=== PATIENT | female | born 1955 | race Caucasian/White ===

== ENCOUNTER → 2016-09-21 | Outpatient (CLI) | payer OTHER ==
[~2016-09-21] MED LIST: *MAMMOGRAM; /ESOM40CA PO; ADVI200C5 PO; ADVI200T PO; ALPRPOW4; AMBI10TA PO; ASPI1TAB PO; ASPI81TA45 PO; ASPI81TA85 PO; ATIV1TAB7 PO; ATOM40CA PO; BACTRIMDS PO; BENTYL10 PO; CAHNTIXC PO; CIPR500T89 PO; COLA100C PO; COLA100C2; COLACE PO; CONCERTA PO; CYMB60CA3 PO; D200CAP3 PO; DILA2TAB2 PO; DIPH2.5L PO; DOCU10CA PO; DOXE10CA2; DOXE50CA2; DOXE75CA; DURAGE TOPICAL; ESTR5TDPCH; ESTR62CR; FENT100D25; FENTANYL; FLAG500T PO; HYDR25T PO; IMMODIUM; LISI25TA PO; LYRI100C10 PO; LYRI150C PO; MACROBID PO; MAMMOGRAM; METH18TA2 PO; MILK THISTLE; MINI1CAP PO; MIRA3350 PO; MORP10SU; NEXIUM40 PO; NICO21DI4; NICO4LOZ8 MT; NICOTROLIN INHAL; OXYBUTIN PO; OXYC60TA8 PO; OXYCON20 PO; PAMELOR10 PO; PHENERG RECTALLY; PHENERGA25 PO; POTASSIUM PO; PREG100CA; PREG25CA; PRILOSEC20 PO; PROM12SU; PROTONIX40 PO; PROVERA PO; RANITIDINE PO; RITA10TA PO; RITALIN10 PO; SAVELLA; SIMV20TA2 PO; SIMV40TA2 PO; THERGRAN; TRIA1CR80 TOP; TRIAMCINOLONE; VALI2TAB PO; VITAMIN D PO; VIVELLE PO; VOLTAREN GEL; XANA1TAB2; XANA2TAB; XANA3TAB PO; XANAX PO; ZANA4CAP PO; ZOFR20TA PO; ZOLO100T PO; [UNRECOGNIZED DRUG - CODE] PO; [UNRECOGNIZED DRUG - CODE] PO; [UNRECOGNIZED DRUG - CODE] PO; [UNRECOGNIZED DRUG - CODE] RECTAL; [UNRECOGNIZED DRUG - CODE] TOPICAL; [UNRECOGNIZED DRUG - CODE] TOPICAL; [UNRECOGNIZED DRUG - CODE] TOPICAL; [UNRECOGNIZED DRUG - CODE] TOPICALLY; [UNRECOGNIZED DRUG - OTHER]; [UNRECOGNIZED DRUG - OTHER]; [UNRECOGNIZED DRUG - OTHER] -; [UNRECOGNIZED DRUG - OTHER] TOPICALLY; ditropan PO
--- NOTE | 2016-09-21 16:28 | REP ---
Low-dose lung cancer screening noncontrast chest CT study: History: At risk for lung malignancy. Comparison chest CT study is reviewed from 04/28/2007. Findings: There are old granulomatous calcific hilar lymph node residuals on the right and there is a peripheral somewhat irregularly shaped benign stable granulomatous calcification in the superior segment right lower lobe 1.5 cm in diameter unchanged from the 2007 prior study. There are granulomatous calcifications in the spleen as well also unchanged. There is linear fibrosis in both lower lobes unchanged. No other pulmonary nodule or mass lesion is seen. Impression: No active disease. Negative screening low-dose chest CT without contrast. Signed by Davis Sheth MD 09/21/2016 05:04 P
== END ==
LOC: M RAD 13:12
PROVIDERS: ATTEND Physician Assistant
DX: J84.10 Pulmonary fibrosis, unspecified (principal)

== ENCOUNTER → 2017-01-21 | Outpatient (REF) | payer OTHER ==
[~2017-01-21] MED LIST changes: -COLA100C PO; +COLA100C3 PO
[2017-01-21 17:08] LABS: BASO % 0.1 % (0.0-1.0); EOS # 0.2 K/mm3 (0.0-0.50); EOS % 2.1 % (0.0-3.0); LARGE UNSTAINED CELL # 0.1 K/mm3 (0.0-0.4); LARGE UNSTAINED CELL % 1.1 % (0.0-4.0); LYMPH # 2.3 K/mm3 (1.5-4.5); LYMPH % 23.6 % (24.0-44.0); MEAN CORPUSCULAR HEMOGLOBIN 30.7 pg (27.0-33.0); MEAN CORPUSCULAR HGB CONC 33.2 g/dl (32.0-36.5); MEAN CORPUSCULAR VOLUME 92.5 fl (80.0-96.0); MONO # 0.5 K/mm3 (0.0-0.8); MONO % 5.2 % (0.0-5.0); NEUTROPHILS # 6.6 K/mm3 (1.8-7.7); NEUTROPHILS % 67.9 % (36.0-66.0); PLATELET COUNT, AUTOMATED 251 k/mm3 (150-450); RED CELL DISTRIBUTION WIDTH 12.5 % (11.5-14.5); WHITE BLOOD COUNT 9.7 K/mm3 (4.0-10.0)
[2017-01-21 17:44] LABS: VITAMIN B12 LEVEL 235 PG/ML (247-911)
[2017-01-21 17:52] LABS: ALBUMIN 3.1 GM/DL (3.2-5.2); ALBUMIN/GLOBULIN RATIO 0.91 (1.00-1.93); ALKALINE PHOSPHATASE 100 U/L (45-117); ALT/SGPT 26 U/L (12-78); ANION GAP 8 MEQ/L (8-16); AST/SGOT 16 U/L (15-37); BILIRUBIN,TOTAL 0.2 MG/DL (0.2-1.0); BLOOD UREA NITROGEN 18 MG/DL (7-18); CALCIUM LEVEL 8.5 MG/DL (8.8-10.2); CARBON DIOXIDE LEVEL 28 MEQ/L (21-32); CHLORIDE LEVEL 106 MEQ/L (98-107); CHOLESTEROL LEVEL 174 MG/DL (<200); CREATININE FOR GFR 0.61 MG/DL (0.55-1.02); FERRITIN 101 NG/ML (8-252); FREE T4 1.06 NG/DL (0.76-1.46); GLOMERULAR FILTRATION RATE > 60.0 (>45); GLUCOSE, FASTING 93 MG/DL (80-110); MAGNESIUM LEVEL 1.6 MG/DL (1.8-2.4); POTASSIUM SERUM 3.7 MEQ/L (3.5-5.1); SODIUM LEVEL 142 MEQ/L (136-145); TOTAL PROTEIN 6.5 GM/DL (6.4-8.2); TRIGLYCERIDES LEVEL 142 MG/DL (<150)
[2017-01-22 11:57] LABS: PRETREATED FOLATE FOR RBCFOL 9.3 NG/ML
== END ==
LOC: M SFHCCAPE 07:08
PROVIDERS: ATTEND Physician Assistant
DX: R10.11 Right upper quadrant pain (principal); G25.81 Restless legs syndrome; I10 Essential (primary) hypertension; E53.8 Deficiency of other specified B group vitamins

== ENCOUNTER → 2017-01-22 | Outpatient (CLI) | payer OTHER ==
--- NOTE | 2017-01-22 09:52 | REP ---
RIGHT UPPER QUADRANT SONOGRAPHY: HISTORY: Right upper quadrant pain. Comparison CT study is from February 24, 2014. FINDINGS: Scanning through the right upper quadrant of the abdomen demonstrates a normal sized thin-walled gallbladder without evidence of stone or polyp. Common bile duct is mildly dilated and 0.9 cm. This is similar to prior sonography from January of 2008 when the common bile duct was reported as ranging from 6-10 mm in diameter at that time. The distal common bile duct cannot be seen as it is obscured by abdominal gas. The previous CT study shows a descending duodenal diverticulum directly anterior to the distal common bile duct. No focal liver lesion is seen. The liver is not felt to be enlarged. Normal caliber aorta is seen. The head of the pancreas is obscured by abdominal gas. No pancreatic abnormality is observed. No right renal abnormality is seen. The right kidney measures 10.7 x 5.3 x 5.0 cm IMPRESSION: Mildly dilated common bile duct probably unchanged from prior sonography in 2007. Distal common bile duct obscured by gas. Pancreatic head obscured by gas. Otherwise negative right upper quadrant sonography. Signed by Davis Sheth MD 01/22/2017 05:07 P
== END ==
LOC: M RAD 08:53
PROVIDERS: ATTEND Physician Assistant
DX: R10.9 Unspecified abdominal pain (principal)

== ENCOUNTER → 2017-03-04 | Outpatient (REF) | payer OTHER ==
[~2017-03-04] MED LIST changes: +ACET1TAB17 PO; +ALPR1TAB3 PO; +AMOX875T2 PO; +ASPI81TAEC PO; +ATEN25TA PO; +CIPR-249 PO; -CIPR500T89 PO; -COLA100C3 PO; +COLA100C5 PO; +CONC27TA4 PO; -DILA2TAB2 PO; +DILA2TAB6 PO; +DITR5TAB PO; +DURA100D2 TD; +DURA75DI2 TD; +EPIN0.3I6 IM; +EPIP0.3I2 INJ; +FISH1000 PO; +FISH100049 PO; +HYDR-3363 PO; +HYDR-3713 PO; +HYDR-3719 PO; -HYDR25T PO; +LISI2.5T3 PO; -LYRI100C10 PO; +METH1TAB13 PO; +MILK175C2 PO; +MIRA33504 PO; +MULT1TAB10 PO; +OMEP40CA2 PO; +ONETAB35 PO; +OXYB5TAB10 PO; +PERCOCET PO; +PRAZ1CAP PO; +PREG100CA PO; +SLOWTAB2 PO; +TRIA1CR TOP; +VITA100072 PO; +VITA20002 PO; +XANA1TAB2 PO; +ZANA4TAB PO
== END ==
LOC: M SFHCCAPE 10:42
PROVIDERS: ATTEND Physician Assistant
DX: Z01.818 Encounter for other preprocedural examination (principal); M21.611 Bunion of right foot

== ENCOUNTER → 2017-03-07 | Outpatient (REF) | payer OTHER ==
[2017-03-07 18:16] LABS: ALBUMIN 3.6 GM/DL (3.2-5.2); ALBUMIN/GLOBULIN RATIO 0.97 (1.00-1.93); ALKALINE PHOSPHATASE 55 U/L (45-117); ALT/SGPT 44 U/L (12-78); ANION GAP 7 MEQ/L (8-16); AST/SGOT 44 U/L (15-37); BILIRUBIN,TOTAL 0.7 MG/DL (0.2-1.0); BLOOD UREA NITROGEN 12 MG/DL (7-18); CALCIUM LEVEL 9.1 MG/DL (8.8-10.2); CARBON DIOXIDE LEVEL 31 MEQ/L (21-32); CHLORIDE LEVEL 103 MEQ/L (98-107); CREATININE FOR GFR 0.68 MG/DL (0.55-1.02); GLOMERULAR FILTRATION RATE > 60.0 (>45); GLUCOSE, FASTING 82 MG/DL (80-110); POTASSIUM SERUM 4.5 MEQ/L (3.5-5.1); SODIUM LEVEL 141 MEQ/L (136-145); TOTAL PROTEIN 7.3 GM/DL (6.4-8.2)
[2017-03-07 19:37] LABS: BASO % 0.6 % (0.0-1.0); EOS # 0.1 K/mm3 (0.0-0.50); EOS % 1.6 % (0.0-3.0); LARGE UNSTAINED CELL # 0.2 K/mm3 (0.0-0.4); LARGE UNSTAINED CELL % 2.4 % (0.0-4.0); LYMPH # 2.8 K/mm3 (1.5-4.5); MEAN CORPUSCULAR HEMOGLOBIN 31.3 pg (27.0-33.0); MEAN CORPUSCULAR HGB CONC 32.9 g/dl (32.0-36.5); MEAN CORPUSCULAR VOLUME 94.9 fl (80.0-96.0); MONO # 0.5 K/mm3 (0.0-0.8); NEUTROPHILS # 3.9 K/mm3 (1.8-7.7); NEUTROPHILS % 52.4 % (36.0-66.0); PLATELET COUNT, AUTOMATED 283 k/mm3 (150-450); RED CELL DISTRIBUTION WIDTH 13.1 % (11.5-14.5); WHITE BLOOD COUNT 7.5 K/mm3 (4.0-10.0)
== END ==
LOC: M SFHCCAPE 12:59 → M LABDRAWC 13:14
PROVIDERS: ATTEND Physician Assistant
DX: Z01.818 Encounter for other preprocedural examination (principal); M21.611 Bunion of right foot

== ENCOUNTER → 2017-03-07 | Outpatient (CLI) | payer OTHER ==
--- NOTE | 2017-03-07 13:27 | REP ---
Clinical: Preoperative assessment . Comparison: 11/15/2015 . Technique: PA and lateral. Findings: The mediastinum and cardiac silhouette are normal. Airway is patent and midline. The lung salas demonstrate chronic stable changes without acute consolidation, effusion, or pneumothorax. The skeletal structures are intact and normal. Impression: No acute cardiopulmonary process.
== END ==
LOC: M CLY 12:52
PROVIDERS: ATTEND Physician Assistant
DX: Z01.818 Encounter for other preprocedural examination (principal)

== ENCOUNTER → 2017-03-11 | Day surgery (SDC) | payer OTHER ==
[~2017-03-11] VITALS: Ht 170.2 cm; Wt 61.2 kg
[~2017-03-11] MED LIST changes: +BACITRACIN PWD 50,000 UNITS VIAL As Ordered ONE; +BUPIVACAINE HCL 0.5% 30 ML VIAL As Ordered ONE; +GLYCOPYRROLATE INJ 0.2 MG/ML 2 ML VIAL As Ordered ONE; +LIDOCAINE 1% MDV 20ML VIAL As Ordered ONE; +LIDOCAINE 2% INJ 100 MG/5 ML SDV (FOR ANES.) As Ordered ONE; +LR 1,000 ML IV ONE; +LR 1,000 ML IV SCH; +MIDAZOLAM INJ 2 MG/2 ML VIAL (J2250) As Ordered ONE; +NEOSPORIN GU IRRIG 20 ML VIAL As Ordered ONE; +ONDANSETRON 4MG/2ML VIAL (J2405) As Ordered ONE; +PERCOCET 5MG/325MG TAB PO PRN; +PROPOFOL 200 MG/20 ML VIAL As Ordered ONE; +dexameTHASONE 4 MG/ML 1ML VIAL (J1100) As Ordered ONE; +fentaNYL 100 MCG/2 ML INJECTION (J3010) As Ordered ONE
--- NOTE | 2017-03-11 11:39 | RO ---
DATE OF PROCEDURE: 03/11/2017 PREPROCEDURE DIAGNOSES: Bilateral plantar fasciitis and right foot bunion. POSTPROCEDURE DIAGNOSES: Bilateral plantar fasciitis and right foot bunion. PROCEDURE: Bilateral endoscopic plantar fascia release and right bunionectomy with first metatarsal osteotomy. SURGEON: Davis Weinberg DPM CURTAIN STRETCHER: None. ANESTHESIA: Monitored anesthesia care with preoperative injection of 30 mL of 1:1 mixture of 1% lidocaine plain and 1/2% Marcaine plain. ESTIMATED BLOOD LOSS: Minimal. MATERIALS: Arthrex 3.5 headless screw, a 3.5 K wire, #3-0 and #4-0 Vicryl, #4-0 Nylon. INJECTABLE: None. COMPLICATIONS: None. CONDITION: Stable. Roxanne Banda is a 62-year-old female who presented to [facility] with complaints of painful bunion and painful plantar fascitis to both heels. She has underwent numerous conservative therapies without relief. She is then sedated for surgical correction. The patient side and site were identified and marked in the preoperative holding area. Consent was reviewed and obtained. All risks, complications and alternatives to the procedure were explained to the patient in detail and all questions were answered. DESCRIPTION OF PROCEDURE: The patient was brought to the operating room and placed on the operating room table in supine position. Monitored anesthesia care was delivered by the anesthesia team. The patient received Ancef preoperatively. Preoperative injection of 30 mL of 1:1 mixture of 1% lidocaine plain and 1/2% Marcaine plain were injected to the both feet. Both feet were prepped and draped in a normal sterile fashion. Tourniquet was applied to both ankles. Tourniquet was inflated to 250 mmHg. A medial incision was made at the medial heel. Hemostat was used to create plane inferior to the plantar fascia followed by the trocar with the cannula of the trocar inserted in the medial portal and a small incision was made on the lateral heel following exit point for the cannula and trocar. The trocar was removed leaving the cannula in place. The camera was inserted and the plantar fascia was visualized. This was released with the Endotrac blade approximately two-thirds of the way across from medial to lateral leaving the one-third lateral side intact. Release was noted under direct visualization. The site was irrigated with normal saline. Cannula was removed and the incisions were repeated with #4-0 Nylon. Tourniquet was deflated on the left side. The tourniquet was inflated on the right side. Similar incision was made on the medial side of the heel. Hemostat created a plane for the trocar. The trocar was inserted and stab incision was made allowing the cannula to exit the lateral heel. The trocar was removed. The camera was inserted. Again the plantar fascia was visualized and this was released two-thirds of the way across with the Endotrac blade. Site was irrigated with saline. Cannula was removed and the incisions were repeated with #4-0 Nylon. Next a dorsal medial incision was drawn for the first metatarsal head carried through with a #15 blade. Dissection was carried until the metatarsal phalangeal joint capsule was identified. T capsulotomy was performed exposing the metatarsal head. Next, a lateral release was performed releasing the adductor tendon, lateral capsule and sesamoidal ligaments and the Glamour elevator was used to release the plantar structures. The medial eminence was resected with the sagittal saw and an osteotomy was performed in the metatarsal head transposing it laterally. This was fixated with an Arthrex 3.5 headless screw. A bone cyst was noted in the metatarsal head and neck. Additional fixation of 3.5 K wire was inserted. This was cut and bent. Improvement in the rigidity of the fixation was noted following this. The cyst was packed with cancellous and cortical bone from the eminence resection. Small wedge of capsule was removed from medial capsule. Capsular repair was performed with #3-0 Vicryl, subcutaneous closed with #4-0 Vicryl and skin closed with #4-0 Nylon. 1 mL of Decadron was injected to each site. Sterile dressings were applied. Tourniquet was deflated. The patient was brought to post anesthesia care unit (PACU) with vital signs stable and neurovascular status intact. She will be partial weightbearing to her right foot. She will followup in the office in two days.
[2017-03-11 11:40] VITALS: BP 168/74
== END | disposition home or self-care (01) ==
LOC: M SDC 08:21 → EEVIPCON 09:00
PROVIDERS: ATTEND Podiatrist Foot & Ankle Surgery
DX: M72.2 Plantar fascial fibromatosis (principal); M21.611 Bunion of right foot; K21.9 Gastro-esophageal reflux disease without esophagitis; F43.10 Post-traumatic stress disorder, unspecified; F41.9 Anxiety disorder, unspecified; M79.7 Fibromyalgia; Z87.891 Personal history of nicotine dependence; Z79.82 Long term (current) use of aspirin; Z79.899 Other long term (current) drug therapy; Z88.0 Allergy status to penicillin; Z88.2 Allergy status to sulfonamides; Z88.5 Allergy status to narcotic agent; Z88.8 Allergy status to other drugs, medicaments and biological substances
CPT/HCPCS: 28296; 29893; 88300; 97116; C1776

== ENCOUNTER 2017-07-01 16:22 | Inpatient (IN) | payer OTHER ==
[~2017-07-01] VITALS: Ht 172.7 cm; Wt 57.4 kg
[~2017-07-01 16:22] MED LIST changes: -ACET1TAB17 PO; -AMOX875T2 PO; -ASPI81TAEC PO; -ATEN25TA PO; -BACITRACIN PWD 50,000 UNITS VIAL As Ordered ONE; -BUPIVACAINE HCL 0.5% 30 ML VIAL As Ordered ONE; -CONC27TA4 PO; -DURA75DI2 TD; -EPIN0.3I6 IM; -EPIP0.3I2 INJ; -FISH1000 PO; -FISH100049 PO; -GLYCOPYRROLATE INJ 0.2 MG/ML 2 ML VIAL As Ordered ONE; -LIDOCAINE 1% MDV 20ML VIAL As Ordered ONE; -LIDOCAINE 2% INJ 100 MG/5 ML SDV (FOR ANES.) As Ordered ONE; -LR 1,000 ML IV ONE; -LR 1,000 ML IV SCH; -METH1TAB13 PO; -MIDAZOLAM INJ 2 MG/2 ML VIAL (J2250) As Ordered ONE; -MILK175C2 PO; -MIRA33504 PO; -NEOSPORIN GU IRRIG 20 ML VIAL As Ordered ONE; -ONDANSETRON 4MG/2ML VIAL (J2405) As Ordered ONE; -ONETAB35 PO; -OXYB5TAB10 PO; -PERCOCET 5MG/325MG TAB PO PRN; -PERCOCET PO; -PROPOFOL 200 MG/20 ML VIAL As Ordered ONE; -SLOWTAB2 PO; -TRIA1CR TOP; -VITA100072 PO; -VITA20002 PO; -ZANA4TAB PO; -dexameTHASONE 4 MG/ML 1ML VIAL (J1100) As Ordered ONE; -fentaNYL 100 MCG/2 ML INJECTION (J3010) As Ordered ONE
[2017-07-01] MEDS ORDERED: NS 1,000 ML IV ONE (17:45)
[2017-07-01] MEDS ORDERED: PERCOCET 5MG/325MG TAB PO ONE (17:45)
[2017-07-01] MEDS ORDERED: ONDANSETRON 4MG/2ML VIAL (J2405) IV ONE (18:15)
--- NOTE | 2017-07-01 18:20 | REPUSA ---
Clinical history: Right upper quadrant pain. Findings: The pancreas is limited in visualization secondary to overlying bowel gas, but appears janell sly unremarkable. The liver demonstrates uniform echotexture and echogenicity, with no mass lesions. The gallbladder does not demonstrate any gallstones. There is a small amount of gallbladder sludge. H owever, there is a positive Aguilera's sign. The common bile duct measures 11 mm. There is no ascites. The right kidney measures 11.5 cm in length and is unremarkable. Impression: 1. Gallbladder sludge, without any gallstones. Aguilera's sign was elicited. 2. Dilated common bile duct. If there is further clinical concern, MRCP could be performed.
[2017-07-01] MEDS ORDERED: VITA20002 PO (18:39)
[2017-07-01] MEDS ORDERED: FISH1000 PO (18:39)
[2017-07-01] MEDS ORDERED: ONETAB35 PO (18:39)
[2017-07-01] MEDS ORDERED: ATEN25TA PO (18:39)
[2017-07-01] MEDS ORDERED: SLOWTAB2 PO ×2 (18:39→20:42)
[2017-07-01] MEDS ORDERED: MILK175C2 PO ×2 (18:39→20:42)
[2017-07-01] MEDS ORDERED: EPIN0.3I6 IM (18:39)
[2017-07-01] MEDS ORDERED: COLA100C5 PO ×2 (18:39→20:42)
[2017-07-01] MEDS ORDERED: METH1TAB13 PO (18:39)
[2017-07-01 19:02] LABS: MEAN CORPUSCULAR HEMOGLOBIN 29.9 pg (27.0-33.0); MEAN CORPUSCULAR HGB CONC 33.1 g/dl (32.0-36.5); MEAN CORPUSCULAR VOLUME 90.3 fl (80.0-96.0); PLATELET COUNT, AUTOMATED 207 10^3/uL (150-450); RED CELL DISTRIBUTION WIDTH 12.7 % (11.5-14.5); WHITE BLOOD COUNT 15.6 10^3/uL (4.0-10.0)
[2017-07-01 19:14] LABS: ADD MANUAL DIFFER YES; DIFF SLIDE NUMBER 272; LEFT SHIFT POS FLAG; POSITIVE MORPH POS FLAG
[2017-07-01 19:27] LABS: INR 1.06
[2017-07-01 19:33] LABS: ALBUMIN 2.9 GM/DL (3.2-5.2); ALBUMIN/GLOBULIN RATIO 0.78 (1.00-1.93); ALKALINE PHOSPHATASE 57 U/L (45-117); ALT/SGPT 27 U/L (12-78); AMYLASE 40 U/L (25-115); ANION GAP 7 MEQ/L (8-16); AST/SGOT 29 U/L (7-37); BILIRUBIN,DIRECT 0.5 MG/DL (0.0-0.2); BLOOD UREA NITROGEN 25 MG/DL (7-18); CALCIUM LEVEL 9.2 MG/DL (8.8-10.2); CARBON DIOXIDE LEVEL 31 MEQ/L (21-32); CHLORIDE LEVEL 103 MEQ/L (98-107); CREATININE FOR GFR 0.55 MG/DL (0.55-1.02); GLOMERULAR FILTRATION RATE > 60.0 (>45); GLUCOSE, FASTING 133 MG/DL (80-110); POTASSIUM SERUM 3.8 MEQ/L (3.5-5.1); SODIUM LEVEL 141 MEQ/L (136-145); TOTAL PROTEIN 6.6 GM/DL (6.4-8.2)
[2017-07-01 19:41] LABS: BANDS 1 % (< 11)
[2017-07-01] MEDS ORDERED: HYDROmorphone HCL 1 MG/ML SYRINGE (J1170) IV PRN (20:00)
[2017-07-01] MEDS ORDERED: METOCLOPRAMIDE INJ 10MG/2ML VIAL (J2765) IV ONE (20:00)
[2017-07-01] MEDS ORDERED: PIPERACILLIN/TAZOBACTAM SOD 3.375 GM in D5W 50 ML IV ONE (20:15)
[2017-07-01] MEDS ORDERED: ISOVUE-370 76% 100ML VIAL (Q9967) As Ordered ONE (20:26)
[2017-07-01] MEDS ORDERED: DURA75DI2 TD (20:42)
[2017-07-01] MEDS ORDERED: TRIA1CR TOP (20:42)
[2017-07-01] MEDS ORDERED: OXYB5TAB10 PO (20:42)
[2017-07-01] MEDS ORDERED: CONC27TA4 PO (20:42)
[2017-07-01] MEDS ORDERED: ZANA4TAB PO (20:42)
[2017-07-01] MEDS ORDERED: EPIP0.3I2 INJ (20:42)
[2017-07-01] MEDS ORDERED: ACET1TAB17 PO (20:42)
[2017-07-01] MEDS ORDERED: LISI2.5T3 PO (20:42)
[2017-07-01] MEDS ORDERED: MIRA33504 PO (20:42)
[2017-07-01] MEDS ORDERED: ALPR1TAB3 PO (20:42)
[2017-07-01] MEDS ORDERED: OMEP40CA2 PO (20:42)
[2017-07-01] MEDS ORDERED: SIMV20TA2 PO (20:42)
[2017-07-01] MEDS ORDERED: FISH100049 PO (20:42)
[2017-07-01] MEDS ORDERED: VITA100072 PO (20:42)
[2017-07-01] MEDS: NS 1,000 ML IV SCH (20:52)
[2017-07-01] MEDS ORDERED: ONDANSETRON 4MG/2ML VIAL (J2405) IV PRN (21:00)
[2017-07-01] MEDS ORDERED: TRIAMCINOLONE ACET 0.1% CREAM 15 GM TOP PRN (21:00)
[2017-07-01] MEDS ORDERED: fentaNYL 75 MCG/HR PATCH TD PRN (21:00)
[2017-07-01] MEDS ORDERED: DOCUSATE SODIUM 100 MG CAP PO PRN (21:00)
[2017-07-01] MEDS ORDERED: PROMETHAZINE INJ 25 MG/ML VIAL (J2550) IV PRN (21:00)
[2017-07-01] MEDS ORDERED: METOCLOPRAMIDE INJ 10MG/2ML VIAL (J2765) IV PRN (21:00)
[2017-07-01] MEDS ORDERED: PIPERACILLIN/TAZOBACTAM SOD 3.375 GM in D5W 50 ML IV SCH (21:00)
[2017-07-01] MEDS ORDERED: FENTANYL REMOVAL DOCUMENTATION MISC XX SCH (21:00)
--- NOTE | 2017-07-01 21:27 | HPE ---
DATE OF ADMISSION: 07/01/2017 PRINCIPAL DIAGNOSIS: Abdominal pain with nausea and vomiting times 5 days and elevated white count. HISTORY OF PRESENT ILLNESS: The patient came to the emergency room with a 5-day history of abdominal pain, nausea, vomiting, mostly in the epigastric area and was evaluated in the emergency room, had an abdominal ultrasound which showed some gallbladder sludge, no evidence of pericholecystic fluid, however she did have a slightly dilated common bile duct and did have some mild tenderness in the right upper quadrant with palpation. She has a history of hepatitis however, her liver function tests are not significantly elevated. Her past medical history, she has not had any acholic stools. No bilirubinuria. No GI distress except nausea, vomiting. No diarrhea or constipation issues more than typical. Past medical history is significant for history of cardiac catheterization, history of tonsillectomy, history of section, history of headaches, history of congestive heart failure, history of hypertension, history of hysterectomy, history of hepatitis C, history of fibromyalgia, history of anxiety, depression, history of posttraumatic stress disorder. Medications include: - EpiPen - triamcinolone acetonide - simvastatin - milk thistle - fish oil - MiraLax - Tylenol - Prilosec - Colace - oxybutynin chloride - lisinopril - magnesium chloride - vitamin B12 - Concerta - fentanyl - alprazolam - tizanidine hydrochloride Physical examination reveals a thin 62-year-old female who looks much older than stated age. HEENT is unremarkable. Neck supple without adenopathy. Lungs are clear to auscultation without crackles, wheezes or rhonchi. Heart is regular without murmur. Abdomen is soft, mildly tender in the epigastric area with some guarding without rebound. No peritoneal signs are appreciated. She has some mild tenderness in the left subcostal as well as the right subcostal area. IMPRESSION AND PLAN: Patient has some abdominal pain of undetermined etiology with an elevated white count. Her ultrasound was positive for a Aguilera sign but there is no pericholecystic fluid and no inflammatory changes within the gallbladder itself which is suspicious for ongoing pain going on for at least 5 days, suggesting that typically with abdominal pain of this severity that she should have some inflammatory changes but none was appreciated on the gallbladder ultrasound, suggesting that there may be some other etiology for this, i.e., probably gastritis or duodenitis as an etiology. In any case, we will empirically treat her for cholecystitis at this time and treat her aggressively for some possible gastritis as another etiology. Given her complicated medical history in the past and my concern of significant pain medication use, the pain may be out of proportion to physical findings or she may have some underlying issue associated with her chronic hepatitis C that would be better evaluated by a CT scan. Will obtain a CT scan tonight, place her on IV fluids, IV antibiotics, and will reevaluate her on an ongoing basis.
[2017-07-01] MEDS: PERCOCET 5MG/325MG TAB PO PRN (21:52)
[2017-07-01 22:30] VITALS: BP 126/58
--- NOTE | 2017-07-01 22:30 | REPUSA ---
CT of the abdomen and pelvis with contrast Clinical statement: Pain. Technique: Multiple axial CT images were obtained from the base of the lungs through the floor of the pelvis utilizing 5 mm axial slices after administration of nonionic intravenous contrast. Coronal an d sagittal reconstructions were also obtained. No comparison is available. Findings: Chest: The visualized lung bases demonstrate bilateral lower lobe infiltrates. The esophagus is dilat ed with fluid. Abdomen: The liver, spleen, pancreas, kidneys, and adrenal glands are unremarkable. The gallbladder i s distended, but no gallstones are identified. The common bile duct is dilated measuring up to 13 mm. The aorta is within normal limits. There is no evidence of abdominal lymphadenopathy or ascites. Pelvis: The bowel is unremarkable, with no obstructive or inflammatory changes. The appendix is kip l. The urinary bladder is within normal limits. The other pelvic structures appear grossly intact. Th ere is no evidence of pelvic lymphadenopathy or ascites. Bones: There are no suspicious osseous abnormalities seen. There is mild degenerative disc disease at L5/S1. Impression: 1. Bilateral lower lobe infiltrates consistent with pneumonia. 2. Fluid within a dilated distal esophagus, suspicious for achalasia. 3. Distended gallbladder. Extrahepatic biliary ductal dilatation. No gallstones identified. If there is further clinical concern, ultrasound could be performed. 4. No obstructive or inflammatory bowel changes. 5. Mild degenerative disc disease at L5/S1.
[2017-07-02] VITALS (7 sets, daily range): BP systolic 94–147; BP diastolic 51–76
[2017-07-02] MEDS: ALPRAZolam 0.25 MG TAB PO SCH ×3 (00:38→20:23)
[2017-07-02] MEDS: SIMVASTATIN 20 MG TAB PO SCH ×2 (00:38→20:24)
[2017-07-02] MEDS: PANTOPRAZOLE 40MG INJ (PROTONIX) (C9113) IV SCH ×3 (00:39→20:23)
[2017-07-02] MEDS: PIPERACILLIN/TAZOBACTAM SOD 3.375 GM in D5W 50 ML IV SCH ×4 (02:59→20:23)
[2017-07-02] MEDS: NS 1,000 ML IV SCH ×3 (05:18→20:52)
[2017-07-02] MEDS ORDERED: SUCRALFATE 1 GM TAB PO SCH (06:00)
[2017-07-02 06:34] LABS: MEAN CORPUSCULAR HEMOGLOBIN 29.7 pg (27.0-33.0); MEAN CORPUSCULAR HGB CONC 32.3 g/dl (32.0-36.5); MEAN CORPUSCULAR VOLUME 91.9 fl (80.0-96.0); PLATELET COUNT, AUTOMATED 178 10^3/uL (150-450); RED CELL DISTRIBUTION WIDTH 12.7 % (11.5-14.5); WHITE BLOOD COUNT 11.2 10^3/uL (4.0-10.0)
[2017-07-02 06:52] LABS: ALBUMIN 2.4 GM/DL (3.2-5.2); ALBUMIN/GLOBULIN RATIO 0.57 (1.00-1.93); ALKALINE PHOSPHATASE 50 U/L (45-117); ALT/SGPT 22 U/L (12-78); ANION GAP 3 MEQ/L (8-16); AST/SGOT 23 U/L (7-37); BILIRUBIN,TOTAL 0.9 MG/DL (0.2-1.0); BLOOD UREA NITROGEN 22 MG/DL (7-18); CARBON DIOXIDE LEVEL 34 MEQ/L (21-32); CHLORIDE LEVEL 104 MEQ/L (98-107); CREATININE FOR GFR 0.59 MG/DL (0.55-1.02); GLOMERULAR FILTRATION RATE > 60.0 (>45); GLUCOSE, FASTING 90 MG/DL (80-110); POTASSIUM SERUM 3.4 MEQ/L (3.5-5.1); SODIUM LEVEL 141 MEQ/L (136-145); TOTAL PROTEIN 6.6 GM/DL (6.4-8.2)
[2017-07-02] MEDS: oxyBUTYnin 5 MG TAB PO SCH (08:34)
[2017-07-02] MEDS: LISINOPRIL *2.5 MG* TAB PO SCH (08:34)
[2017-07-02] MEDS: SUCRALFATE 1 GM TAB PO SCH ×4 (08:34→20:23)
[2017-07-02] MEDS: PERCOCET 5MG/325MG TAB PO PRN ×3 (08:35→22:03)
--- NOTE | 2017-07-02 18:02 | REP ---
MRCP: MRCP exam is accomplished utilizing multiple heavily T2-weighted sequences in the axial and coronal planes. The gallbladder is moderated dilated with no definite gallbladder wall edema and no definite filling defect. There is mild intrahepatic biliary dilatation. There is dilatation of the common hepatic and common bile duct. Maximum diameter of the common bile duct is 11 mm. There is relatively sharper zone of transition at the distal end of the common bile duct with no visible intraluminal filling defect. However, I cannot exclude an underlying abnormality at the ampulla of Vater. I cannot exclude a stone or stricture at that location. Correlating with the CT scan, there is a fairly large duodenal diverticulum just anterior to the distal end of the common bile duct and I wonder if there may be some degree of compression of the common bile duct by this duodenal diverticulum. The pancreatic duct is not dilated. The liver, spleen, adrenals, pancreas, and kidney otherwise appear essentially unremarkable. I see no adenopathy. There is a small hiatal hernia. I do not see significant ascites although there does appear to be trace free fluid around the liver. IMPRESSION: Mild central intrahepatic biliary dilatation. Dilation of the common bile duct up to 11 mm. There is relatively abrupt transition of caliber at the distal end of the common bile duct and an underlying stone or stricture at the ampulla of Vater cannot totally be excluded. Correlating with CT scan of 07/01/2017, I wonder if there could be some compression of the distal end of the common bile duct by a large duodenal diverticulum just anterior to it. There is a definite increase in the degree of dilatation compared to the prior CT of 02/24/2014. Signed by Jorge Ovalle MD 07/04/2017 02:33 P
[2017-07-03] VITALS (7 sets, daily range): BP systolic 96–130; BP diastolic 50–70
[2017-07-03] MEDS: PIPERACILLIN/TAZOBACTAM SOD 3.375 GM in D5W 50 ML IV SCH ×4 (02:05→21:06)
[2017-07-03] MEDS: PERCOCET 5MG/325MG TAB PO PRN ×4 (03:04→21:40)
[2017-07-03 05:54] LABS: MEAN CORPUSCULAR HEMOGLOBIN 29.9 pg (27.0-33.0); MEAN CORPUSCULAR HGB CONC 31.9 g/dl (32.0-36.5); MEAN CORPUSCULAR VOLUME 93.4 fl (80.0-96.0); PLATELET COUNT, AUTOMATED 173 10^3/uL (150-450); RED CELL DISTRIBUTION WIDTH 12.6 % (11.5-14.5); WHITE BLOOD COUNT 7.2 10^3/uL (4.0-10.0)
[2017-07-03 06:20] LABS: ALBUMIN 1.9 GM/DL (3.2-5.2); ALBUMIN/GLOBULIN RATIO 0.53 (1.00-1.93); ALKALINE PHOSPHATASE 41 U/L (45-117); ALT/SGPT 18 U/L (12-78); ANION GAP 3 MEQ/L (8-16); AST/SGOT 19 U/L (7-37); BILIRUBIN,TOTAL 0.6 MG/DL (0.2-1.0); BLOOD UREA NITROGEN 13 MG/DL (7-18); CALCIUM LEVEL 8.2 MG/DL (8.8-10.2); CARBON DIOXIDE LEVEL 32 MEQ/L (21-32); CHLORIDE LEVEL 106 MEQ/L (98-107); CREATININE FOR GFR 0.49 MG/DL (0.55-1.02); GLOMERULAR FILTRATION RATE > 60.0 (>45); GLUCOSE, FASTING 76 MG/DL (80-110); POTASSIUM SERUM 3.3 MEQ/L (3.5-5.1); SODIUM LEVEL 141 MEQ/L (136-145); TOTAL PROTEIN 5.5 GM/DL (6.4-8.2)
[2017-07-03] MEDS: ALPRAZolam 0.25 MG TAB PO SCH ×2 (08:37→21:05)
[2017-07-03] MEDS: SUCRALFATE 1 GM TAB PO SCH ×4 (08:37→21:05)
[2017-07-03] MEDS: oxyBUTYnin 5 MG TAB PO SCH (08:37)
[2017-07-03] MEDS: PANTOPRAZOLE 40MG INJ (PROTONIX) (C9113) IV SCH ×2 (08:37→21:05)
[2017-07-03] MEDS: LISINOPRIL *2.5 MG* TAB PO SCH (08:41)
[2017-07-03] MEDS ORDERED: INFLUENZA QUADRIVALENT PF VACCINE 0.5ML SYRINGE (90686) IM ONE (09:00)
[2017-07-03] MEDS: POTASSIUM CHLORIDE 10 MEQ SR TABLET PO SCH (09:38)
[2017-07-03] MEDS: NS 1,000 ML IV SCH ×3 (10:00→21:06)
--- NOTE | 2017-07-03 11:06 | IPNPDOC ---
Subjective General Date/Time Seen The patient was seen on 07/03/17 at 10:59. Subject Chief Complaint/History The patient is a 62-year-old female admitted with a reason for visit of Abdominal Pain. Current Medications Current Medications Current Medications Alprazolam (Xanax) 1 mg BID PO Last administered on 07/03/17 08:37; Start at 21:00; Stop 07/08/17 at 20:59 Docusate Sodium (Colace) 100 mg DAILY PRN PO CONSTIPATION; Start 07/01/17 at 21:00; Stop 07/31/17 at 20:59 Fentanyl (Duragesic) 75 mcg Q3DP PRN TD PAIN OR FEVER; Start 07/01/17 at 21:00 ; Stop 07/02/17 at 10:22; Status DC Home Med (Med Rec Complete!) ASDIRECTED XX ; Start 07/01/17 at 20:45; Stop at 20:47; Status DC Hydromorphone HCl (Dilaudid) 0.5 mg Q30M PRN IV MODERATE PAIN (PS 5-7) Last administered on 07/01/17 22:11; Start 07/01/17 at 20:00; Stop 07/01/17 at 22 :42; Status DC Lisinopril (Prinivil) 2.5 mg DAILY PO Last administered on 07/03/17 08:41; Start 07/02/17 at 09:00; Stop 08/01/17 at 08:59 Metoclopramide HCl (REGLAN INJection) 10 mg Q6HP PRN IV NAUSEA OR VOMITING Last administered on 07/02/17 01:09; Start 07/01/17 at 21:00; Stop 07/31/17 at 20:59 Non-Formulary Medication ( See Comment Field Below ) SEE COMMENTS SECTION ASDIRECTED XX ; Start 07/01/17 at 21:00; Stop 07/02/17 at 10:22; Status DC Ondansetron HCl (ZOFRAN INJection) 4 mg Q6HP PRN IV NAUSEA OR VOMITING Last administered on 07/02/17 06:21; Start 07/01/17 at 21:00; Stop 07/31/17 at 20 :59 Oxybutynin Chloride (Ditropan) 5 mg DAILY PO Last administered on 07/03/17 08: 37; Start 07/02/17 at 09:00; Stop 08/01/17 at 08:59 Oxycodone/ Acetaminophen (Percocet 5mg/ 325mg Tablet) 1 tab Q4HP PRN PO MODERATE PAIN (PS 5-7) Last administered on 07/02/17 22:03; Start 07/01/17 at 21:00; Stop 07/08/17 at 20:59 Oxycodone/ Acetaminophen (Percocet 5mg/ 325mg Tablet) 2 tab Q6HP PRN PO SEVERE PAIN (PS 8-10) Last administered on 07/03/17 08:39; Start 07/01/17 at 21:00; Stop 07/08/17 at 20:59 Pantoprazole Sodium (Protonix) 40 mg BID IV Last administered on 07/03/17 08: 37; Start 07/01/17 at 21:00; Stop 07/31/17 at 20:59 Piperacillin Sod/ Tazobactam Sod 3.375 gm/Dextrose 50 ml @ 50 mls/hr Q6H IV ; Start 07/01/17 at 21:00; Stop 07/01/17 at 21:03; Status DC Piperacillin Sod/ Tazobactam Sod 3.375 gm/Dextrose 50 ml @ 50 mls/hr Q6H IV Last administered on 07/03/17 08:37; Start 07/02/17 at 03:00; Stop 07/09/17 at 02:59 Potassium Chloride (Micro-K Extencaps) 10 meq DAILY PO Last administered on 09:38; Start 07/03/17 at 09:00; Stop 08/02/17 at 08:59 Promethazine HCl (PHENERGAN INJection) 12.5 mg Q6HP PRN IV NAUSEA Last administered on 07/01/17 22:11; Start 07/01/17 at 21:00; Stop 07/31/17 at 20 :59 Simvastatin (Zocor) 20 mg QHS PO Last administered on 07/02/17 20:24; Start 07/01/17 at 21:00; Stop 07/31/17 at 20:59 Sodium Chloride 1,000 ml @ 125 mls/hr Q8H IV Last administered on 11/1/17at 10 :00; Start 07/01/17 at 20:52; Stop 07/31/17 at 20:51 Sucralfate (Carafate) 1 gm ACHS PO ; Start 07/02/17 at 06:00; Stop 07/02/17 at 06:00; Status DC Sucralfate (Carafate) 1 gm ACHS PO Last administered on 07/03/17t 08:37; Start 07/02/17 at 07:30; Stop 08/01/17 at 07:29 Triamcinolone Acetonide (Kenalog 0.1% Cream) APPLY TO AREAS OF ECZEMA BIDP PRN TOP ECZEMA; Start 07/01/17 at 21:00; Stop 07/31/17 at 20:59 Zolpidem Tartrate (Ambien) 10 mg QHSP PRN PO INSOMNIA; Start 07/01/17 at 21:00 ; Stop 07/08/17 at 20:59 Allergies Coded Allergies: Prazosin (Verified Allergy, Intermediate, rash, 03/11/17) Morphine (Verified Allergy, Mild, skin rash, 12/16/14) Unclassified Drugs (Verified Adverse Reaction, Severe, ANTIDEPRESSANTS - SUICIDAL, 07/03/14) Naproxen (Verified Adverse Reaction, Intermediate, ABDOMINAL PAIN,BLEEDING , 12/07/12) Azithromycin (Verified Adverse Reaction, Mild, vertigo, 03/11/17) Doxycycline (Verified Adverse Reaction, Mild, diarrhea, 03/11/17) Sulfa Drugs (Verified Adverse Reaction, Mild, N/V, STOMACH PAIN, 12/07/12) Sulfacetamide (Verified Adverse Reaction, Mild, DIARRHEA, 12/16/14) Sulfur (Verified Adverse Reaction, Mild, DIARRHEA, 12/16/14) Objective Physical Examination Examination GENERAL APPEARANCE:[Patient seen, laying in bed, awake, alert, and oriented. Comfortable, in no acute distress]. SKIN: [Warm and moist]. HEENT: [Normocephalic, atraumatic. [place] palpebral conjunctiva, anicteric sclerae. Lips and mucosa appear moist]. NECK: [Supple, no thyromegaly. No obvious jugular venous distention]. LUNGS: [Clear to auscultation bilaterally. No wheezing appreciated]. HEART: [No chest wall abnormalities. Regular rate and rhythm with no murmurs appreciated]. ABDOMEN: Abdomen is , soft, . [No hepatosplenomegaly. No umbilical or groin herniations, nondistended. No noticeable rebound or guarding. No grimacing with palpation. No rebound tenderness. No masses appreciated]. EXTREMITIES: [Extremities have no deformities. No edema identified]. Vital Signs Vital Signs Date Time Temp Pulse Resp B/P (MAP) Pulse Ox O2 Delivery O2 Flow Rate FiO2 07/03/17 10:00 98.4 60 18 112/62 (79) 96 Room Air 07/02/17 10:11 2.0 I&Os I&O- Last 24 Hours up to 6 AM 07/04/17 06:00 Intake Total 0 ml Output Total 0 ml Balance 0 ml Laboratory Data Labs 24H Laboratory Tests 2 07/03/17 05:32: Nucleated Red Blood Cells % (auto) 0.0, Anion Gap 3L, Glomerular Filtration Rate > 60.0, Blood Urea Nitrogen 13, Creatinine 0.49L, Sodium Level 141, Potassium Level 3.3L, Chloride Level 106, Carbon Dioxide Level 32, Calcium Level 8.2L, Aspartate Amino Transf (AST/SGOT) 19, Alanine Aminotransferase (ALT/ SGPT) 18, Alkaline Phosphatase 41L, Total Bilirubin 0.6, Total Protein 5.5L, Albumin 1.9#L, Albumin/Globulin Ratio 0.53L CBC/BMP Laboratory Tests 07/03/17 05:32 Red Blood Count 3.35 L, Mean Corpuscular Volume 93.4, Mean Corpuscular Hemoglobin 29.9, Mean Corpuscular Hemoglobin Concent 31.9 L, Red Cell Distribution Width 12.6, Calcium Level 8.2 L, Aspartate Amino Transf (AST/SGOT) 19, Alanine Aminotransferase (ALT/SGPT) 18, Alkaline Phosphatase 41 L, Total Bilirubin 0.6, Total Protein 5.5 L, Albumin 1.9 #L Microbiology Microbiology 07/01/17 Blood Culture - Preliminary, Resulted No growth after 24 hours . All specim... 07/01/17 Blood Culture - Preliminary, Resulted No growth after 24 hours . All specim... Impression abdominal pain/right upper quadrant pain maybe biliary colic, (no signs of inflammation on MRI) secondary to sludge She also has some mild biliary dilation on MRCP with no obviious stones. Would speak to GI for possible ERCP She can go back to her diet today JESS CARLIN MD Jul 03, 2017 11:05
[2017-07-03] MEDS ORDERED: ALPRAZolam 0.5 MG TAB PO ONE (15:45)
--- NOTE | 2017-07-03 17:30 | ECGEPIP ---
Stationary ECG Study [facility] Test Date: 2017-07-03 Pat Name: CHINO NGUYEN Department: Room: [place] [address] Gender: F Dam Tender: HALIE : 1955 Requested By: JESS Long Order Number: [id number] Reading MD: Nik Garcia Measurements Intervals [place] Rate: 68 P: 51 TX: 148 QRS: 24 QRSD: 100 T: -16 QT: 476 QTc: 510 Interpretive Statements SINUS RHYTHM Prolonged QTc MARKED T-WAVE ABNORMALITY, CONSIDER ANTERIOR ISCHEMIA MODERATE T-WAVE ABNORMALITY, CONSIDER INFERIOR ISCHEMIA QTc/T Wave changes are new since tracing done 11-15-2015 Electronically Signed On 07-03-2017 17:30:34 EDT by Nik Garcia
[2017-07-03] MEDS: SIMVASTATIN 20 MG TAB PO SCH (21:05)
[2017-07-03] MEDS: zolPIDEM TARTRATE 5 MG TAB PO PRN (22:10)
[2017-07-04] VITALS (8 sets, daily range): BP systolic 108–134; BP diastolic 58–84
[2017-07-04] MEDS: PIPERACILLIN/TAZOBACTAM SOD 3.375 GM in D5W 50 ML IV SCH ×3 (02:54→14:29)
[2017-07-04] MEDS: PERCOCET 5MG/325MG TAB PO PRN ×4 (03:40→23:53)
[2017-07-04] MEDS: NS 1,000 ML IV SCH ×3 (05:12→20:22)
[2017-07-04 05:58] LABS: MEAN CORPUSCULAR HEMOGLOBIN 29.3 pg (27.0-33.0); MEAN CORPUSCULAR HGB CONC 32.5 g/dl (32.0-36.5); MEAN CORPUSCULAR VOLUME 90.2 fl (80.0-96.0); PLATELET COUNT, AUTOMATED 181 10^3/uL (150-450); RED CELL DISTRIBUTION WIDTH 12.6 % (11.5-14.5); WHITE BLOOD COUNT 6.6 10^3/uL (4.0-10.0)
[2017-07-04 06:23] LABS: ALBUMIN 1.7 GM/DL (3.2-5.2); ALBUMIN/GLOBULIN RATIO 0.52 (1.00-1.93); ALKALINE PHOSPHATASE 44 U/L (45-117); ALT/SGPT 17 U/L (12-78); ANION GAP 6 MEQ/L (8-16); AST/SGOT 15 U/L (7-37); BILIRUBIN,TOTAL 0.3 MG/DL (0.2-1.0); BLOOD UREA NITROGEN 7 MG/DL (7-18); CALCIUM LEVEL 7.4 MG/DL (8.8-10.2); CARBON DIOXIDE LEVEL 27 MEQ/L (21-32); CHLORIDE LEVEL 109 MEQ/L (98-107); CREATININE FOR GFR 0.45 MG/DL (0.55-1.02); GLOMERULAR FILTRATION RATE > 60.0 (>45); GLUCOSE, FASTING 104 MG/DL (80-110); POTASSIUM SERUM 3.1 MEQ/L (3.5-5.1); SODIUM LEVEL 142 MEQ/L (136-145)
[2017-07-04] MEDS: PANTOPRAZOLE 40MG INJ (PROTONIX) (C9113) IV SCH ×2 (08:28→20:21)
[2017-07-04] MEDS: ALPRAZolam 0.25 MG TAB PO SCH ×2 (08:28→20:21)
[2017-07-04] MEDS: LISINOPRIL *2.5 MG* TAB PO SCH (08:29)
[2017-07-04] MEDS: SUCRALFATE 1 GM TAB PO SCH ×4 (08:32→20:21)
[2017-07-04] MEDS: ASPIRIN 81 MG ENTERIC TAB PO SCH (08:32)
[2017-07-04] MEDS: POTASSIUM CHLORIDE 10 MEQ SR TABLET PO SCH (08:32)
[2017-07-04] MEDS: oxyBUTYnin 5 MG TAB PO SCH (08:32)
[2017-07-04] MEDS ORDERED: POTASSIUM CHLORIDE 10 MEQ SR TABLET PO ONE (11:00)
[2017-07-04] MEDS ORDERED: ALPRAZolam 0.5 MG TAB PO PRN (14:00)
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
--- NOTE | 2017-07-04 15:12 | IPN ---
DATE: 07/02/2017 CHIEF COMPLAINT: Nausea and vomiting. Overall, the patient's nausea and vomiting improved substantially overnight. She states that things have been much better. Her white count dropped from 15.6 down to 11.2 and my concern on admission was that it was less likely that she had true cholecystitis, given that her abdominal pain was in the epigastric area and all across her upper abdomen and more likely to be some gastritis given her severe nausea and vomiting that she was having. Unfortunately with the given ductal dilatation, another possibility of possible ductal obstruction distally was entertained. However, with abnormal liver function tests, I am not convinced that it is high on our differential but in the very important possibility and thus, I discussed with the patient proceeding with an magnetic resonance cholangiopancreatography (MRCP). She understands the next evaluation with the MRCP and our plan for that. On her physical examination, abdomen is less tender in the epigastric area but still mildly tender to palpation. No significant guarding or rebound is appreciated. On her lung examination, she definitely is decreased at the bases and there is a question of a pneumonia on the CT scan that eventually came back last night and there is a question of some esophageal dilatation as well. IMPRESSION AND PLAN: 1. The patient has an infectious process given her elevated white count. I am not convinced it is cholecystitis but it is reasonable to treat her with antibiotics. We will continue with antibiotics now. It could be that she has an ongoing pneumonia as the other possibility and I am unsure at this time what the etiology of her infectious process it, but without a significant elevated temperature, I do feel we are making progress on this avenue. 2. Gastrointestinal (GI). She is not tolerating GI adequately at this point but I do feel that she probably has some element of gastritis. I am unsure if this inflammatory process that she has is distal esophagitis that is causing some partial obstructive symptoms instead of true achalasia. Other options of course include malignancy, etcetera, but with the acute onset of this, it seems as though it would be less likely to be an acute achalasia and more likely to be an inflammatory process. Thus, we will keep her on her Carafate as well as proton pump inhibitors and we will see what the magnetic resonance cholangiopancreatography (MRCP) shows us before proceeding with an additional evaluation/GI evaluation should that be necessary. 3. Abnormal dilated common bile duct. We are getting a MRCP today. Depending on the results of this, if there is significant dilatation as appreciated on the CT scan and the ultrasound, she may warrant an endoscopic retrograde cholangiopancreatography (ERCP) and a GI evaluation may be reasonable from this standpoint as well as an upper endoscopy unless she continues to have ongoing improvement, as she has over the last 12 hours since admission. We will see how she is doing during the day today and overnight, and depending on the MRCP, our next step will be defined.
[2017-07-04] MEDS: AUGMENTIN 875 MG TAB PO SCH (20:21)
[2017-07-04] MEDS: SIMVASTATIN 20 MG TAB PO SCH (20:21)
--- NOTE | 2017-07-04 21:06 | ECGEPIP ---
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
--- NOTE | 2017-07-04 22:39 | IPNPDOC ---
Subjective General Date/Time Seen The patient was seen on 07/04/17 at 12:27. Subject Chief Complaint/History The patient is a 62-year-old female admitted with a reason for visit of Abdominal Pain. Patient reports she is hungry. Abdominal pain is better. She is complaining of some right-sided chest pain radiating to her right shoulder. Reports this is similar chest pain she had before which is being treated with seen next with improvement. She complained of chest pain yesterday and an EKG done at that time shows some T-wave inversion which was new. She is being evaluated by the medical service regarding this. Current Medications Current Medications Current Medications Alprazolam (Xanax) 1 mg BID PO Last administered on 07/04/17 20:21; Start at 21:00; Stop 07/08/17 at 20:59 Alprazolam (Xanax) 1 mg Q6HP PRN PO anxiety Last administered on 07/04/17 14: 30; Start 07/04/17 at 14:00; Stop 07/11/17 at 13:59 Amoxicillin/ Clavulanate Potassium (Augmentin) 875 mg BID PO Last administered on 07/04/17 20:21; Start 07/04/17 at 21:00; Stop 07/11/17 at 20:59 Aspirin (Ecotrin) 81 mg DAILY PO Last administered on 07/04/17 08:32; Start 07/04/17 at 09:00; Stop 08/03/17 at 08:59 Docusate Sodium (Colace) 100 mg DAILY PRN PO CONSTIPATION; Start 07/01/17 at 21:00; Stop 07/31/17 at 20:59 Fentanyl (Duragesic) 75 mcg Q3DP PRN TD PAIN OR FEVER; Start 07/01/17 at 21:00 ; Stop 07/02/17 at 10:22; Status DC Home Med (Med Rec Complete!) ASDIRECTED XX ; Start 07/01/17 at 20:45; Stop at 20:47; Status DC Hydromorphone HCl (Dilaudid) 0.5 mg Q30M PRN IV MODERATE PAIN (PS 5-7) Last administered on 07/01/17 22:11; Start 07/01/17 at 20:00; Stop 07/01/17 at 22 :42; Status DC Lisinopril (Prinivil) 2.5 mg DAILY PO Last administered on 07/04/17 08:29; Start 07/02/17 at 09:00; Stop 08/01/17 at 08:59 Metoclopramide HCl (REGLAN INJection) 10 mg Q6HP PRN IV NAUSEA OR VOMITING Last administered on 07/02/17 01:09; Start 07/01/17 at 21:00; Stop 07/31/17 at 20:59 Non-Formulary Medication ( See Comment Field Below ) SEE COMMENTS SECTION ASDIRECTED XX ; Start 07/01/17 at 21:00; Stop 07/02/17 at 10:22; Status DC Ondansetron HCl (ZOFRAN INJection) 4 mg Q6HP PRN IV NAUSEA OR VOMITING Last administered on 07/02/17 06:21; Start 07/01/17 at 21:00; Stop 07/31/17 at 20 :59 Oxybutynin Chloride (Ditropan) 5 mg DAILY PO Last administered on 07/04/17 08: 32; Start 07/02/17 at 09:00; Stop 08/01/17 at 08:59 Oxycodone/ Acetaminophen (Percocet 5mg/ 325mg Tablet) 1 tab Q4HP PRN PO MODERATE PAIN (PS 5-7) Last administered on 07/04/17 17:12; Start 07/01/17 at 21:00; Stop 07/08/17 at 20:59 Oxycodone/ Acetaminophen (Percocet 5mg/ 325mg Tablet) 2 tab Q6HP PRN PO SEVERE PAIN (PS 8-10) Last administered on 07/04/17 11:04; Start 07/01/17 at 21:00; Stop 07/08/17 at 20:59 Pantoprazole Sodium (Protonix) 40 mg BID IV Last administered on 07/04/17 20: 21; Start 07/01/17 at 21:00; Stop 07/31/17 at 20:59 Piperacillin Sod/ Tazobactam Sod 3.375 gm/Dextrose 50 ml @ 50 mls/hr Q6H IV ; Start 07/01/17 at 21:00; Stop 07/01/17 at 21:03; Status DC Piperacillin Sod/ Tazobactam Sod 3.375 gm/Dextrose 50 ml @ 50 mls/hr Q6H IV Last administered on 07/04/17 14:29; Start 07/02/17 at 03:00; Stop 07/04/17 at 14:57; Status DC Potassium Chloride (Micro-K Extencaps) 10 meq DAILY PO Last administered on 08:32; Start 07/03/17 at 09:00; Stop 08/02/17 at 08:59 Promethazine HCl (PHENERGAN INJection) 12.5 mg Q6HP PRN IV NAUSEA Last administered on 07/01/17 22:11; Start 07/01/17 at 21:00; Stop 07/31/17 at 20 :59 Simvastatin (Zocor) 20 mg QHS PO Last administered on 07/04/17 20:21; Start 07/01/17 at 21:00; Stop 07/31/17 at 20:59 Sodium Chloride 1,000 ml @ 125 mls/hr Q8H IV Last administered on 07/04/17 20 :22; Start 07/01/17 at 20:52; Stop 07/31/17 at 20:51 Sucralfate (Carafate) 1 gm ACHS PO ; Start 07/02/17 at 06:00; Stop 07/02/17 at 06:00; Status DC Sucralfate (Carafate) 1 gm ACHS PO Last administered on 07/04/17 20:21; Start 07/02/17 at 07:30; Stop 08/01/17 at 07:29 Triamcinolone Acetonide (Kenalog 0.1% Cream) APPLY TO AREAS OF ECZEMA BIDP PRN TOP ECZEMA; Start 07/01/17 at 21:00; Stop 07/31/17 at 20:59 Zolpidem Tartrate (Ambien) 10 mg QHSP PRN PO INSOMNIA Last administered on 07/03 22:10; Start 07/01/17 at 21:00; Stop 07/08/17 at 20:59 Allergies Coded Allergies: Prazosin (Verified Allergy, Intermediate, rash, 03/11/17) Morphine (Verified Allergy, Mild, skin rash, 12/16/14) Unclassified Drugs (Verified Adverse Reaction, Severe, ANTIDEPRESSANTS - SUICIDAL, 07/03/14) Naproxen (Verified Adverse Reaction, Intermediate, ABDOMINAL PAIN,BLEEDING , 12/07/12) Azithromycin (Verified Adverse Reaction, Mild, vertigo, 03/11/17) Doxycycline (Verified Adverse Reaction, Mild, diarrhea, 03/11/17) Sulfa Drugs (Verified Adverse Reaction, Mild, N/V, STOMACH PAIN, 12/07/12) Sulfacetamide (Verified Adverse Reaction, Mild, DIARRHEA, 12/16/14) Sulfur (Verified Adverse Reaction, Mild, DIARRHEA, 12/16/14) Objective Physical Examination Examination GENERAL APPEARANCE: Appears comfortable. SKIN: [Warm and moist]. HEENT: [Normocephalic, atraumatic. [place] palpebral conjunctiva, anicteric sclerae. Lips and mucosa appear moist]. NECK: [Supple, no thyromegaly. No obvious jugular venous distention]. LUNGS: [Clear to auscultation bilaterally. No wheezing appreciated]. HEART: [No chest wall abnormalities. Regular rate and rhythm with no murmurs appreciated]. ABDOMEN: Abdomen is flat, soft, and nondistended. Minimal tenderness over the epigastric area. EXTREMITIES: [Extremities have no deformities. No edema identified]. Vital Signs Vital Signs Date Time Temp Pulse Resp B/P (MAP) Pulse Ox O2 Delivery O2 Flow Rate FiO2 07/04/17 22:00 97.3 72 19 132/67 (88) 97 Room Air 07/02/17 10:11 2.0 I&Os I&O- Last 24 Hours up to 6 AM 07/05/17 06:00 Intake Total 2250 ml Output Total 1650 ml Balance 600 ml Laboratory Data Labs 24H Laboratory Tests 2 07/04/17 01:00: Total Creatine Kinase 22L, Creatine Kinase MB 1.0, Creatine Kinase MB Relative Index 4.54H, Troponin I 0.19H 07/04/17 05:41: Troponin I 0.15#H, Nucleated Red Blood Cells % (auto) 0.0, Anion Gap 6L, Glomerular Filtration Rate > 60.0, Blood Urea Nitrogen 7, Creatinine 0.45L, Sodium Level 142, Potassium Level 3.1L, Chloride Level 109H, Carbon Dioxide Level 27, Calcium Level 7.4L, Aspartate Amino Transf (AST/SGOT) 15, Alanine Aminotransferase (ALT/SGPT) 17, Alkaline Phosphatase 44L, Total Bilirubin 0.3, Total Protein 5.0L, Albumin 1.7L, Albumin/Globulin Ratio 0.52L CBC/BMP Laboratory Tests 07/04/17 05:41 Red Blood Count 3.38 L, Mean Corpuscular Volume 90.2, Mean Corpuscular Hemoglobin 29.3, Mean Corpuscular Hemoglobin Concent 32.5, Red Cell Distribution Width 12.6, Calcium Level 7.4 L, Aspartate Amino Transf (AST/SGOT) 15, Alanine Aminotransferase (ALT/SGPT) 17, Alkaline Phosphatase 44 L, Total Bilirubin 0.3, Total Protein 5.0 L, Albumin 1.7 L Microbiology Microbiology 07/01/17 Blood Culture - Preliminary, Resulted No Growth after 72 hours. All specime... 07/01/17 Blood Culture - Preliminary, Resulted No Growth after 72 hours. All specime... Impression Abdominal pain may be related to biliary colic type pain versus biliary ductal ectasia though her LFTs are normal. I initially considered bring her to the operating room to do a laparoscopic cholecystectomy and cholangiogram. Given this episodes of chest pain with new EKG findings being worked up a think we could wait to decide on this especially since her abdominal pain is improving. So we will await workup by the medical service regarding her chest pain. Since her pain has improved I will restart her on her diet. Plan / VTE VTE Prophylaxis Ordered?: Yes JESS CARLIN MD Jul 04, 2017 22:39
[2017-07-04] MEDS: zolPIDEM TARTRATE 5 MG TAB PO PRN (23:53)
[2017-07-05 02:00] VITALS: BP 127/59
[2017-07-05 06:00] VITALS: BP 145/77
[2017-07-05 06:17] LABS: MEAN CORPUSCULAR HEMOGLOBIN 29.1 pg (27.0-33.0); MEAN CORPUSCULAR HGB CONC 32.6 g/dl (32.0-36.5); MEAN CORPUSCULAR VOLUME 89.4 fl (80.0-96.0); PLATELET COUNT, AUTOMATED 215 10^3/uL (150-450); RED CELL DISTRIBUTION WIDTH 12.7 % (11.5-14.5); WHITE BLOOD COUNT 6.7 10^3/uL (4.0-10.0)
[2017-07-05 06:35] LABS: ALBUMIN 1.7 GM/DL (3.2-5.2); ALBUMIN/GLOBULIN RATIO 0.53 (1.00-1.93); ALKALINE PHOSPHATASE 61 U/L (45-117); ALT/SGPT 15 U/L (12-78); ANION GAP 6 MEQ/L (8-16); AST/SGOT 14 U/L (7-37); BILIRUBIN,TOTAL 0.2 MG/DL (0.2-1.0); BLOOD UREA NITROGEN 5 MG/DL (7-18); CALCIUM LEVEL 7.4 MG/DL (8.8-10.2); CARBON DIOXIDE LEVEL 27 MEQ/L (21-32); CHLORIDE LEVEL 112 MEQ/L (98-107); CREATININE FOR GFR 0.39 MG/DL (0.55-1.02); GLOMERULAR FILTRATION RATE > 60.0 (>45); GLUCOSE, FASTING 101 MG/DL (80-110); POTASSIUM SERUM 3.3 MEQ/L (3.5-5.1); SODIUM LEVEL 145 MEQ/L (136-145); TOTAL PROTEIN 4.9 GM/DL (6.4-8.2)
[2017-07-05] MEDS ORDERED: POTASSIUM CHLORIDE 10 MEQ SR TABLET PO ONE (07:00)
[2017-07-05 07:47] LABS: MAGNESIUM LEVEL 1.3 MG/DL (1.8-2.4)
[2017-07-05] MEDS: ALPRAZolam 0.25 MG TAB PO SCH (08:26)
[2017-07-05] MEDS: ASPIRIN 81 MG ENTERIC TAB PO SCH (08:27)
[2017-07-05] MEDS: PERCOCET 5MG/325MG TAB PO PRN ×2 (08:27→14:59)
[2017-07-05] MEDS: SUCRALFATE 1 GM TAB PO SCH ×3 (08:27→17:29)
[2017-07-05] MEDS: PANTOPRAZOLE 40MG INJ (PROTONIX) (C9113) IV SCH (08:28)
[2017-07-05] MEDS: oxyBUTYnin 5 MG TAB PO SCH (08:28)
[2017-07-05] MEDS: AUGMENTIN 875 MG TAB PO SCH (08:28)
[2017-07-05 08:29] VITALS: BP 145/77
[2017-07-05] MEDS: POTASSIUM CHLORIDE 10 MEQ SR TABLET PO SCH (08:29)
[2017-07-05] MEDS: LISINOPRIL *2.5 MG* TAB PO SCH (08:29)
[2017-07-05 10:00] VITALS: BP 179/83
[2017-07-05 14:00] VITALS: BP_SYST 136; BP_SYST 168; BP_DIAS 62; BP_DIAS 94
[2017-07-05] MEDS: MAG SULF 1GM/100ML (MAG RUN) 1 GM in APPROPRIATE DILUENT 1 EA IV SCH ×3 (14:56→17:29)
[2017-07-05] MEDS ORDERED: ASPI81TAEC PO (15:48)
[2017-07-05] MEDS ORDERED: PERCOCET PO (15:48)
[2017-07-05] MEDS ORDERED: AMOX875T2 PO (15:48)
--- NOTE | 2017-07-13 14:45 | DSES ---
DATE OF ADMISSION: 07/01/2017 DATE OF DISCHARGE: 07/05/2017 PRINCIPAL DIAGNOSES: Abdominal pain, nausea, vomiting. ASSOCIATED DIAGNOSES: History of hepatitis C, history of cardiac catheterization, history of congestive heart failure, hypertension, hysterectomy, fibromyalgia, anxiety, depression, posttraumatic stress disorder. BRIEF HISTORY OF PRESENT ILLNESS: The patient is a 62-year-old female who presented to the emergency room after a 5-day history of abdominal pain, nausea, vomiting. Most her abdominal pain was in the epigastric area. She did have a workup in the emergency room. It revealed some gallbladder sludge but no evidence of acute cholecystitis. She did have a dilated common bile duct and had some mild tenderness in the right upper quadrant, as well as the epigastric area, on admission. HOSPITAL COURSE SUMMARY: The patient was admitted with abdominal pain of undetermined etiology, was treated with antibiotics, intravenous (IV) fluids, and she did have an elevated white count of 15,000 on admission, but this returned to normal over the next couple days. The white count of 15,000 was significantly elevated without evidence of acute inflammatory changes around the gallbladder itself. I felt that it was less likely cholecystitis. She did have normal liver function tests, and the patient was started on some clear liquids and eventually advanced to regular diet and was discharged home on a regular diet with the diagnosis of abdominal pain of undetermined etiology, possible gastritis. She had some biliary colic-type pain over the last few days on admission but was not consistent with the elevated white count; and at this point, the question is whether she has a symptomatic gallbladder disease, as well as abnormal liver function tests. Thus, she was discharged home eventually on a regular diet with plans on further outpatient evaluation/workup. MEDICATIONS AT THE TIME OF DISCHARGE: Include her usual medications, which include Tylenol, alprazolam, vitamin D, Colace, EpiPen, Duragesic patch, fish oil, lisinopril, magnesium chloride, Concerta omeprazole, oxybutynin, MiraLAX, milk thistle, simvastatin, Zanaflex, triamcinolone acetonide for eczema, as well as Augmentin, aspirin, and Percocet. She was to followup in my office in 2 weeks and followup with her primary care over the next week.
== END 2017-07-05 19:30 | disposition home or self-care (01) | DRG 241 ==
LOC: M ED 16:22 → M ED INP 20:52 → M PED 22:25 → M MSPAV 07-02 00:21
PROVIDERS: ADMIT Surgery; ATTEND Surgery
DX: K29.70 Gastritis, unspecified, without bleeding (principal); I50.9 Heart failure, unspecified; I11.9 Hypertensive heart disease without heart failure; R10.11 Right upper quadrant pain; B18.2 Chronic viral hepatitis C; M79.7 Fibromyalgia; F41.9 Anxiety disorder, unspecified; F32.9 Major depressive disorder, single episode, unspecified; F43.10 Post-traumatic stress disorder, unspecified; Z79.899 Other long term (current) drug therapy; Z95.2 Presence of prosthetic heart valve; Z88.8 Allergy status to other drugs, medicaments and biological substances; Z88.5 Allergy status to narcotic agent; Z88.2 Allergy status to sulfonamides; I51.81 Takotsubo syndrome; F17.200 Nicotine dependence, unspecified, uncomplicated; E78.5 Hyperlipidemia, unspecified

== ENCOUNTER → 2017-07-17 | Outpatient (REF) | payer OTHER ==
[~2017-07-17] MED LIST changes: +ACET1TAB17 PO; +AMOX875T2 PO; +ASPI81TAEC PO; +ATEN25TA PO; +CONC27TA4 PO; +DURA75DI2 TD; +EPIN0.3I6 IM; +EPIP0.3I2 INJ; +FISH1000 PO; +FISH100049 PO; +METH1TAB13 PO; +MILK175C2 PO; +MIRA33504 PO; +ONETAB35 PO; +OXYB5TAB10 PO; +PERCOCET PO; +SLOWTAB2 PO; +TRIA1CR TOP; +VITA100072 PO; +VITA20002 PO; +ZANA4TAB PO
[2017-07-17 17:45] LABS: ALBUMIN 3.1 GM/DL (3.2-5.2); ALBUMIN/GLOBULIN RATIO 0.74 (1.00-1.93); ALKALINE PHOSPHATASE 67 U/L (45-117); ALT/SGPT 23 U/L (12-78); ANION GAP 10 MEQ/L (8-16); AST/SGOT 30 U/L (7-37); BILIRUBIN,TOTAL 0.2 MG/DL (0.2-1.0); BLOOD UREA NITROGEN 13 MG/DL (7-18); CALCIUM LEVEL 9.2 MG/DL (8.8-10.2); CARBON DIOXIDE LEVEL 27 MEQ/L (21-32); CHLORIDE LEVEL 104 MEQ/L (98-107); CREATININE FOR GFR 0.65 MG/DL (0.55-1.02); GLOMERULAR FILTRATION RATE > 60.0 (>45); GLUCOSE, FASTING 102 MG/DL (80-110); MAGNESIUM LEVEL 1.7 MG/DL (1.8-2.4); POTASSIUM SERUM 4.2 MEQ/L (3.5-5.1); SODIUM LEVEL 141 MEQ/L (136-145); TOTAL PROTEIN 7.3 GM/DL (6.4-8.2)
[2017-07-17 18:22] LABS: BASO % 0.5 % (0.0-1.0); EOS # 0.2 10^3/uL (0.0-0.50); EOS % 2.6 % (0.0-3.0); IMMATURE GRANULOCYTE % 0.3 % (0-0); LYMPH # 2.6 10^3/uL (1.5-4.5); LYMPH % 35.8 % (24.0-44.0); MEAN CORPUSCULAR HEMOGLOBIN 28.7 pg (27.0-33.0); MEAN CORPUSCULAR HGB CONC 32.1 g/dl (32.0-36.5); MEAN CORPUSCULAR VOLUME 89.3 fl (80.0-96.0); MONO # 0.7 10^3/uL (0.0-0.8); MONO % 9.5 % (0.0-5.0); NEUTROPHILS # 3.7 10^3/uL (1.8-7.7); NEUTROPHILS % 51.3 % (36.0-66.0); PLATELET COUNT, AUTOMATED 460 10^3/uL (150-450); RED CELL DISTRIBUTION WIDTH 13.2 % (11.5-14.5); WHITE BLOOD COUNT 7.3 10^3/uL (4.0-10.0)
== END ==
LOC: M SFHCCAPE 10:57
PROVIDERS: ATTEND Physician Assistant
DX: E83.42 Hypomagnesemia (principal)

== ENCOUNTER → 2017-09-03 | Outpatient (REF) | payer OTHER ==
[2017-09-04 20:20] LABS: ALBUMIN 4.1 GM/DL (3.2-5.2); ALBUMIN/GLOBULIN RATIO 1.03 (1.00-1.93); ALKALINE PHOSPHATASE 94 U/L (45-117); ALT/SGPT 52 U/L (12-78); ANION GAP 10 MEQ/L (8-16); AST/SGOT 44 U/L (7-37); BILIRUBIN,TOTAL 0.3 MG/DL (0.2-1.0); BLOOD UREA NITROGEN 21 MG/DL (7-18); CALCIUM LEVEL 9.2 MG/DL (8.8-10.2); CARBON DIOXIDE LEVEL 28 MEQ/L (21-32); CHLORIDE LEVEL 102 MEQ/L (98-107); CREATININE FOR GFR 0.65 MG/DL (0.55-1.02); FREE T4 0.97 NG/DL (0.76-1.46); GLOMERULAR FILTRATION RATE > 60.0 (>45); GLUCOSE, FASTING 83 MG/DL (80-110); MAGNESIUM LEVEL 1.8 MG/DL (1.8-2.4); POTASSIUM SERUM 3.7 MEQ/L (3.5-5.1); SODIUM LEVEL 140 MEQ/L (136-145); TOTAL PROTEIN 8.1 GM/DL (6.4-8.2)
[2017-09-06 12:08] LABS: HIV 1&2 SCREEN CENTAUR NEGATIVE (NEGATIVE)
== END ==
LOC: M SFHCCAPE 15:38
DX: R19.5 Other fecal abnormalities (principal); R35.0 Frequency of micturition; Z11.4 Encounter for screening for human immunodeficiency virus [HIV]

== ENCOUNTER → 2017-09-09 | Outpatient (REF) | payer OTHER | LOC: M SFHCCAPE 16:04 | DX: S41.102D Unspecified open wound of left upper arm, subsequent encounter (principal); W18.30XA Fall on same level, unspecified, initial encounter; Y92.009 Unspecified place in unspecified non-institutional (private) residence as the place of occurrence of the external cause ==

== ENCOUNTER → 2017-09-10 | Outpatient (REF) | payer OTHER ==
[2017-09-10 19:59] LABS: BASO % 0.6 % (0.0-1.0); EOS # 0.1 10^3/uL (0.0-0.50); EOS % 2.1 % (0.0-3.0); HEMATOCRIT 35.2 % (36.0-47.0); HEMOGLOBIN 11.4 g/dl (12.0-16.0); IMMATURE GRANULOCYTE % 0.5 % (0-0); LYMPH # 1.3 10^3/uL (1.5-4.5); LYMPH % 21.1 % (24.0-44.0); MEAN CORPUSCULAR HEMOGLOBIN 28.6 pg (27.0-33.0); MEAN CORPUSCULAR HGB CONC 32.4 g/dl (32.0-36.5); MEAN CORPUSCULAR VOLUME 88.4 fl (80.0-96.0); MONO # 0.6 10^3/uL (0.0-0.8); MONO % 9.5 % (0.0-5.0); NEUTROPHILS # 4.2 10^3/uL (1.8-7.7); NEUTROPHILS % 66.2 % (36.0-66.0); PLATELET COUNT, AUTOMATED 261 10^3/uL (150-450); RED BLOOD COUNT 3.98 10^6/uL (4.00-5.40); RED CELL DISTRIBUTION WIDTH 13.2 % (11.5-14.5); WHITE BLOOD COUNT 6.3 10^3/uL (4.0-10.0)
== END ==
LOC: M SFHCCAPE 09:03
DX: S41.102D Unspecified open wound of left upper arm, subsequent encounter (principal); X58.XXXD Exposure to other specified factors, subsequent encounter; Y92.9 Unspecified place or not applicable; R19.5 Other fecal abnormalities
CPT/HCPCS: 87070

== ENCOUNTER → 2017-09-19 | Outpatient (REF) | payer OTHER | LOC: M SFHCCAPE 16:12 | DX: R35.0 Frequency of micturition (principal) ==

== ENCOUNTER → 2017-10-24 | Outpatient (REF) | payer OTHER | LOC: M SFHCCAPE 15:23 | DX: N39.0 Urinary tract infection, site not specified (principal); R10.10 Upper abdominal pain, unspecified; R53.81 Other malaise ==

== ENCOUNTER → 2017-10-25 | Outpatient (REF) | payer OTHER ==
[2017-10-25 12:49] LABS: APPEARANCE, URINE CLOUDY (CLEAR); BACTERIA, URINE AUTO 1+ (NEGATIVE); BILIRUBIN, URINE AUTO NEGATIVE (NEGATIVE); BLOOD, URINE BLOOD 1+ (NEGATIVE); CALCIUM OXALATE CRYSTALS LARGE; COLOR, URINE YELLOW (YELLOW); GLUCOSE, URINE (UA) AUTO NEGATIVE (NEGATIVE); KETONE, URINE AUTO NEGATIVE (NEGATIVE); LEUKOCYTE ESTERASE, URINE AUTO 2+ (NEGATIVE); MUCUS, URINE SMALL (NEGATIVE); NITRITE, URINE AUTO POSITIVE (NEGATIVE); PROTEIN, URINE AUTO 2+ mg/dL (NEGATIVE); RBC, URINE AUTO 7 /HPF (0-3); SPECIFIC GRAVITY URINE AUTO 1.013 (1.002-1.035); SQUAMOUS EPITHELIAL CELL UR AU 11 /HPF (0-6); UROBILINOGEN, URINE AUTO 0.2 mg/dL (0.0-2.0); WBC, URINE AUTO 59 /HPF (0-3)
== END ==
LOC: M SFHCCAPE 11:52
DX: N39.0 Urinary tract infection, site not specified (principal)

== ENCOUNTER → 2017-11-04 | Outpatient (REF) | payer OTHER ==
[2017-11-05 17:26] LABS: APPEARANCE, URINE HAZY (CLEAR); BACTERIA, URINE AUTO NEGATIVE (NEGATIVE); BILIRUBIN, URINE AUTO NEGATIVE (NEGATIVE); BLOOD, URINE BLOOD NEGATIVE (NEGATIVE); CALCIUM OXALATE CRYSTALS LARGE; COLOR, URINE YELLOW (YELLOW); GLUCOSE, URINE (UA) AUTO NEGATIVE (NEGATIVE); KETONE, URINE AUTO NEGATIVE (NEGATIVE); LEUKOCYTE ESTERASE, URINE AUTO NEGATIVE (NEGATIVE); NITRITE, URINE AUTO NEGATIVE (NEGATIVE); PROTEIN, URINE AUTO NEGATIVE (NEGATIVE); RBC, URINE AUTO 1 /HPF (0-3); SPECIFIC GRAVITY URINE AUTO 1.013 (1.002-1.035); SQUAMOUS EPITHELIAL CELL UR AU 4 /HPF (0-6); UROBILINOGEN, URINE AUTO 0.2 mg/dL (0.0-2.0); WBC, URINE AUTO 3 /HPF (0-3)
== END ==
LOC: M SFHCCAPE 15:19
DX: N39.0 Urinary tract infection, site not specified (principal)
CPT/HCPCS: 81001

== ENCOUNTER → 2017-11-22 | Outpatient (CLI) | payer OTHER | LOC: M CLY 11:17 | DX: M17.11 Unilateral primary osteoarthritis, right knee (principal) | CPT/HCPCS: 73502 ==

== ENCOUNTER → 2017-11-22 | Outpatient (REF) | payer OTHER | LOC: M SFHCCLAY 10:52 | DX: N39.0 Urinary tract infection, site not specified (principal) ==

== ENCOUNTER → 2017-12-19 | Outpatient (REF) | payer OTHER ==
[2017-12-19 16:26] LABS: BASO % 0.5 % (0.0-1.0); EOS # 0.3 10^3/uL (0.0-0.50); EOS % 4.5 % (0.0-3.0); HEMATOCRIT 34.2 % (36.0-47.0); HEMOGLOBIN 11.2 g/dl (12.0-15.5); IMMATURE GRANULOCYTE % 0.2 % (0-3.0); LYMPH # 2.4 10^3/uL (1.5-4.5); LYMPH % 42.1 % (24.0-44.0); MEAN CORPUSCULAR HEMOGLOBIN 28.9 pg (27.0-33.0); MEAN CORPUSCULAR HGB CONC 32.7 g/dl (32.0-36.5); MEAN CORPUSCULAR VOLUME 88.1 fl (80.0-96.0); MONO # 0.6 10^3/uL (0.0-0.8); MONO % 9.9 % (0.0-5.0); NEUTROPHILS # 2.5 10^3/uL (1.8-7.7); NEUTROPHILS % 42.8 % (36.0-66.0); PLATELET COUNT, AUTOMATED 195 10^3/uL (150-450); RED BLOOD COUNT 3.88 10^6/uL (4.00-5.40); RED CELL DISTRIBUTION WIDTH 13.4 % (11.5-14.5); WHITE BLOOD COUNT 5.8 10^3/uL (4.0-10.0)
[2017-12-19 16:41] LABS: APPEARANCE, URINE CLOUDY (CLEAR); BACTERIA, URINE AUTO 1+ (NEGATIVE); BILIRUBIN, URINE AUTO NEGATIVE (NEGATIVE); BLOOD, URINE BLOOD NEGATIVE (NEGATIVE); CALCIUM OXALATE CRYSTALS LARGE; COLOR, URINE AMBER (YELLOW); GLUCOSE, URINE (UA) AUTO NEGATIVE (NEGATIVE); KETONE, URINE AUTO NEGATIVE (NEGATIVE); LEUKOCYTE ESTERASE, URINE AUTO 2+ (NEGATIVE); MUCUS, URINE SMALL (NEGATIVE); NITRITE, URINE AUTO POSITIVE (NEGATIVE); PROTEIN, URINE AUTO NEGATIVE (NEGATIVE); RBC, URINE AUTO 1 /HPF (0-3); SPECIFIC GRAVITY URINE AUTO 1.026 (1.002-1.035); SQUAMOUS EPITHELIAL CELL UR AU 6 /HPF (0-6); UROBILINOGEN, URINE AUTO 0.2 mg/dL (0.0-2.0); WBC, URINE AUTO 11 /HPF (0-3)
[2017-12-19 17:35] LABS: ALBUMIN 3.7 GM/DL (3.2-5.2); ALBUMIN/GLOBULIN RATIO 1.09 (1.00-1.93); ALKALINE PHOSPHATASE 106 U/L (45-117); ALT/SGPT 41 U/L (12-78); ANION GAP 4 MEQ/L (8-16); AST/SGOT 37 U/L (7-37); BILIRUBIN,DIRECT 0.1 MG/DL (0.0-0.2); BILIRUBIN,TOTAL 0.3 MG/DL (0.2-1.0); BLOOD UREA NITROGEN 19 MG/DL (7-18); CALCIUM LEVEL 8.7 MG/DL (8.8-10.2); CARBON DIOXIDE LEVEL 30 MEQ/L (21-32); CHLORIDE LEVEL 107 MEQ/L (98-107); CREATININE FOR GFR 0.78 MG/DL (0.55-1.30); GLOMERULAR FILTRATION RATE > 60.0 (>45); GLUCOSE, FASTING 88 MG/DL (70-100); LIPASE 120 U/L (73-393); POTASSIUM SERUM 4.5 MEQ/L (3.5-5.1); SODIUM LEVEL 141 MEQ/L (136-145); TOTAL PROTEIN 7.1 GM/DL (6.4-8.2)
== END ==
LOC: M SFHCCAPE 07:48
DX: R19.7 Diarrhea, unspecified (principal); R53.81 Other malaise; T14.8XXA Other injury of unspecified body region, initial encounter; W18.30XA Fall on same level, unspecified, initial encounter; Y92.009 Unspecified place in unspecified non-institutional (private) residence as the place of occurrence of the external cause

== ENCOUNTER → 2018-01-23 | Outpatient (REF) | payer OTHER ==
[2018-01-23 14:09] LABS: BASO % 0.5 % (0.0-1.0); EOS # 0.1 10^3/uL (0.0-0.50); EOS % 2.1 % (0.0-3.0); HEMATOCRIT 37.7 % (36.0-47.0); HEMOGLOBIN 12.4 g/dl (12.0-15.5); IMMATURE GRANULOCYTE % 0.2 % (0-3.0); LYMPH # 2.5 10^3/uL (1.5-4.5); LYMPH % 43.4 % (24.0-44.0); MEAN CORPUSCULAR HEMOGLOBIN 28.9 pg (27.0-33.0); MEAN CORPUSCULAR HGB CONC 32.9 g/dl (32.0-36.5); MEAN CORPUSCULAR VOLUME 87.9 fl (80.0-96.0); MONO # 0.5 10^3/uL (0.0-0.8); MONO % 7.7 % (0.0-5.0); NEUTROPHILS # 2.7 10^3/uL (1.8-7.7); NEUTROPHILS % 46.1 % (36.0-66.0); PLATELET COUNT, AUTOMATED 196 10^3/uL (150-450); RED BLOOD COUNT 4.29 10^6/uL (4.00-5.40); WHITE BLOOD COUNT 5.9 10^3/uL (4.0-10.0)
[2018-01-23 14:59] LABS: ALBUMIN 4.4 GM/DL (3.2-5.2); ALBUMIN/GLOBULIN RATIO 1.33 (1.00-1.93); ALKALINE PHOSPHATASE 58 U/L (45-117); ALT/SGPT 37 U/L (12-78); ANION GAP 4 MEQ/L (8-16); AST/SGOT 28 U/L (7-37); BILIRUBIN,TOTAL 0.6 MG/DL (0.2-1.0); BLOOD UREA NITROGEN 11 MG/DL (7-18); CALCIUM LEVEL 9.2 MG/DL (8.8-10.2); CARBON DIOXIDE LEVEL 33 MEQ/L (21-32); CHLORIDE LEVEL 104 MEQ/L (98-107); CREATININE FOR GFR 0.88 MG/DL (0.55-1.30); GLOMERULAR FILTRATION RATE > 60.0 (>45); GLUCOSE, FASTING 93 MG/DL (70-100); POTASSIUM SERUM 4.2 MEQ/L (3.5-5.1); SODIUM LEVEL 141 MEQ/L (136-145); TOTAL PROTEIN 7.7 GM/DL (6.4-8.2)
[2018-01-24 10:12] LABS: ALPHA FETOPROTEIN TUMOR QUANT 3.1 NG/ML (<8.1)
[2018-01-29 00:07] LABS: ALPHA 2-MACROGLOBULIN 415 mg/dL (110-276); ALT 32 IU/L (0-40); APOLIPOPROTEIN A-1 147 mg/dL (116-209); FIBROSIS SCORE 0.67 (0.00-0.21); GGT 31 IU/L (0-60); HAPTOGLOBIN 93 mg/dL (34-200); HEPATITIS C QUANTITATION 263590 IU/mL (.); HEPATITIS C VIRUS GENOTYPE 1a (.); NECROINFLAM SCORE 0.25 (0.00-0.17); NECROINFLAMM GRADE A0-A1 (.); TOTAL BILIRUBIN 0.7 mg/dL (0.0-1.2)
== END ==
LOC: M SFHCPLAZ 11:00
DX: B18.2 Chronic viral hepatitis C (principal); N39.0 Urinary tract infection, site not specified

== ENCOUNTER → 2018-01-29 | Outpatient (REF) | payer OTHER ==
[2018-01-30 11:10] LABS: AMORPHOUS SEDIMENT MODERATE (NEGATIVE); APPEARANCE, URINE CLOUDY (CLEAR); BACTERIA, URINE AUTO 1+ (NEGATIVE); BILIRUBIN, URINE AUTO NEGATIVE (NEGATIVE); BLOOD, URINE BLOOD 2+ (NEGATIVE); COLOR, URINE YELLOW (YELLOW); GLUCOSE, URINE (UA) AUTO NEGATIVE (NEGATIVE); KETONE, URINE AUTO NEGATIVE (NEGATIVE); LEUKOCYTE ESTERASE, URINE AUTO 2+ (NEGATIVE); MUCUS, URINE SMALL (NEGATIVE); NITRITE, URINE AUTO NEGATIVE (NEGATIVE); PROTEIN, URINE AUTO NEGATIVE (NEGATIVE); RBC, URINE AUTO 11 /HPF (0-3); SPECIFIC GRAVITY URINE AUTO 1.012 (1.002-1.035); SQUAMOUS EPITHELIAL CELL UR AU 2 /HPF (0-6); UROBILINOGEN, URINE AUTO 0.2 mg/dL (0.0-2.0); WBC, URINE AUTO 38 /HPF (0-3)
== END ==
LOC: M SMT 10:16
DX: N39.0 Urinary tract infection, site not specified (principal)
CPT/HCPCS: 81001

== ENCOUNTER → 2018-02-20 | Outpatient (REF) | payer OTHER ==
[2018-02-20 14:42] LABS: ALBUMIN 4.2 GM/DL (3.2-5.2); ALBUMIN/GLOBULIN RATIO 1.14 (1.00-1.93); ALKALINE PHOSPHATASE 78 U/L (45-117); ALT/SGPT 15 U/L (12-78); AST/SGOT 18 U/L (7-37); BILIRUBIN,DIRECT 0.2 MG/DL (0.0-0.2); BILIRUBIN,TOTAL 0.7 MG/DL (0.2-1.0); TOTAL PROTEIN 7.9 GM/DL (6.4-8.2)
[2018-02-22 15:28] LABS: HEPATITIS C QUANTITATION 50 IU/mL (.)
== END ==
LOC: M SFHCPLAZ 11:34
DX: N39.0 Urinary tract infection, site not specified (principal); B18.2 Chronic viral hepatitis C

== ENCOUNTER → 2018-02-27 | Outpatient (REF) | payer OTHER ==
[2018-02-28 11:49] LABS: APPEARANCE, URINE CLOUDY (CLEAR); BACTERIA, URINE AUTO 1+ (NEGATIVE); BILIRUBIN, URINE AUTO NEGATIVE (NEGATIVE); BLOOD, URINE BLOOD NEGATIVE (NEGATIVE); COLOR, URINE YELLOW (YELLOW); GLUCOSE, URINE (UA) AUTO NEGATIVE (NEGATIVE); KETONE, URINE AUTO NEGATIVE (NEGATIVE); LEUKOCYTE ESTERASE, URINE AUTO 3+ (NEGATIVE); MUCUS, URINE SMALL (NEGATIVE); NITRITE, URINE AUTO NEGATIVE (NEGATIVE); PROTEIN, URINE AUTO NEGATIVE (NEGATIVE); RBC, URINE AUTO 5 /HPF (0-3); SPECIFIC GRAVITY URINE AUTO 1.016 (1.002-1.035); SQUAMOUS EPITHELIAL CELL UR AU 3 /HPF (0-6); UROBILINOGEN, URINE AUTO 0.2 mg/dL (0.0-2.0); WBC, URINE AUTO 19 /HPF (0-3)
== END ==
LOC: M SFHCCAPE 15:49
DX: R35.0 Frequency of micturition (principal)

== ENCOUNTER → 2018-03-25 | Outpatient (REF) | payer OTHER ==
[2018-03-25 17:21] LABS: APPEARANCE, URINE CLOUDY (CLEAR); BACTERIA, URINE AUTO 1+ (NEGATIVE); BILIRUBIN, URINE AUTO NEGATIVE (NEGATIVE); BLOOD, URINE BLOOD 1+ (NEGATIVE); COLOR, URINE YELLOW (YELLOW); GLUCOSE, URINE (UA) AUTO NEGATIVE (NEGATIVE); KETONE, URINE AUTO NEGATIVE (NEGATIVE); LEUKOCYTE ESTERASE, URINE AUTO 3+ (NEGATIVE); MUCUS, URINE SMALL (NEGATIVE); NITRITE, URINE AUTO NEGATIVE (NEGATIVE); PROTEIN, URINE AUTO NEGATIVE (NEGATIVE); RBC, URINE AUTO 5 /HPF (0-3); SPECIFIC GRAVITY URINE AUTO 1.013 (1.002-1.035); SQUAMOUS EPITHELIAL CELL UR AU 8 /HPF (0-6); UROBILINOGEN, URINE AUTO 0.2 mg/dL (0.0-2.0); WBC, URINE AUTO 49 /HPF (0-3)
== END ==
LOC: M SFHCCAPE 11:45
DX: R35.0 Frequency of micturition (principal)
CPT/HCPCS: 81001

== ENCOUNTER → 2018-04-17 | Outpatient (REF) | payer OTHER ==
[2018-04-17 18:55] LABS: APPEARANCE, URINE CLOUDY (CLEAR); BACTERIA, URINE AUTO 1+ (NEGATIVE); BILIRUBIN, URINE AUTO NEGATIVE (NEGATIVE); BLOOD, URINE BLOOD 3+ (NEGATIVE); COLOR, URINE RED (YELLOW); GLUCOSE, URINE (UA) AUTO NEGATIVE (NEGATIVE); KETONE, URINE AUTO NEGATIVE (NEGATIVE); LEUKOCYTE ESTERASE, URINE AUTO 3+ (NEGATIVE); MUCUS, URINE SMALL (NEGATIVE); NITRITE, URINE AUTO NEGATIVE (NEGATIVE); PROTEIN, URINE AUTO NEGATIVE (NEGATIVE); RBC, URINE AUTO 44 /HPF (0-3); SPECIFIC GRAVITY URINE AUTO 1.013 (1.002-1.035); SQUAMOUS EPITHELIAL CELL UR AU 11 /HPF (0-6); UROBILINOGEN, URINE AUTO 0.2 mg/dL (0.0-2.0); WBC, URINE AUTO 86 /HPF (0-3)
== END ==
LOC: M SMT 17:05
DX: R39.89 Other symptoms and signs involving the genitourinary system (principal)
CPT/HCPCS: 81001

== ENCOUNTER 2018-04-24 13:31 | Emergency (ER) | payer OTHER ==
[2018-04-24 14:13] LABS: KETONE, URINE AUTO RFX NEGATIVE (NEGATIVE); MUCUS, URINE RFX SMALL (NEGATIVE); NITRITE, URINE AUTO RFX NEGATIVE (NEGATIVE); RBC, URINE AUTO RFX TNTC /HPF (0-3); SPECIFIC GRAVITY UR AUTO RFX 1.014 (1.002-1.035); SQUAM EPITHELIAL CELL UR AURFX 7 /HPF (0-6); WBC, URINE AUTO RFX 5 /HPF (0-3)
[2018-04-24 14:15] LABS: LEUKOCYTE ESTERASE UR AUTO RFX TRACE (NEGATIVE)
[2018-04-24] MEDS: NS 1,000 ML IV ×3 (15:13)
[2018-04-24] MEDS: PERCOCET 5MG/325MG TAB PO ×6 (15:13→18:12)
[2018-04-24] MEDS: ONDANSETRON 4MG/2ML VIAL (J2405) IV ×3 (15:14)
[2018-04-24 17:11] LABS: BASO % 0.3 % (0.0-1.0); EOS # 0.2 10^3/uL (0.0-0.50); EOS % 3.4 % (0.0-3.0); HEMATOCRIT 36.3 % (36.0-47.0); IMMATURE GRANULOCYTE % 0.2 % (0-3.0); LYMPH # 2.4 10^3/uL (1.5-4.5); LYMPH % 37.3 % (24.0-44.0); MEAN CORPUSCULAR HEMOGLOBIN 29.1 pg (27.0-33.0); MEAN CORPUSCULAR HGB CONC 33.1 g/dl (32.0-36.5); MEAN CORPUSCULAR VOLUME 88.1 fl (80.0-96.0); MONO # 0.5 10^3/uL (0.0-0.8); MONO % 7.9 % (0.0-5.0); NEUTROPHILS # 3.3 10^3/uL (1.8-7.7); NEUTROPHILS % 50.9 % (36.0-66.0); RED BLOOD COUNT 4.12 10^6/uL (4.00-5.40); WHITE BLOOD COUNT 6.6 10^3/uL (4.0-10.0)
[2018-04-24 17:29] LABS: ALBUMIN 3.9 GM/DL (3.2-5.2); ALBUMIN/GLOBULIN RATIO 1.18 (1.00-1.93); ALKALINE PHOSPHATASE 60 U/L (45-117); ALT/SGPT 13 U/L (12-78); ANION GAP 8 MEQ/L (8-16); AST/SGOT 16 U/L (7-37); BILIRUBIN,DIRECT 0.2 MG/DL (0.0-0.2); BILIRUBIN,TOTAL 0.7 MG/DL (0.2-1.0); BLOOD UREA NITROGEN 17 MG/DL (7-18); CALCIUM LEVEL 8.7 MG/DL (8.8-10.2); CARBON DIOXIDE LEVEL 27 MEQ/L (21-32); CHLORIDE LEVEL 108 MEQ/L (98-107); CREATININE FOR GFR 0.77 MG/DL (0.55-1.30); GLOMERULAR FILTRATION RATE > 60.0 (>45); GLUCOSE, FASTING 79 MG/DL (70-100); POTASSIUM SERUM 4.1 MEQ/L (3.5-5.1); SODIUM LEVEL 143 MEQ/L (136-145); TOTAL PROTEIN 7.2 GM/DL (6.4-8.2)
[2018-04-24 17:52] LABS: POS COUNT POS FLAG
[2018-04-24] MEDS: GENTAMICIN 120 MG in D5W 50 ML IV ×3 (18:12)
[2018-04-29 14:22] LABS: HEPATITIS C QUANTITATION HCV Not Detected IU/mL (.)
== END 2018-04-24 19:35 | disposition home or self-care (01) ==
LOC: M ED 13:31
DX: N32.3 Diverticulum of bladder (principal); N10 Acute pyelonephritis; N26.1 Atrophy of kidney (terminal); I50.9 Heart failure, unspecified; I10 Essential (primary) hypertension; M79.7 Fibromyalgia; R51 Headache; K52.9 Noninfective gastroenteritis and colitis, unspecified; Z87.440 Personal history of urinary (tract) infections; Z86.19 Personal history of other infectious and parasitic diseases; Z87.891 Personal history of nicotine dependence; Z79.899 Other long term (current) drug therapy; Z88.1 Allergy status to other antibiotic agents; Z88.5 Allergy status to narcotic agent; Z88.2 Allergy status to sulfonamides; Z88.6 Allergy status to analgesic agent; Z88.8 Allergy status to other drugs, medicaments and biological substances
CPT/HCPCS: J2405

== ENCOUNTER → 2018-04-24 | Outpatient (REF) | payer OTHER | LOC: M SFHCPLAZ 12:32 | DX: B18.2 Chronic viral hepatitis C (principal) ==

== ENCOUNTER → 2018-05-29 | Outpatient (REF) | payer OTHER ==
[2018-05-30 12:31] LABS: AMORPHOUS SEDIMENT MODERATE (NEGATIVE); APPEARANCE, URINE TURBID (CLEAR); BACTERIA, URINE AUTO 2+ (NEGATIVE); BILIRUBIN, URINE AUTO NEGATIVE (NEGATIVE); BLOOD, URINE BLOOD NEGATIVE (NEGATIVE); COLOR, URINE AMBER (YELLOW); GLUCOSE, URINE (UA) AUTO NEGATIVE (NEGATIVE); KETONE, URINE AUTO NEGATIVE (NEGATIVE); LEUKOCYTE ESTERASE, URINE AUTO 3+ (NEGATIVE); NITRITE, URINE AUTO POSITIVE (NEGATIVE); PROTEIN, URINE AUTO 1+ mg/dL (NEGATIVE); RBC, URINE AUTO 7 /HPF (0-3); RENAL EPITHELIAL CELLS 1 /HPF; SPECIFIC GRAVITY URINE AUTO 1.019 (1.002-1.035); SQUAMOUS EPITHELIAL CELL UR AU 19 /HPF (0-6); TRANSITIONAL EPITHELIAL AUTO <1 /HPF; TRIPLE PHOSPHATE CRYSTALS SMALL; UROBILINOGEN, URINE AUTO 0.2 mg/dL (0.0-2.0); WBC, URINE AUTO TNTC /HPF (0-3)
== END ==
LOC: M SFHCCAPE 14:38
DX: R30.0 Dysuria (principal)

== ENCOUNTER → 2018-06-04 | Outpatient (REF) | payer OTHER ==
[2018-06-04 18:01] LABS: BASO # 0.1 10^3/uL (0.0-0.2); BASO % 0.6 % (0.0-1.0); EOS # 0.3 10^3/uL (0.0-0.50); EOS % 3.5 % (0.0-3.0); HEMATOCRIT 39.2 % (36.0-47.0); HEMOGLOBIN 12.8 g/dl (12.0-15.5); IMMATURE GRANULOCYTE % 0.4 % (0-3.0); LYMPH # 2.6 10^3/uL (1.5-4.5); LYMPH % 33.4 % (24.0-44.0); MEAN CORPUSCULAR HGB CONC 32.7 g/dl (32.0-36.5); MEAN CORPUSCULAR VOLUME 88.7 fl (80.0-96.0); MONO # 0.5 10^3/uL (0.0-0.8); MONO % 6.8 % (0.0-5.0); NEUTROPHILS # 4.3 10^3/uL (1.8-7.7); NEUTROPHILS % 55.3 % (36.0-66.0); PLATELET COUNT, AUTOMATED 219 10^3/uL (150-450); RED BLOOD COUNT 4.42 10^6/uL (4.00-5.40); RED CELL DISTRIBUTION WIDTH 12.6 % (11.5-14.5); WHITE BLOOD COUNT 7.8 10^3/uL (4.0-10.0)
[2018-06-04 18:15] LABS: APPEARANCE, URINE HAZY (CLEAR); BACTERIA, URINE AUTO 1+ (NEGATIVE); BILIRUBIN, URINE AUTO NEGATIVE (NEGATIVE); BLOOD, URINE BLOOD NEGATIVE (NEGATIVE); COLOR, URINE YELLOW (YELLOW); GLUCOSE, URINE (UA) AUTO NEGATIVE (NEGATIVE); KETONE, URINE AUTO NEGATIVE (NEGATIVE); LEUKOCYTE ESTERASE, URINE AUTO 3+ (NEGATIVE); NITRITE, URINE AUTO NEGATIVE (NEGATIVE); PROTEIN, URINE AUTO NEGATIVE (NEGATIVE); RBC, URINE AUTO 2 /HPF (0-3); SPECIFIC GRAVITY URINE AUTO 1.008 (1.002-1.035); SQUAMOUS EPITHELIAL CELL UR AU 5 /HPF (0-6); UROBILINOGEN, URINE AUTO 0.2 mg/dL (0.0-2.0); WBC, URINE AUTO 36 /HPF (0-3)
[2018-06-04 18:46] LABS: ALBUMIN 4.2 GM/DL (3.2-5.2); ALKALINE PHOSPHATASE 68 U/L (45-117); ALT/SGPT 16 U/L (12-78); ANION GAP 8 MEQ/L (8-16); AST/SGOT 22 U/L (7-37); BILIRUBIN,TOTAL 0.5 MG/DL (0.2-1.0); BLOOD UREA NITROGEN 12 MG/DL (7-18); CALCIUM LEVEL 8.7 MG/DL (8.8-10.2); CARBON DIOXIDE LEVEL 28 MEQ/L (21-32); CHLORIDE LEVEL 104 MEQ/L (98-107); CREATININE FOR GFR 0.88 MG/DL (0.55-1.30); GLOMERULAR FILTRATION RATE > 60.0 (>45); GLUCOSE, FASTING 99 MG/DL (70-100); MAGNESIUM LEVEL 1.8 MG/DL (1.8-2.4); POTASSIUM SERUM 3.7 MEQ/L (3.5-5.1); SODIUM LEVEL 140 MEQ/L (136-145); TOTAL PROTEIN 7.7 GM/DL (6.4-8.2)
== END ==
LOC: M SFHCCAPE 11:21
DX: B18.2 Chronic viral hepatitis C (principal); R00.2 Palpitations; R53.83 Other fatigue; E53.8 Deficiency of other specified B group vitamins

== ENCOUNTER → 2018-07-10 | Outpatient (REF) | payer OTHER ==
[2018-07-10 15:57] LABS: BASO % 0.5 % (0.0-1.0); EOS # 0.2 10^3/uL (0.0-0.50); EOS % 3.4 % (0.0-3.0); HEMATOCRIT 39.3 % (36.0-47.0); HEMOGLOBIN 12.7 g/dl (12.0-15.5); IMMATURE GRANULOCYTE % 0.2 % (0-3.0); LYMPH # 2.6 10^3/uL (1.5-4.5); LYMPH % 40.7 % (24.0-44.0); MEAN CORPUSCULAR HEMOGLOBIN 29.1 pg (27.0-33.0); MEAN CORPUSCULAR HGB CONC 32.3 g/dl (32.0-36.5); MEAN CORPUSCULAR VOLUME 90.1 fl (80.0-96.0); MONO # 0.5 10^3/uL (0.0-0.8); MONO % 8.1 % (0.0-5.0); NEUTROPHILS % 47.1 % (36.0-66.0); PLATELET COUNT, AUTOMATED 230 10^3/uL (150-450); RED BLOOD COUNT 4.36 10^6/uL (4.00-5.40); RED CELL DISTRIBUTION WIDTH 12.5 % (11.5-14.5); WHITE BLOOD COUNT 6.4 10^3/uL (4.0-10.0)
[2018-07-10 16:14] LABS: ALBUMIN 4.4 GM/DL (3.2-5.2); ALBUMIN/GLOBULIN RATIO 1.29 (1.00-1.93); ALKALINE PHOSPHATASE 96 U/L (45-117); ALT/SGPT 14 U/L (12-78); AST/SGOT 19 U/L (7-37); BILIRUBIN,DIRECT < 0.1 MG/DL (0.0-0.2); BILIRUBIN,TOTAL 0.3 MG/DL (0.2-1.0); TOTAL PROTEIN 7.8 GM/DL (6.4-8.2)
[2018-07-15 11:04] LABS: ALPHA 2-MACROGLOBULIN 484 mg/dL (110-276); ALT 12 IU/L (0-40); APOLIPOPROTEIN A-1 162 mg/dL (116-209); FIBROSIS SCORE 0.43 (0.00-0.21); FIBROSIS STAGE F1-F2 (.); GGT 12 IU/L (0-60); HAPTOGLOBIN 102 mg/dL (34-200); NECROINFLAM SCORE 0.04 (0.00-0.17); NECROINFLAMM GRADE A0-No activity (.); TOTAL BILIRUBIN 0.3 mg/dL (0.0-1.2)
[2018-07-16 00:07] LABS: HEPATITIS C QUANTITATION HCV Not Detected IU/mL (.)
== END ==
LOC: M SFHCPLAZ 12:35
DX: B18.2 Chronic viral hepatitis C (principal)
CPT/HCPCS: 84460

== ENCOUNTER → 2018-07-29 | Outpatient (CLI) | payer OTHER | LOC: M RAD 07:13 | DX: K83.8 Other specified diseases of biliary tract (principal) | CPT/HCPCS: 76705 ==

== ENCOUNTER → 2018-09-15 | Outpatient (REF) | payer OTHER ==
[~2018-09-15] MED LIST changes: -ACET1TAB17 PO; +ACET1TAB55 PO; +EPIN0.3I11 IM; -EPIN0.3I6 IM; -LISI2.5T3 PO; +LISI2.5T5 PO; +MACR100C43 PO; +PERC5TAB12 PO; +RITA20TA PO; -ZOFR20TA PO; +ZOFR4TAB14 PO; +ZOFR4TAB16 PO
[2018-09-15 17:26] LABS: ALBUMIN 4.1 GM/DL (3.2-5.2); ALT/SGPT 14 U/L (12-78); BILIRUBIN,TOTAL 0.7 MG/DL (0.2-1.0); BLOOD UREA NITROGEN 24 MG/DL (7-18); CALCIUM LEVEL 10.1 MG/DL (8.8-10.2); CARBON DIOXIDE LEVEL 25 MEQ/L (21-32); CHLORIDE LEVEL 101 MEQ/L (98-107); CHOLESTEROL LEVEL 211 MG/DL (<200); CHOLESTEROL RISK RATIO 3.459 (<5); CREATININE FOR GFR 0.89 MG/DL (0.55-1.30); GLOMERULAR FILTRATION RATE > 60.0 (>45); GLUCOSE, FASTING 126 MG/DL (70-100); HDL CHOLESTEROL 61 MG/DL (>40); LDL CHOLESTEROL 123 MG/DL (<100); NON-HDL-C 150 MG/DL; POTASSIUM SERUM 3.6 MEQ/L (3.5-5.1); SODIUM LEVEL 138 MEQ/L (136-145); TOTAL PROTEIN 7.2 GM/DL (6.4-8.2); TRIGLYCERIDES LEVEL 135 MG/DL (<150); VITAMIN B12 LEVEL 537 PG/ML (247-911)
== END ==
LOC: M SFHCCAPE 10:47
PROVIDERS: ATTEND Physician Assistant
DX: E53.8 Deficiency of other specified B group vitamins (principal); I10 Essential (primary) hypertension

== ENCOUNTER → 2018-09-17 | Outpatient (REF) | payer OTHER ==
[2018-09-18 17:11] LABS: APPEARANCE, URINE CLOUDY (CLEAR); BACTERIA, URINE AUTO 2+ (NEGATIVE); BILIRUBIN, URINE AUTO NEGATIVE (NEGATIVE); BLOOD, URINE BLOOD NEGATIVE (NEGATIVE); CALCIUM OXALATE CRYSTALS SMALL; COLOR, URINE YELLOW (YELLOW); GLUCOSE, URINE (UA) AUTO NEGATIVE (NEGATIVE); KETONE, URINE AUTO NEGATIVE (NEGATIVE); LEUKOCYTE ESTERASE, URINE AUTO TRACE (NEGATIVE); MUCUS, URINE SMALL (NEGATIVE); NITRITE, URINE AUTO NEGATIVE (NEGATIVE); PROTEIN, URINE AUTO NEGATIVE (NEGATIVE); RBC, URINE AUTO 4 /HPF (0-3); SPECIFIC GRAVITY URINE AUTO 1.023 (1.002-1.035); SQUAMOUS EPITHELIAL CELL UR AU 12 /HPF (0-6); UROBILINOGEN, URINE AUTO 0.2 mg/dL (0.0-2.0); WBC, URINE AUTO 14 /HPF (0-3)
== END ==
LOC: M SFHCCAPE 16:01
PROVIDERS: ATTEND Physician Assistant
DX: R10.2 Pelvic and perineal pain (principal)

== ENCOUNTER → 2018-10-07 | Outpatient (REF) | payer OTHER ==
[2018-10-07 18:24] LABS: APPEARANCE, URINE HAZY (CLEAR); BACTERIA, URINE AUTO NEGATIVE (NEGATIVE); BILIRUBIN, URINE AUTO NEGATIVE (NEGATIVE); BLOOD, URINE BLOOD NEGATIVE (NEGATIVE); COLOR, URINE YELLOW (YELLOW); GLUCOSE, URINE (UA) AUTO NEGATIVE (NEGATIVE); KETONE, URINE AUTO NEGATIVE (NEGATIVE); LEUKOCYTE ESTERASE, URINE AUTO NEGATIVE (NEGATIVE); MUCUS, URINE SMALL (NEGATIVE); NITRITE, URINE AUTO NEGATIVE (NEGATIVE); PROTEIN, URINE AUTO NEGATIVE (NEGATIVE); RBC, URINE AUTO 0 /HPF (0-3); SPECIFIC GRAVITY URINE AUTO 1.015 (1.002-1.035); SQUAMOUS EPITHELIAL CELL UR AU 12 /HPF (0-6); UROBILINOGEN, URINE AUTO 0.2 mg/dL (0.0-2.0); WBC, URINE AUTO 0 /HPF (0-3)
== END ==
LOC: M SMT 17:08
PROVIDERS: ATTEND Nurse Practitioner Family
DX: N39.0 Urinary tract infection, site not specified (principal)

== ENCOUNTER → 2018-11-03 | Outpatient (REF) | payer OTHER ==
[2018-11-03 17:05] LABS: APPEARANCE, URINE CLOUDY (CLEAR); BACTERIA, URINE AUTO NEGATIVE (NEGATIVE); BILIRUBIN, URINE AUTO NEGATIVE (NEGATIVE); BLOOD, URINE BLOOD NEGATIVE (NEGATIVE); COLOR, URINE YELLOW (YELLOW); GLUCOSE, URINE (UA) AUTO NEGATIVE (NEGATIVE); KETONE, URINE AUTO NEGATIVE (NEGATIVE); LEUKOCYTE ESTERASE, URINE AUTO NEGATIVE (NEGATIVE); MUCUS, URINE SMALL (NEGATIVE); NITRITE, URINE AUTO NEGATIVE (NEGATIVE); PROTEIN, URINE AUTO NEGATIVE (NEGATIVE); RBC, URINE AUTO 1 /HPF (0-3); SPECIFIC GRAVITY URINE AUTO 1.023 (1.002-1.035); SQUAMOUS EPITHELIAL CELL UR AU 17 /HPF (0-6); UROBILINOGEN, URINE AUTO 0.2 mg/dL (0.0-2.0); WBC, URINE AUTO 2 /HPF (0-3)
== END ==
LOC: M SFHCCAPE 11:24
PROVIDERS: ATTEND Physician Assistant
DX: R35.0 Frequency of micturition (principal)

== ENCOUNTER → 2018-11-11 | Outpatient (CLI) | payer OTHER ==
[2018-11-11 18:39] LABS: BLOOD UREA NITROGEN 22 MG/DL (7-18); CALCIUM LEVEL 9.5 MG/DL (8.8-10.2); CARBON DIOXIDE LEVEL 31 MEQ/L (21-32); CHLORIDE LEVEL 105 MEQ/L (98-107); CREATININE FOR GFR 0.88 MG/DL (0.55-1.30); GLOMERULAR FILTRATION RATE > 60.0 (>45); GLUCOSE, FASTING 86 MG/DL (70-100); POTASSIUM SERUM 4.6 MEQ/L (3.5-5.1); SODIUM LEVEL 141 MEQ/L (136-145)
== END ==
LOC: M SMT 13:58
PROVIDERS: ATTEND Nurse Practitioner Family
DX: R31.0 Gross hematuria (principal)

== ENCOUNTER → 2018-11-11 | Outpatient (REF) | payer OTHER ==
[2018-11-11 19:15] LABS: APPEARANCE, URINE MANUAL HAZY (CLEAR); COLOR, URINE MANUAL YELLOW (YELLOW)
[2018-11-11 19:16] LABS: BILIRUBIN, URINE MANUAL NEGATIVE (NEGATIVE); BLOOD URINE MANUAL NEGATIVE (NEGATIVE); GLUCOSE, URINE (UA) MANUAL NEGATIVE (NEGATIVE); KETONE, URINE MANUAL NEGATIVE (NEGATIVE); LEUKOCYTE ESTERASE, URINE MAN NEGATIVE (NEGATIVE); NITRITE, URINE MANUAL POSITIVE (NEGATIVE); PH,URINE MAN 6.5 UNITS (5.0 - 7.0); PROTEIN, URINE MANUAL NEGATIVE (NEGATIVE); SPECIFIC GRAVITY,URINE MANUAL 1.008 (1.002-1.035); UROBILINOGEN, URINE MANUAL NORMAL (NORMAL)
[2018-11-11 19:53] LABS: BACTERIA, URINE SMALL AMOUNT; HYALINE CAST, URINE NONE SEEN /lpf (0-1); RBC, URINE NONE SEEN /hpf (0-3); SQUAMOUS EPITHELIAL CELL URINE LARGE AMOUNT /hpf (SMALL AMT)
== END ==
LOC: M SMT 17:17
PROVIDERS: ATTEND Nurse Practitioner Family
DX: R31.0 Gross hematuria (principal)

== ENCOUNTER → 2018-12-02 | Outpatient (REF) | payer OTHER ==
[~2018-12-02] MED LIST changes: -/ESOM40CA PO; +ESTR0.059; -ESTR5TDPCH; +LISI-1046 PO; -LISI2.5T5 PO; +LISI2.5T7 PO; -LISI25TA PO; +NEXI1CAP3 PO; +TRIA0.1C60 TOP; -TRIA1CR TOP
[2018-12-03 18:27] LABS: APPEARANCE, URINE TURBID (CLEAR); BACTERIA, URINE AUTO 2+ (NEGATIVE); BILIRUBIN, URINE AUTO NEGATIVE (NEGATIVE); BLOOD, URINE BLOOD 1+ (NEGATIVE); COLOR, URINE AMBER (YELLOW); GLUCOSE, URINE (UA) AUTO NEGATIVE (NEGATIVE); KETONE, URINE AUTO TRACE mg/dL (NEGATIVE); LEUKOCYTE ESTERASE, URINE AUTO 2+ (NEGATIVE); MUCUS, URINE SMALL (NEGATIVE); NITRITE, URINE AUTO POSITIVE (NEGATIVE); PROTEIN, URINE AUTO 1+ mg/dL (NEGATIVE); RBC, URINE AUTO 7 /HPF (0-3); SPECIFIC GRAVITY URINE AUTO 1.023 (1.002-1.035); SQUAMOUS EPITHELIAL CELL UR AU 8 /HPF (0-6); TRANSITIONAL EPITHELIAL AUTO 3 /HPF; WBC, URINE AUTO TNTC /HPF (0-3)
== END ==
LOC: M SFHCCAPE 14:21
PROVIDERS: ATTEND Physician Assistant
DX: R30.0 Dysuria (principal)

== ENCOUNTER → 2018-12-15 | Outpatient (REF) | payer OTHER ==
[~2018-12-15] MED LIST changes: -ASPI1TAB PO; +ASPI81TA26 PO; +VITA100018 PO; -VITA100072 PO
[2018-12-15 17:22] LABS: ALBUMIN 4.6 GM/DL (3.2-5.2); BILIRUBIN,TOTAL 1.1 MG/DL (0.2-1.0); CALCIUM LEVEL 9.4 MG/DL (8.8-10.2); CHOLESTEROL RISK RATIO 4.111 (<5); CREATININE FOR GFR 1.01 MG/DL (0.55-1.30); GLOMERULAR FILTRATION RATE 58.7 (>45); POTASSIUM SERUM 3.6 MEQ/L (3.5-5.1); TOTAL PROTEIN 8.1 GM/DL (6.4-8.2)
[2018-12-15 17:36] LABS: HEMOGLOBIN A1c 5.1 %
== END ==
LOC: M SFHCCAPE 10:27
PROVIDERS: ATTEND Physician Assistant
DX: I10 Essential (primary) hypertension (principal); R73.01 Impaired fasting glucose; E78.5 Hyperlipidemia, unspecified; R19.7 Diarrhea, unspecified

== ENCOUNTER 2019-01-06 12:42 | Inpatient (IN) | payer OTHER ==
[~2019-01-06] VITALS: Ht 167.6 cm; Wt 66.5 kg
[2019-01-06 14:39] VITALS: BP 118/78
[2019-01-06 15:11] LABS: HEMATOCRIT 42.3 % (36.0-47.0); HEMOGLOBIN 13.6 g/dl (12.0-15.5); MEAN CORPUSCULAR HEMOGLOBIN 29.2 pg (27.0-33.0); MEAN CORPUSCULAR HGB CONC 32.2 g/dl (32.0-36.5); PLATELET COUNT, AUTOMATED 251 10^3/uL (150-450); RED BLOOD COUNT 4.65 10^6/uL (4.00-5.40); WHITE BLOOD COUNT 7.3 10^3/uL (4.0-10.0)
[2019-01-06 15:14] LABS: ALBUMIN 4.5 GM/DL (3.2-5.2); ALT/SGPT 19 U/L (12-78); BILIRUBIN,TOTAL 0.6 MG/DL (0.2-1.0); BLOOD UREA NITROGEN 17 MG/DL (7-18); CALCIUM LEVEL 10.1 MG/DL (8.8-10.2); CARBON DIOXIDE LEVEL 31 MEQ/L (21-32); CHLORIDE LEVEL 104 MEQ/L (98-107); CREATININE FOR GFR 0.88 MG/DL (0.55-1.30); GLOMERULAR FILTRATION RATE > 60.0 (>45); GLUCOSE, FASTING 96 MG/DL (70-100); POTASSIUM SERUM 3.8 MEQ/L (3.5-5.1); SODIUM LEVEL 137 MEQ/L (136-145); TOTAL PROTEIN 8.6 GM/DL (6.4-8.2)
[2019-01-06] MEDS ORDERED: METH36TA PO (15:19)
[2019-01-06] MEDS ORDERED: [UNRECOGNIZED DRUG - CODE] MT (15:19)
[2019-01-06] MEDS ORDERED: METH-855 PO (15:19)
[2019-01-06] MEDS ORDERED: FISH1000 PO (15:19)
[2019-01-06] MEDS ORDERED: ATEN25TA PO (15:19)
[2019-01-06] MEDS ORDERED: MAGN500T12 PO (15:19)
[2019-01-06] MEDS ORDERED: ZOLP10TA2 PO (15:19)
[2019-01-06] MEDS ORDERED: WELLTAB38 PO (15:22)
[2019-01-06] MEDS ORDERED: SERT-141 PO (15:23)
[2019-01-06] MEDS ORDERED: MULTCAP PO (15:24)
[2019-01-06] MEDS: NS 1,000 ML IV SCH (16:15)
[2019-01-06] MEDS ORDERED: NICOTINE POLACRILEX 2 MG GUM PO PRN (16:30)
[2019-01-06] MEDS ORDERED: ACETAMINOPHEN 325 MG TAB PO PRN (16:30)
--- NOTE | 2019-01-06 16:33 | HPEPDOC ---
[facility] Medical History & Physical Date of Admission January 06, 2019 Primary Care Physician: EYAL BRUMFIELD PA-C Attending Physician: CHU HUBBARD MD History and Physical CHIEF COMPLAINT: Recurrent C. difficile HISTORY OF PRESENT ILLNESS: Patient is a 63 year old female presenting to [facility] as a direct admission from Dr. Wyman of Infectious Disease for complaint of recurrent C. difficile infection. Patient states that over the past two years she has had diarrhea caused by C. difficile. She states that she has received multiple treatments including vancomycin, fidaxomicin, and bezlotuxumab however, she has failed all three therapies. She currently states that she is having approximately 8 bouts of diarrhea a day. Approximately 10 days ago the patient presented to the [facility] ER and was found to be hypotensive secondary to volume loss from her diarrhea. She was given IV hydration and instructed to follow-up with her infectious disease doctor. Patient states that she was told that she may need a fecal transplant. Additionally she states that she believes she may have had some blood in her stool. She mentions a history of UTIs which have been chronic. She had stated that she was told she had blood in her urine. She was suppose to have a cystoscopy completed however never had this completed. PAST MEDICAL HISTORY: 1. Recurrent C. difficile infections 2. History of Hepatitis C s/p treatment 3. Hypertension 4. Recurrent UTIs PAST SURGICAL HISTORY: 1. Hysterectomy SOCIAL HISTORY: Patient lives alone. She denies current tobacco use. She denies alcohol use. She denies current IV drug use. FAMILY HISTORY: Noncontributory ALLERGIES: Please see below. REVIEW OF SYSTEMS: CONSTITUTIONAL: Admits to chills. Denies fever. Denies nightsweats. Denies unintentional weightloss or weightgain HEENT: Denies dysphagia. Denies cough CARDIOVASCULAR: Denies chest pain, palpitations, or feelings of the heart racing RESPIRATORY: Denies shortness of breath, wheezing, or cough GASTROINTESTINAL: Admits to crampy abdominal pain, diarrhea. Admits to occasional bloody stool. Denies nausea or vomiting GENITOURINARY: Admits to pain on urination. Admits to hematuria SKIN: Denies rashes or lesions MUSCULOSKELETAL: Denies muscle pain or weakness NEUROLOGICAL: Denies changes in gait, speech, or vision PSYCHIATRIC: Admits to history of anxiety/depression ENDOCRINE: Denies heat intolerance or cold intolerance HEMATOLOGIC/LYMPHATIC: Denies easy bruising or bleeding HOME MEDICATIONS: Please see below. PHYSICAL EXAMINATION: VITAL SIGNS: Temperature 98.3, pulse 58, respiratory rate 18, blood pressure 118/78, pulse oximetry 98% on room air. GENERAL APPEARANCE: Awake, alert, and oriented. She appears in no acute distress. Sitting comfortably at end of bed HEENT: Atrumatic normocephalic. Eyes are nonicteric. Trachea is midline. Dentition is fair. CARDIOVASCULAR: Normal S1,S2. Regular rate and rhythm. No clicks rubs or murmurs LUNGS: Clear vesicular breath sounds bilaterally with good respiratory effort. No wheezes, rhonci, or rales ABDOMEN: Soft, nondistended. Slight diffuse tenderness throughout on palpation. No rebound tenderness or guarding. Positive bowel sounds EXTREMITIES: No edema. Full and equal pulses in bilateral upper and lower extremities NEUROLOGICAL: No focal neurological deficits noted PSYCHIATRIC: Mood and affect appear appropriate LABORATORY DATA: See below. IMAGING: Chest X-ray pending MICROBIOLOGY: Please see below. ASSESSMENT: Patient is a 63 year old female with a history of recurrent C. difficile infections who presented as a direct admission from infectious disease office after failing treatment for c. difficile . PLAN: 1. Recurrent C. difficile colitis -Patient admits to diarrhea 8 times a day. She has been on oral vancomycin, fidaxomicin, and bezlotoxumab. The patient has failed all therapies -GI consultation has been placed. Case has been discussed with the GI physician on-call. Patient will be continued on 2 g sodium diet today. She will start bowel prep tomorrow and clear liquids diet. She will complete bowel prep by January 08. At that point patient will likely receive fecal transplant 2. Rectal Bleeding -Patient had stated that she had some rectal bleeding. Her hgb is currently stable. She is to be evaluated by GI 3. History of recurrent UTI and hematuria -Patient states that she is told that she has hematuria or microscopic hematuria. She states that in addition she gets pain on urination and is frequently placed on antibiotics. The patient has a long history of recurrent a ntibiotic use secondary to her recurrentt UTIs -U/A with reflex. -Patient would likely benefit from a urology follow-up outpatient f she continues to have hematuria 4. Depression/ Anxiety -Continue home medications 5. Recurrent UTIs -Currently holding methenamine hippurate -U/A pending 6. Tobacco Dependence -Nicotine gum 4mg q2h prn 7. DVT prophylaxis -TEDs/sequentials Vital Signs Vital Signs Date Time Temp Pulse Resp B/P (MAP) Pulse Ox O2 Delivery O2 Flow Rate FiO2 01/06/19 14:50 8 01/06/19 14:39 98.3 58 118/78 (91) 98 Laboratory Data Labs 24H Laboratory Tests 2 01/06/19 14:29: Nucleated Red Blood Cells % (auto) 0.0, Anion Gap 2L, Glomerular Filtration Rate > 60.0, Lactic Acid Level 0.9, Blood Urea Nitrogen 17, Creatinine 0.88, Sodium Level 137, Potassium Level 3.8, Chloride Level 104, Carbon Dioxide Level 31, Calcium Level 10.1, Aspartate Amino Transf (AST/SGOT) 21, Alanine Aminotransferase (ALT/SGPT) 19, Alkaline Phosphatase 64, Total Bilirubin 0.6, Total Protein 8.6H, Albumin 4.5, Albumin/Globulin Ratio 1.10 CBC/BMP Laboratory Tests 01/06/19 14:29 Red Blood Count 4.65, Mean Corpuscular Volume 91.0, Mean Corpuscular Hemoglobin 29.2, Mean Corpuscular Hemoglobin Concent 32.2, Red Cell Distribution Width 12.6, Calcium Level 10.1, Aspartate Amino Transf (AST/SGOT) 21, Alanine Aminotransferase (ALT/SGPT) 19, Alkaline Phosphatase 64, Total Bilirubin 0.6, Total Protein 8.6 H, Albumin 4.5 Microbiology Microbiology 01/06/19 Blood Culture, Received Pending 01/06/19 Blood Culture, Received Pending Home Medications Scheduled Alprazolam (Alprazolam) 1 Mg Tab, 1 MG PO TID Atenolol (Atenolol) 25 Mg Tablet, 25 MG PO DAILY Bupropion HCl (Wellbutrin Xl) 150 Mg Tab.er.24h, 150 MG PO DAILY Magnesium Oxide (Magnesium Oxide) 500 Mg Tablet, 500 MG PO DAILY Methenamine Hippurate (Methenamine Hippurate) 1 Gm Tablet, 1 GM PO BID Methylphenidate HCl (Methylphenidate ER) 36 Mg Tab.er.24, 36 MG PO DAILY Multivitamin (Multivitamins) 1 Each Capsule, 1 CAP PO DAILY [place]-3 Fatty Acids/Fish Oil (Fish Oil 1,000 mg Capsule) 1 Each Capsule, 1,000 MG PO DAILY Sertraline Hcl (Sertraline HCl) 50 Mg Tablet, 50 MG PO QPM Simvastatin (Simvastatin) 20 Mg Tab, 20 MG PO QHS Zolpidem Tartrate (Zolpidem Tartrate) 10 Mg Tablet, 10 MG PO QHS Scheduled PRN Acetaminophen (Acetaminophen) 325 Mg Tab, 650 MG PO Q4H PRN for PAIN Epinephrine (Epipen 2-Aleksandar) 0.3 Mg/0.3 Ml Inj, 0.3 MG INJ for ANAPHYLAXIS Nicotine Polacrilex (Nicorette) 4 Mg Lozng.mini, 4 MG MT PRN PRN for NICOTINE WITHDRAWAL Allergies Coded Allergies: azithromycin (Unverified Allergy, Intermediate, LIPS SWELL/RASH, 01/06/19) prazosin (Unverified Allergy, Intermediate, RASH, 01/06/19) Sulfa (Sulfonamide Antibiotics) (Unverified Adverse Reaction, Mild, DIARRHEA, 01/06/19) doxycycline (Unverified Adverse Reaction, Mild, DIARRHEA, 01/06/19) morphine (Unverified Adverse Reaction, Mild, ITCHY, 01/06/19) sulfacetamide (Verified Adverse Reaction, Mild, DIARRHEA, 01/06/19) sulfur (Verified Adverse Reaction, Mild, DIARRHEA, 01/06/19) A-FIB/CHADSVASC A-FIB History Current/History of A-Fib/PAF?: No GME ATTESTATION GME ATTESTATION My faculty preceptor for this patient encounter was physically present during the encounter and was fully available. All aspects of the patient interview, examination, medical decision making process, and medical care plan development were reviewed and approved by the faculty preceptor. The faculty preceptor is aware and concurs with the plan as stated in the body of this note and will attest to such by his/her cosignature. ATTENDING NOTE I, Chu Hubbard, have both independently examined this patient as well as reviewed the documentation. I have discussed in detail with the resident the findings and plan of treatment as documented by the resident. I agree with their findings and treatment plan. I will continue to follow the patient and offer further guidance to the patients care as necessary during this hospital stay. SANDRA ALLEN DO January 06, 2019 16:33 CHU HUBBARD MD January 06, 2019 18:45
[2019-01-06] MEDS: ALPRAZolam 0.5 MG TAB PO SCH ×2 (16:50→20:57)
[2019-01-06] MEDS: ONDANSETRON 4MG/2ML VIAL (J2405) IV PRN ×2 (16:50→21:21)
[2019-01-06] MEDS: ACETAMINOPHEN 325 MG/10.15 ML UDC PO PRN ×2 (16:50→23:34)
--- NOTE | 2019-01-06 17:04 | REP ---
Portable chest x-ray: Single view. History: Evaluate for infiltrate. Comparison chest x-ray: March 07, 2017. Findings: There are granulomatous lymph node and parenchymal calcifications on the right, unchanged. There is a new zone of linear plate-like atelectasis in the left base versus linear fibrosis. Pleural angles are sharp. No infiltrate is seen. Heart is not enlarged. No acute bony abnormality. Impression: Linear fibrosis versus plate-like atelectasis left base. Old granulomatous calcifications on the right. No acute disease. Electronically Signed by Davis Sheth MD 01/06/2019 10:33 P
[2019-01-06 20:00] VITALS: BP 104/58
[2019-01-06] MEDS: zolPIDEM TARTRATE 10MG TAB PO SCH (20:57)
[2019-01-06] MEDS: SIMVASTATIN 20 MG TAB PO SCH (20:57)
[2019-01-06] MEDS: SERTRALINE HCL 50 MG TAB PO SCH (20:57)
--- NOTE | 2019-01-07 00:35 | ECGEPIP ---
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
[2019-01-07 04:00] VITALS: BP 114/50
[2019-01-07] MEDS: NS 1,000 ML IV SCH ×2 (04:21→16:46)
[2019-01-07 07:09] LABS: BASO % 0.6 % (0.0-1.0); EOS # 0.3 10^3/uL (0.0-0.50); EOS % 5.2 % (0.0-3.0); HEMATOCRIT 36.8 % (36.0-47.0); HEMOGLOBIN 11.8 g/dl (12.0-15.5); LYMPH # 2.5 10^3/uL (1.5-4.5); LYMPH % 50.4 % (24.0-44.0); MEAN CORPUSCULAR HEMOGLOBIN 29.4 pg (27.0-33.0); MEAN CORPUSCULAR HGB CONC 32.1 g/dl (32.0-36.5); MEAN CORPUSCULAR VOLUME 91.8 fl (80.0-96.0); MONO # 0.4 10^3/uL (0.0-0.8); MONO % 8.2 % (0.0-5.0); NEUTROPHILS # 1.8 10^3/uL (1.8-7.7); NEUTROPHILS % 35.4 % (36.0-66.0); PLATELET COUNT, AUTOMATED 192 10^3/uL (150-450); RED BLOOD COUNT 4.01 10^6/uL (4.00-5.40)
[2019-01-07 07:27] LABS: BLOOD UREA NITROGEN 18 MG/DL (7-18); CALCIUM LEVEL 8.6 MG/DL (8.8-10.2); CARBON DIOXIDE LEVEL 29 MEQ/L (21-32); CHLORIDE LEVEL 108 MEQ/L (98-107); CREATININE FOR GFR 0.81 MG/DL (0.55-1.30); GLOMERULAR FILTRATION RATE > 60.0 (>45); GLUCOSE, FASTING 89 MG/DL (70-100); MAGNESIUM LEVEL 1.8 MG/DL (1.8-2.4); SODIUM LEVEL 141 MEQ/L (136-145)
[2019-01-07] MEDS ORDERED: GOLYTELY SOLN 4000 ML BTL PO ONE ×3 (08:00→14:30)
[2019-01-07] MEDS: ONDANSETRON 4MG/2ML VIAL (J2405) IV PRN ×2 (08:21→20:51)
[2019-01-07] MEDS: ACETAMINOPHEN 325 MG/10.15 ML UDC PO PRN (08:21)
[2019-01-07] MEDS: ALPRAZolam 0.5 MG TAB PO SCH ×3 (08:22→20:30)
[2019-01-07] MEDS: buPROPion **XL** TABLET 150MG (WELLBUTRIN XL) PO SCH (08:23)
[2019-01-07] MEDS: ATENOLOL 25 MG TAB PO SCH (08:23)
[2019-01-07] MEDS: PERCOCET 5MG/325MG TAB PO PRN ×2 (11:04→17:13)
--- NOTE | 2019-01-07 12:43 | IPNPDOC ---
Date Seen The patient was seen on 01/07/19. Progress Note SUBJECTIVE: Patient was seen and examined this morning. She currently complains of mild diffuse abdominal pain. She is still having multiple episodes of diarrhea. She denies any nausea or vomiting. OBJECTIVE PHYSICAL EXAMINATION: VITAL SIGNS: Please see below. GENERAL: Awake, alert, and oriented. Lying in bed in no acute distress HEENT: Atrumatic, normocephalic. Eyes are nonicteric. Trachea is midline. Mucous membranes are pink and moist CARDIOVASCULAR: Normal S1, S@. Regular rate and rhythm. No clicks, rubs, or murmurs RESPIRATORY: Clear vesicular breath sounds throughout. No wheezes, rhonci, or rales. ABDOMINAL: Soft, nondistended. Mild tenderness to palpation throughout. No rebou nd tenderness or guarding. Positive bowel sounds EXTREMITIES: No edema. Full and equal pulses in bilateral upper and lower extremities NEUROLOGICAL: No focal neurological deficits PSYCHOLOGICAL: Mood and affect appear appropriate LABORATORY DATA, IMAGING STUDIES, MICROBIOLOGY: Please see below. DVT prophylaxis ordered?: YES ASSESSMENT AND PLAN: Patient is a 63 year old female with a history of recurrent C. difficile infections who presented as a direct admission from infectious disease office after failing treatment for c. difficile PROBLEMS: 1. Recurrent C. difficile colitis -Patient has failed oral vancomycin, fidaxomicin, and bezlotoxumab. -GI consultation has been placed. Case has been discussed with the GI physician on-call. -Continue bowel prep today to be finished by tomorrow. -Clear liquids diet 2. Rectal Bleeding -Patient had stated that she had some rectal bleeding. -Hgb 11.8 from 13.6. Currently asymptomatic. Continue to trend 3. History of recurrent UTI and hematuria -Patient states that she is told that she has hematuria or microscopic hematuria. She states that in addition she gets pain on urination and is frequently placed on antibiotics. The patient has a long history of recurrent antibiotic use secondary to her recurrentt UTIs -U/A with positive nitite, blood, leukocyte esterase, and 3+ bacteria. Pending culture -Patient would likely benefit from a urology follow-up outpatient f she continues to have hematuria 4. Depression/ Anxiety -Continue home medications 5. Recurrent UTIs -Currently holding methenamine hippurate -U/A pending 6. Tobacco Dependence -Nicotine gum 4mg q2h prn 7. DVT prophylaxis -TEDs/sequentials A-FIB/CHADSVASC A-FIB History Current/History of A-Fib/PAF?: No VS, I&O, 24H, Fishbone Vital Signs/I&O Vital Signs Date Time Temp Pulse Resp B/P (MAP) Pulse Ox O2 Delivery O2 Flow Rate FiO2 01/07/19 11:47 18 01/07/19 08:23 49 114/50 01/07/19 04:00 97.0 96 I&O- Last 24 Hours up to 6 AM 01/07/19 06:00 Intake Total 1657 ml Output Total 500 ml Balance 1157 ml Laboratory Data 24H LABS Laboratory Tests 2 01/06/19 14:29: Nucleated Red Blood Cells % (auto) 0.0, Anion Gap 2L, Glomerular Filtration Rate > 60.0, Lactic Acid Level 0.9, Blood Urea Nitrogen 17, Creatinine 0.88, Sodium Level 137, Potassium Level 3.8, Chloride Level 104, Carbon Dioxide Level 31, Calcium Level 10.1, Aspartate Amino Transf (AST/SGOT) 21, Alanine Aminotransferase (ALT/SGPT) 19, Alkaline Phosphatase 64, Total Bilirubin 0.6, Total Protein 8.6H, Albumin 4.5, Albumin/Globulin Ratio 1.10 01/06/19 16:00: Urine Color YELLOW, Urine Appearance CLOUDYH, Urine pH 5.0, Urine Specific [place] 1.019, Urine Protein NEGATIVE, Urine Glucose (UA) NEGATIVE, Urine Ketones NEGATIVE, Urine Blood 1+H, Urine Nitrite POSITIVEH, Urine Bilirubin NEGATIVE, Urine Urobilinogen 0.2, Urine Leukocyte Esterase 1+H, Urine WBC (Auto) 24H, Urine RBC (Auto) 1, Urine Hyaline Casts (Auto) 1, Urine Bacteria (Auto) 3+H, Urine Squamous Epithelial Cells 15, Urine Mucus (Auto) SMALL, Urine Sperm (Auto) 01/07/19 06:27: Nucleated Red Blood Cells % (auto) 0.0, Anion Gap 4L, Glomerular Filtration Rate > 60.0, Blood Urea Nitrogen 18, Creatinine 0.81, Sodium Level 141, Potassium Level 4.0, Chloride Level 108H, Carbon Dioxide Level 29, Calcium Level 8.6L, Immature Granulocyte % (Auto) 0.2, White Blood Count 5.0, Red Blood Count 4.01, Hemoglobin 11.8L, Hematocrit 36.8, Mean Corpuscular Volume 91.8, Mean Corpuscular Hemoglobin 29.4, Mean Corpuscular Hemoglobin Concent 32.1, Red Cell Distribution Width 12.5, Platelet Count 192, Neutrophils (%) (Auto) 35.4L, Lymphocytes (%) (Auto) 50.4H, Monocytes (%) (Auto) 8.2H, Eosinophils (%) (Auto) 5.2H, Basophils (%) (Auto) 0.6, Neutrophils # (Auto) 1.8, Lymphocytes # (Auto) 2.5, Monocytes # (Auto) 0.4, Eosinophils # (Auto) 0.3, Basophils # (Auto) 0.0, Magnesium Level 1.8 CBC/BMP Laboratory Tests 01/06/19 14:29 Red Blood Count 4.65, Mean Corpuscular Volume 91.0, Mean Corpuscular Hemoglobin 29.2, Mean Corpuscular Hemoglobin Concent 32.2, Red Cell Distribution Width 12.6, Calcium Level 10.1, Aspartate Amino Transf (AST/SGOT) 21, Alanine Aminotransferase (ALT/SGPT) 19, Alkaline Phosphatase 64, Total Bilirubin 0.6, Total Protein 8.6 H, Albumin 4.5 01/07/19 06:27 Red Blood Count 4.01, Mean Corpuscular Volume 91.8, Mean Corpuscular Hemoglobin 29.4, Mean Corpuscular Hemoglobin Concent 32.1, Red Cell Distribution Width 12.5, Calcium Level 8.6 L, Neutrophils (%) (Auto) 35.4 L, Lymphocytes (%) (Auto) 50.4 H, Monocytes (%) (Auto) 8.2 H, Eosinophils (%) (Auto) 5.2 H, Basophils (%) (Auto) 0.6, Neutrophils # (Auto) 1.8, Lymphocytes # (Auto) 2.5, Monocytes # (Auto) 0.4, Eosinophils # (Auto) 0.3, Basophils # (Auto) 0.0 Microbiology Microbiology 01/06/19 Blood Culture, Received Pending 01/06/19 Blood Culture, Received Pending 01/06/19 Urine Culture, Received Pending GME ATTESTATION GME ATTESTATION My faculty preceptor for this patient encounter was physically present during the encounter and was fully available. All aspects of the patient interview, examination, medical decision making process, and medical care plan development were reviewed and approved by the faculty preceptor. The faculty preceptor is aware and concurs with the plan as stated in the body of this note and will attest to such by his/her cosignature. ATTENDING NOTE I, Chu Molina, have both independently examined this patient as well as reviewed the documentation. I have discussed in detail with the resident the findings and plan of treatment as documented by the resident. I agree with their findings and treatment plan. I will continue to follow the patient and offer further guidance to the patients care as necessary during this hospital stay. SANDRA ALLEN DO January 07, 2019 12:43 CHU MOLINA MD January 07, 2019 14:36
[2019-01-07] MEDS: DICYCLOMINE 10 MG CAP PO PRN (12:59)
[2019-01-07 14:00] VITALS: BP 124/60
--- NOTE | 2019-01-07 15:19 | CR.PDOC ---
General Date of Consultation: January 07, 2019 Referring Provider: SANDRA ALLEN DO Attending Physician: KENDALL QUEVEDO MD Consultation Primary physician/ hospitalist: Dr. Sandra Allen Reason for consult: Recurrent C. difficile for evaluation for fecal transplant. HPI: 63 year old female patient with HTN, h/o HCV s/p therapy ( following ID clinic for the same), h/o recurrent C. difficile for the past few months, (had multiple treatment - vancomycin, fidaxomicin, and bezlotuxumab) but recurrent diarrhea was admitted though ID clinic for evaluation for Fecal transplant. Patient repo rts having recurrent UTIs in past and after using antibiotics for UTI she had C. difficile which was recrrent despite multiple treatments. Patient had repeat stool test on December 25, which was positive for C.difficile and she received Dificid for 10 days with last dose 3 days ago but with persistent diarrhea. Patient also reports moderate lower and right lower abdominal pain along with upto 6 loose stools over last 24 hours. Patient also reprots having some blood with stools around 4 days ago but no resolved and thinks it might be from her hemorrhoids. Patient denies any other Gi symptoms. Pertinent negative GI symptoms: Patient denies nausea, vomiting, loss of appetite, early satiety or unintentional weight loss. No history of hematemesis, melena. Review of Systems: GI: as stated above CVS: No chest pain, No palpitations, No leg swelling. 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 Skin: No rash : No hematuria, No burning sensation of the urine ENT: No ear discharge/ pain, No dysphagia. Eyes: No photophobia. Home medications: reviewed. Antithrombotic agents - None Medical h/o: As above. Surgical h/o: Hysterectomy. Social h/o: Alcohol-Social , tobacco- current use. IVDA/ drugs- denies current use. Family h/o of GI cancers - Non-contributory. Prior Endoscopies: --- EGD - Previously had EGD by Dr. Rodriguez. --- Colonoscopy - in 2013 -- good prep, completed till cecum. Noted one polyp - completely removed. Recommended repeat in 5 years. Prior GI evaluation: Previously seen Dr. Rodriguez in GI clinic. Exam: Vitals: reviewed General: Alert and oriented x 3, not in distress HEENT: NO pallor, no icterus. Normal oropharynx, NO cervical lymph nodes. Chest: symmetric with bilateral clear air entry, CVS: S1, S2 heard, normal, no murmurs . Abdomen: non-distended, no surgical scars, soft, minimal tenderness in lower abdomen, no rigidity, no guarding, no palpable masses, normal bowel sounds heard. Rectal exam: Patient refused / Deferred at this time in view of scheduled colonoscopy. Extremities: no pedal edema, pulses palpable. CARRIER DRIVER: no focal motor or sensory deficits. Moves all extremities Skin: no rash. Labs: reviewed. Imaging tests: reviewed Impression: - Recurrent C. difficile with multiple prior unsuccessful therapies -- Needs fecal transplant. - h/o HCV s/p therapy at ID clinic with ETR. ( not clear if patient had interval VL to confirm SVR). Following with ID. Recommendations: - Patient educated about the prior test results, possible differential diagnoses and All questions answered. - Clear liquid diet until 4 hours prior to Colonoscopy. - Avoid Any antibiotic therapy at this time. - Monitor clinical status, electrolytes and correct electrolytes as needed if abnormal. - Patient will be scheduled for Colonoscopy with Fecal transplant on 01/08/2019. - The procedure, indications, risks (bleeding, perforation, infection, hypotension, respiratory depression, allergy, need for endotracheal intubation, surgery, colostomy, cardiac arrest, even ), benefits, limitations (e.g., missing a lesion), and all other alternatives (including no intervention) were explained to the patient who understood and agreed for the procedure. - Bowel prep with golytely 4 liters to be completed by 12 midnight today and addition two packets of miralax tomorrow morning. Dulcolax total dose 20mg at 6 PM today. - Follow up with ID electively for HCV SVR ( patient previously completed therapy for HCV). - Follow up Procedure note for post procedure recommendations. Plan of care discussed with patient and primary team. Patient verbalized understanding and agreed with the plan. Laboratory Data CBC/BMP Laboratory Tests 01/06/19 14:29 01/07/19 06:27 Allergies Coded Allergies: azithromycin (Unverified Allergy, Intermediate, LIPS SWELL/RASH, 01/06/19) prazosin (Unverified Allergy, Intermediate, RASH, 01/06/19) Sulfa (Sulfonamide Antibiotics) (Unverified Adverse Reaction, Mild, DIARRHEA, 01/06/19) doxycycline (Unverified Adverse Reaction, Mild, DIARRHEA, 01/06/19) morphine (Unverified Adverse Reaction, Mild, ITCHY, 01/06/19) sulfacetamide (Verified Adverse Reaction, Mild, DIARRHEA, 01/06/19) sulfur (Verified Adverse Reaction, Mild, DIARRHEA, 01/06/19) Home Medications Scheduled Alprazolam (Alprazolam) 1 Mg Tab, 1 MG PO TID, (Reported) Atenolol (Atenolol) 25 Mg Tablet, 25 MG PO DAILY, (Reported) Bupropion HCl (Wellbutrin Xl) 150 Mg Tab.er.24h, 150 MG PO DAILY, (Reported) Magnesium Oxide (Magnesium Oxide) 500 Mg Tablet, 500 MG PO DAILY, (Reported) Methenamine Hippurate (Methenamine Hippurate) 1 Gm Tablet, 1 GM PO BID, (Reported) Methylphenidate HCl (Methylphenidate ER) 36 Mg Tab.er.24, 36 MG PO DAILY, (Reported) Multivitamin (Multivitamins) 1 Each Capsule, 1 CAP PO DAILY, (Reported) [place]-3 Fatty Acids/Fish Oil (Fish Oil 1,000 mg Capsule) 1 Each Capsule, 1,000 MG PO DAILY, (Reported) Sertraline Hcl (Sertraline HCl) 50 Mg Tablet, 50 MG PO QPM, (Reported) Simvastatin (Simvastatin) 20 Mg Tab, 20 MG PO QHS, (Reported) Zolpidem Tartrate (Zolpidem Tartrate) 10 Mg Tablet, 10 MG PO QHS, (Reported) Scheduled PRN Acetaminophen (Acetaminophen) 325 Mg Tab, 650 MG PO Q4H PRN for PAIN, (Reported) Epinephrine (Epipen 2-Aleksandar) 0.3 Mg/0.3 Ml Inj, 0.3 MG INJ for ANAPHYLAXIS, (Reported) Nicotine Polacrilex (Nicorette) 4 Mg Lozng.mini, 4 MG MT PRN PRN for NICOTINE WITHDRAWAL, (Reported) KENDALL QUEVEDO MD January 07, 2019 08:13
[2019-01-07] MEDS ORDERED: BISACODYL 5 MG TAB PO ONE (18:00)
[2019-01-07 20:00] VITALS: BP 126/66
[2019-01-07] MEDS: zolPIDEM TARTRATE 10MG TAB PO SCH (20:30)
[2019-01-07] MEDS: SERTRALINE HCL 50 MG TAB PO SCH (20:31)
[2019-01-07] MEDS: SIMVASTATIN 20 MG TAB PO SCH (20:31)
[2019-01-08] MEDS: PERCOCET 5MG/325MG TAB PO PRN ×4 (00:08→18:28)
[2019-01-08 04:00] VITALS: BP 118/62
[2019-01-08 06:48] LABS: BASO % 0.6 % (0.0-1.0); EOS # 0.2 10^3/uL (0.0-0.50); EOS % 4.7 % (0.0-3.0); HEMATOCRIT 33.8 % (36.0-47.0); HEMOGLOBIN 10.9 g/dl (12.0-15.5); LYMPH # 2.3 10^3/uL (1.5-4.5); LYMPH % 49.7 % (24.0-44.0); MEAN CORPUSCULAR HEMOGLOBIN 28.8 pg (27.0-33.0); MEAN CORPUSCULAR HGB CONC 32.2 g/dl (32.0-36.5); MEAN CORPUSCULAR VOLUME 89.4 fl (80.0-96.0); MONO # 0.4 10^3/uL (0.0-0.8); MONO % 8.3 % (0.0-5.0); NEUTROPHILS # 1.7 10^3/uL (1.8-7.7); NEUTROPHILS % 36.5 % (36.0-66.0); PLATELET COUNT, AUTOMATED 178 10^3/uL (150-450); RED BLOOD COUNT 3.78 10^6/uL (4.00-5.40); WHITE BLOOD COUNT 4.7 10^3/uL (4.0-10.0)
[2019-01-08 07:13] LABS: BLOOD UREA NITROGEN 6 MG/DL (7-18); CALCIUM LEVEL 8.2 MG/DL (8.8-10.2); CARBON DIOXIDE LEVEL 28 MEQ/L (21-32); CHLORIDE LEVEL 109 MEQ/L (98-107); CREATININE FOR GFR 0.71 MG/DL (0.55-1.30); GLOMERULAR FILTRATION RATE > 60.0 (>45); GLUCOSE, FASTING 87 MG/DL (70-100); POTASSIUM SERUM 3.6 MEQ/L (3.5-5.1); SODIUM LEVEL 143 MEQ/L (136-145)
[2019-01-08] MEDS ORDERED: MIRALAX *UNIT DOSE* 17GM PACKET PO ONE (08:00)
[2019-01-08] MEDS: ALPRAZolam 0.5 MG TAB PO SCH ×3 (08:38→20:15)
[2019-01-08] MEDS: buPROPion **XL** TABLET 150MG (WELLBUTRIN XL) PO SCH (08:38)
[2019-01-08] MEDS: ATENOLOL 25 MG TAB PO SCH (08:39)
[2019-01-08] MEDS: NS 1,000 ML IV SCH (08:40)
[2019-01-08] MEDS: ACETAMINOPHEN 325 MG/10.15 ML UDC PO PRN (10:07)
[2019-01-08] MEDS: ONDANSETRON 4MG/2ML VIAL (J2405) IV PRN (10:13)
[2019-01-08] MEDS ORDERED: METHYLPHENIDATE ER 18 MG TABLET (CONCERTA) PO ONE (11:00)
[2019-01-08] MEDS: METHYLPHENIDATE ER 18 MG TABLET (CONCERTA) PO SCH (12:23)
[2019-01-08] MEDS ORDERED: FECAL MICROBIOTA PREPARATION 250 ML BTL (J3590) XX ONE (13:15)
[2019-01-08] MEDS ORDERED: LIDOCAINE 2% INJ 100 MG/5 ML SDV (FOR ANES.) As Ordered ONE (15:27)
[2019-01-08] MEDS ORDERED: PROPOFOL 200 MG/20 ML VIAL As Ordered ONE (15:27)
--- NOTE | 2019-01-08 16:03 | IPNPDOC ---
Date Seen The patient was seen on 01/08/19. Progress Note SUBJECTIVE: Patient was seen and examined this morning. She currently continues to have diarrhea. She also continues to complain of diffuse abdominal cramping with her diarrhea. She denies fevers or chills. Currently she denies urinary frequency or discomfort. She has had chronic urinary tract infections with chronic antibiotic use. OBJECTIVE PHYSICAL EXAMINATION: VITAL SIGNS: Please see below. GENERAL: Awake, alert, and oriented. She does not appear to be in acute distress. Lying comfortably in bed HEENT: Atruamatic normocephalic. Eyes are nonicteric. left eye ptosis. Trachea is midline. Mucous membranes are pink and moist CARDIOVASCULAR: Normal S1, S2. Regular rate and rhythm. No clicks, rubs, or murmurs noted. RESPIRATORY: Clear vesicular lung sounds bilaterally. Good respiratory effort. No wheezes, rhonci, or rales ABDOMINAL: Soft, nondistended. Slight diffuse tenderness to palpation. No rebound tenderness or guarding. Positive bowel sounds EXTREMITIES: No edema. Full and equal pulses in bilateral upper and lower extremities NEUROLOGICAL: No focal neurological deficits PSYCHOLOGICAL: Mood and affect appear appropriate LABORATORY DATA, IMAGING STUDIES, MICROBIOLOGY: Please see below. DVT prophylaxis ordered?: YES ASSESSMENT AND PLAN: Patient is a 63 year old female with a history of recurrent C. difficile infections who presented as a direct admission from infectious disease office after failing treatment for c. difficile PROBLEMS: 1. Recurrent C. difficile colitis -Patient has failed oral vancomycin, fidaxomicin, and bezlotoxumab. -GI consultation has been placed. Case has been discussed with the GI physician on-call. -Patient is planned to receive fecal transplant today 2. Rectal Bleeding -Patient had stated that she had some rectal bleeding. -Hgb 11.8 from 13.6. Currently asymptomatic. Continue to trend 3. History of recurrent UTI and hematuria -Patient states that she is told that she has hematuria or microscopic hematuria. She states that in addition she gets pain on urination and is frequently placed on antibiotics. The patient has a long history of recurrent antibiotic use secondary to her recurrentt UTIs -U/A with positive nitrite, blood, leukocyte esterase, and 3+ bacteria. Culture positive for K. pneumonia. Looking at her past documented urine cultures this has been recurrent. Given her recurrent C. difficile it may not be beneficial to treat with antibiotics as she isnt necessarily having urinary symptoms right now. Patient had a cystoscopy planned with urology however, has missed that due to her C. difficile. She would likely benefit from follow-up with urology 4. Depression/ Anxiety -Continue home medications 5. Tobacco Dependence -Nicotine gum 4mg q2h prn 6. DVT prophylaxis -TEDs/sequentials A-FIB/CHADSVASC A-FIB History Current/History of A-Fib/PAF?: No VS, I&O, 24H, Fishbone Vital Signs/I&O Vital Signs Date Time Temp Pulse Resp B/P (MAP) Pulse Ox O2 Delivery O2 Flow Rate FiO2 01/08/19 13:14 17 01/08/19 08:39 58 122/82 01/08/19 04:00 97.1 94 I&O- Last 24 Hours up to 6 AM 01/08/19 06:00 Intake Total 6040 ml Output Total 1400 ml Balance 4640 ml Laboratory Data 24H LABS Laboratory Tests 2 01/08/19 06:18: Immature Granulocyte % (Auto) 0.2, White Blood Count 4.7, Red Blood Count 3.78L, Hemoglobin 10.9L, Hematocrit 33.8L, Mean Corpuscular Volume 89.4, Mean Corpuscul ar Hemoglobin 28.8, Mean Corpuscular Hemoglobin Concent 32.2, Red Cell Distribution Width 12.5, Platelet Count 178, Neutrophils (%) (Auto) 36.5, Lymphocytes (%) (Auto) 49.7H, Monocytes (%) (Auto) 8.3H, Eosinophils (%) (Auto) 4.7H, Basophils (%) (Auto) 0.6, Neutrophils # (Auto) 1.7L, Lymphocytes # (Auto) 2.3, Monocytes # (Auto) 0.4, Eosinophils # (Auto) 0.2, Basophils # (Auto) 0.0, Nucleated Red Blood Cells % (auto) 0.0, Anion Gap 6L, Glomerular Filtration Rate > 60.0, Blood Urea Nitrogen 6#L, Creatinine 0.71, Sodium Level 143, Potassium Level 3.6, Chloride Level 109H, Carbon Dioxide Level 28, Calcium Level 8.2L, Magnesium Level 2.0 CBC/BMP Laboratory Tests 01/08/19 06:18 Red Blood Count 3.78 L, Mean Corpuscular Volume 89.4, Mean Corpuscular Hemoglobin 28.8, Mean Corpuscular Hemoglobin Concent 32.2, Red Cell Distribution Width 12.5, Neutrophils (%) (Auto) 36.5, Lymphocytes (%) (Auto) 49.7 H, Monocytes (%) (Auto) 8.3 H, Eosinophils (%) (Auto) 4.7 H, Basophils (%) (Auto) 0.6, Neutrophils # (Auto) 1.7 L, Lymphocytes # (Auto) 2.3, Monocytes # (Auto) 0.4, Eosinophils # (Auto) 0.2, Basophils # (Auto) 0.0, Calcium Level 8.2 L Microbiology Microbiology 01/06/19 Blood Culture - Preliminary, Resulted No growth after 24 hours . All specim... 01/06/19 Blood Culture - Preliminary, Resulted No growth after 24 hours . All specim... 01/06/19 Urine Culture - Final, Complete Klebsiella Pneumoniae GME ATTESTATION GME ATTESTATION My faculty preceptor for this patient encounter was physically present during the encounter and was fully available. All aspects of the patient interview, examination, medical decision making process, and medical care plan development were reviewed and approved by the faculty preceptor. The faculty preceptor is aware and concurs with the plan as stated in the body of this note and will attest to such by his/her cosignature. ATTENDING NOTE I, Chu Molina, have both independently examined this patient as well as reviewed the documentation. I have discussed in detail with the resident the findings and plan of treatment as documented by the resident. I agree with their findings and treatment plan. I will continue to follow the patient and offer further guidance to the patients care as necessary during this hospital stay. SANDRA ALLEN DO January 08, 2019 14:32 CHU MOLINA MD January 08, 2019 16:33
--- NOTE | 2019-01-08 16:37 | ROOR ---
Patient Name: Roxanne Banda Procedure Date: 01/08/2019 4:00 PM Date of : 1955 Age: 63 Room: [facility] Gender: Female Note Status: Finalized Procedure: Colonoscopy Indications: Fecal transplant for treatment of recurrent Clostridium difficile diarrhea Providers: Massimo Perkins MD Referring MD: 2. Inpatient 2. Inpatient Requesting Provider: Medicines: Monitored Anesthesia Care Complications: No immediate complications. Procedure: Pre-Anesthesia Assessment: - Prior to the procedure, a History and Physical was performed, and patient medications and allergies were reviewed. The patient is competent. The risks and benefits of the procedure and the sedation options and risks were discussed with the patient. All questions were answered and informed consent was obtained. Patient identification and proposed procedure were verified by the physician, the nurse and the anesthesiologist in the procedure room. Mental Status Examination: alert and oriented. Airway Examination: normal oropharyngeal airway and neck mobility. Respiratory Examination: clear to auscultation. CV Examination: normal. Prophylactic Antibiotics: The patient does not require prophylactic antibiotics. Prior Anticoagulants: The patient has taken no previous anticoagulant or antiplatelet agents. ASA Grade Assessment: II - A patient with mild systemic disease. After reviewing the risks and benefits, the patient was deemed in satisfactory condition to undergo the procedure. The anesthesia plan was to use monitored anesthesia care (MAC). Immediately prior to administration of medications, the patient was re-assessed for adequacy to receive sedatives. The heart rate, respiratory rate, oxygen saturations, blood pressure, adequacy of pulmonary ventilation, and response to care were monitored throughout the procedure. The physical status of the patient was re-assessed after the procedure. The Colonoscope was introduced through the anus and advanced to the terminal ileum, with identification of the appendiceal orifice and IC valve. The colonoscopy was performed without difficulty. The patient tolerated the procedure well. The quality of the bowel preparation was fair. The terminal ileum, ileocecal valve, appendiceal orifice, and rectum were photographed. Scope insertion time was 3 minutes. Scope withdrawal time was 6 minutes. The total duration of the procedure was 10 minutes. Findings: The perianal and digital rectal examinations were normal. The terminal ileum appeared normal. Normal mucosa was found from rectum to ascending colon. A moderate amount of semi-solid stool was found from cecum to ascending colon, interfering with visualization. Fecal Microbiota Transplant (Bacteriotherapy): Donor stool was prepared by a third republican (purchased) using water as per protocol. Approximately 250 mL of the emulsified donor stool was instilled in the cecum. A detailed colonoscopic exam could not be performed upon scope withdrawal secondary to limited visibility from the instilled stool. Impression: - Preparation of the colon was fair. - The examined portion of the ileum was normal. - Normal mucosa from rectum to ascending colon. - Stool from cecum to ascending colon. - Fecal Microbiota Transplant (Bacteriotherapy) performed in the cecum. - No specimens collected. Recommendation: - Patient has a contact number available for emergencies. The signs and symptoms of potential delayed complications were discussed with the patient. Return to normal activities tomorrow. Written discharge instructions were provided to the patient. - Resume previous diet. - Continue present medications. - Repeat colonoscopy in 1 year because the bowel preparation was poor and for surveillance. - Return to GI clinic in 1 year. - Return to primary care physician. Massimo Perkins MD Massimo Perkins MD 01/08/2019 4:37:33 PM Electronically signed by Massimo Perkins MD Number of Addenda: 0 Note Initiated On: 01/08/2019 4:00 PM Estimated Blood Loss: Estimated blood loss was minimal.
[2019-01-08 16:50] VITALS: BP 142/65
[2019-01-08] MEDS: DICYCLOMINE 10 MG CAP PO PRN (16:57)
[2019-01-08] MEDS: zolPIDEM TARTRATE 10MG TAB PO SCH (20:15)
[2019-01-08] MEDS: SIMVASTATIN 20 MG TAB PO SCH (20:16)
[2019-01-08] MEDS: SERTRALINE HCL 50 MG TAB PO SCH (20:16)
[2019-01-08 21:40] VITALS: BP 118/62
[2019-01-09] MEDS: PERCOCET 5MG/325MG TAB PO PRN ×2 (01:43→08:31)
[2019-01-09 05:50] LABS: BASO % 0.4 % (0.0-1.0); EOS # 0.2 10^3/uL (0.0-0.50); EOS % 4.3 % (0.0-3.0); HEMATOCRIT 33.3 % (36.0-47.0); HEMOGLOBIN 10.9 g/dl (12.0-15.5); LYMPH # 2.1 10^3/uL (1.5-4.5); LYMPH % 42.7 % (24.0-44.0); MEAN CORPUSCULAR HEMOGLOBIN 29.5 pg (27.0-33.0); MEAN CORPUSCULAR HGB CONC 32.7 g/dl (32.0-36.5); MEAN CORPUSCULAR VOLUME 90.2 fl (80.0-96.0); MONO # 0.4 10^3/uL (0.0-0.8); MONO % 8.9 % (0.0-5.0); NEUTROPHILS # 2.2 10^3/uL (1.8-7.7); NEUTROPHILS % 43.5 % (36.0-66.0); PLATELET COUNT, AUTOMATED 177 10^3/uL (150-450); RED BLOOD COUNT 3.69 10^6/uL (4.00-5.40); WHITE BLOOD COUNT 4.9 10^3/uL (4.0-10.0)
[2019-01-09 06:00] VITALS: BP 119/58
[2019-01-09 06:08] LABS: BLOOD UREA NITROGEN 6 MG/DL (7-18); CALCIUM LEVEL 8.5 MG/DL (8.8-10.2); CARBON DIOXIDE LEVEL 29 MEQ/L (21-32); CHLORIDE LEVEL 111 MEQ/L (98-107); CREATININE FOR GFR 0.69 MG/DL (0.55-1.30); GLOMERULAR FILTRATION RATE > 60.0 (>45); GLUCOSE, FASTING 93 MG/DL (70-100); MAGNESIUM LEVEL 1.7 MG/DL (1.8-2.4); POTASSIUM SERUM 3.7 MEQ/L (3.5-5.1); SODIUM LEVEL 144 MEQ/L (136-145)
[2019-01-09] MEDS: MAG SULF 1GM/100ML (MAG RUN) 1 GM in APPROPRIATE DILUENT 1 EA IV ONE ×2 (08:00→08:30)
[2019-01-09] MEDS: METHYLPHENIDATE ER 18 MG TABLET (CONCERTA) PO SCH (08:30)
[2019-01-09] MEDS: buPROPion **XL** TABLET 150MG (WELLBUTRIN XL) PO SCH (08:30)
[2019-01-09] MEDS: ALPRAZolam 0.5 MG TAB PO SCH ×3 (08:30→20:32)
[2019-01-09] MEDS: ATENOLOL 25 MG TAB PO SCH (08:32)
[2019-01-09] MEDS ORDERED: FOSFOMYCIN TROMETHAMINE 3 GM POWDER PACKET (MONUROL) PO ONE (11:00)
--- NOTE | 2019-01-09 13:42 | IPNPDOC ---
Date Seen The patient was seen on 01/09/19. Progress Note SUBJECTIVE: Patient was seen and examined this morning. She currently states that she has not had diarrhea today. She continues to have mild abdominal pain although improved. She is complaining of some urinary symptoms today including burning with urination and frequency. She otherwise states that she feels ok OBJECTIVE PHYSICAL EXAMINATION: VITAL SIGNS: Please see below. GENERAL: Awake, alert, and oriented. Appear in no acute distress. Lying in bed comfortably HEENT: Atrumatic normocephalic. Eyes are nonicteric. Trachea is midline. Mucous membranes are pink and moist CARDIOVASCULAR: Normal S1, S2. Regular rate and rhythm. No clicks rubs or murmurs. RESPIRATORY: Clear vesicular breath sounds bilaterally. No wheezes, rhonci, or rales ABDOMINAL: Soft, nondistended. Diffuse tenderness throughout abdomen. No rebound tenderness or guarding. Positive bowel sounds EXTREMITIES: No edema. Pulses full and equal in bilateral upper and lower extremities NEUROLOGICAL: No focal neurological deficits PSYCHOLOGICAL: Mood and affect appropriate LABORATORY DATA, IMAGING STUDIES, MICROBIOLOGY: Please see below. DVT prophylaxis ordered?: YES mechanical ASSESSMENT AND PLAN: Patient is a 63 year old female with a history of recurrent C. difficile infections who presented as a direct admission from infectious disease office after failing treatment for c. difficile PROBLEMS: 1. Recurrent C. difficile colitis -Patient has received fecal transplant. Will discharge tomorrow 2. Rectal Bleeding -Patient had stated that she had some rectal bleeding. -Resolved 3. History of recurrent UTI and hematuria -Patient states that she is told that she has hematuria or microscopic hematuria. She states that in addition she gets pain on urination and is frequently placed on antibiotics. The patient has a long history of recurrent antibiotic use secondary to her recurrent UTIs -U/A with positive nitrite, blood, leukocyte esterase, and 3+ bacteria. Culture positive for K. pneumonia. Looking at her past documented urine cultures this has been recurrent. Patient had a cystoscopy planned with urology however, has missed that due to her C. difficile. She would likely benefit from follow-up with urology -Patient will be treated with Fosfomycin as she does have symptoms. 4. Depression/ Anxiety -Continue home medications 5. Tobacco Dependence -Nicotine gum 4mg q2h prn 6. DVT prophylaxis -TEDs/sequentials DISPOSITION: Discharge tomorrow A-FIB/CHADSVASC A-FIB History Current/History of A-Fib/PAF?: No VS, I&O, 24H, Fishbone Vital Signs/I&O Vital Signs Date Time Temp Pulse Resp B/P (MAP) Pulse Ox O2 Delivery O2 Flow Rate FiO2 01/09/19 08:32 81 121/58 01/09/19 08:31 18 01/09/19 06:00 97.4 98 I&O- Last 24 Hours up to 6 AM 01/09/19 06:00 Intake Total 1620 ml Balance 1620 ml Laboratory Data 24H LABS Laboratory Tests 2 01/09/19 05:31: Immature Granulocyte % (Auto) 0.2, White Blood Count 4.9, Red Blood Count 3.69L, Hemoglobin 10.9L, Hematocrit 33.3L, Mean Corpuscular Volume 90.2, Mean Corpuscular Hemoglobin 29.5, Mean Corpuscular Hemoglobin Concent 32.7, Red Cell Distribution Width 12.4, Platelet Count 177, Neutrophils (%) (Auto) 43.5, Lymphocytes (%) (Auto) 42.7, Monocytes (%) (Auto) 8.9H, Eosinophils (%) (Auto) 4.3H, Basophils (%) (Auto) 0.4, Neutrophils # (Auto) 2.2, Lymphocytes # (Auto) 2.1, Monocytes # (Auto) 0.4, Eosinophils # (Auto) 0.2, Basophils # (Auto) 0.0, Nucleated Red Blood Cells % (auto) 0.0, Anion Gap 4L, Glomerular Filtration Rate > 60.0, Blood Urea Nitrogen 6L, Creatinine 0.69, Sodium Level 144, Potassium Lev el 3.7, Chloride Level 111H, Carbon Dioxide Level 29, Calcium Level 8.5L, Magnesium Level 1.7L CBC/BMP Laboratory Tests 01/09/19 05:31 Red Blood Count 3.69 L, Mean Corpuscular Volume 90.2, Mean Corpuscular Hemoglobin 29.5, Mean Corpuscular Hemoglobin Concent 32.7, Red Cell Distribution Width 12.4, Neutrophils (%) (Auto) 43.5, Lymphocytes (%) (Auto) 42.7, Monocytes (%) (Auto) 8.9 H, Eosinophils (%) (Auto) 4.3 H, Basophils (%) (Auto) 0.4, Neutrophils # (Auto) 2.2, Lymphocytes # (Auto) 2.1, Monocytes # (Auto) 0.4, Eosinophils # (Auto) 0.2, Basophils # (Auto) 0.0, Calcium Level 8.5 L Microbiology Microbiology 01/06/19 Blood Culture - Preliminary, Resulted No Growth after 48 hours. All Specime... 01/06/19 Blood Culture - Preliminary, Resulted No Growth after 48 hours. All Specime... 01/06/19 Urine Culture - Final, Complete Klebsiella Pneumoniae GME ATTESTATION GME ATTESTATION My faculty preceptor for this patient encounter was physically present during the encounter and was fully available. All aspects of the patient interview, examination, medical decision making process, and medical care plan development were reviewed and approved by the faculty preceptor. The faculty preceptor is aware and concurs with the plan as stated in the body of this note and will attest to such by his/her cosignature. ATTENDING NOTE I, Chu Molina, have both independently examined this patient as well as reviewed the documentation. I have discussed in detail with the resident the findings and plan of treatment as documented by the resident. I agree with their findings and treatment plan. I will continue to follow the patient and offer further guidance to the patients care as necessary during this hospital stay. SANDRA ALLEN DO January 09, 2019 11:55 CHU MOLINA MD January 09, 2019 16:41
[2019-01-09 14:00] VITALS: BP 142/86
[2019-01-09] MEDS ORDERED: ONDANSETRON 4 MG TAB (S0181) PO SCH (15:15)
[2019-01-09] MEDS: ACETAMINOPHEN 325 MG/10.15 ML UDC PO PRN (15:24)
[2019-01-09] MEDS ORDERED: ONDANSETRON 4 MG TAB (S0181) PO PRN (15:45)
[2019-01-09 16:00] VITALS: BP 142/90
[2019-01-09 17:29] VITALS: BP 146/80
[2019-01-09] MEDS: SERTRALINE HCL 50 MG TAB PO SCH (20:27)
[2019-01-09] MEDS: SIMVASTATIN 20 MG TAB PO SCH (20:32)
[2019-01-09] MEDS: zolPIDEM TARTRATE 10MG TAB PO SCH (20:32)
[2019-01-09] MEDS ORDERED: zolPIDEM TARTRATE 5 MG TAB PO SCH (21:00)
[2019-01-09 21:15] VITALS: BP 151/71
[2019-01-10 04:00] VITALS: BP 122/59
[2019-01-10 06:46] LABS: BASO % 0.6 % (0.0-1.0); EOS # 0.2 10^3/uL (0.0-0.50); EOS % 4.5 % (0.0-3.0); HEMATOCRIT 35.1 % (36.0-47.0); HEMOGLOBIN 11.6 g/dl (12.0-15.5); LYMPH # 1.9 10^3/uL (1.5-4.5); LYMPH % 39.6 % (24.0-44.0); MEAN CORPUSCULAR HEMOGLOBIN 29.2 pg (27.0-33.0); MEAN CORPUSCULAR VOLUME 88.4 fl (80.0-96.0); MONO # 0.4 10^3/uL (0.0-0.8); MONO % 9.2 % (0.0-5.0); NEUTROPHILS # 2.1 10^3/uL (1.8-7.7); NEUTROPHILS % 45.9 % (36.0-66.0); PLATELET COUNT, AUTOMATED 180 10^3/uL (150-450); RED BLOOD COUNT 3.97 10^6/uL (4.00-5.40); WHITE BLOOD COUNT 4.7 10^3/uL (4.0-10.0)
[2019-01-10 07:08] LABS: BLOOD UREA NITROGEN 10 MG/DL (7-18); CALCIUM LEVEL 8.9 MG/DL (8.8-10.2); CARBON DIOXIDE LEVEL 30 MEQ/L (21-32); CHLORIDE LEVEL 108 MEQ/L (98-107); CREATININE FOR GFR 0.81 MG/DL (0.55-1.30); GLOMERULAR FILTRATION RATE > 60.0 (>45); GLUCOSE, FASTING 139 MG/DL (70-100); MAGNESIUM LEVEL 1.7 MG/DL (1.8-2.4); POTASSIUM SERUM 3.6 MEQ/L (3.5-5.1); SODIUM LEVEL 142 MEQ/L (136-145)
[2019-01-10 08:00] VITALS: BP 165/82
[2019-01-10] MEDS ORDERED: ACETAMINOPHEN 325 MG TAB As Ordered ONE (08:24)
[2019-01-10 08:38] VITALS: BP 165/82
[2019-01-10] MEDS: buPROPion **XL** TABLET 150MG (WELLBUTRIN XL) PO SCH (08:38)
[2019-01-10] MEDS: ATENOLOL 25 MG TAB PO SCH (08:38)
[2019-01-10] MEDS: ALPRAZolam 0.5 MG TAB PO SCH (08:39)
[2019-01-10] MEDS: ACETAMINOPHEN 325 MG/10.15 ML UDC PO PRN (09:57)
[2019-01-10] MEDS: METHYLPHENIDATE ER 18 MG TABLET (CONCERTA) PO SCH (09:57)
--- NOTE | 2019-01-10 13:15 | DS.PDOC ---
Discharge Summary General Date of Admission January 06, 2019 at 13:57 Date of Discharge 01/10/19 Primary Care Physician: EYAL BRUMFIELD PA-C Attending Physician: CHU HUBBARD MD Specialist/Consultants Involve: KENDALL QUEVEDO MD Specialist/Consultants Involve Dr. Wyman Infectious Disease Discharge Summary PROCEDURES PERFORMED DURING STAY: Colonoscopy with fecal transplant for treatment of recurrent C. difficile ADMITTING DIAGNOSES: 1. Recurrent C. difficile 2. Urinary Tract Infection recurrent DISCHARGE DIAGNOSES: 1. Recurrent C. difficle 2. Urinary Tract infection recurrent COMPLICATIONS/CHIEF COMPLAINT: Recurrent C Diff. HISTORY OF PRESENT ILLNESS: Patient is a 63 year old female with a past medical history significant for hepatitis C s/p Mavyret treatment, hypertension, recurrent UTIs, and recurrent C. difficile who was sent to [facility] as a direct admission by Dr. Wyman of Infectious disease due to recurrent C. difficile. The patient had failed multiple treatments including vancomycin, fidoxamicin, and bezlotuxumab. She continued to have diarrhea upon admission. Patient had been in the ER in [facility] as she became hypotensive due to volume loss from her diarrhea. In addition, at the time of admission, the patient stated that she feels like she has a UTI. She complained of frequency and dysuria, Patient stated that she has chronic UTI's. She stated that she did have microscopic hematuria and was being evaluated by urology. She had a cystoscopy planned as an outpatient procedure however, missed this as she was hospitalized. HOSPITAL COURSE: At presentation to [facility], GI consultation was placed for tentative fecal transplant. The patient was placed on a bowel prep. The patient continued to have diarrhea and some crampy abdominal pain. She received the fecal transplant and noticed improvement in her diarrhea. Her colonoscopy revealed a normal ileum and normal mucosa from rectum to ascending colon. Her bowel prep was not adequate for surveillance and it was recommended that she have repeat colonoscopy in 1 year. The patient did complain of urinary symptoms while she was hospitalized. Her urine culture revealed Klebsiella pneumonia. Sensitivities were similar to past culture data form her medical record. Her UTIs are chronic. She has been treated multiple times in the past for her chronic UTIs and it was felt that her C. difficle is likely secondary to her chronic antibiotic use. Given that she was having urinary discomfort, the patient was given a dose of Fosfomycin. Additionally, the patient was found to have hypomagnesemia. Review of her medical record shows that his is chronic and she can follow-up outpatient with oral supplementation and monitoring DISCHARGE MEDICATIONS: Please see below. ALLERGIES: Please see below. PHYSICAL EXAMINATION ON DISCHARGE: VITAL SIGNS: Please see below. GENERAL APPEARANCE: Awake, alert, and oriented. She appears in no acute distress. Sitting comfortably at end of bed HEENT: Atrumatic normocephalic. Eyes are nonicteric. Trachea is midline. Dentition is fair. CARDIOVASCULAR: Normal S1,S2. Regular rate and rhythm. No clicks rubs or murmurs LUNGS: Clear vesicular breath sounds bilaterally with good respiratory effort. No wheezes, rhonci, or rales ABDOMEN: Soft, nondistended. No tenderness to palpation. No rebound tenderness or guarding. Positive bowel sounds EXTREMITIES: No edema. Full and equal pulses in bilateral upper and lower extremities NEUROLOGICAL: No focal neurological deficits noted PSYCHIATRIC: Mood and affect appear appropriate LABORATORY DATA: Please see below. IMAGING: Portable chest x-ray: Single view. History: Evaluate for infiltrate. Comparison chest x-ray: March 07, 2017. Findings: There are granulomatous lymph node and parenchymal calcifications on the right, unchanged. There is a new zone of linear plate-like atelectasis in the left base versus linear fibrosis. Pleural angles are sharp. No infiltrate is seen. Heart is not enlarged. No acute bony abnormality. Impression: Linear fibrosis versus plate-like atelectasis left base. Old granulomatous calcifications on the right. No acute disease. Electronically Signed by Davis Sheth MD 01/06/2019 10:33 P PROGNOSIS: GOOD ACTIVITY: [As tolerated]. DIET: As tolerated DISCHARGE PLAN: Patient is to be discharged home. Per GI, the patient is to continue her regular diet and medications. She is to have a repeat colonoscopy in 1 year and return to the GI clinic in 1 year. Regarding her chronic UTIs, she is being evaluated by Urology and she is to follow-up for her repeat cystoscopy. She is also to follow-up with infectious disease. She is to follow-up with her PCP as needed. DISPOSITION: 01 Home, Self-Care. DISCHARGE INSTRUCTIONS: 1. Follow-up Urology for Cystoscopy 2. Follow-up GI clinic and colonoscopy in 1 year 3. Follow-up Infectious Disease 4. Follow-up PCP as needed 5. Remain compliant with treatment plan and medications 6. Return to the ER if you experience any problems DISCHARGE CONDITION: [Stable]. TIME SPENT ON DISCHARGE: Greater than 40 minutes. Vital Signs/I&Os Vital Signs Date Time Temp Pulse Resp B/P (MAP) Pulse Ox O2 Delivery O2 Flow Rate FiO2 01/10/19 08:38 66 165/82 01/10/19 08:00 98.3 19 95 I&O- Last 24 Hours up to 6 AM 01/10/19 06:00 Intake Total 1180 ml Output Total 400 ml Balance 780 ml Laboratory Data Labs 24H Laboratory Tests 2 01/10/19 06:23: Immature Granulocyte % (Auto) 0.2, White Blood Count 4.7, Red Blood Count 3.97L, Hemoglobin 11.6L, Hematocrit 35.1L, Mean Corpuscular Volume 88.4, Mean Corpuscular Hemoglobin 29.2, Mean Corpuscular Hemoglobin Concent 33.0, Red Cell Distribution Width 12.4, Platelet Count 180, Neutrophils (%) (Auto) 45.9, Lymphocytes (%) (Auto) 39.6, Monocytes (%) (Auto) 9.2H, Eosinophils (%) (Auto) 4.5H, Basophils (%) (Auto) 0.6, Neutrophils # (Auto) 2.1, Lymphocytes # (Auto) 1.9, Monocytes # (Auto) 0.4, Eosinophils # (Auto) 0.2, Basophils # (Auto) 0.0, Nucleated Red Blood Cells % (auto) 0.0, Anion Gap 4L, Glomerular Filtration Rate > 60.0, Blood Urea Nitrogen 10#, Creatinine 0.81, Sodium Level 142, Potassium Level 3.6, Chloride Level 108H, Carbon Dioxide Level 30, Calcium Level 8.9, Magnesium Level 1.7L CBC/BMP Laboratory Tests 01/10/19 06:23 Red Blood Count 3.97 L, Mean Corpuscular Volume 88.4, Mean Corpuscular Hemoglobin 29.2, Mean Corpuscular Hemoglobin Concent 33.0, Red Cell Distribution Width 12.4, Neutrophils (%) (Auto) 45.9, Lymphocytes (%) (Auto) 39.6, Monocytes (%) (Auto) 9.2 H, Eosinophils (%) (Auto) 4.5 H, Basophils (%) (Auto) 0.6, Neutrophils # (Auto) 2.1, Lymphocytes # (Auto) 1.9, Monocytes # (Auto) 0.4, Eosinophils # (Auto) 0.2, Basophils # (Auto) 0.0, Calcium Level 8.9 Microbiology Microbiology 01/06/19 Blood Culture - Preliminary, Resulted No Growth after 72 hours. All specime... 01/06/19 Blood Culture - Preliminary, Resulted No Growth after 72 hours. All specime... 01/06/19 Urine Culture - Final, Complete Klebsiella Pneumoniae Discharge Medications Scheduled Alprazolam (Alprazolam) 1 Mg Tab, 1 MG PO TID, (Reported) Atenolol (Atenolol) 25 Mg Tablet, 25 MG PO DAILY, (Reported) Bupropion HCl (Wellbutrin Xl) 150 Mg Tab.er.24h, 150 MG PO DAILY, (Reported) Magnesium Oxide (Magnesium Oxide) 500 Mg Tablet, 500 MG PO DAILY, (Reported) Methenamine Hippurate (Methenamine Hippurate) 1 Gm Tablet, 1 GM PO BID, (Reported) Methylphenidate HCl (Methylphenidate ER) 36 Mg Tab.er.24, 36 MG PO DAILY, (Reported) Multivitamin (Multivitamins) 1 Each Capsule, 1 CAP PO DAILY, (Reported) [place]-3 Fatty Acids/Fish Oil (Fish Oil 1,000 mg Capsule) 1 Each Capsule, 1,000 MG PO DAILY, (Reported) Sertraline Hcl (Sertraline HCl) 50 Mg Tablet, 50 MG PO QPM, (Reported) Simvastatin (Simvastatin) 20 Mg Tab, 20 MG PO QHS, (Reported) Zolpidem Tartrate (Zolpidem Tartrate) 10 Mg Tablet, 10 MG PO QHS, (Reported) Scheduled PRN Acetaminophen (Acetaminophen) 325 Mg Tab, 650 MG PO Q4H PRN for PAIN, (Reported) Epinephrine (Epipen 2-Aleksandar) 0.3 Mg/0.3 Ml Inj, 0.3 MG INJ for ANAPHYLAXIS, (Reported) Nicotine Polacrilex (Nicorette) 4 Mg Lozng.mini, 4 MG MT PRN PRN for NICOTINE WITHDRAWAL, (Reported) Allergies Coded Allergies: azithromycin (Unverified Allergy, Intermediate, LIPS SWELL/RASH, 01/06/19) prazosin (Unverified Allergy, Intermediate, RASH, 01/06/19) Sulfa (Sulfonamide Antibiotics) (Unverified Adverse Reaction, Mild, DIARRHEA, 01/06/19) doxycycline (Unverified Adverse Reaction, Mild, DIARRHEA, 01/06/19) morphine (Unverified Adverse Reaction, Mild, ITCHY, 01/06/19) sulfacetamide (Verified Adverse Reaction, Mild, DIARRHEA, 01/06/19) sulfur (Verified Adverse Reaction, Mild, DIARRHEA, 01/06/19) GME ATTESTATION GME ATTESTATION My faculty preceptor for this patient encounter was physically present during the encounter and was fully available. All aspects of the patient interview, examination, medical decision making process, and medical care plan development were reviewed and approved by the faculty preceptor. The faculty preceptor is aware and concurs with the plan as stated in the body of this note and will attest to such by his/her cosignature. ATTENDING NOTE I, Chu Hubbard, have both independently examined this patient as well as reviewed the documentation. I have discussed in detail with the resident the findings and plan of treatment as documented by the resident. I agree with their findings and treatment plan. I will continue to follow the patient and offer further guidance to the patients care as necessary during this hospital stay. Time spent on discharge 35 minutes SANDRA ALLEN DO January 10, 2019 13:15 CHU HUBBARD MD January 10, 2019 14:45
[2019-01-10] MEDS ORDERED: zolPIDEM TARTRATE 5 MG TAB PO SCH (21:00)
== END 2019-01-10 11:13 | disposition home or self-care (01) | DRG 248 ==
LOC: M MS4PR 13:57 → M PED 01-09 21:14 → UNDODISIN 01-10 11:13
PROVIDERS: ADMIT Internal Medicine; ATTEND Internal Medicine
PROC: 3E0H3GC Introduction of Other Therapeutic Substance into Lower GI, Percutaneous Approach (ICD-10-PCS; 2019-01-08)
PROC: 0DJD8ZZ Inspection of Lower Intestinal Tract, Via Natural or Artificial Opening Endoscopic (ICD-10-PCS; principal; 2019-01-08 14:30)
DX: A04.71 Enterocolitis due to Clostridium difficile, recurrent (principal); I10 Essential (primary) hypertension; K62.5 Hemorrhage of anus and rectum; N39.0 Urinary tract infection, site not specified; B18.2 Chronic viral hepatitis C; Z79.899 Other long term (current) drug therapy; Z88.2 Allergy status to sulfonamides; Z88.5 Allergy status to narcotic agent; Z88.8 Allergy status to other drugs, medicaments and biological substances; F41.9 Anxiety disorder, unspecified; F32.9 Major depressive disorder, single episode, unspecified; F17.200 Nicotine dependence, unspecified, uncomplicated

== ENCOUNTER → 2019-01-15 | Outpatient (REF) | payer OTHER ==
[~2019-01-15] MED LIST changes: +MAGN500T12 PO; +METH-855 PO; +METH36TA PO; +MULTCAP PO; +SERT-141 PO; +WELLTAB38 PO; +ZOLP10TA2 PO; +[UNRECOGNIZED DRUG - CODE] MT
[2019-01-15 16:56] LABS: BASO # 0.1 10^3/uL (0.0-0.2); BASO % 0.7 % (0.0-1.0); EOS # 0.2 10^3/uL (0.0-0.50); EOS % 3.4 % (0.0-3.0); HEMATOCRIT 36.7 % (36.0-47.0); HEMOGLOBIN 11.8 g/dl (12.0-15.5); LYMPH # 2.7 10^3/uL (1.5-4.5); LYMPH % 38.7 % (24.0-44.0); MEAN CORPUSCULAR HEMOGLOBIN 28.9 pg (27.0-33.0); MEAN CORPUSCULAR HGB CONC 32.2 g/dl (32.0-36.5); MONO # 0.6 10^3/uL (0.0-0.8); MONO % 8.4 % (0.0-5.0); NEUTROPHILS # 3.4 10^3/uL (1.8-7.7); NEUTROPHILS % 48.4 % (36.0-66.0); PLATELET COUNT, AUTOMATED 235 10^3/uL (150-450); RED BLOOD COUNT 4.08 10^6/uL (4.00-5.40); WHITE BLOOD COUNT 7.1 10^3/uL (4.0-10.0)
[2019-01-15 17:10] LABS: ALBUMIN 3.8 GM/DL (3.2-5.2); ALT/SGPT 19 U/L (12-78); BILIRUBIN,TOTAL 0.6 MG/DL (0.2-1.0); BLOOD UREA NITROGEN 13 MG/DL (7-18); CALCIUM LEVEL 8.8 MG/DL (8.8-10.2); CARBON DIOXIDE LEVEL 27 MEQ/L (21-32); CHLORIDE LEVEL 106 MEQ/L (98-107); GLOMERULAR FILTRATION RATE > 60.0 (>45); GLUCOSE, FASTING 108 MG/DL (70-100); MAGNESIUM LEVEL 1.9 MG/DL (1.8-2.4); SODIUM LEVEL 140 MEQ/L (136-145); TOTAL PROTEIN 7.2 GM/DL (6.4-8.2)
[2019-01-15 17:57] LABS: TOTAL 25(OH) VITAMIN D 28.4 NG/ML (30.0-100.0); VITAMIN B12 LEVEL 294 PG/ML (247-911)
== END ==
LOC: M SFHCCAPE 10:55
PROVIDERS: ATTEND Physician Assistant
DX: E83.42 Hypomagnesemia (principal); E53.8 Deficiency of other specified B group vitamins

== ENCOUNTER 2019-05-13 16:54 | Emergency (ER) | payer MEDICARE, MEDICAID ==
[~2019-05-13] VITALS: Ht 170.2 cm; Wt 67.3 kg
[~2019-05-13 16:54] MED LIST changes: -METH18TA2 PO; +METH18TA6 PO; -METH36TA PO; +METH36TA5 PO
[2019-05-13 17:28] LABS: BASO % 0.4 % (0.0-1.0); EOS # 0.1 10^3/uL (0.0-0.5); EOS % 1.6 % (0.0-3.0); HEMATOCRIT 37.9 % (36.0-47.0); HEMOGLOBIN 12.4 g/dl (12.0-15.5); LYMPH # 2.4 10^3/uL (1.5-5.0); LYMPH % 34.1 % (24.0-44.0); MEAN CORPUSCULAR HGB CONC 32.7 g/dl (32.0-36.5); MEAN CORPUSCULAR VOLUME 88.6 fl (80.0-96.0); MONO # 0.7 10^3/uL (0.0-0.8); MONO % 9.2 % (0.0-5.0); NEUTROPHILS # 3.8 10^3/uL (1.5-8.5); NEUTROPHILS % 54.3 % (36.0-66.0); PLATELET COUNT, AUTOMATED 209 10^3/uL (150-450); RED BLOOD COUNT 4.28 10^6/uL (4.00-5.40); WHITE BLOOD COUNT 7.1 10^3/uL (4.0-10.0)
[2019-05-13] MEDS ORDERED: VALS1TAB49 PO (17:31)
[2019-05-13] MEDS ORDERED: HYDR-643 PO (17:32)
[2019-05-13 17:57] LABS: BLOOD UREA NITROGEN 17 MG/DL (7-18); CALCIUM LEVEL 9.2 MG/DL (8.8-10.2); CARBON DIOXIDE LEVEL 30 MEQ/L (21-32); CHLORIDE LEVEL 105 MEQ/L (98-107); CK-MB VALUE MASS < 1.0 NG/ML (<3.6); CPK CREATINE PHOSPHOKINASE 46 U/L (26-192); CREATININE FOR GFR 0.81 MG/DL (0.55-1.30); GLOMERULAR FILTRATION RATE > 60.0 (>45); GLUCOSE, FASTING 77 MG/DL (70-100); MB/CK RELATIVE INDEX 2.17 (< OR =4); POTASSIUM SERUM 3.9 MEQ/L (3.5-5.1); SODIUM LEVEL 141 MEQ/L (136-145); TROPONIN I < 0.02 NG/ML (< 0.10)
--- NOTE | 2019-05-13 18:35 | REP ---
REASON: Chest pain. COMPARISON: Multiple, the latest 01/06/2019. The technique utilized in obtaining the radiograph has magnified the cardiac silhouette and accentuated the interstitial markings. The superior mediastinal structures are midline. The cardiac silhouette is unremarkable in size, shape, and position. The diaphragmatic surfaces of the lungs are regular, and the costophrenic angles are clear. The pulmonary salas are clear. The imaged osseous structures are intact. IMPRESSION: There is no acute cardiopulmonary disease. Electronically Signed by Darius Correia DO 05/13/2019 07:13 P
[2019-05-13] MEDS ORDERED: ACETAMINOPHEN 325 MG TAB PO ONE (20:45)
[2019-05-13 22:11] LABS: CK-MB VALUE MASS < 1.0 NG/ML (<3.6); CPK CREATINE PHOSPHOKINASE 56 U/L (26-192); MB/CK RELATIVE INDEX 1.79 (< OR =4); TROPONIN I < 0.02 NG/ML (< 0.10)
[2019-05-13 22:43] VITALS: BP 148/63
--- NOTE | 2019-05-14 07:28 | ECGEPIP ---
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
--- NOTE | 2019-05-14 07:29 | ECGEPIP ---
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
== END 2019-05-13 22:47 | disposition home or self-care (01) ==
LOC: EDBD 16:54 → M ED 16:54
DX: S29.011A Strain of muscle and tendon of front wall of thorax, initial encounter (principal); I11.9 Hypertensive heart disease without heart failure; I50.9 Heart failure, unspecified; I25.2 Old myocardial infarction; I42.9 Cardiomyopathy, unspecified; Z87.891 Personal history of nicotine dependence; Y92.89 Other specified places as the place of occurrence of the external cause; Y93.89 Activity, other specified

== ENCOUNTER → 2019-05-19 | Outpatient (REF) | payer MEDICARE, MEDICAID ==
[~2019-05-19] MED LIST changes: +HYDR-643 PO; -OMEP40CA2 PO; +OMEP40CA97 PO; +VALS1TAB49 PO
[2019-05-19 19:12] LABS: APPEARANCE, URINE MANUAL HAZY (CLEAR); COLOR, URINE MANUAL RED (YELLOW); GLUCOSE, URINE (UA) MANUAL OBSCURED mg/dL (NEGATIVE); KETONE, URINE MANUAL OBSCURED mg/dL (NEGATIVE); PROTEIN, URINE MANUAL OBSCURED mg/dL (NEGATIVE); UROBILINOGEN, URINE MANUAL OBSCURED mg/dl (NORMAL)
[2019-05-19 19:13] LABS: BILIRUBIN, URINE MANUAL OBSCURED (NEGATIVE); BLOOD URINE MANUAL OBSCURED (NEGATIVE); LEUKOCYTE ESTERASE, URINE MAN OBSCURED (NEGATIVE); NITRITE, URINE MANUAL OBSCURED (NEGATIVE)
[2019-05-19 19:30] LABS: BACTERIA, URINE MOD AMOUNT; HYALINE CAST, URINE NONE SEEN /lpf (0-1); SQUAMOUS EPITHELIAL CELL URINE SMALL AMOUNT /hpf (SMALL AMT); WBC, URINE 20-30 /hpf (0-3)
== END ==
LOC: M SFHCCAPE 13:27
PROVIDERS: ATTEND Physician Assistant
DX: R35.0 Frequency of micturition (principal)
CPT/HCPCS: 81000; 81002; 82270; 87086; G0463

== ENCOUNTER → 2019-05-27 | Outpatient (REF) | payer MEDICARE, MEDICAID ==
[~2019-05-27] MED LIST changes: +OMEP40CA2 PO; -OMEP40CA97 PO
[2019-05-27 17:15] LABS: ALBUMIN 3.5 GM/DL (3.2-5.2); ALT/SGPT 32 U/L (12-78); BILIRUBIN,TOTAL 0.4 MG/DL (0.2-1.0); BLOOD UREA NITROGEN 14 MG/DL (7-18); CALCIUM LEVEL 8.8 MG/DL (8.8-10.2); CARBON DIOXIDE LEVEL 28 MEQ/L (21-32); CHLORIDE LEVEL 107 MEQ/L (98-107); CHOLESTEROL LEVEL 178 MG/DL (<200); CHOLESTEROL RISK RATIO 2.617 (<5); GLOMERULAR FILTRATION RATE > 60.0 (>45); GLUCOSE, FASTING 97 MG/DL (70-100); HDL CHOLESTEROL 68 MG/DL (>40); LDL CHOLESTEROL 88 MG/DL (<100); MAGNESIUM LEVEL 1.8 MG/DL (1.8-2.4); NON-HDL-C 110 MG/DL; POTASSIUM SERUM 4.2 MEQ/L (3.5-5.1); SODIUM LEVEL 142 MEQ/L (136-145); TOTAL PROTEIN 6.8 GM/DL (6.4-8.2); TRIGLYCERIDES LEVEL 111 MG/DL (<150)
[2019-05-27 17:20] LABS: VITAMIN B12 LEVEL 399 PG/ML (247-911)
[2019-05-27 17:37] LABS: APPEARANCE, URINE CLOUDY (CLEAR); BACTERIA, URINE AUTO NEGATIVE (NEGATIVE); BILIRUBIN, URINE AUTO NEGATIVE (NEGATIVE); BLOOD, URINE BLOOD 1+ (NEGATIVE); COLOR, URINE YELLOW (YELLOW); GLUCOSE, URINE (UA) AUTO NEGATIVE (NEGATIVE); KETONE, URINE AUTO NEGATIVE (NEGATIVE); LEUKOCYTE ESTERASE, URINE AUTO NEGATIVE (NEGATIVE); NITRITE, URINE AUTO NEGATIVE (NEGATIVE); PROTEIN, URINE AUTO NEGATIVE (NEGATIVE); RBC, URINE AUTO 2 /HPF (0-3); SPECIFIC GRAVITY URINE AUTO 1.013 (1.002-1.035); SQUAMOUS EPITHELIAL CELL UR AU 9 /HPF (0-6); UROBILINOGEN, URINE AUTO 0.2 mg/dL (0.0-2.0); WBC, URINE AUTO 4 /HPF (0-3)
[2019-05-27 17:48] LABS: BASO % 0.6 % (0.0-1.0); EOS # 0.2 10^3/uL (0.0-0.5); EOS % 3.4 % (0.0-3.0); HEMATOCRIT 34.7 % (36.0-47.0); HEMOGLOBIN 10.8 g/dl (12.0-15.5); LYMPH # 1.9 10^3/uL (1.5-5.0); LYMPH % 29.2 % (24.0-44.0); MEAN CORPUSCULAR HEMOGLOBIN 29.3 pg (27.0-33.0); MEAN CORPUSCULAR HGB CONC 31.1 g/dl (32.0-36.5); MEAN CORPUSCULAR VOLUME 94.3 fl (80.0-96.0); MONO # 0.6 10^3/uL (0.0-0.8); MONO % 8.8 % (0.0-5.0); NEUTROPHILS # 3.7 10^3/uL (1.5-8.5); NEUTROPHILS % 57.5 % (36.0-66.0); PLATELET COUNT, AUTOMATED 270 10^3/uL (150-450); RED BLOOD COUNT 3.68 10^6/uL (4.00-5.40); WHITE BLOOD COUNT 6.4 10^3/uL (4.0-10.0)
== END ==
LOC: M SFHCCAPE 11:34
PROVIDERS: ATTEND Physician Assistant
DX: I10 Essential (primary) hypertension (principal); E78.5 Hyperlipidemia, unspecified; E83.42 Hypomagnesemia; R31.0 Gross hematuria; E53.8 Deficiency of other specified B group vitamins; M79.7 Fibromyalgia

== ENCOUNTER → 2019-05-27 | Outpatient (CLI) | payer MEDICARE, MEDICAID ==
--- NOTE | 2019-05-27 13:54 | REP ---
PA and lateral chest: Comparisons are portable chest of .19, PA and lateral chest of 11/15/[address] of 05/01/2006. There is a stable calcified granuloma in the right mid lung, unchanged . There are calcified granulomas in the right hilus, unchanged. There is discoid atelectasis in the left costophrenic angle as a new finding. Lung salas otherwise clear. Cardiac size is normal. The rk, mediastinum, skeletal structures are otherwise unremarkable. Impression: New discoid atelectasis in the left costophrenic angle. Chronic stable findings as described. Otherwise, negative PA and lateral chest. Electronically Signed by Jorge Virk MD 05/27/2019 01:45 P
== END ==
LOC: M CLY 13:09
PROVIDERS: ATTEND Physician Assistant
DX: J98.11 Atelectasis (principal); R07.89 Other chest pain; R10.11 Right upper quadrant pain; R19.7 Diarrhea, unspecified

== ENCOUNTER → 2019-06-17 | Outpatient (REF) | payer MEDICARE, MEDICAID ==
[2019-06-17 16:59] LABS: APPEARANCE, URINE HAZY (CLEAR); BACTERIA, URINE AUTO 1+ (NEGATIVE); BILIRUBIN, URINE AUTO NEGATIVE (NEGATIVE); BLOOD, URINE BLOOD 1+ (NEGATIVE); COLOR, URINE YELLOW (YELLOW); GLUCOSE, URINE (UA) AUTO NEGATIVE (NEGATIVE); KETONE, URINE AUTO NEGATIVE (NEGATIVE); LEUKOCYTE ESTERASE, URINE AUTO NEGATIVE (NEGATIVE); NITRITE, URINE AUTO NEGATIVE (NEGATIVE); PROTEIN, URINE AUTO NEGATIVE (NEGATIVE); RBC, URINE AUTO 1 /HPF (0-3); SPECIFIC GRAVITY URINE AUTO 1.006 (1.002-1.035); SQUAMOUS EPITHELIAL CELL UR AU 15 /HPF (0-6); UROBILINOGEN, URINE AUTO 0.2 mg/dL (0.0-2.0); WBC, URINE AUTO 0 /HPF (0-3)
== END ==
LOC: M LABSMT 09:47
PROVIDERS: ATTEND Specialist
DX: N39.0 Urinary tract infection, site not specified (principal)

== ENCOUNTER → 2019-06-26 | Outpatient (REF) | payer MEDICARE, MEDICAID ==
[~2019-06-26] MED LIST changes: +ACET-897 PO; +ADDE20CA3 PO; +BELL16.218 PR; +DOCU100C16 PO; -OMEP40CA2 PO; +OMEP40CA97 PO; +ONDA4TAB6 PO; +VAGI10TA PV; +VALS1TAB67 PO; -[UNRECOGNIZED DRUG - CODE] MT; +[UNRECOGNIZED DRUG - CODE] OR
[2019-06-26 17:38] LABS: BACTERIA, URINE AUTO NEGATIVE (NEGATIVE); MUCUS, URINE SMALL (NEGATIVE); RBC, URINE AUTO 2 /HPF (0-3); SQUAMOUS EPITHELIAL CELL UR AU 12 /HPF (0-6); WBC, URINE AUTO 2 /HPF (0-3)
== END ==
LOC: M SMT 17:00
PROVIDERS: ATTEND Specialist
DX: M79.7 Fibromyalgia (principal); R30.0 Dysuria
CPT/HCPCS: 51701; 81015; 87088; G0463

== ENCOUNTER 2019-07-03 07:23 | Day surgery (SDC) | payer MEDICARE, MEDICAID ==
[2019-07-02] MEDS: oxyCODONE 5MG TAB PO PRN (10:20)
[~2019-07-03] VITALS: Ht 167.6 cm; Wt 67.1 kg
[~2019-07-03 07:23] MED LIST changes: -ACET-897 PO; -ADDE20CA3 PO; -BELL16.218 PR; -DOCU100C16 PO; +LR 1,000 ML IV ONE; -ONDA4TAB6 PO; -VAGI10TA PV; +ceFAZolin SOD 2 GM in IV 1 EA IV ONE
[2019-07-03] MEDS ORDERED: LIDOCAINE 2% 5ML JELLY UROJET As Ordered ONE (08:18)
[2019-07-03] MEDS ORDERED: CONRAY-60 60% 50ML VIAL (Q9961) As Ordered ONE (08:19)
[2019-07-03] MEDS ORDERED: ONDANSETRON 4MG/2ML VIAL (J2405) As Ordered ONE (08:49)
[2019-07-03] MEDS ORDERED: MIDAZOLAM INJ 2 MG/2 ML VIAL (J2250) As Ordered ONE (08:49)
[2019-07-03] MEDS ORDERED: fentaNYL 100 MCG/2 ML INJECTION (J3010) As Ordered ONE (08:49)
[2019-07-03] MEDS ORDERED: dexameTHASONE 4 MG/ML 1ML VIAL (J1100) As Ordered ONE (08:49)
[2019-07-03] MEDS ORDERED: LIDOCAINE 2% INJ 100 MG/5 ML SDV (FOR ANES.) As Ordered ONE (08:49)
[2019-07-03] MEDS ORDERED: PROPOFOL 200 MG/20 ML VIAL As Ordered ONE ×2 (08:49→09:14)
[2019-07-03] MEDS ORDERED: LIDOCAINE 1% MDV INJ 50 ML VIAL As Ordered ONE (09:00)
--- NOTE | 2019-07-03 09:21 | REP ---
Retrograde pyelogram: Four views. History: Cystoscopy, stent placement. 16 seconds of fluoroscopy time is reported. Findings: A sequence of four last image hold fluoroscopically obtained spot radiographs of the abdomen document bilateral ureteral contrast injection. Electronically Signed by Davis Sheth MD 07/03/2019 09:38 A
[2019-07-03] MEDS ORDERED: KETOROLAC 30 MG/ML VIAL (J1885) As Ordered ONE (09:32)
[2019-07-03] MEDS ORDERED: oxyCODONE 5MG TAB As Ordered ONE (09:43)
[2019-07-03] MEDS ORDERED: KETOROLAC 30 MG/ML VIAL (J1885) IV PRN (10:00)
[2019-07-03] MEDS ORDERED: ONDANSETRON 4MG/2ML VIAL (J2405) IV PRN (10:00)
[2019-07-03] MEDS ORDERED: fentaNYL 100 MCG/2 ML INJECTION (J3010) IV PRN (10:00)
[2019-07-03] MEDS ORDERED: LR 1,000 ML IV SCH (10:00)
[2019-07-03] MEDS: oxyCODONE 5MG TAB PO PRN ×2 (10:08→10:22)
[2019-07-03] MEDS ORDERED: BELLADONNA 16.2mg/OPIUM 30mg 1 EA SUPP As Ordered ONE (12:00)
[2019-07-03] MEDS ORDERED: BELL16.218 PR (12:00)
[2019-07-03] MEDS ORDERED: BELLADONNA 16.2mg/OPIUM 30mg 1 EA SUPP PR ONE (12:15)
[2019-07-03 12:45] VITALS: BP 148/82
--- NOTE | 2019-07-03 20:34 | RO ---
DATE OF PROCEDURE: 07/03/2019 PREOPERATIVE DIAGNOSIS: Hemorrhagic cystitis with irritative voiding symptoms. POSTOPERATIVE DIAGNOSIS: Hemorrhagic cystitis with irritative voiding symptom but most likely with interstitial cystitis with Hunner's ulcerations and significant glomerulations. PROCEDURE: Cystoscopy, hydrodistention, bladder biopsies, extensive fulguration, and bilateral retrograde pyelograms SURGEON: Dr. Rosanne Ruiz TELESALES REPRESENTATIVE: ANESTHESIA: General. MEDICATIONS: Ancef preoperatively. FINDINGS: Total bladder capacity was only about 400 mL but with significant detrusor instability and trabeculations. There was very significant glomerulations and areas of ulcerations throughout the bladder. The retrograde pyelogram showed no significant abnormalities. INDICATIONS FOR PROCEDURE: The patient is a 64-year-old female who has had irritative voiding symptoms for quite some time, believed to be recurrent urinary tract infections. She had been started on methenamine and this did help with the infections, but she continued to have cystitis symptoms, chronic anemia, and what she thought with occasional gross hematuria, although most urinalyses have been negative. She did have complaints of urinary urgency, frequency, dysuria, and lower abdominal pain and pressure. She also had had Clostridium difficile (C diff) but had had a fecal transplant, which helped significantly with this. Because of her continued complaints and cystoscopy and CT scan showing no significant abnormalities but her complaints have continued, blood in the urine, it was decided to bring her to the operating room for more definitive management. Informed consent was obtained in both verbal and written form, and it was decided to proceed with cystoscopy, hydrodistention, bladder biopsies, and retrograde pyelograms. DESCRIPTION OF PROCEDURE: The patient was brought into the operating room and first intravenous (IV) sedation was given, thromboembolism deterrent (HARPREET) stockings and sequential compression devices (SCDs) were in place. She was placed in the lithotomy position and careful attention was paid that her pressure points were well padded and protected. She was prepped and draped in the usual fashion. Next, a #21-Romanian cystoscope was inserted. The urethra was noted to be open without any evidence of lesions or strictures. Upon entering the bladder, both ureteral orifices were seen. There was significant trabeculation seen. The bladder was then distended using normal saline and left distended for a total of 10 minutes. The total bladder capacity was approximately 400 mL, but there was detrusor instability. At the end of hydrodistention, there were significant glomerulations and some areas of Hunner's ulcerations. The water source was changed to sterile water and random bladder biopsies were taken. Extensive fulguration was then done throughout the bladder. Retrograde pyelograms were done which showed no evidence of obstruction bilaterally or filling defects. A CT scan had been done 11/18/2018, which showed no evidence of stones or abnormalities, but because of the continued gross hematuria, we just wanted to be certain. At the end of the procedure, a red rubber catheter was placed and a slurry of lidocaine jelly and 5% lidocaine was placed in the bladder. The patient tolerated the procedure well. She will continue methenamine to help prevent recurrent urinary tract infections, continue Pyridium as needed, continue the use of the interstitial cystitis diet, and we will start Elmiron. SILVIA
[2019-07-04] MEDS ORDERED: ADDE20CA3 PO (20:02)
== END 2019-07-03 13:06 | disposition home or self-care (01) ==
LOC: M SDC 07:23
PROVIDERS: ATTEND Specialist
DX: N30.11 Interstitial cystitis (chronic) with hematuria (principal); R39.89 Other symptoms and signs involving the genitourinary system; R07.9 Chest pain, unspecified; I11.9 Hypertensive heart disease without heart failure; E78.00 Pure hypercholesterolemia, unspecified; I25.2 Old myocardial infarction; K52.9 Noninfective gastroenteritis and colitis, unspecified; D64.9 Anemia, unspecified; Z86.19 Personal history of other infectious and parasitic diseases; I51.81 Takotsubo syndrome; M79.7 Fibromyalgia; M19.90 Unspecified osteoarthritis, unspecified site; L30.9 Dermatitis, unspecified; F41.9 Anxiety disorder, unspecified; F32.9 Major depressive disorder, single episode, unspecified; F43.10 Post-traumatic stress disorder, unspecified; R51 Headache; Z87.891 Personal history of nicotine dependence; R94.31 Abnormal electrocardiogram [ECG] [EKG]; Z87.440 Personal history of urinary (tract) infections; Z79.899 Other long term (current) drug therapy; Z88.2 Allergy status to sulfonamides; Z88.1 Allergy status to other antibiotic agents; Z88.5 Allergy status to narcotic agent; Z88.8 Allergy status to other drugs, medicaments and biological substances

== ENCOUNTER 2019-07-04 19:35 | Inpatient (IN) | payer MEDICARE, MEDICAID ==
[~2019-07-04] VITALS: Ht 170.2 cm; Wt 68.0 kg
[~2019-07-04 19:35] MED LIST changes: +BELL16.218 PR; -LR 1,000 ML IV ONE; -ceFAZolin SOD 2 GM in IV 1 EA IV ONE
[2019-07-04] MEDS ORDERED: ADDE20CA3 PO (20:02)
[2019-07-04] MEDS ORDERED: HYDROMORPHONE HCL 0.5 MG/ 0.5 ML SYRINGE (J1170 PER 1) IV ONE (21:15)
[2019-07-04] MEDS ORDERED: NS 1,000 ML IV ONE (21:30)
[2019-07-04 21:39] LABS: BASO % 0.3 % (0.0-1.0); EOS # 0.2 10^3/uL (0.0-0.5); EOS % 1.9 % (0.0-3.0); HEMATOCRIT 42.1 % (36.0-47.0); HEMOGLOBIN 13.7 g/dl (12.0-15.5); LYMPH # 2.3 10^3/uL (1.5-5.0); LYMPH % 18.3 % (24.0-44.0); MEAN CORPUSCULAR HGB CONC 32.5 g/dl (32.0-36.5); MONO # 1.2 10^3/uL (0.0-0.8); MONO % 9.6 % (0.0-5.0); NEUTROPHILS # 8.6 10^3/uL (1.5-8.5); NEUTROPHILS % 69.5 % (36.0-66.0); PLATELET COUNT, AUTOMATED 213 10^3/uL (150-450); RED BLOOD COUNT 4.73 10^6/uL (4.00-5.40); WHITE BLOOD COUNT 12.3 10^3/uL (4.0-10.0)
[2019-07-04 22:06] LABS: CALCIUM LEVEL 9.2 MG/DL (8.8-10.2); CREATININE FOR GFR 3.69 MG/DL (0.55-1.30); GLOMERULAR FILTRATION RATE 13.1 (>45)
--- NOTE | 2019-07-04 23:36 | REPVR ---
PROCEDURE INFORMATION: Exam: CT Abdomen And Pelvis Without Contrast Exam date and time: 07/04/2019 10:48 PM Clinical history: 64 years old, female; Pain; Other: Pelvic; Additional info: Pelvic pain S/P bladder procedure; Cystoscopy; ? Biopsy TECHNIQUE: Imaging protocol: Computed tomography of the abdomen and pelvis without contrast. Radiation optimization: All CT scans at this facility use at least one of these dose optimization techniques: automated exposure control; mA and/or kV adjustment per patient size (includes targeted exams where dose is matched to clinical indication); or iterative reconstruction. COMPARISON: CT ABD PELVIS W/O FOL BY WIT 11/18/2018 3:52 PM FINDINGS: Lungs: This bibasilar atelectasis, right greater than left. Pleural space: Small right pleural effusion. Pleural thickening left lung base. Mediastinum: A small hiatal hernia is present. Liver: Normal. No mass. Gallbladder and bile ducts: Hydropic gallbladder. No calculi demonstrated. Pancreas: Normal. No ductal dilation. Spleen: The spleen demonstrates punctate calcifications, consistent with remote granulomatous organism exposure. Adrenals: Normal. No mass. Kidneys and ureters: Normal. No hydronephrosis. Stomach and bowel: Duodenal diverticulum. Appendix: No evidence of appendicitis. Intraperitoneal space: There is a small amount of free intraperitoneal fluid present. Retroperitoneal space: Moderate retroperitoneal fluid demonstrated as well, left greater than right. Vasculature: The aorta demonstrates mild atherosclerotic calcification. Lymph nodes: Unremarkable. No enlarged lymph nodes. Bladder: Air within the urinary bladder may be postprocedural. Clinical correlation to exclude infection suggested. Fluid demonstrated adjacent to the anterolateral aspect of the urinary bladder. Bladder perforation not excluded. Reproductive: There has been a hysterectomy. Bones/joints: Unremarkable. No acute fracture. Soft tissues: Unremarkable. Other findings: Osteoporosis. Symmetric presacral fluid density not seen on the earlier examination of 11/18/2018 may represent fluid tracking along the mesorectum posteriorly. IMPRESSION: 1. There is a small amount of free intraperitoneal fluid present. 2. Hydropic gallbladder. No calculi demonstrated. 3. Small hiatal hernia. 4. There has been a hysterectomy. 5. Fluid demonstrated adjacent to the anterolateral aspect of the urinary bladder. Bladder perforation not excluded. 6. Symmetric presacral fluid density not seen on the earlier examination of 11/18/2018 may represent fluid tracking along the mesorectum posteriorly. Electronically signed by: Riley Coyle On 07/04/2019 23:35:44 PM
[2019-07-05] MEDS ORDERED: ONDANSETRON 4MG/2ML VIAL (J2405) IV ONE
[2019-07-05] MEDS ORDERED: VAGI10TA PV (00:36)
[2019-07-05] MEDS ORDERED: HYDR-3363 PO (00:36)
[2019-07-05] MEDS ORDERED: ACET-897 PO (00:36)
[2019-07-05] MEDS ORDERED: GLUCAGON FOR INJ 1 MG VIAL (J1610) SC PRN (00:45)
[2019-07-05] MEDS ORDERED: GLUCOSE 4 GM CHEW TABLET PO PRN (00:45)
[2019-07-05] MEDS ORDERED: DEXTROSE 50% 50 ML SYRINGE IV PRN (00:45)
[2019-07-05] MEDS ORDERED: BELL16.218 PR (01:07)
[2019-07-05] MEDS ORDERED: hydrOXYzine 25 MG TAB PO PRN (01:15)
[2019-07-05] MEDS ORDERED: ACETAMINOPHEN 500 MG TAB PO PRN (01:15)
[2019-07-05] MEDS: SERTRALINE HCL 50 MG TAB PO SCH ×2 (01:35→21:45)
[2019-07-05] MEDS: SIMVASTATIN 20 MG TAB PO SCH ×2 (01:35→21:45)
[2019-07-05 01:38] VITALS: BP 142/69
[2019-07-05] MEDS: BELLADONNA 16.2mg/OPIUM 30mg 1 EA SUPP PR PRN ×3 (02:16→18:27)
[2019-07-05 02:23] LABS: C REACTIVE PROTEIN QUANTITATIV 7.52 MG/DL (0.00-0.30); CALCIUM LEVEL 8.5 MG/DL (8.8-10.2); CREATININE FOR GFR 3.42 MG/DL (0.55-1.30); GLOMERULAR FILTRATION RATE 14.3 (>45); POTASSIUM SERUM 3.9 MEQ/L (3.5-5.1)
[2019-07-05] MEDS: D5W/0.45% SODIUM CHLORIDE 1,000 ML IV SCH ×3 (02:53→21:45)
[2019-07-05] MEDS ORDERED: NS 1,000 ML IV ONE ×2 (03:00)
[2019-07-05 05:50] VITALS: BP 115/65
[2019-07-05 06:21] LABS: HEMATOCRIT 36.1 % (36.0-47.0); MEAN CORPUSCULAR HEMOGLOBIN 28.8 pg (27.0-33.0); MEAN CORPUSCULAR HGB CONC 31.6 g/dl (32.0-36.5); MEAN CORPUSCULAR VOLUME 91.2 fl (80.0-96.0); PLATELET COUNT, AUTOMATED 187 10^3/uL (150-450); RED BLOOD COUNT 3.96 10^6/uL (4.00-5.40); WHITE BLOOD COUNT 7.9 10^3/uL (4.0-10.0)
[2019-07-05 06:36] LABS: HEMOGLOBIN 11.4 g/dl (12.0-15.5)
[2019-07-05 06:49] LABS: CALCIUM LEVEL 8.6 MG/DL (8.8-10.2); CREATININE FOR GFR 2.09 MG/DL (0.55-1.30); GLOMERULAR FILTRATION RATE 25.3 (>45); POTASSIUM SERUM 3.6 MEQ/L (3.5-5.1)
--- NOTE | 2019-07-05 08:21 | REP ---
Clinical: Abdominal pain with recent cystoscopy. Technique: Two supine views of the abdomen and pelvis. Findings: Bowel gas pattern is nonspecific and without evidence for obstruction/ileus or obvious perforation. No organomegaly. No abnormal calcifications. No foreign body. Skeletal structures demonstrate age-related osteopenia and degenerative changes. Impression: Nonspecific bowel gas pattern. No obvious evidence for perforation. Electronically Signed by James Renee MD 07/05/2019 08:12 A
[2019-07-05] MEDS ORDERED: FLUBLOK(EGG FREE)(QUAD)INFLUENZA VACC 0.5ML SYRINGE (90682)18YRS&OLDER IM ONE (09:00)
[2019-07-05] MEDS ORDERED: POTASSIUM CHLORIDE 10 MEQ SR TABLET PO ONE (09:00)
[2019-07-05] MEDS ORDERED: PREVNAR 13 VACCINE SYRINGE (CPT CODE:90670) IM ONE (09:00)
[2019-07-05] MEDS ORDERED: VALSARTAN 80 MG TAB (DIOVAN) PO SCH (09:00)
[2019-07-05] MEDS: buPROPion **XL** TABLET 150MG (WELLBUTRIN XL) PO SCH (09:04)
[2019-07-05] MEDS: ALPRAZolam 0.5 MG TAB PO SCH ×3 (09:05→21:45)
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
--- NOTE | 2019-07-05 10:23 | CR.PDOC ---
General Date of Consultation: Jul 05, 2019 Referring Provider: MAGNUS ROWE MD Consultation REASON FOR CONSULTATION/CHIEF COMPLAINT: Severe pain and no urination for 36 hours after a cystoscopy, hydrodistention, bladder biopsies, and right retrograde pyelogram 07/03/19 for severe irritative voiding symptoms and gross hematuria. HISTORY OF PRESENT ILLNESS: The patient is a 64-year-old female with recurrent urinary tract infections versus irritative voiding symptoms, recurrent C. difficile treated with a fecal transplant, and gross hematuria for quite some time. She is postoperative day #3 cystoscopy, hydrodistention, bladder biopsies and bilateral retrograde pyelogram found to have severe Hunner's ulcerations consisten with interstitial cystitis. Her pain has been very severe post- procedurally and she was not drinking fluid. She came to the emergency room and was only found to have 200 mL in her bladder and a very elevated creatinine of 3.69 now down to 2.[address] scan of the abdomen and pelvis was done which showed a small amount of free intraperitoneal fluid and bladder perforation cannot be excluded so a Moon catheter was placed. Still awaiting a cystogram this morning but the treatment for a extraperitoneal rupture is Moon catheterization. She is having quite a bit of pain still but B+O suppositories help. She was unable to get outpatient medication because of the cost. She denied any fever, chills, did have some nausea from pain but no vomiting. She is passing gas but has not had a bowel movement yet. ALLERGIES: Please see below. HOME MEDICATIONS: Please see below. PAST MEDICAL HISTORY: -Narcotic addiction -C. difficile recurrence status post a transplantation doing better -ADHD -Chronic hepatitis C -Migraines -Fibromyalgia -Cardiomyopathy -Reflux disease -Osteoarthritis -New diagnosis of interstitial cystitis PAST SURGICAL HISTORY: -Colonoscopy and later on stool transplantation for recurrent C. difficile -C-sections -Tonsillectomy-bunionectomy -Hysterectomy-right thigh cyst removal -Cystoscopy, hydrodistention, bladder biopsies, and a lateral retrograde pyelograms 07/03/19 FAMILY HISTORY: Mother at the age of 39 from pancreatitis, son at 19 due motor vehicle accident, father age 70 from prostate cancer. SOCIAL HISTORY: Patient lives alone. She smoked 1 pack a day since the age of 24 and quit last year. She denies any current alcohol use but she has been an abuser in the past but has been clean for 20 years. She also had a narcotic addiction. REVIEW OF SYSTEMS: A 12 system review was negative except for what's in the HPI PHYSICAL EXAMINATION: So well-developed well-nourished female in no apparent respiratory distress. She is alert and oriented 3. Her head is normocephalic atraumatic. Her eyes are PERRLA. Her neck is supple. Her heart is regular with no rubs gallops or murmurs appreciated. Her lungs are clear to auscultation percussion. She has no CVA tenderness. Her abdomen is soft but with diffuse tenderness but no rebound or guarding. A Moon catheter is in draining clear yellow urine. Her extremities show no cyanosis clubbing or edema and there is no calf tenderness. LABORATORY DATA: Please see below. ASSESSMENT/PLAN: -Severe hemorrhagic cystitis most likely secondary to interstitial cystitis now postop day #3 cystoscopy, hydrodistention, bladder biopsies, and retrograde pyelogram showing Hunner's ulcerations her pain -Acute kidney injury most likely secondary to severe dehydration with a creatinine of 3.69 down to 2.09 now -Some free fluid in the abdomen on CT scan with a question of a bladder perforation now with a Moon catheter but awaiting a cystogram -Continue pain control for the bladder spasms with B+O suppositories -Further treatment as an outpatient for interstitial cystitis with dietary changes, Pyridium when necessary, and starting Elmiron -DVT prophylaxis with compression stockings -Awaiting urine cultures -Waiting bladder biopsy pathology which is still pending Vital Signs/I&O Vital Signs Date Time Temp Pulse Resp B/P (MAP) Pulse Ox O2 Delivery O2 Flow Rate FiO2 07/05/19 05:50 97.6 84 18 115/65 (82) 98 Room Air I&O- Last 24 Hours up to 6 AM 07/05/19 06:00 Intake Total 3000 ml Output Total 3832 ml Balance -832 ml Laboratory Data Labs 24H Laboratory Tests 2 07/04/19 21:32: Immature Granulocyte % (Auto) 0.4, Neutrophils (%) (Auto) 69.5H, Lymphocytes (%) (Auto) 18.3L, Monocytes (%) (Auto) 9.6H, Eosinophils (%) (Auto) 1.9, Basophils (%) (Auto) 0.3, Neutrophils # (Auto) 8.6H, Lymphocytes # (Auto) 2.3, Monocytes # (Auto) 1.2H, Eosinophils # (Auto) 0.2, Basophils # (Auto) 0.0, Nucleated Red Blood Cells % (auto) 0.0, Anion Gap 10, Glomerular Filtration Rate 13.1L, Calcium Level 9.2 07/05/19 00:04: Urine Color YELLOW, Urine Appearance CLOUDYH, Urine pH 5.0, Urine Specific Gr avity 1.004, Urine Protein NEGATIVE, Urine Glucose (UA) NEGATIVE, Urine Ketones NEGATIVE, Urine Blood 3+H, Urine Nitrite NEGATIVE, Urine Bilirubin NEGATIVE, Urine Urobilinogen 0.2, Urine Leukocyte Esterase 3+H, Urine WBC (Auto) 17H, Urine RBC (Auto) 32H, Urine Hyaline Casts (Auto) 0, Urine Bacteria (Auto) 1+H, Urine Squamous Epithelial Cells 1, Urine Transitional Epithelial Cells <1, Urine Amorphous Sediment SMALLH, Urine Sperm (Auto) 07/05/19 01:46: Anion Gap 11, Glomerular Filtration Rate 14.3L, Calcium Level 8.5L, Erythrocyte Sedimentation Rate 106H, Lactic Acid Level 1.7, C-Reactive Protein, Quantitative 7.52H 07/05/19 05:50: Nucleated Red Blood Cells % (auto) 0.0, Anion Gap 5L, Glomerular Filtration Rate 25.3L, Calcium Level 8.6L 07/05/19 05:55: Bedside Glucose (Misc Panel) 112 CBC/BMP Laboratory Tests 07/04/19 21:32 07/05/19 01:46 07/05/19 05:50 Microbiology Microbiology 07/05/19 Urine Culture, Received Pending Allergies Coded Allergies: azithromycin (Unverified Allergy, Intermediate, LIPS SWELL/RASH, 07/03/19) prazosin (Unverified Allergy, Intermediate, RASH, 07/03/19) Sulfa (Sulfonamide Antibiotics) (Unverified Adverse Reaction, Mild, DIARRHEA, 07/03/19) doxycycline (Unverified Adverse Reaction, Mild, DIARRHEA, 07/03/19) morphine (Unverified Adverse Reaction, Mild, ITCHY, 07/03/19) sulfacetamide (Verified Adverse Reaction, Mild, DIARRHEA, 07/03/19) sulfur (Verified Adverse Reaction, Mild, DIARRHEA, 07/03/19) Home Medications Scheduled Alprazolam (Alprazolam) 1 Mg Tab, 1 MG PO TID, (Reported) Bupropion HCl (Wellbutrin Xl) 150 Mg Tab.er.24h, 150 MG PO DAILY, (Reported) Dextroamphetamine/Amphetamine (Adderall Xr 20 mg Capsule) 20 Mg Cap.er.24h, 20 MG PO QAM, (Reported) Estradiol (Vagifem) 10 Mcg Tablet, 10 MCG PV Q3D, (Reported) Methenamine Hippurate (Methenamine Hippurate) 1 Gm Tablet, 1 GM PO BID, (Reported) Multivitamin (Multivitamins) 1 Each Capsule, 1 CAP PO DAILY, (Reported) Sertraline Hcl (Sertraline HCl) 50 Mg Tablet, 50 MG PO QHS, (Reported) Simvastatin (Simvastatin) 20 Mg Tab, 20 MG PO QHS, (Reported) Valsartan (Valsartan) 160 Mg Tablet, 160 MG PO DAILY, (Reported) Zolpidem Tartrate (Zolpidem Tartrate) 10 Mg Tablet, 10 MG PO QHS, (Reported) Scheduled PRN Acetaminophen (Tylenol Extra Strength) 500 Mg Tablet, 1,000 MG PO Q6H PRN for PAIN / FEVER, (Reported) Epinephrine (Epipen 2-Aleksandar) 0.3 Mg/0.3 Ml Inj, 0.3 MG INJ for ANAPHYLAXIS, (Repor becky) Hydroxyzine HCl (Hydroxyzine HCl) 25 Mg Tablet, 25 MG PO QPM PRN for ITCHING, (Reported) Nicotine Polacrilex (Nicorette) 4 Mg Lozng.mini, 4 MG OR PRN PRN for NICOTINE WITHDRAWAL, (Reported) Opium/Belladonna Alkaloids (Belladonna-Opium 16.2-30 Supp) 1 Each Supp.rect, 1 SUP NV Q8H PRN for PAIN LEVEL 6-10, (Reported) JUDY GRAY MD Jul 05, 2019 10:23
[2019-07-05 14:00] VITALS: BP 96/65
--- NOTE | 2019-07-05 18:55 | IPNPDOC ---
Text Note Date of Service The patient was seen on 07/05/19. NOTE Subjective: -reports much improved pain since starting belladona suppositories and placement of the spring Interim events: -seen by urology Objective: Vitals: see below, hemodynamically stable and afebrile General: NAD, well appearing, AOx3 Eyes: PERRLA, EOMI, anicteric ENT: MMM Pulm: CTAB Cardiac: RRR, s1s2, no mrg, no JVD Abd: Normoactive, soft, diffuse tenderness to palpation without guarding or rebound, no CVA tenderness. : Spring catheter draining clear yellow urine Ext: WWP, no edema LABORATORY DATA: Please see below. Reviewed. ASSESSMENT/PLAN: 1. Acute kidney injury. Baseline creatinine is 0.8 admitted at 3.69. Likely prerenal, now improving after hydration -Spring catheter -Strict I and Os, daily weights -Continue holding valsartan 2. Recurrent UTIs with hemorrhagic cystitis. -Pending UCx --> will consult Dr. Wyman as indicated and will otherwise continue to wait for urine culture results unless the patient becomes febrile or septic. 3. Hemorrhagic cystitis s/p cystoscopy and bladder biopsies -CT scan with a question of a bladder perforation now given free air -Urology consulted, pending cystogram -continue spring -Continue pain control for the bladder spasms with B+O suppositories -Per urology treatment as an outpatient for interstitial cystitis with dietary changes, pyridium PRN, and starting Elmiron -Monitor H/H, avoid blood thinners, use compression stockings for DVT ppx 4. Hypertension. Patient's valsartan will be held due to acute renal failure. Currently normotensive 5. Major depressive disorder and anxiety disorder. -On Xanax. Monitor for confusion due to severe renal failure. -continue Wellbutrin. 6. Dyslipidemia. -Continue on simvastatin. 7. History of alcohol abuse and narcotic addition, stable. A -Avoiding narcotics 8. DVT prophylaxis with compression stockings due to gross hematuria. 9. Diet: regular VS,Fishbone, I+O VS, Fishbone, I+O Laboratory Tests 07/04/19 21:32 07/05/19 01:46 07/05/19 05:50 Vital Signs Date Time Temp Pulse Resp B/P (MAP) Pulse Ox O2 Delivery O2 Flow Rate FiO2 07/05/19 14:00 98.8 75 16 96/65 (75) 96 Room Air I&O- Last 24 Hours up to 6 AM 07/05/19 06:00 Intake Total 3000 ml Output Total 3832 ml Balance -832 ml MARYLOU MARTE MD Jul 05, 2019 18:55
[2019-07-05 21:22] VITALS: BP 105/54
[2019-07-05] MEDS ORDERED: zolPIDEM TARTRATE 5 MG TAB PO ONE (21:35)
[2019-07-06] MEDS: D5W/0.45% SODIUM CHLORIDE 1,000 ML IV SCH ×2 (06:05→16:32)
[2019-07-06 06:06] VITALS: BP 127/68
[2019-07-06 06:42] LABS: HEMATOCRIT 30.6 % (36.0-47.0); HEMOGLOBIN 9.8 g/dl (12.0-15.5); MEAN CORPUSCULAR HEMOGLOBIN 29.3 pg (27.0-33.0); MEAN CORPUSCULAR VOLUME 91.6 fl (80.0-96.0); PLATELET COUNT, AUTOMATED 180 10^3/uL (150-450); RED BLOOD COUNT 3.34 10^6/uL (4.00-5.40); WHITE BLOOD COUNT 6.2 10^3/uL (4.0-10.0)
[2019-07-06] MEDS: BELLADONNA 16.2mg/OPIUM 30mg 1 EA SUPP PR PRN (06:46)
[2019-07-06 07:32] LABS: BLOOD UREA NITROGEN 5 MG/DL (7-18); CALCIUM LEVEL 8.4 MG/DL (8.8-10.2); CARBON DIOXIDE LEVEL 25 MEQ/L (21-32); CHLORIDE LEVEL 110 MEQ/L (98-107); CREATININE FOR GFR 0.52 MG/DL (0.55-1.30); GLOMERULAR FILTRATION RATE > 60.0 (>45); GLUCOSE, FASTING 101 MG/DL (70-100); POTASSIUM SERUM 3.6 MEQ/L (3.5-5.1); SODIUM LEVEL 141 MEQ/L (136-145)
[2019-07-06] MEDS: buPROPion **XL** TABLET 150MG (WELLBUTRIN XL) PO SCH (08:14)
[2019-07-06] MEDS: ALPRAZolam 0.5 MG TAB PO SCH ×3 (08:15→20:15)
[2019-07-06] MEDS ORDERED: CYSTO-CONRAY II 17.2% 250ML VIAL (Q9958) As Ordered ONE (09:27)
--- NOTE | 2019-07-06 12:06 | IPNPDOC ---
Text Note Date of Service The patient was seen on 07/06/19. NOTE Subjective: -No new complaints this morning -Pain well managed with the belladona suppositories and worried about the cost as an outpatient Interim events: -seen by urology, pending cystogram this AM -H/H drop to 9s now, with clear urine in spring, s/p fluids Objective: Vitals: see below, hemodynamically stable and afebrile General: NAD, well appearing, AOx3 Eyes: PERRLA, EOMI, anicteric ENT: MMM Pulm: CTAB Cardiac: RRR, s1s2, no mrg, no JVD Abd: Normoactive, soft, diffuse tenderness to palpation without guarding or rebound, no CVA tenderness. : Spring catheter draining clear yellow urine Ext: WWP, no edema LABORATORY DATA: Please see below. Reviewed, K 3.6, Cr normalized to 0.52, H/H downtrend 9.8/30.6 Imaging: cystogram pending ASSESSMENT/PLAN: 1. Acute kidney injury. Baseline creatinine is 0.8 admitted at 3.69. Likely prerenal, resolved after hydration. -Spring catheter -Strict I and Os, daily weights -Continue holding valsartan 2. History of recurrent UTIs with hemorrhagic cystitis. -UCx negative, with no growth 3. Hemorrhagic cystitis s/p cystoscopy and bladder biopsies -CT scan with a question of a bladder perforation now given free air -Urology consulted, pending cystogram -continue spring -Continue pain control for the bladder spasms with belladona suppositories -Per urology treatment as an outpatient for interstitial cystitis with dietary changes, pyridium PRN, and starting Elmiron -Monitor H/H, had a downtrend this morning however with no gross hematuria, avoid blood thinners, use compression stockings for DVT ppx 4. Hypertension. Patient's valsartan will be held due to acute renal failure. Currently normotensive. FRANK now resolved, will restart if warranted. -monitor for now. 5. Major depressive disorder and anxiety disorder. -On Xanax. Monitor for confusion due to severe renal failure. -continue Wellbutrin. 6. Dyslipidemia. -Continue on simvastatin. 7. History of alcohol abuse and narcotic addition, stable. -Avoiding narcotics 8. DVT prophylaxis with compression stockings due to gross hematuria and worsening anemia 9. Diet: regular VS,Fishbone, I+O VS, Fishbone, I+O Laboratory Tests 07/06/19 06:03 Vital Signs Date Time Temp Pulse Resp B/P (MAP) Pulse Ox O2 Delivery O2 Flow Rate FiO2 07/05/19 21:22 98.3 72 16 105/54 (71) 97 Room Air I&O- Last 24 Hours up to 6 AM 07/06/19 06:00 Intake Total 0 ml Output Total 2500 ml Balance -2500 ml MARYLOU MARTE MD Jul 06, 2019 07:09
[2019-07-06] MEDS ORDERED: POTASSIUM CHLORIDE 10 MEQ SR TABLET PO ONE (13:00)
--- NOTE | 2019-07-06 13:25 | REP ---
CYSTOGRAM The procedure was performed under the direct supervision of Dr. Sheth. The images were reviewed with Dr. Sheth. The patient arrived in the department with an existing indwelling Moon catheter. 250 ml of Cysto-Conray II was instilled into the bladder in a retrograde flow. There is extraperitoneal extravasation from the dome of the bladder. There is no intraperitoneal extravasation seen. There is no filling defect. Impression: There is extraperitoneal extravasation of contrast from the dome of the bladder. 0.2 minutes of fluoroscopy time was utilized for this procedure. Electronically Signed by BALDEMAR Huerta 07/06/2019 12:49 P Electronically Signed by Davis Sheth MD 07/06/2019 01:16 P
[2019-07-06 14:00] VITALS: BP 104/52
--- NOTE | 2019-07-06 14:48 | IPNPDOC ---
Text Note Date of Service The patient was seen on 07/06/19. NOTE Roxanne is definitely feeling better with the Moon catheter in but still having suprapubic pain. A cystogram does show a small extraperitoneal rupture which is most likely the reason for her severe discomfort. She was in acute renal failure from most likely dehydration and her creatinine today is 0.52. She did have a temperature overnight of 100.3 but her urine cultures so far are negative. Physical exam: This a well-developed well-nourished female in no apparent respiratory distress. She has no CVA tenderness. Her abdomen still has diffuse tenderness. Her extremities show no calf tenderness. Impression: -Postop day #2 cystoscopy and hydrodistention found to have severe interstitial cystitis with Hunner's ulcerations and a small capacity bladder now with a small extraperitoneal bladder perforation most likely the cause for her very severe pain -Acute renal insufficiency most likely secondary to dehydration now back to normal -Low-grade temperature but with a normal white blood count of 6.2 today and urine culture showing no growth so far Plan: -Continue Moon catheter for 7-10 days until the perforation has time to heal but no other management as necessary -Continue B&O suppositories and with good Rx she can get 6 suppositories for $68 which I don't think is going to be an option for her so she will just need pain medication to help manage this and oxybutynin ER which I will start today and she should be sent home on this and Pyridium/AZO/or Cystex (whichever is least expensive) -She can be discharged when she is able to tolerate oral pain medication which I will change her to now and try to stop the B&O suppositories since these are not an option as an outpatient -I will also change her Moon catheter to a 20 Tristanian and upon discharge my office will plan a repeat cystogram in 7-10 day Latasha ODONNELL I+Latasha SEAMAN I+O Laboratory Tests 07/06/19 06:03 Vital Signs Date Time Temp Pulse Resp B/P (MAP) Pulse Ox O2 Delivery O2 Flow Rate FiO2 07/06/19 14:00 98.1 78 18 104/52 (69) 96 Room Air I&O- Last 24 Hours up to 6 AM 07/06/19 05:59 Intake Total 0 ml Output Total 2500 ml Balance -2500 ml JUDY GRAY MD Jul 06, 2019 14:48
[2019-07-06] MEDS: oxyBUTYnin *DITROPAN XL* 5 MG TABCR PO SCH (15:46)
[2019-07-06] MEDS: PERCOCET 5MG/325MG TAB PO PRN ×2 (16:26→20:17)
[2019-07-06 19:45] VITALS: BP 106/51
[2019-07-06] MEDS: SIMVASTATIN 20 MG TAB PO SCH (20:16)
[2019-07-06] MEDS: DOCUSATE SODIUM 100 MG CAP PO SCH (20:16)
[2019-07-06] MEDS: SERTRALINE HCL 50 MG TAB PO SCH (20:16)
[2019-07-07 05:37] VITALS: BP 124/74
[2019-07-07] MEDS: PERCOCET 5MG/325MG TAB PO PRN ×3 (05:42→14:34)
[2019-07-07 07:03] LABS: HEMATOCRIT 31.3 % (36.0-47.0); HEMOGLOBIN 9.8 g/dl (12.0-15.5); MEAN CORPUSCULAR HGB CONC 31.3 g/dl (32.0-36.5); MEAN CORPUSCULAR VOLUME 92.6 fl (80.0-96.0); PLATELET COUNT, AUTOMATED 176 10^3/uL (150-450); RED BLOOD COUNT 3.38 10^6/uL (4.00-5.40); WHITE BLOOD COUNT 6.6 10^3/uL (4.0-10.0)
[2019-07-07 07:32] LABS: BLOOD UREA NITROGEN 14 MG/DL (7-18); CALCIUM LEVEL 8.2 MG/DL (8.8-10.2); CARBON DIOXIDE LEVEL 28 MEQ/L (21-32); CHLORIDE LEVEL 111 MEQ/L (98-107); GLOMERULAR FILTRATION RATE > 60.0 (>45); GLUCOSE, FASTING 87 MG/DL (70-100); POTASSIUM SERUM 4.2 MEQ/L (3.5-5.1); SODIUM LEVEL 143 MEQ/L (136-145)
[2019-07-07] MEDS ORDERED: DOCU100C16 PO (07:41)
[2019-07-07] MEDS ORDERED: PERCOCET PO (07:41)
[2019-07-07] MEDS ORDERED: DITR5TAB PO (07:41)
[2019-07-07] MEDS ORDERED: MOM 30ML SUSPENSION UDC PO ONE (07:45)
[2019-07-07] MEDS: ALPRAZolam 0.5 MG TAB PO SCH (08:58)
[2019-07-07] MEDS: DOCUSATE SODIUM 100 MG CAP PO SCH (08:58)
[2019-07-07] MEDS: oxyBUTYnin *DITROPAN XL* 5 MG TABCR PO SCH (08:58)
[2019-07-07] MEDS: buPROPion **XL** TABLET 150MG (WELLBUTRIN XL) PO SCH (08:58)
--- NOTE | 2019-07-07 10:33 | IPNPDOC ---
Text Note Date of Service The patient was seen on 07/07/19. NOTE Roxanne is definitely feeling better. We changed her from B&O suppositories to oral Percocet and oxybutynin ER 10 mg. Unfortunately she really hasn't been ambulating and has not moved her bowels shadow although she is passing gas. Physical exam: This a well-developed well-nourished female in no apparent respiratory distress. She has no CVA tenderness. Her abdomen still has diffuse tenderness. Her extremities show no calf tenderness. Impression: -Postop day #3 cystoscopy and hydrodistention found to have severe interstitial cystitis with Hunner's ulcerations and a small capacity bladder now with a small extraperitoneal bladder perforation most likely the cause for her very severe pain -Postoperative urinary retention and she didn't come in to the hospital for quite a long time which could be the reason for her bladder perforation -Acute renal insufficiency most likely secondary to dehydration now back to normal -Urine culture negative from 07/05/19 Plan: -Continue Moon catheter for 7-10 days until the perforation has time to heal but no other management is necessary -Continue Percocet for now and oxybutynin ER 10 mg daily -Discharge when she is able to ambulate and is moving her bowels and we will plan on a cystogram in a week and if there is no perforation we will remove the catheter at that time -Start the Elmiron, follow the interstitial cystitis diet, and continue methenamine for now VS,Fishbone, I+O VS, Fishbone, I+O Laboratory Tests 07/07/19 06:39 Vital Signs Date Time Temp Pulse Resp B/P (MAP) Pulse Ox O2 Delivery O2 Flow Rate FiO2 07/07/19 06:12 16 07/07/19 05:37 97.8 66 124/74 (91) 93 Room Air I&O- Last 24 Hours up to 6 AM 07/07/19 06:00 Intake Total 1660 ml Output Total 1750 ml Balance -90 ml JUDY GRAY MD Jul 07, 2019 10:33
[2019-07-07 14:00] VITALS: BP 125/63
[2019-07-07] MEDS ORDERED: ONDA4TAB6 PO (16:10)
--- NOTE | 2019-07-10 06:23 | DS.PDOC ---
Discharge Summary General Date of Admission Jul 04, 2019 at 23:54 Date of Discharge 07/07/19 Discharge Summary PROCEDURES PERFORMED DURING STAY: [None]. DISCHARGE DIAGNOSES: Extraperitoneal Bladder perforation s/p urological procedure FRANK due to dehydration Interstitial cystitis Small capacity bladder hypertension dyslipidemia depression anxiety COMPLICATIONS/CHIEF COMPLAINT: Bladder Pain. 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 ED with severe abdominal pain and bladder spasms. She was postoperative day #3 cystoscopy, hydrodistention, bladder biopsies and bilateral retrograde pyelogram found to have severe Hunner's ulcerations consistent with interstitial cystitis. Her pain has been very severe post-procedurally and she was not drinking fluid. She came to the emergency room and was only found to have 200 mL in her bladder and a very elevated creatinine of 3.69 now down to 2.[address] scan of the abdomen and pelvis was done which showed a small amount of free intraperitoneal fluid suggestive of bladder perforation. She subsequently underwent cystogram and found to have a small capacity bladder with a small extraperitoneal bladder perforation most likely the cause for her very severe pain so a Spring catheter was placed. She was admitted for FRAKN and bladder perforation. Extraperitoneal bladder perforation s/p urological procedure spring in place to remain 7 to 10 days for healing. oxybutinin for bladder spasms. oxycodone for pain control cannot afford belladonna sup. follow up urology Hemorrhagic cystitis s/p cystoscopy and bladder biopsies Showed interstitial cystitis. Per urology treatment as an outpatient for interstitial cystitis with dietary changes, pyridium Elmiron Acute kidney injury. due to prerenal poor intake and dehydration due to severe abdominal pain from bladder perforation on the back ground of ACEI. Baseline creatinine is 0.8 admitted at 3.69. resolved after hydration. now resolved valsartan stopped. can be resumed by pmd. Hypertension. Patient's valsartan will be held due to acute renal failure. Currently normotensive. BP normal in hospital Major depressive disorder and anxiety disorder. On Xanax. Wellbutrin. Dyslipidemia. Continue on simvastatin. History of alcohol abuse and narcotic addition, stable. DISCHARGE MEDICATIONS: Please see below. ALLERGIES: Please see below. PHYSICAL EXAMINATION ON DISCHARGE: VITAL SIGNS: Please see below. General: NAD, well appearing, AOx3 Eyes: PERRLA, EOMI, anicteric ENT: MMM Pulm: CTAB Cardiac: RRR, s1s2, no mrg, no JVD Abd: Normoactive, soft, diffuse tenderness to palpation in the hypogastrium : Spring catheter draining clear yellow urine Ext: WWP, no edema LABORATORY DATA: Please see below. ACTIVITY: [As tolerated]. DIET: as tolerated DISPOSITION: 01 Home, Self-Care. DISCHARGE INSTRUCTIONS: Follow up urology in 1 [place] follow up PMD in 2 weeks DISCHARGE CONDITION: [Stable]. TIME SPENT ON DISCHARGE: 35 minutes. Vital Signs/I&Os Vital Signs Date Time Temp Pulse Resp B/P (MAP) Pulse Ox O2 Delivery O2 Flow Rate FiO2 07/07/19 14:34 14 07/07/19 14:00 98.2 74 125/63 (83) 94 Room Air Laboratory Data CBC/BMP Item Value Date Time White Blood Count 6.6 10^3/uL 07/07/19 0639 Red Blood Count 3.38 10^6/uL L 07/07/19 0639 Hemoglobin 9.8 g/dl L 07/07/19 0639 Hematocrit 31.3 % L 07/07/19 0639 Mean Corpuscular Volume 92.6 fl 07/07/19 0639 Mean Corpuscular Hemoglobin 29.0 pg 07/07/19 0639 Mean Corpuscular Hemoglobin Concent 31.3 g/dl L 07/07/19 0639 Red Cell Distribution Width 13.1 % 07/07/19 0639 Platelet Count 176 10^3/uL 07/07/19 0639 Sodium Level 143 MEQ/L 07/07/19 0639 Potassium Level 4.2 MEQ/L 07/07/19 0639 Chloride Level 111 MEQ/L H 07/07/19 0639 Carbon Dioxide Level 28 MEQ/L 07/07/19 0639 Anion Gap 4 MEQ/L L 07/07/19 0639 Blood Urea Nitrogen 14 MG/DL # 07/07/19 0639 Creatinine 0.70 MG/DL 07/07/19 0639 Glomerular Filtration Rate > 60.0 07/07/19 0639 Fasting Glucose 87 MG/DL 07/07/19 0639 Calcium Level 8.2 MG/DL L 07/07/19638 Microbiology Microbiology 07/05/19 Urine Culture - Final, Complete Discharge Medications Scheduled Alprazolam (Alprazolam) 1 Mg Tab, 1 MG PO TID, (Reported) Bupropion HCl (Wellbutrin Xl) 150 Mg Tab.er.24h, 150 MG PO DAILY, (Reported) Dextroamphetamine/Amphetamine (Adderall Xr 20 mg Capsule) 20 Mg Cap.er.24h, 20 MG PO QAM, (Reported) Docusate Sodium (Docusate Sodium) 100 Mg Capsule, 100 MG PO BID Estradiol (Vagifem) 10 Mcg Tablet, 10 MCG PV Q3D, (Reported) Methenamine Hippurate (Methenamine Hippurate) 1 Gm Tablet, 1 GM PO BID, (Report ed) Multivitamin (Multivitamins) 1 Each Capsule, 1 CAP PO DAILY, (Reported) Oxybutynin Chloride (Ditropan Xl) 5 Mg Tab.er.24, 10 MG PO DAILY Sertraline Hcl (Sertraline HCl) 50 Mg Tablet, 50 MG PO QHS, (Reported) Simvastatin (Simvastatin) 20 Mg Tab, 20 MG PO QHS, (Reported) Zolpidem Tartrate (Zolpidem Tartrate) 10 Mg Tablet, 10 MG PO QHS, (Reported) Scheduled PRN Acetaminophen (Tylenol Extra Strength) 500 Mg Tablet, 1,000 MG PO Q6H PRN for PAIN / FEVER, (Reported) Epinephrine (Epipen 2-Aleksandar) 0.3 Mg/0.3 Ml Inj, 0.3 MG INJ for ANAPHYLAXIS, ( Reported) Hydroxyzine HCl (Hydroxyzine HCl) 25 Mg Tablet, 25 MG PO QPM PRN for ITCHING, (Reported) Nicotine Polacrilex (Nicorette) 4 Mg Lozng.mini, 4 MG OR PRN PRN for NICOTINE WITHDRAWAL, (Reported) Ondansetron (Ondansetron Odt) 4 Mg Tab.rapdis, 4 MG PO Q6-8HP PRN for nausea/vomiting Oxycodone/Acetaminophen (Oxycodone-Acetaminophen 5-325) 1 Each Tablet, 1-2 TAB PO Q8HP PRN for SEVERE PAIN (PS 8-10) Allergies Coded Allergies: azithromycin (Unverified Allergy, Intermediate, LIPS SWELL/RASH, 07/03/19) prazosin (Unverified Allergy, Intermediate, RASH, 07/03/19) Sulfa (Sulfonamide Antibiotics) (Unverified Adverse Reaction, Mild, DIARRHEA, 07/03/19) doxycycline (Unverified Adverse Reaction, Mild, DIARRHEA, 07/03/19) morphine (Unverified Adverse Reaction, Mild, ITCHY, 07/03/19) sulfacetamide (Verified Adverse Reaction, Mild, DIARRHEA, 07/03/19) sulfur (Verified Adverse Reaction, Mild, DIARRHEA, 07/03/19) JONATHAN MIX MD Jul 10, 2019 06:23
== END 2019-07-07 15:30 | disposition home or self-care (01) | DRG 699 ==
LOC: M ED 19:35 → M ED INP 23:54 → M MS5PR 07-05 01:53
PROVIDERS: ADMIT General Practice; ATTEND Internal Medicine Nephrology
DX: N32.89 Other specified disorders of bladder (principal); N17.9 Acute kidney failure, unspecified; I51.81 Takotsubo syndrome; F33.9 Major depressive disorder, recurrent, unspecified; N30.11 Interstitial cystitis (chronic) with hematuria; Z86.19 Personal history of other infectious and parasitic diseases; M79.7 Fibromyalgia; M19.90 Unspecified osteoarthritis, unspecified site; F41.9 Anxiety disorder, unspecified; F43.10 Post-traumatic stress disorder, unspecified; Z87.891 Personal history of nicotine dependence; Z87.440 Personal history of urinary (tract) infections; Z79.899 Other long term (current) drug therapy; Z88.2 Allergy status to sulfonamides; Z88.1 Allergy status to other antibiotic agents; Z88.5 Allergy status to narcotic agent; Z88.8 Allergy status to other drugs, medicaments and biological substances; E78.5 Hyperlipidemia, unspecified; E86.0 Dehydration; B18.2 Chronic viral hepatitis C; G43.909 Migraine, unspecified, not intractable, without status migrainosus

== ENCOUNTER → 2019-07-20 | Outpatient (CLI) | payer MEDICARE, MEDICAID ==
[~2019-07-20] MED LIST changes: +ACET-897 PO; +ADDE20CA3 PO; +CYSTO-CONRAY II 17.2% 250ML VIAL (Q9958) As Ordered ONE; +DOCU100C16 PO; +ONDA4TAB6 PO; +VAGI10TA PV
--- NOTE | 2019-07-20 16:26 | REP ---
Contrast cystogram: History: Extraperitoneal bladder perforation. Comparison cystography July 06, 2019. Comparison CT study July 04, 2019. They was infused by gravity through the patient's previously placed existing Moon catheter. Sequential films were obtained at 100 ml and 200 ml and bilateral oblique views and a post void view were obtained. There is some irregularity of the superior wall of the bladder but no extravasation is seen. The Moon catheter tip is seen projecting and indenting the superior margin of the urinary bladder. The previously noted contrast extravasation is no longer apparent. Fluoroscopy time is 0.2 minutes. Impression: Previously noted extraperitoneal contrast extravasation is no longer apparent. There is some irregularity of the superior wall of the bladder. No filling defect seen other than the Moon catheter. Electronically Signed by Davis Sheth MD 07/20/2019 05:04 P
== END ==
LOC: M RADPRO 13:47
PROVIDERS: ATTEND Specialist
DX: N32.89 Other specified disorders of bladder (principal)
CPT/HCPCS: 51600; 74430; Q9958

== ENCOUNTER → 2019-07-24 | Outpatient (CLI) | payer MEDICARE, MEDICAID ==
[~2019-07-24] MED LIST changes: -CYSTO-CONRAY II 17.2% 250ML VIAL (Q9958) As Ordered ONE
--- NOTE | 2019-07-24 09:33 | REP ---
CT chest without contrast: History: Shortness of breath. Comparison chest CT study September 21, 2016. Comparison chest x-ray May 27, 2019. CT findings: There are calcific granulomatous lymph node residuals in the right hilum. There is a densely calcified benign stable granuloma in the superior segment of the right lower lobe. These findings are unchanged from the September 21, [address] study. There are granulomatous calcifications scattered in the liver and spleen as well. There is linear fibrosis in the lower lobes bilaterally. The lungs are mildly hyperinflated overall. No significant emphysematous changes are seen radiographically. No endobronchial lesion is appreciated. Scattered normal-sized mediastinal lymph nodes are noted. No evidence of adenopathy on this noncontrast study. No adrenal lesion is seen. There is an accessory splenule in the left upper quadrant. Impression: Bilateral lower lobe linear fibrosis. Old granulomatous calcific changes right hilus and right lower lobe. Otherwise no acute disease. Electronically Signed by Davis Sheth MD 07/24/2019 02:08 P
== END ==
LOC: M RAD 07:21
PROVIDERS: ATTEND Internal Medicine Pulmonary Disease
DX: J84.10 Pulmonary fibrosis, unspecified (principal); R06.02 Shortness of breath; R32 Unspecified urinary incontinence

== ENCOUNTER → 2019-07-24 | Outpatient (REF) | payer MEDICARE, MEDICAID ==
[2019-07-24 13:21] LABS: AMORPHOUS SEDIMENT MODERATE (NEGATIVE); APPEARANCE, URINE CLOUDY (CLEAR); BACTERIA, URINE AUTO 1+ (NEGATIVE); BILIRUBIN, URINE AUTO NEGATIVE (NEGATIVE); BLOOD, URINE BLOOD 2+ (NEGATIVE); COLOR, URINE YELLOW (YELLOW); GLUCOSE, URINE (UA) AUTO NEGATIVE (NEGATIVE); KETONE, URINE AUTO NEGATIVE (NEGATIVE); LEUKOCYTE ESTERASE, URINE AUTO 3+ (NEGATIVE); MUCUS, URINE SMALL (NEGATIVE); NITRITE, URINE AUTO POSITIVE (NEGATIVE); PROTEIN, URINE AUTO NEGATIVE (NEGATIVE); RBC, URINE AUTO 17 /HPF (0-3); SPECIFIC GRAVITY URINE AUTO 1.013 (1.002-1.035); SQUAMOUS EPITHELIAL CELL UR AU 2 /HPF (0-6); UROBILINOGEN, URINE AUTO 0.2 mg/dL (0.0-2.0); WBC, URINE AUTO TNTC /HPF (0-3)
== END ==
LOC: M SMT 13:02
PROVIDERS: ATTEND Specialist
DX: R32 Unspecified urinary incontinence (principal)

== ENCOUNTER → 2019-08-27 | Outpatient (REF) | payer MEDICARE, MEDICAID ==
[~2019-08-27] MED LIST changes: -SIMV20TA2 PO; +SIMV20TA22 PO; -SIMV40TA2 PO; +SIMV40TA20 PO; -VALS1TAB49 PO; +VALS40TA9 PO
[2019-08-27 19:30] LABS: AMORPHOUS SEDIMENT SMALL (NEGATIVE); APPEARANCE, URINE CLOUDY (CLEAR); BACTERIA, URINE AUTO NEGATIVE (NEGATIVE); BILIRUBIN, URINE AUTO NEGATIVE (NEGATIVE); BLOOD, URINE BLOOD 1+ (NEGATIVE); COLOR, URINE YELLOW (YELLOW); GLUCOSE, URINE (UA) AUTO NEGATIVE (NEGATIVE); KETONE, URINE AUTO NEGATIVE (NEGATIVE); LEUKOCYTE ESTERASE, URINE AUTO 3+ (NEGATIVE); NITRITE, URINE AUTO NEGATIVE (NEGATIVE); PROTEIN, URINE AUTO NEGATIVE (NEGATIVE); RBC, URINE AUTO 7 /HPF (0-3); SPECIFIC GRAVITY URINE AUTO 1.023 (1.002-1.035); SQUAMOUS EPITHELIAL CELL UR AU 5 /HPF (0-6); UROBILINOGEN, URINE AUTO 0.2 mg/dL (0.0-2.0); WBC, URINE AUTO 79 /HPF (0-3)
== END ==
LOC: M SFHCCAPE 10:05
PROVIDERS: ATTEND Physician Assistant
DX: R35.0 Frequency of micturition (principal)
CPT/HCPCS: 81001; 81002; 87086; G0463

== ENCOUNTER → 2019-09-08 | Outpatient (REF) | payer MEDICARE, MEDICAID ==
[2019-09-09 16:49] LABS: APPEARANCE, URINE CLOUDY (CLEAR); BACTERIA, URINE AUTO 2+ (NEGATIVE); BILIRUBIN, URINE AUTO NEGATIVE (NEGATIVE); BLOOD, URINE BLOOD NEGATIVE (NEGATIVE); COLOR, URINE YELLOW (YELLOW); GLUCOSE, URINE (UA) AUTO NEGATIVE (NEGATIVE); KETONE, URINE AUTO NEGATIVE (NEGATIVE); LEUKOCYTE ESTERASE, URINE AUTO 1+ (NEGATIVE); NITRITE, URINE AUTO NEGATIVE (NEGATIVE); PROTEIN, URINE AUTO NEGATIVE (NEGATIVE); RBC, URINE AUTO 2 /HPF (0-3); SPECIFIC GRAVITY URINE AUTO 1.016 (1.002-1.035); SQUAMOUS EPITHELIAL CELL UR AU 22 /HPF (0-6); UROBILINOGEN, URINE AUTO 0.2 mg/dL (0.0-2.0); WBC, URINE AUTO 36 /HPF (0-3)
== END ==
LOC: M SFHCCAPE 16:08
PROVIDERS: ATTEND Physician Assistant
DX: R35.0 Frequency of micturition (principal)

== ENCOUNTER → 2019-10-07 | Outpatient (REF) | payer MEDICARE, MEDICAID ==
[2019-10-07 17:03] LABS: BACTERIA, URINE AUTO 2+ (NEGATIVE); MUCUS, URINE SMALL (NEGATIVE); RBC, URINE AUTO 3 /HPF (0-3); SQUAMOUS EPITHELIAL CELL UR AU 14 /HPF (0-6); TRANSITIONAL EPITHELIAL AUTO <1 /HPF; WBC, URINE AUTO 30 /HPF (0-3)
[2019-10-07 17:11] LABS: BASO % 0.8 % (0.0-1.0); EOS # 0.3 10^3/uL (0.0-0.5); EOS % 5.3 % (0.0-3.0); HEMATOCRIT 37.6 % (36.0-47.0); LYMPH % 56.4 % (24.0-44.0); MEAN CORPUSCULAR HEMOGLOBIN 28.8 pg (27.0-33.0); MEAN CORPUSCULAR HGB CONC 31.9 g/dl (32.0-36.5); MEAN CORPUSCULAR VOLUME 90.2 fl (80.0-96.0); MONO # 0.5 10^3/uL (0.0-0.8); MONO % 9.5 % (0.0-5.0); NEUTROPHILS # 1.5 10^3/uL (1.5-8.5); NEUTROPHILS % 27.8 % (36.0-66.0); PLATELET COUNT, AUTOMATED 263 10^3/uL (150-450); RED BLOOD COUNT 4.17 10^6/uL (4.00-5.40); WHITE BLOOD COUNT 5.3 10^3/uL (4.0-10.0)
[2019-10-07 17:36] LABS: ALBUMIN 3.9 GM/DL (3.2-5.2); ALT/SGPT 19 U/L (12-78); BILIRUBIN,TOTAL 0.2 MG/DL (0.2-1.0); BLOOD UREA NITROGEN 13 MG/DL (7-18); CALCIUM LEVEL 9.2 MG/DL (8.8-10.2); CARBON DIOXIDE LEVEL 30 MEQ/L (21-32); CHLORIDE LEVEL 106 MEQ/L (98-107); CHOLESTEROL LEVEL 169 MG/DL (<200); CHOLESTEROL RISK RATIO 3.673 (<5); CREATININE FOR GFR 0.83 MG/DL (0.55-1.30); FERRITIN 110 NG/ML (8-252); GLOMERULAR FILTRATION RATE > 60.0 (>45); GLUCOSE, FASTING 102 MG/DL (70-100); HDL CHOLESTEROL 46 MG/DL (>40); IRON (FE) 57 UG/DL (50-170); LDL CHOLESTEROL 69 MG/DL (<100); MAGNESIUM LEVEL 1.8 MG/DL (1.8-2.4); NON-HDL-C 123 MG/DL; POTASSIUM SERUM 3.8 MEQ/L (3.5-5.1); SODIUM LEVEL 140 MEQ/L (136-145); TOTAL PROTEIN 7.3 GM/DL (6.4-8.2); TRIGLYCERIDES LEVEL 271 MG/DL (<150)
[2019-10-07 17:38] LABS: TOTAL 25(OH) VITAMIN D 34.2 NG/ML (30.0-100.0); VITAMIN B12 LEVEL 320 PG/ML
[2019-10-07 17:50] LABS: FOLATE 11.4 NG/ML
== END ==
LOC: M SFHCCAPE 11:00
PROVIDERS: ATTEND Physician Assistant
DX: D50.9 Iron deficiency anemia, unspecified (principal); M79.7 Fibromyalgia; I10 Essential (primary) hypertension; E55.9 Vitamin D deficiency, unspecified; R31.0 Gross hematuria

== ENCOUNTER → 2019-10-19 | Outpatient (REF) | payer MEDICARE, MEDICAID | LOC: M SFHCCAPE 11:48 | PROVIDERS: ATTEND Physician Assistant | DX: R19.7 Diarrhea, unspecified (principal) ==

== ENCOUNTER → 2019-11-20 | Outpatient (CLI) | payer MEDICARE, MEDICAID ==
--- NOTE | 2019-11-20 09:51 | REP ---
RIGHT UPPER QUADRANT ULTRASOUND: Real-time sonographic evaluation of the right upper quadrant performed. Gallbladder demonstrates no evidence of intraluminal sludge or calculi, wall thickening or pericholecystic fluid. The common bile duct is mildly dilated up to 10 mm with no echogenic foci in the visualized portion. Liver and pancreas demonstrate homogeneous echotexture with no gross mass. Right kidney demonstrates no hydronephrosis with normal size 9.9 cm in length. There is no ascites. IMPRESSION: No gall stones and no evidence of stone in the visualized common bile duct, however, the common bile duct is mildly dilated at 10 mm. This is of uncertain significance. Further evaluation may be made with MRCP. Electronically Signed by Jorge Ovalle MD 11/20/2019 12:53 P
== END ==
LOC: M RAD 08:53
PROVIDERS: ATTEND Physician Assistant
DX: R10.11 Right upper quadrant pain (principal)

== ENCOUNTER → 2020-01-26 | Outpatient (REF) | payer MEDICARE, MEDICAID ==
[~2020-01-26] MED LIST changes: -ATOM40CA PO; +ATOM40CA16 PO; -LISI-1046 PO; +LISI2.5T2 PO
== END ==
LOC: M SFHCCLAY 14:38
PROVIDERS: ATTEND Family Medicine
DX: R30.0 Dysuria (principal)
CPT/HCPCS: 81002; 87086; G0463

== ENCOUNTER → 2020-02-15 | Outpatient (REF) | payer MEDICARE, MEDICAID ==
[2020-02-15 13:11] LABS: BASO % 0.6 % (0.0-1.0); EOS # 0.2 10^3/uL (0.0-0.5); EOS % 3.6 % (0.0-3.0); HEMATOCRIT 39.2 % (36.0-47.0); HEMOGLOBIN 12.5 g/dl (12.0-15.5); LYMPH # 2.2 10^3/uL (1.5-5.0); LYMPH % 35.1 % (24.0-44.0); MEAN CORPUSCULAR HEMOGLOBIN 29.1 pg (27.0-33.0); MEAN CORPUSCULAR HGB CONC 31.9 g/dl (32.0-36.5); MEAN CORPUSCULAR VOLUME 91.4 fl (80.0-96.0); MONO # 0.5 10^3/uL (0.0-0.8); MONO % 8.5 % (0.0-5.0); NEUTROPHILS # 3.3 10^3/uL (1.5-8.5); NEUTROPHILS % 51.7 % (36.0-66.0); PLATELET COUNT, AUTOMATED 276 10^3/uL (150-450); RED BLOOD COUNT 4.29 10^6/uL (4.00-5.40); WHITE BLOOD COUNT 6.4 10^3/uL (4.0-10.0)
[2020-02-15 14:27] LABS: ALBUMIN 3.9 GM/DL (3.2-5.2); ALT/SGPT 18 U/L (12-78); BILIRUBIN,TOTAL 0.5 MG/DL (0.2-1.0); BLOOD UREA NITROGEN 27 MG/DL (7-18); CALCIUM LEVEL 9.4 MG/DL (8.8-10.2); CARBON DIOXIDE LEVEL 30 MEQ/L (21-32); CHLORIDE LEVEL 104 MEQ/L (98-107); CHOLESTEROL LEVEL 229 MG/DL (<200); CHOLESTEROL RISK RATIO 3.417 (<5); CREATININE FOR GFR 0.84 MG/DL (0.55-1.30); GLOMERULAR FILTRATION RATE > 60.0 (>45); GLUCOSE, FASTING 91 MG/DL (70-100); HDL CHOLESTEROL 67 MG/DL (>40); LDL CHOLESTEROL 134 MG/DL (<100); NON-HDL-C 162 MG/DL; POTASSIUM SERUM 4.9 MEQ/L (3.5-5.1); SODIUM LEVEL 140 MEQ/L (136-145); TOTAL 25(OH) VITAMIN D 44.8 NG/ML (30.0-100.0); TOTAL PROTEIN 7.6 GM/DL (6.4-8.2); TRIGLYCERIDES LEVEL 142 MG/DL (<150)
[2020-02-15 14:47] LABS: HEMOGLOBIN A1c 5.3 %
== END ==
LOC: M SFHCCLAY 09:56
PROVIDERS: ATTEND Physician Assistant
DX: R73.01 Impaired fasting glucose (principal); E78.1 Pure hyperglyceridemia; E83.42 Hypomagnesemia; E55.9 Vitamin D deficiency, unspecified; M79.7 Fibromyalgia

== ENCOUNTER → 2020-03-29 | Outpatient (REF) | payer MEDICARE, MEDICAID ==
[~2020-03-29] MED LIST changes: -ASPI81TA85 PO; +ASPI81TA86 PO
[2020-05-03 14:27] LABS: CLOSTRIDIUM DIFFICILE PCR NEGATIVE (NEGATIVE)
== END ==
LOC: M LABDRAWC 13:50
PROVIDERS: ATTEND Internal Medicine Infectious Disease
DX: A04.71 Enterocolitis due to Clostridium difficile, recurrent (principal)

== ENCOUNTER → 2020-04-06 | Outpatient (REF) | payer MEDICARE, MEDICAID ==
[2020-05-05 23:22] LABS: APPEARANCE, URINE CLEAR (CLEAR); BACTERIA, URINE AUTO NEGATIVE (NEGATIVE); BILIRUBIN, URINE AUTO NEGATIVE (NEGATIVE); BLOOD, URINE BLOOD NEGATIVE (NEGATIVE); COLOR, URINE YELLOW (YELLOW); GLUCOSE, URINE (UA) AUTO NEGATIVE (NEGATIVE); KETONE, URINE AUTO NEGATIVE (NEGATIVE); LEUKOCYTE ESTERASE, URINE AUTO NEGATIVE (NEGATIVE); NITRITE, URINE AUTO NEGATIVE (NEGATIVE); PROTEIN, URINE AUTO NEGATIVE (NEGATIVE); RBC, URINE AUTO 1 /HPF (0-3); SPECIFIC GRAVITY URINE AUTO 1.021 (1.002-1.035); SQUAMOUS EPITHELIAL CELL UR AU 2 /HPF (0-6); UROBILINOGEN, URINE AUTO 0.2 mg/dL (0.0-2.0); WBC, URINE AUTO 3 /HPF (0-3)
== END ==
LOC: M SMT 13:35
PROVIDERS: ATTEND Urology
DX: R30.0 Dysuria (principal)
CPT/HCPCS: 81001; 81002; 87086; G0463

== ENCOUNTER 2020-04-08 07:22 | Day surgery (SDC) | payer MEDICARE, MEDICAID ==
[~2020-04-08 07:22] MED LIST changes: +LIDOCAINE 2% 100MG/5ML SDV (FOR ANES.) As Ordered ONE; +fentaNYL 100 MCG/2 ML INJECTION (J3010) As Ordered ONE; +propofoL 500 MG/50 ML VIAL As Ordered ONE
--- NOTE | 2020-05-11 11:33 | ROOR ---
Patient Name: Roxanne Banda Procedure Date: 04/08/2020 8:09 AM Date of : 1955 Age: 65 Room: [facility] Gender: Female Note Status: Finalized Procedure: Colonoscopy Indications: Acute post hemorrhagic anemia Providers: Massimo Perkins MD Referring MD: SHABBIR Calderon pa-[email or web address] Requesting Provider: Medicines: Monitored Anesthesia Care Complications: No immediate complications. Procedure: Pre-Anesthesia Assessment: - Prior to the procedure, a History and Physical was performed, and patient medications and allergies were reviewed. The patient is competent. The risks and benefits of the procedure and the sedation options and risks were discussed with the patient. All questions were answered and informed consent was obtained. Patient identification and proposed procedure were verified by the physician, the nurse and the anesthesiologist in the procedure room. Mental Status Examination: alert and oriented. Airway Examination: normal oropharyngeal airway and neck mobility. Respiratory Examination: clear to auscultation. CV Examination: normal. Prophylactic Antibiotics: The patient does not require prophylactic antibiotics. Prior Anticoagulants: The patient has taken no previous anticoagulant or antiplatelet agents. ASA Grade Assessment: II - A patient with mild systemic disease. After reviewing the risks and benefits, the patient was deemed in satisfactory condition to undergo the procedure. The anesthesia plan was to use monitored anesthesia care (MAC). Immediately prior to administration of medications, the patient was re-assessed for adequacy to receive sedatives. The heart rate, respiratory rate, oxygen saturations, blood pressure, adequacy of pulmonary ventilation, and response to care were monitored throughout the procedure. The physical status of the patient was re-assessed after the procedure. The Colonoscope was introduced through the anus and advanced to the cecum, identified by appendiceal orifice and ileocecal valve. The colonoscopy was performed without difficulty. The patient tolerated the procedure well. The quality of the bowel preparation was good. The ileocecal valve, appendiceal orifice, and rectum were photographed. Scope insertion time was 3 minutes. Scope withdrawal time was 9 minutes. The total duration of the procedure was 12 minutes. Findings: The perianal and digital rectal examinations were normal. Two sessile polyps were found in the recto-sigmoid colon. The polyps were 3 to 5 mm in size. These polyps were removed with a cold biopsy forceps. Resection and retrieval were complete. Verification of patient identification for the specimen was done by the physician and nurse using the patient's name, date and medical record number. Estimated blood loss was minimal. Normal mucosa was found in the entire colon. Biopsies for histology were taken with a cold forceps from the right colon, left colon and rectosigmoid colon for evaluation of microscopic colitis. Non-bleeding external and internal hemorrhoids were found during retroflexion. The hemorrhoids were medium-sized. Impression: - Two 3 to 5 mm polyps at the recto-sigmoid colon, removed with a cold biopsy forceps. Resected and retrieved. - Normal mucosa in the entire examined colon. Biopsied. - Non-bleeding external and internal hemorrhoids. Recommendation: - Patient has a contact number available for emergencies. The signs and symptoms of potential delayed complications were discussed with the patient. Return to normal activities tomorrow. Written discharge instructions were provided to the patient. - High fiber diet. - Continue present medications. - Await pathology results. - Repeat colonoscopy in 5-10 years for surveillance based on pathology results. - Telephone GI clinic for pathology results in 2 weeks. - Return to primary care physician. Massimo Perkins MD 04/08/2020 9:03:35 AM Number of Addenda: 0 Note Initiated On: 04/08/2020 8:09 AM Estimated Blood Loss: Estimated blood loss was minimal.
== END 2020-04-08 09:30 | disposition home or self-care (01) ==
LOC: M OPP 07:22
PROVIDERS: ATTEND Internal Medicine Gastroenterology
DX: K63.5 Polyp of colon (principal); K64.8 Other hemorrhoids; D62 Acute posthemorrhagic anemia; K21.0 Gastro-esophageal reflux disease with esophagitis; K29.70 Gastritis, unspecified, without bleeding; R10.13 Epigastric pain; D50.9 Iron deficiency anemia, unspecified; F17.210 Nicotine dependence, cigarettes, uncomplicated; Z79.899 Other long term (current) drug therapy; Z88.0 Allergy status to penicillin; Z88.1 Allergy status to other antibiotic agents; Z88.2 Allergy status to sulfonamides; Z88.5 Allergy status to narcotic agent; Z91.030 Bee allergy status
CPT/HCPCS: 43239; 45380; 88305; J3010

== ENCOUNTER → 2020-07-04 | Outpatient (REF) | payer MEDICARE, MEDICAID ==
[~2020-07-04] MED LIST changes: -LIDOCAINE 2% 100MG/5ML SDV (FOR ANES.) As Ordered ONE; -fentaNYL 100 MCG/2 ML INJECTION (J3010) As Ordered ONE; -propofoL 500 MG/50 ML VIAL As Ordered ONE
== END ==
LOC: M SFHCCLAY 14:05
PROVIDERS: ATTEND Physician Assistant
DX: R10.12 Left upper quadrant pain (principal); Z23 Encounter for immunization
CPT/HCPCS: 81002; 87088; 87186; 90682; G0008; G0463

== ENCOUNTER → 2020-07-22 | Outpatient (CLI) | payer MEDICARE, MEDICAID ==
--- NOTE | 2020-07-22 19:27 | REP ---
INDICATION: LUNG SCREENING COMPARISON: 09/21/2016 TECHNIQUE: Axial noncontrast images from the thoracic inlet to the upper abdomen using low-dose lung screening technique (LDCT). FINDINGS: Mild emphysematous changes, calcified right hilar lymph nodes and right lower lobe nodule consistent with prior granulomatous disease, and linear bibasilar scarring (right greater than left) remains stable. No acute consolidation, suspicious nodule or mass lesion appreciated. No pleural effusion. IMPRESSION: Lung-RADS category 1. Chronic stable changes. No suspicious nodule or mass lesion. Management recommendations include annual low-dose CT evaluation. <Electronically signed by James Renee > 07/22/20 [id number]
== END ==
LOC: M RAD 13:34
PROVIDERS: ATTEND Physician Assistant
DX: Z12.2 Encounter for screening for malignant neoplasm of respiratory organs (principal); R91.8 Other nonspecific abnormal finding of lung field; Z87.891 Personal history of nicotine dependence

== ENCOUNTER → 2020-08-03 | Outpatient (REF) | payer MEDICARE, MEDICAID ==
[~2020-08-03] MED LIST changes: +ASPE4PAD TOP; +CIPR500T3; +GABA-843; +ROBA750T4 PO
[2020-08-04 13:18] LABS: ALBUMIN 3.6 GM/DL (3.2-5.2); BILIRUBIN,TOTAL 0.4 MG/DL (0.2-1.0); CALCIUM LEVEL 9.7 MG/DL (8.8-10.2); CHOLESTEROL RISK RATIO 2.763 (<5); CREATININE FOR GFR 1.01 MG/DL (0.55-1.30); FREE T4 0.98 NG/DL (0.76-1.46); GLOMERULAR FILTRATION RATE 58.4 (>45); POTASSIUM SERUM 5.4 MEQ/L (3.5-5.1); THYROID STIMULATING HORMONE 1.04 uIU/ML (0.358-3.740); TOTAL PROTEIN 7.2 GM/DL (6.4-8.2)
== END ==
LOC: M SFHCCLAY 14:37
PROVIDERS: ATTEND Physician Assistant
DX: M79.7 Fibromyalgia (principal); E78.00 Pure hypercholesterolemia, unspecified

== ENCOUNTER 2020-08-04 17:58 | Emergency (ER) | payer MEDICARE, MEDICAID ==
[~2020-08-04] VITALS: Ht 170.2 cm; Wt 79.4 kg
[~2020-08-04 17:58] MED LIST changes: -ASPE4PAD TOP; -CIPR500T3; -GABA-843; -GASTROGRAFIN SOLUTION 30ML (Q9963) As Ordered ONE; -ISOVUE-370 76% 100ML VIAL As Ordered ONE; -ROBA750T4 PO
[2020-08-04] MEDS ORDERED: GABA-843 (18:12)
[2020-08-04] MEDS ORDERED: CIPR500T3 (18:12)
[2020-08-04] MEDS ORDERED: KETOROLAC 60MG 2ML VIAL IM ONE (19:15)
[2020-08-04] MEDS ORDERED: NS 1,000 ML IV ONE (19:15)
[2020-08-04] MEDS ORDERED: LIDOCAINE 5% (LIDODERM) PATCH TD ONE (19:15)
[2020-08-04] MEDS ORDERED: KETOROLAC 30 MG/ML 1ML VIAL IV ONE (19:15)
[2020-08-04] MEDS ORDERED: methocarbamoL 750 MG TAB PO ONE (19:15)
[2020-08-04] MEDS ORDERED: ROBA750T4 PO (19:50)
[2020-08-04] MEDS ORDERED: ASPE4PAD TOP (19:50)
[2020-08-04 19:58] VITALS: BP 134/63
[2020-08-04] MEDS ORDERED: **NOTE PATIENT COMMENT** MISC XX SCH (21:00)
== END 2020-08-04 20:10 | disposition home or self-care (01) ==
LOC: M ED 17:58
DX: S39.92XA Unspecified injury of lower back, initial encounter (principal); W01.190A Fall on same level from slipping, tripping and stumbling with subsequent striking against furniture, initial encounter; Y92.9 Unspecified place or not applicable; Y93.9 Activity, unspecified; Y99.9 Unspecified external cause status; R10.12 Left upper quadrant pain; D64.9 Anemia, unspecified; Z88.1 Allergy status to other antibiotic agents; Z88.2 Allergy status to sulfonamides; Z88.6 Allergy status to analgesic agent
CPT/HCPCS: 36415; 74178; 82565; 82607; 82728; 82746; 83550; 84520; 85025; 96372; 99283; J1885; Q9963; Q9967

== ENCOUNTER → 2020-08-04 | Outpatient (CLI) | payer MEDICARE, MEDICAID ==
[2020-08-04 17:10] LABS: BASO % 0.4 % (0.0-1.0); EOS # 0.2 10^3/uL (0.0-0.5); EOS % 2.9 % (0.0-3.0); HEMATOCRIT 40.1 % (36.0-47.0); HEMOGLOBIN 12.7 g/dl (12.0-15.5); LYMPH # 2.4 10^3/uL (1.5-5.0); MEAN CORPUSCULAR HEMOGLOBIN 27.8 pg (27.0-33.0); MEAN CORPUSCULAR HGB CONC 31.7 g/dl (32.0-36.5); MEAN CORPUSCULAR VOLUME 87.7 fl (80.0-96.0); MONO % 12.3 % (0.0-5.0); NEUTROPHILS # 4.5 10^3/uL (1.5-8.5); NEUTROPHILS % 53.8 % (36.0-66.0); PLATELET COUNT, AUTOMATED 258 10^3/uL (150-450); RED BLOOD COUNT 4.57 10^6/uL (4.00-5.40); WHITE BLOOD COUNT 8.3 10^3/uL (4.0-10.0)
[2020-08-04 17:24] LABS: CREATININE FOR GFR 1.05 MG/DL (0.55-1.30); FOLATE 7.5 NG/ML; GLOMERULAR FILTRATION RATE 55.8 (>45); PERCENT SATURATION 17.6 % (13.2-45.0)
--- NOTE | 2020-08-04 18:13 | REP ---
INDICATION: LEFT UPPER QUAD PAIN. COMPARISON: 02/22/2020, 07/04/2019 TECHNIQUE: 100 cc Isovue 370 and oral bowel preparatory contrast FINDINGS: The pre contrast enhanced portion examination again shows a patent splenic densities to be within normal limits with hepatic and splenic calcified granulomatous changes status quo. There is no nephroureterolithiasis, hydronephrosis, or proximal hydroureter. There are no cholelithiasis. The contrast-enhanced portion of the examination shows no evidence of an enhancing a panic lesion. The gallbladder, spleen, pancreas, adrenal glands, and kidneys are within normal limits. The abdominal aorta and para aortic regions are within normal limits. The bowel loops and the mesenteries are within normal limits. There is no evidence of a mass or adenopathy. There is no free fluid or free air. The osseous structures are within normal limits for the patient's age. Curvilinear opacities are seen in the lung bases increased slightly from the prior exam and likely representing subsegmental atelectatic changes. There are no pleural or pericardial effusions. IMPRESSION: There is no evidence of acute disease. Findings as described above. <Electronically signed by Darius Correia > 08/04/20 [id number]
== END ==
LOC: M LAB 15:24
PROVIDERS: ATTEND Internal Medicine Gastroenterology
DX: D64.9 Anemia, unspecified (principal)

== ENCOUNTER → 2020-08-04 | Outpatient (CLI) | payer MEDICARE, MEDICAID ==
[~2020-08-04] MED LIST changes: +GASTROGRAFIN SOLUTION 30ML (Q9963) As Ordered ONE; +ISOVUE-370 76% 100ML VIAL As Ordered ONE
== END ==
LOC: M RAD 15:13
PROVIDERS: ATTEND Physician Assistant
DX: R10.12 Left upper quadrant pain (principal)

== ENCOUNTER → 2020-08-15 | Outpatient (REF) | payer MEDICARE, MEDICAID ==
[~2020-08-15] MED LIST changes: +ASPE4PAD TOP; +CIPR500T3; +GABA-843; +ROBA750T4 PO
[2020-08-16 12:00] LABS: APPEARANCE, URINE HAZY (CLEAR); BACTERIA, URINE AUTO 1+ (NEGATIVE); BILIRUBIN, URINE AUTO NEGATIVE (NEGATIVE); BLOOD, URINE BLOOD 1+ (NEGATIVE); COLOR, URINE YELLOW (YELLOW); GLUCOSE, URINE (UA) AUTO NEGATIVE (NEGATIVE); KETONE, URINE AUTO NEGATIVE (NEGATIVE); LEUKOCYTE ESTERASE, URINE AUTO NEGATIVE (NEGATIVE); NITRITE, URINE AUTO NEGATIVE (NEGATIVE); PROTEIN, URINE AUTO NEGATIVE (NEGATIVE); RBC, URINE AUTO 0 /HPF (0-3); SPECIFIC GRAVITY URINE AUTO 1.015 (1.002-1.035); SQUAMOUS EPITHELIAL CELL UR AU 7 /HPF (0-6); UROBILINOGEN, URINE AUTO 0.2 mg/dL (0.0-2.0); WBC, URINE AUTO 3 /HPF (0-3)
[2020-08-16 12:07] LABS: BASO # 0.1 10^3/uL (0.0-0.2); BASO % 0.6 % (0.0-1.0); EOS # 0.2 10^3/uL (0.0-0.5); EOS % 2.5 % (0.0-3.0); HEMATOCRIT 40.9 % (36.0-47.0); HEMOGLOBIN 12.7 g/dl (12.0-15.5); LYMPH # 2.6 10^3/uL (1.5-5.0); LYMPH % 33.2 % (24.0-44.0); MEAN CORPUSCULAR HEMOGLOBIN 27.4 pg (27.0-33.0); MEAN CORPUSCULAR HGB CONC 31.1 g/dl (32.0-36.5); MEAN CORPUSCULAR VOLUME 88.3 fl (80.0-96.0); MONO # 0.8 10^3/uL (0.0-0.8); MONO % 9.5 % (0.0-5.0); NEUTROPHILS # 4.3 10^3/uL (1.5-8.5); NEUTROPHILS % 53.7 % (36.0-66.0); PLATELET COUNT, AUTOMATED 303 10^3/uL (150-450); RED BLOOD COUNT 4.63 10^6/uL (4.00-5.40); WHITE BLOOD COUNT 7.9 10^3/uL (4.0-10.0)
[2020-08-16 12:26] LABS: ALBUMIN 3.8 GM/DL (3.2-5.2); ALT/SGPT 20 U/L (12-78); BILIRUBIN,DIRECT 0.1 MG/DL (0.0-0.2); BILIRUBIN,TOTAL 0.7 MG/DL (0.2-1.0); BLOOD UREA NITROGEN 18 MG/DL (7-18); C REACTIVE PROTEIN QUANTITATIV 0.78 MG/DL (0.00-0.30); CALCIUM LEVEL 9.7 MG/DL (8.8-10.2); CARBON DIOXIDE LEVEL 31 MEQ/L (21-32); CHLORIDE LEVEL 108 MEQ/L (98-107); FERRITIN 132 NG/ML (8-252); GLOMERULAR FILTRATION RATE > 60.0 (>45); GLUCOSE, FASTING 98 MG/DL (70-100); IRON (FE) 91 UG/DL (50-170); LIPASE 73 U/L (73-393); MAGNESIUM LEVEL 1.9 MG/DL (1.8-2.4); POTASSIUM SERUM 4.5 MEQ/L (3.5-5.1); RHEUMATOID FACTOR QUANT < 10.0 IU/ML (<15.0); SODIUM LEVEL 141 MEQ/L (136-145); TOTAL PROTEIN 7.5 GM/DL (6.4-8.2)
[2020-08-16 12:43] LABS: ERYTHROCYTE SEDIMENTATION RATE 31 mm/hr (0-30)
[2020-08-17 17:16] LABS: ANA (HEP2) Negative (.); Lyme Disease IgG/IgM Antibodie <0.91 ISR (0.00-0.90); Lyme Disease IgM Ab Quantitati <0.80 index (0.00-0.79)
== END ==
LOC: M SFHCCLAY 14:34
PROVIDERS: ATTEND Physician Assistant
DX: R10.11 Right upper quadrant pain (principal); R19.7 Diarrhea, unspecified; R32 Unspecified urinary incontinence
CPT/HCPCS: 80048; 80076; 81001; 82728; 83540; 83690; 83735; 84443; 85025; 85652; 86038; 86140; 86431; 86617; 87086; G0463

== ENCOUNTER → 2020-08-19 | Outpatient (REF) | payer MEDICARE, MEDICAID | LOC: M SFHCCLAY 11:30 | PROVIDERS: ATTEND Physician Assistant | DX: R19.7 Diarrhea, unspecified (principal) ==

== ENCOUNTER → 2020-08-22 | Outpatient (REF) | payer MEDICARE, MEDICAID | LOC: M SFHCCLAY 15:26 | PROVIDERS: ATTEND Physician Assistant | DX: R05 Cough (principal); R53.83 Other fatigue; Z20.828 Contact with and (suspected) exposure to other viral communicable diseases ==

== ENCOUNTER → 2020-08-22 | Outpatient (CLI) | payer MEDICARE, MEDICAID ==
[~2020-08-22] MED LIST changes: +GABA-282; -GABA-843
--- NOTE | 2020-08-22 16:12 | REP ---
INDICATION: COUGH COMPARISON: 05/27/2019 TECHNIQUE: PA and lateral. FINDINGS: The mediastinum and cardiac silhouette are normal. The lung salas demonstrate chronic interstitial changes and stable chronic calcified granuloma. No acute consolidation, effusion, or pneumothorax. The skeletal structures demonstrate osteopenia and degenerative changes. IMPRESSION: Chronic stable changes. No acute cardiopulmonary process appreciated. <Electronically signed by James Renee > 08/22/20 [id number]
== END ==
LOC: M CLY 15:44
PROVIDERS: ATTEND Physician Assistant
DX: R05 Cough (principal)
CPT/HCPCS: 71046; 87804; G0463; U0003

== ENCOUNTER → 2020-11-07 | Outpatient (REF) | payer MEDICARE, MEDICAID ==
[~2020-11-07] MED LIST changes: +ASPI-569 PO; -ASPI81TAEC PO
== END ==
LOC: M SFHCCLAY 15:55
PROVIDERS: ATTEND Physician Assistant
DX: R30.0 Dysuria (principal)
CPT/HCPCS: 81002; 87088; 87186; G0463

== ENCOUNTER → 2020-12-19 | Outpatient (CLI) | payer MEDICARE, MEDICAID ==
[~2020-12-19] MED LIST changes: +E-Z-GAS II EFFERVESCENT PACKET (SODIUM BICARB./CITRIC ACID/SIMETHICONE) As Ordered ONE; +E-Z-HD 98% w/w 340GM SUSP BTL As Ordered ONE; +E-Z-PAQUE 96% w/w SUSP 176GM BTL As Ordered ONE
--- NOTE | 2020-12-20 06:53 | REP ---
INDICATION: EPIGASTRIC PAIN. COMPARISON: None TECHNIQUE: This procedure was performed by Lacy Morales [facility], under the direct supervision of Dr. Sheth. Images were reviewed with Dr. Sheth prior to dictation. Liquid barium and gas producing crystals were given in the erect position, as well as liquid barium in the prone oblique position in order to perform a double contrast upper GI examination. FINDINGS: The mill dresser film shows no organomegaly or pathological masses. The intestinal gas pattern is unremarkable. Again visualized are chronic calcified granulomas. The oral and pharyngeal stages of deglutition were unremarkable. Esophageal transport is prompt and efficient and there is no evidence of esophagitis, stricture, or mucosal ring. However tertiary contractions were visualized during the exam as well as some to and fro motility. There is no evidence of a hiatal hernia. Gastroesophageal reflux was visualized to the level of the thoracic.. The stomach patel are normally outlined. The rugal folds are smooth and regular. There is no gastritis, neoplasm, or ulcerative disease. The duodenal patel are normally outlined. The mucosal folds are smooth and regular. There is no duodenitis, peptic ulcer disease or neoplasm. The visualized portion of the proximal small bowel appears normal in course and caliber. IMPRESSION: 1. Presbyesophagus, with gastroesophageal reflux to the level of the thoracic inlet. 0.6 minutes of fluoroscopy time was utilized for this procedure. Some fluoroscopic images are performed with last image hold technology. These images require no additional radiation. <Electronically signed by Lacy Morales > 12/19/20 [id number] <Electronically signed by Izaiah Sheth > 12/20/20 [id number]
== END ==
LOC: M RAD 08:23
PROVIDERS: ATTEND Internal Medicine Gastroenterology
DX: R10.13 Epigastric pain (principal)

== ENCOUNTER 2021-02-19 22:43 | Inpatient (IN) | payer MEDICARE, MEDICAID ==
[~2021-02-19] VITALS: Ht 165.1 cm; Wt 78.7 kg
[~2021-02-19 22:43] MED LIST changes: -E-Z-GAS II EFFERVESCENT PACKET (SODIUM BICARB./CITRIC ACID/SIMETHICONE) As Ordered ONE; -E-Z-HD 98% w/w 340GM SUSP BTL As Ordered ONE; -E-Z-PAQUE 96% w/w SUSP 176GM BTL As Ordered ONE; +OMEP40CA4 PO; -OMEP40CA97 PO
[2021-02-20 00:17] LABS: BASO # 0.1 10^3/uL (0.0-0.2); BASO % 0.7 % (0.0-1.0); EOS # 0.3 10^3/uL (0.0-0.5); EOS % 3.3 % (0.0-3.0); HEMATOCRIT 40.7 % (36.0-47.0); HEMOGLOBIN 12.9 g/dl (12.0-15.5); LYMPH # 2.5 10^3/uL (1.5-5.0); LYMPH % 29.5 % (24.0-44.0); MEAN CORPUSCULAR HEMOGLOBIN 26.5 pg (27.0-33.0); MEAN CORPUSCULAR HGB CONC 31.7 g/dl (32.0-36.5); MEAN CORPUSCULAR VOLUME 83.6 fl (80.0-96.0); MONO # 0.9 10^3/uL (0.0-0.8); MONO % 10.2 % (2.0-8.0); NEUTROPHILS # 4.8 10^3/uL (1.5-8.5); NEUTROPHILS % 55.8 % (36.0-66.0); PLATELET COUNT, AUTOMATED 291 10^3/uL (150-450); RED BLOOD COUNT 4.87 10^6/uL (4.00-5.40); WHITE BLOOD COUNT 8.6 10^3/uL (4.0-10.0)
[2021-02-20] MEDS ORDERED: THIAMINE 200MG/2ML VIAL (J3411 PER 100MG) IV ONE (00:20)
[2021-02-20] MEDS ORDERED: FOLIC ACID 1 MG in NS 50 ML IV ONE (00:20)
[2021-02-20] MEDS ORDERED: FAMOTIDINE 20 MG TAB PO ONE (01:15)
[2021-02-20] MEDS ORDERED: IBUPROFEN 800 MG TAB PO ONE (01:15)
--- NOTE | 2021-02-20 01:45 | REPVR ---
PROCEDURE INFORMATION: Exam: CT Cervical Spine Without Contrast Exam date and time: 02/19/2021 12:19 AM Age: 66 years old Clinical indication: Injury or trauma; Fall; Blunt trauma TECHNIQUE: Imaging protocol: Computed tomography images of the cervical spine without contrast. Radiation optimization: All CT scans at this facility use at least one of these dose optimization techniques: automated exposure control; mA and/or kV adjustment per patient size (includes targeted exams where dose is matched to clinical indication); or iterative reconstruction. COMPARISON: CT Spine,cervical w/o contrast 02/24/2014 6:17 PM FINDINGS: Vertebrae: No acute fracture. Normal alignment. Diffuse facet arthropathy. C1-C2: Joint space narrowing and marginal osteophytes changes at the atlantoodontoid joint. C2-C3: No significant disc protrusion. No severe spinal canal stenosis. No significant neural foraminal narrowing. C3-C4: No significant disc protrusion. No severe spinal canal stenosis. No significant neural foraminal narrowing. C4-C5: No significant disc protrusion. No severe spinal canal stenosis. No significant neural foraminal narrowing. C5-C6: Biforaminal disc osteophyte complex measuring 5 mm. Mild spinal stenosis. Severe right neural foraminal narrowing. Severe left neural foraminal narrowing. Severe disc space narrowing at C5-C6. C6-C7: No significant disc protrusion. No severe spinal canal stenosis. No significant neural foraminal narrowing. C7-T1: No significant disc protrusion. No severe spinal canal stenosis. No significant neural foraminal narrowing. Soft tissues: Unremarkable. Sinuses: Moderate fluid in the left maxillary sinus. Vasculature: Calcification of the carotid bulbs bilaterally. Lungs: Lung apices are normal. IMPRESSION: 1. No acute fracture. 2. Degenerative changes as described. 3. Disc space narrowing at C5-C6 is increased from prior. However, neural foraminal narrowing and spinal stenosis is unchanged. 4. Moderate fluid in the left maxillary sinus. Electronically signed by: Carlotta Reyes On 02/20/2021 01:45:03 AM
--- NOTE | 2021-02-20 01:47 | REPVR ---
PROCEDURE INFORMATION: Exam: CT Head Without Contrast Exam date and time: 02/19/2021 12:19 AM Age: 66 years old Clinical indication: Injury or trauma; Fall; Blunt trauma (contusions or hematomas) TECHNIQUE: Imaging protocol: Computed tomography of the head without contrast. Radiation optimization: All CT scans at this facility use at least one of these dose optimization techniques: automated exposure control; mA and/or kV adjustment per patient size (includes targeted exams where dose is matched to clinical indication); or iterative reconstruction. COMPARISON: CT Head without contrast 09/15/2014 3:55 PM FINDINGS: Limitations: Examination is limited by motion artifact. Brain: Normal. No hemorrhage. Unremarkable white matter. No mass effect. Cortical garrett-white matter differentiation is preserved. Cerebral ventricles: No ventriculomegaly. Paranasal sinuses: Moderate fluid in the left maxillary sinus. Mastoid air cells: Visualized mastoid air cells are well aerated. Bones/joints: Unremarkable. No acute fracture. Soft tissues: Unremarkable. IMPRESSION: 1. No acute intracranial hemorrhage. 2. Moderate fluid in the left maxillary sinus. No definite facial fractures is seen however occult facial fracture cannot be excluded. Electronically signed by: Carlotta Reyes On 02/20/2021 01:46:41 AM
[2021-02-20 01:54] LABS: ALBUMIN 3.3 GM/DL (3.2-5.2); ALT/SGPT 77 U/L (12-78); BILIRUBIN,DIRECT 0.5 MG/DL (0.0-0.2); BILIRUBIN,TOTAL 1.1 MG/DL (0.2-1.0); BLOOD UREA NITROGEN 38 MG/DL (7-18); CALCIUM LEVEL 8.7 MG/DL (8.8-10.2); CARBON DIOXIDE LEVEL 28 MEQ/L (21-32); CHLORIDE LEVEL 104 MEQ/L (98-107); CK-MB VALUE MASS 1.8 NG/ML (<3.6); CPK CREATINE PHOSPHOKINASE 171 U/L (26-192); CREATININE FOR GFR 1.27 MG/DL (0.55-1.30); ETHYL ALCOHOL (ETHANOL) < 0.003 % (0.000-0.010); GLOMERULAR FILTRATION RATE 44.7 (>45); GLUCOSE, FASTING 85 MG/DL (70-100); MB/CK RELATIVE INDEX 1.05 (< OR =4); POTASSIUM SERUM 4.3 MEQ/L (3.5-5.1); SODIUM LEVEL 136 MEQ/L (136-145); THYROID STIMULATING HORMONE 0.871 uIU/ML (0.358-3.740); TROPONIN I < 0.02 NG/ML (< 0.10)
--- NOTE | 2021-02-20 01:54 | REPVR ---
PROCEDURE INFORMATION: Exam: CT Lumbar Spine Without Contrast Exam date and time: 02/19/2021 12:19 AM Age: 66 years old Clinical indication: Injury or trauma; Fall; Blunt trauma (contusions or hematomas) TECHNIQUE: Imaging protocol: Computed tomography images of the lumbar spine without contrast. Radiation optimization: All CT scans at this facility use at least one of these dose optimization techniques: automated exposure control; mA and/or kV adjustment per patient size (includes targeted exams where dose is matched to clinical indication); or iterative reconstruction. COMPARISON: CT ABD PELVIS W/O FOL BY WIT 08/04/2020 5:21 PM FINDINGS: Vertebrae: Grade 1 retrolisthesis at L3-L4 and grade 1 anterolisthesis at L4-L5. There is a nondisplaced fracture of the L4 inferior endplate extending into the right lateral vertebral body wall with minimal vertebral body height loss. No other acute fracture is seen. Discs/Spinal canal/Neural foramina: Severe degenerative disc space narrowing at L4-L5 and L5-S1 with worsening degenerative changes at L4-L5. Advanced facet degenerative changes with multilevel neural foraminal stenosis. Soft tissues: Unremarkable. IMPRESSION: 1. Fracture of the L4 inferior endplate extending into the right lateral vertebral body wall with minimal vertebral height loss. 2. Advanced degenerative spondylosis. Electronically signed by: Lincoln Munguia On 02/20/2021 01:54:13 AM
--- NOTE | 2021-02-20 01:57 | REPVR ---
PROCEDURE INFORMATION: Exam: XR Pelvis Exam date and time: 02/19/2021 12:38 AM Age: 66 years old Clinical indication: Pelvic pain; Additional info: Fall TECHNIQUE: Imaging protocol: XR pelvis. Views: 1 or 2 view. COMPARISON: CT ABD PELVIS W/O FOL BY WIT 08/04/2020 5:21 PM FINDINGS: Bones/joints: Nondisplaced fracture of the right inferior L4 lateral vertebral body wall and inferior endplate. No pelvic fractures are seen. Advanced osteoarthritis in the hips and pelvis. Normal alignment. Soft tissues: Unremarkable. IMPRESSION: 1. L4 inferior endplate fracture. 2. Advanced osteoarthritis. Electronically signed by: Lincoln Munguia On 02/20/2021 01:56:43 AM
--- NOTE | 2021-02-20 01:58 | REPVR ---
PROCEDURE INFORMATION: Exam: XR Chest Exam date and time: 02/19/2021 12:38 AM Age: 66 years old Clinical indication: Screening exam; Other screening; Additional info: Fall TECHNIQUE: Imaging protocol: XR of the chest. Views: 1 view. COMPARISON: CR CHEST 2 VIEW 08/22/2020 3:55 PM FINDINGS: Lungs: Calcified granuloma in the right upper lobe. Lungs are otherwise clear. No infiltrates or masses. Pleural spaces: No pleural effusion. No pneumothorax. Heart/Mediastinum: Calcified right hilar lymph nodes. Normal heart size. Bones/joints: Unremarkable. IMPRESSION: No acute findings. Electronically signed by: Lincoln Munguia On 02/20/2021 01:58:36 AM
[2021-02-20 02:08] LABS: AMPHETAMINES LEVEL URINE POSITIVE (NEGATIVE); BARBITURATES URINE NEGATIVE (NEGATIVE); BENZODIAZEPINES URINE POSITIVE (NEGATIVE); CANNABINOIDS URINE POSITIVE (NEGATIVE); COCAINE METABOLITE URINE NEGATIVE (NEGATIVE); METHADONE URINE NEGATIVE (NEGATIVE); OPIATES URINE NEGATIVE (NEGATIVE); PHENCYCLIDINE URINE NEGATIVE (NEGATIVE)
[2021-02-20] MEDS ORDERED: ALPR2TAB3 PO (05:52)
[2021-02-20] MEDS ORDERED: CLON-412 PO (05:52)
[2021-02-20] MEDS ORDERED: AMPH1CAP4 PO (05:52)
[2021-02-20] MEDS ORDERED: HYDR50TA70 PO (05:52)
[2021-02-20] MEDS ORDERED: PREG100C PO (05:52)
[2021-02-20] MEDS ORDERED: BUPR150T5 PO (05:52)
[2021-02-20] MEDS ORDERED: med rec comment (05:54)
[2021-02-20 07:29] LABS: RSV AMPLIFICATION NEGATIVE (NEGATIVE)
[2021-02-20] MEDS ORDERED: IBUPROFEN 600MG TAB PO ONE (09:20)
[2021-02-20] MEDS ORDERED: ACETAMINOPHEN TAB 650MG DOSE (2X325MG) PO ONE (09:20)
--- NOTE | 2021-02-20 10:08 | REP ---
INDICATION: Elevated bilirubin. COMPARISON: Comparison right upper quadrant sonography November 20, 2019. Comparison abdominal CT study August 04, 2020.. TECHNIQUE: Right upper quadrant sonography. FINDINGS: Exam quality was inhibited some degree by patient cooperation and positioning factors. Decubitus position scanning. Right upper quadrant scanning demonstrates mildly distended gallbladder without evidence of stone or polyp. Common bile duct is at the upper range of normal measuring 0.8 cm in greatest diameter, previously 10 mm. No intrahepatic biliary ductal dilation is observed. The pancreas is obscured by abdominal gas. There is no evidence of ascites or right renal abnormality. The right kidney measures 10.3 x 4.7 x 4.7 cm. IMPRESSION: Mildly distended gallbladder. Borderline CBD, 8 mm, previously 10 mm. Otherwise negative.. <Electronically signed by Izaiah Sheth > 02/20/21 [id number]
[2021-02-20 11:36] LABS: BASO # 0.1 10^3/uL (0.0-0.2); BASO % 0.8 % (0.0-1.0); EOS # 0.3 10^3/uL (0.0-0.5); EOS % 4.6 % (0.0-3.0); HEMATOCRIT 37.8 % (36.0-47.0); LYMPH # 1.7 10^3/uL (1.5-5.0); LYMPH % 23.3 % (24.0-44.0); MEAN CORPUSCULAR HEMOGLOBIN 26.5 pg (27.0-33.0); MEAN CORPUSCULAR HGB CONC 31.7 g/dl (32.0-36.5); MEAN CORPUSCULAR VOLUME 83.6 fl (80.0-96.0); MONO # 0.6 10^3/uL (0.0-0.8); MONO % 8.8 % (2.0-8.0); NEUTROPHILS # 4.4 10^3/uL (1.5-8.5); NEUTROPHILS % 62.1 % (36.0-66.0); PLATELET COUNT, AUTOMATED 253 10^3/uL (150-450); RED BLOOD COUNT 4.52 10^6/uL (4.00-5.40); WHITE BLOOD COUNT 7.1 10^3/uL (4.0-10.0)
[2021-02-20 12:10] VITALS: BP 104/62
[2021-02-20 12:12] LABS: ALBUMIN 3.3 GM/DL (3.2-5.2); ALT/SGPT 89 U/L (12-78); BILIRUBIN,TOTAL 0.9 MG/DL (0.2-1.0); BLOOD UREA NITROGEN 42 MG/DL (7-18); CALCIUM LEVEL 9.2 MG/DL (8.8-10.2); CARBON DIOXIDE LEVEL 25 MEQ/L (21-32); CHLORIDE LEVEL 106 MEQ/L (98-107); CK-MB VALUE MASS 1.6 NG/ML (<3.6); CPK CREATINE PHOSPHOKINASE 141 U/L (26-192); CREATININE FOR GFR 1.43 MG/DL (0.55-1.30); GLUCOSE, FASTING 66 MG/DL (70-100); MB/CK RELATIVE INDEX 1.13 (< OR =4); POTASSIUM SERUM 4.5 MEQ/L (3.5-5.1); SODIUM LEVEL 139 MEQ/L (136-145); TROPONIN I < 0.02 NG/ML (< 0.10)
[2021-02-20] MEDS: NS 1,000 ML IV SCH ×2 (13:24→23:35)
[2021-02-20 14:00] VITALS: BP 136/78
[2021-02-20] MEDS: buPROPion **SR TABLET** (ZYBAN) 150MG PO SCH (14:42)
[2021-02-20] MEDS: ACETAMINOPHEN 500 MG TAB PO PRN ×2 (14:42→22:16)
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
--- NOTE | 2021-02-20 15:20 | ECGEPIP ---
[facility] - ED Test Date: 2021-02-19 Pat Name: CHINO NGUYEN Department: Room: - Gender: Female Family Educator: CAN : 1955 Requested By: KAYLENE CASTRO Order Number: [id number] Reading MD: Nik Garcia Measurements Intervals [place] Rate: 65 P: 52 ID: [id number] QRS: 30 QRSD: 80 T: 43 QT: 448 QTc: 465 Interpretive Statements Normal sinus rhythm Similar to tracing done 05-13-19 Electronically Signed on 02-20-2021 15:20:39 EDT by Nik Garcia
[2021-02-20 15:52] LABS: BILIRUBIN,DIRECT 0.4 MG/DL (0.0-0.2)
[2021-02-20 16:00] VITALS: BP 106/74
[2021-02-20] MEDS: PREGABALIN 100 MG CAP (LYRICA) PO SCH ×2 (16:26→20:06)
[2021-02-20] MEDS: hydrOXYzine 50 MG TAB PO SCH ×2 (16:26→20:06)
[2021-02-20 16:33] LABS: CK-MB VALUE MASS 1.7 NG/ML (<3.6); CPK CREATINE PHOSPHOKINASE 139 U/L (26-192); MB/CK RELATIVE INDEX 1.22 (< OR =4); TROPONIN I < 0.02 NG/ML (< 0.10)
[2021-02-20 20:00] VITALS: BP 138/65
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
--- NOTE | 2021-02-20 22:35 | REPVR ---
PROCEDURE INFORMATION: Exam: US Retroperitoneal Limited, Kidneys Exam date and time: 02/20/2021 9:08 PM Age: 66 years old Clinical indication: Other: [place] TECHNIQUE: Imaging protocol: Real-time ultrasound of the retroperitoneum with image documentation. Examination was focused on the kidneys. COMPARISON: US ABDOMEN - OUTSIDE PRIOR 02/23/2020 3:21 PM FINDINGS: Right kidney: Right kidney measures 10.8 x 5.2 x 5.2 cm. Right kidney is without hydronephrosis. Corticomedullary differentiation is preserved. Left kidney: Left kidney measures 10.8 x 5.1 x 4.3 cm. Left kidney is without hydronephrosis. Corticomedullary differentiation is preserved. Bladder: No focal abnormality involving the urinary bladder. IMPRESSION: No acute abnormality involving the kidneys. Electronically signed by: Franklin Reyes On 02/20/2021 22:35:09 PM
[2021-02-21] VITALS (7 sets, daily range): BP systolic 96–140; BP diastolic 47–62
[2021-02-21 06:14] LABS: BASO % 0.5 % (0.0-1.0); EOS # 0.5 10^3/uL (0.0-0.5); EOS % 7.3 % (0.0-3.0); HEMATOCRIT 34.3 % (36.0-47.0); HEMOGLOBIN 10.9 g/dl (12.0-15.5); LYMPH # 2.2 10^3/uL (1.5-5.0); LYMPH % 34.8 % (24.0-44.0); MEAN CORPUSCULAR HEMOGLOBIN 26.4 pg (27.0-33.0); MEAN CORPUSCULAR HGB CONC 31.8 g/dl (32.0-36.5); MEAN CORPUSCULAR VOLUME 83.1 fl (80.0-96.0); MONO # 0.5 10^3/uL (0.0-0.8); MONO % 7.8 % (2.0-8.0); NEUTROPHILS # 3.1 10^3/uL (1.5-8.5); NEUTROPHILS % 49.1 % (36.0-66.0); PLATELET COUNT, AUTOMATED 240 10^3/uL (150-450); RED BLOOD COUNT 4.13 10^6/uL (4.00-5.40); WHITE BLOOD COUNT 6.4 10^3/uL (4.0-10.0)
[2021-02-21 06:42] LABS: BLOOD UREA NITROGEN 31 MG/DL (7-18); CALCIUM LEVEL 7.9 MG/DL (8.8-10.2); CARBON DIOXIDE LEVEL 23 MEQ/L (21-32); CHLORIDE LEVEL 113 MEQ/L (98-107); CREATININE FOR GFR 0.83 MG/DL (0.55-1.30); GLOMERULAR FILTRATION RATE > 60.0 (>45); GLUCOSE, FASTING 68 MG/DL (70-100); MAGNESIUM LEVEL 1.7 MG/DL (1.8-2.4); POTASSIUM SERUM 4.3 MEQ/L (3.5-5.1); SODIUM LEVEL 143 MEQ/L (136-145)
[2021-02-21] MEDS: buPROPion **SR TABLET** (ZYBAN) 150MG PO SCH (08:40)
[2021-02-21] MEDS: PREGABALIN 100 MG CAP (LYRICA) PO SCH ×3 (08:40→20:22)
[2021-02-21] MEDS: hydrOXYzine 50 MG TAB PO SCH ×3 (08:40→20:22)
[2021-02-21] MEDS: NS 1,000 ML IV SCH (08:40)
[2021-02-21] MEDS: ACETAMINOPHEN 500 MG TAB PO PRN ×2 (08:43→15:52)
--- NOTE | 2021-02-21 10:32 | IPN ---
PROGRESS NOTE DATE: 02/21/2021 SUBJECTIVE: Roxanne is seen in the PCU. She fell and has an L4 fracture, awaiting for a thoracolumbar brace to be delivered, seen by Orthopedics, conservative treatment advised. She had altered mental status on admission per nursing staff was quite agitated yesterday but back to a near baseline mental status today. This is felt to be attributable to a combination of medications and perhaps some marijuana intoxication as well. She had cannabinoids in her urine and she did accede to marijuana use "when I can afford it." OBJECTIVE: VITAL SIGNS: Afebrile. Vital signs are stable. blood pressure 110/54. GENERAL: Alert, conversant, in no distress. NECK: Supple. LUNGS: Clear. HEART: Regular rhythm. ABDOMEN: Soft, nontender. EXTREMITIES: No peripheral edema. Moves arms and legs with equal strength. LABORATORY DATA: BMP unremarkable. CBC is stable. IMPRESSION: 1. L4 compression fracture, awaiting for her brace. After she gets this, will get out of bed with Physical Therapy and discharged when she is able to get around at home. 2. Acute metabolic encephalopathy, probably secondary to medications as well as marijuana use. Her psychotropic medications are on hold and her mental status has cleared. She is on both Adderall and benzodiazepines, I would recommend not continuing that combination after discharge. 3. Recent fall with left radius and ulnar fracture, fell on 02/14. Orthopedics is involved. 4. L4 fracture, continue treatment per Orthopedics. 5. History of C. Diff colitis. She is currently asymptomatic. She had aggressive treatment in the past including fecal transplant.
--- NOTE | 2021-02-21 22:58 | ECHO ---
ECHOCARDIOGRAM DATE OF PROCEDURE: 02/21/2021 Age: 66 Gender: Female Height: 155 cm Weight: 60 kg REFERRING PHYSICIAN: Dr. Chu Hubbard INDICATION: Syncope MEASUREMENTS: 2D Measurements: Aortic root 2.0 cm Left atrium 3.5 cm Intraventricular septum 0.8 cm Posterior wall 1.01 cm Left atrial volume index 30 cm Inferior vena cava 2.4 cm with mildly reduced respiratory variation. Doppler Measurements: No aortic stenosis No aortic regurgitation Aortic valve velocity 126 cm/s Trace mitral regurgitation Mitral E velocity 61.7 cm/s Mitral A velocity 75.7 cm/s Mitral deceleration time 265 msec Very mild tricuspid regurgitation Estimated right ventricular systolic pressure 33-38 mmHg Estimated right atrial pressure 10-15 mmHg No pulmonic regurgitation MITRAL ANNULAR TISSUE DOPPLER E prime septal 5.7 cm/s, E prime lateral 6.6 cm/s DESCRIPTION: Rhythm was sinus. Image quality was fair. This study was performed with the patient supine. CONCLUSIONS: 1. Normal left ventricle internal dimensions and wall thickness. Normal regional LV wall motion and wall thickening. Normal LV systolic function. Grade 1 LV diastolic dysfunction (impaired relaxation filling pattern). 2. Mild left atrial dilatation by left atrial volume index. 3. Suggestive of mild elevation of pulmonary free systolic pressure and estimated right ventricle systolic pressure. Very mild tricuspid regurgitation. Normal right ventricle size and systolic function. Normal right atrial size. Borderline dilatation of inferior vena cava with mild reduction in Respiratory variation, suggestive of mildly elevated CVP in the range of 10-15 mmHg. 4. No pericardial effusion. 5. Otherwise normal appearing echocardiogram Doppler findings. MTDD
[2021-02-22 00:32] VITALS: BP 137/60
[2021-02-22 06:01] LABS: BASO # 0.1 10^3/uL (0.0-0.2); BASO % 0.6 % (0.0-1.0); EOS # 0.5 10^3/uL (0.0-0.5); EOS % 5.6 % (0.0-3.0); HEMATOCRIT 34.6 % (36.0-47.0); LYMPH # 2.6 10^3/uL (1.5-5.0); LYMPH % 29.1 % (24.0-44.0); MEAN CORPUSCULAR HEMOGLOBIN 26.4 pg (27.0-33.0); MEAN CORPUSCULAR HGB CONC 31.8 g/dl (32.0-36.5); MONO # 0.9 10^3/uL (0.0-0.8); MONO % 10.4 % (2.0-8.0); NEUTROPHILS # 4.8 10^3/uL (1.5-8.5); PLATELET COUNT, AUTOMATED 237 10^3/uL (150-450); RED BLOOD COUNT 4.17 10^6/uL (4.00-5.40); WHITE BLOOD COUNT 8.8 10^3/uL (4.0-10.0)
[2021-02-22 06:27] LABS: BLOOD UREA NITROGEN 16 MG/DL (7-18); CALCIUM LEVEL 8.8 MG/DL (8.8-10.2); CARBON DIOXIDE LEVEL 27 MEQ/L (21-32); CHLORIDE LEVEL 111 MEQ/L (98-107); CREATININE FOR GFR 0.61 MG/DL (0.55-1.30); GLOMERULAR FILTRATION RATE > 60.0 (>45); GLUCOSE, FASTING 89 MG/DL (70-100); MAGNESIUM LEVEL 1.5 MG/DL (1.8-2.4); POTASSIUM SERUM 4.1 MEQ/L (3.5-5.1); SODIUM LEVEL 142 MEQ/L (136-145)
[2021-02-22 07:34] VITALS: BP 115/56
[2021-02-22] MEDS: hydrOXYzine 50 MG TAB PO SCH ×3 (09:36→20:24)
[2021-02-22] MEDS: CEPHALEXIN 500 MG CAP PO SCH ×2 (09:36→20:24)
[2021-02-22] MEDS: ACETAMINOPHEN 500 MG TAB PO PRN ×2 (09:36→16:02)
[2021-02-22] MEDS: buPROPion **SR TABLET** (ZYBAN) 150MG PO SCH (09:37)
[2021-02-22] MEDS: PREGABALIN 100 MG CAP (LYRICA) PO SCH ×3 (09:38→20:24)
[2021-02-22] MEDS ORDERED: MAG SULF 1GM/100ML (MAG RUN) 1 GM in IV 1 EA IV ONE (10:00)
--- NOTE | 2021-02-22 10:30 | IPN ---
PROGRESS NOTE DATE: 02/22/2021 SUBJECTIVE: Roxanne is seen in the PCU. She was admitted with an L4 fracture, we are awaiting a thoracolumbar brace, apparently that had not been ordered yet, so we just got that order in yesterday. She has recurrent UTIs. She says she has them "monthly." She has a Klebsiella UTI currently. Her mental status is still at baseline, I think there was some intoxication, both secondary to prescribed medications and marijuana. She denies any diarrhea. She has a history of C. Difficile colitis in the past, currently asymptomatic. OBJECTIVE: VITAL SIGNS: Stable. GENERAL APPEARANCE: She is alert, conversant, in no distress. LUNGS: Clear. HEART: Regular rhythm. ABDOMEN: Soft, nontender. EXTREMITIES: No peripheral edema. BACK: Low back is tender to palpate. NEUROLOGIC: Normal strength in the arms and legs, normal sensation. Good distal pulses. Her left arm is in a cast. LABORATORY DATA: CBC is unchanged. Electrolytes are unremarkable. Magnesium is 1.5. IMPRESSION: 1. L4 compression fracture. We are awaiting her brace. Once she is braced, we can get Physical Therapy going and if she passes that she should be able to go home tomorrow. 2. Klebsiella UTI, Keflex ordered, probiotic ordered due to history of C. Diff colitis. 3. Metabolic encephalopathy, she is doing well off the opiates. 4. Mild hypomagnesemia. I believe magnesium has been ordered. Anticipate discharge tomorrow if passes Physical Therapy.
[2021-02-22 12:00] VITALS: BP 107/58
[2021-02-22] MEDS: LACTOBACILLUS ACIDOPHILUS CAP (BACID) PO SCH ×2 (14:47→18:38)
[2021-02-22 16:00] VITALS: BP 114/58
[2021-02-22 20:00] VITALS: BP 112/64
[2021-02-23] VITALS: BP 145/69
[2021-02-23] MEDS: ACETAMINOPHEN 500 MG TAB PO PRN ×2 (00:54→08:23)
[2021-02-23 04:00] VITALS: BP 129/63
[2021-02-23 05:45] LABS: BASO % 0.5 % (0.0-1.0); EOS # 0.5 10^3/uL (0.0-0.5); EOS % 5.7 % (0.0-3.0); HEMOGLOBIN 12.2 g/dl (12.0-15.5); LYMPH # 2.4 10^3/uL (1.5-5.0); LYMPH % 29.6 % (24.0-44.0); MEAN CORPUSCULAR HEMOGLOBIN 27.3 pg (27.0-33.0); MEAN CORPUSCULAR VOLUME 82.8 fl (80.0-96.0); MONO # 0.8 10^3/uL (0.0-0.8); MONO % 9.5 % (2.0-8.0); NEUTROPHILS # 4.5 10^3/uL (1.5-8.5); NEUTROPHILS % 54.3 % (36.0-66.0); PLATELET COUNT, AUTOMATED 289 10^3/uL (150-450); RED BLOOD COUNT 4.47 10^6/uL (4.00-5.40); WHITE BLOOD COUNT 8.2 10^3/uL (4.0-10.0)
[2021-02-23 06:04] LABS: BLOOD UREA NITROGEN 14 MG/DL (7-18); CALCIUM LEVEL 8.9 MG/DL (8.8-10.2); CARBON DIOXIDE LEVEL 28 MEQ/L (21-32); CHLORIDE LEVEL 107 MEQ/L (98-107); CREATININE FOR GFR 0.62 MG/DL (0.55-1.30); GLOMERULAR FILTRATION RATE > 60.0 (>45); GLUCOSE, FASTING 93 MG/DL (70-100); POTASSIUM SERUM 3.9 MEQ/L (3.5-5.1); SODIUM LEVEL 140 MEQ/L (136-145)
[2021-02-23 08:00] VITALS: BP 138/66
[2021-02-23] MEDS: PREGABALIN 100 MG CAP (LYRICA) PO SCH (08:23)
[2021-02-23] MEDS: buPROPion **SR TABLET** (ZYBAN) 150MG PO SCH (08:23)
[2021-02-23] MEDS: LACTOBACILLUS ACIDOPHILUS CAP (BACID) PO SCH ×2 (08:23→13:38)
[2021-02-23] MEDS: hydrOXYzine 50 MG TAB PO SCH (08:23)
[2021-02-23] MEDS: CEPHALEXIN 500 MG CAP PO SCH (08:24)
[2021-02-23] MEDS ORDERED: LIDOCAINE 5% (LIDODERM) PATCH TD SCH (09:00)
[2021-02-23] MEDS ORDERED: CEPH500C PO (10:41)
--- NOTE | 2021-02-23 11:52 | DSES ---
DISCHARGE SUMMARY DATE OF ADMISSION: 02/20/2021 DATE OF DISCHARGE: 02/23/2021 PRINCIPAL DIAGNOSIS: Fall with L4 nondisplaced fracture. SECONDARY DIAGNOSES: 1. Altered mental status secondary to opiate therapy and marijuana use. 2. Klebsiella urinary tract infection. 3. History of recurrent Clostridium difficile colitis. 4. Hypomagnesemia. HISTORY: Roxanne Banda had recently fallen and fractured her left distal radius and ulna. She says her arm hurt so badly, she did not notice her back hurt. She had the arm casted by orthopedics at [facility]. Back pain got worse. She came to our Emergency Room. She was found to have an L4 compression fracture without dislocation. She was admitted for further therapy. PAST MEDICAL HISTORY: In the history and physical from admission. HOSPITAL COURSE: 1. She is on telemetry. She had no arrhythmias. She had an echocardiogram done. It did not show any significant findings. Normal left ventricular ejection fraction, mild left atrial dilatation, increased right-sided pressures. We waited a few days for her to get her back brace and now she has her back brace, physical therapy can start and they are planning her to be transferred to rehab. 2. She had confusion and altered mental status on admission which was suspected related to opiate therapy at home as well as marijuana use. Once she detoxified from these medications, mental status returned to baseline and she had no problems with altered mental status the rest of her hospitalization. 3. She has a current urinary tract infection with klebsiella on admission. She was placed on Keflex with a probiotic. She has a history of severe C. difficile colitis in the past. I recommend limiting therapy to five-day duration. 4. She was transferred to ARU, activity as tolerated. Regular diet. DISCHARGE MEDICATIONS: 1. Bupropion SR 150 mg daily. 2. Klonopin 0.1 mg once daily at bedtime. 3. Hydroxyzine 50 mg three times a day p.r.n. 4. Lyrica 100 mg three times a day. 5. Keflex 500 mg twice a day for three more days. 6. Probiotic with her antibiotic therapy.
[2021-02-23 12:00] VITALS: BP 123/65
[2021-02-23] MEDS ORDERED: traMADol 50 MG TAB PO ONE (14:00)
[2021-02-23] MEDS ORDERED: **NOTE PATIENT COMMENT** MISC XX SCH (21:00)
== END 2021-02-23 14:08 | DRG 551 ==
LOC: M ED 22:43 → M ED INP 02-20 09:17 → ENRESERV 02-20 10:45 → M PCU 02-20 12:09
PROVIDERS: ADMIT Internal Medicine; ATTEND Family Medicine
DX: S32.040A Wedge compression fracture of fourth lumbar vertebra, initial encounter for closed fracture (principal); G92 Toxic encephalopathy; N39.0 Urinary tract infection, site not specified; E83.42 Hypomagnesemia; B96.1 Klebsiella pneumoniae [K. pneumoniae] as the cause of diseases classified elsewhere; F12.90 Cannabis use, unspecified, uncomplicated; F11.90 Opioid use, unspecified, uncomplicated; M79.7 Fibromyalgia; M19.90 Unspecified osteoarthritis, unspecified site; K21.9 Gastro-esophageal reflux disease without esophagitis; F41.9 Anxiety disorder, unspecified; F32.9 Major depressive disorder, single episode, unspecified; B18.2 Chronic viral hepatitis C; G43.909 Migraine, unspecified, not intractable, without status migrainosus; Z79.899 Other long term (current) drug therapy; Z88.2 Allergy status to sulfonamides; Z88.5 Allergy status to narcotic agent; Z88.8 Allergy status to other drugs, medicaments and biological substances; W07.XXXA Fall from chair, initial encounter; Y92.018 Other place in single-family (private) house as the place of occurrence of the external cause

== ENCOUNTER 2021-02-23 12:27 | Inpatient (IN) | payer MEDICARE, MEDICAID ==
[~2021-02-23] VITALS: Ht 165.1 cm; Wt 72.9 kg
[~2021-02-23 12:27] MED LIST changes: +ALPR2TAB3 PO; +AMPH1CAP4 PO; +BUPR150T5 PO; +CEPH500C PO; +CLON-412 PO; +HYDR50TA70 PO; +PREG100C PO; +med rec comment
[2021-02-23] MEDS ORDERED: BISACODYL 10 MG SUPP PR PRN (13:35)
[2021-02-23] MEDS ORDERED: MIRALAX *UNIT DOSE* 17GM PACKET PO PRN (13:35)
--- NOTE | 2021-02-23 13:54 | HPEPDOC ---
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 Of ntoe patient was encephalopathic on admission with UDS positive for amphetamines and benzodiazepines which were prescribed meds for patient and discontinued. She was found additionally to have UTI with Ucx positive for klebsiella pneumonia and was started on antibiotics. Lumbar CT showed, Fracture of the L4 inferior endplate extending into the right lateral vertebral body wall with minimal vertebral height loss and cervical CT showed spinal stenosis at C5-C6. She was evaluated by orthopedics who prescribed a brace, had mobility impairments due to pain, and was deemed medically appropriate for discharge to ARU on 02-23-21. REVIEW OF SYSTEMS: The following is a completed review of systems and has been reviewed. Review of systems otherwise unremarkable. PAIN: Patient self reports focal back pain EYES: No recent vision changes EARS, NOSE, & THROAT: No throat pain, or dysphagia, or rhinorrhea CARDIOVASCULAR: Denies chest pain or palpitations PULMONARY: Denies shortness of breath GASTROINTESTINAL: Denies constipation/diarrhea GENITOURINARY: dysuria MUSCULOSKELETAL: +generalized weakness NEUROLOGICAL:denies paresthesia or tremor HEMATOLOGICAL: denies easy bruising SKIN: denies rash PSYCHIATRIC: Unremarkable All other review of systems found to be negative. PAST MEDICAL HISTORY: as per HPI PAST SURGICAL HISTORY: Hysterectomy, cystoscopy, c section x 3, tonsillectomy, bunionectomy, right thigh cyst removal ALLERGIES: Please see below. MEDICATIONS: Please see below. FAMILY HISTORY: Father with prostate cancer, mother pancreatitis SOCIAL HISTORY: Denies current use of etoh/illicit drugs, no smoking DIET: low sodium PHYSICAL EXAMINATION: VITAL SIGNS: Please see below. GENERAL: Pleasant and cooperative. No acute distress. HEENT: PERRL. Extraocular movements intact. Clear conjunctiva CARDIOVASCULAR: Regular rate and rhythm. No murmurs, rubs, or gallops LUNGS: Clear to auscultation bilaterally. No wheezes. No rhonchi ABDOMEN: Soft, nontender, mildly distended, no guarding . Positive bowel sounds. NEUROLOGICAL: Alert and oriented times three. Cranial nerves II through XII grossly intact. Sensation grossly intact EXTREMITIES: 5\5 strength bilateral upper extremities. 5\5 strength right lower extremity. 5/5 strength in left lower extremity. LABORATORY DATA: Please see below. IMAGING:Imaging documentation personally reviewed by record FUNCTIONAL STATUS: Premorbid: Independent with all activities of daily life as well as mobility On Admission: requires assistance for bed mobility, functional transfers, ambulation, dressing, toileting GOALS: Mod- I bed mobility, functional transfers, ambulation, dressing, toileting, stairs ASSESSMENT:66-year-old F with past medical history of cervical stenosis, HTN who presents status post fall with left wrist fracture and lumbar compression fracture PLAN: 1. Rehab- PT/OT advance mobility and ADLs, strengthen, stretch, maintain ROM all 4 limbs, TLSO brace 2. Ortho- s/p fall with left distal ulnar/radial fracture with cast and L-4 vertebral compression fracture with TLSO brace- f/u ortho outpatient -chronic pain in setting of cervical stenosis 3. CArdiac- hx of HTn c/u BP meds 4. Resp- monitor for infection 5. - + klebsiella UTI c/u keflex and bacid- patient was on macrobid prophylactically at home, will consult Dr. Wyman to help with management 6. Pain- hx of narcotic use, avoid opioids if possible, c/u lyrica, will order tylenol 500mg TID ( hx of hepatitis), lidoderm patch, may benefit from intranasal calcitonin 7. Psych- hx of fibromyalgia, anxiety/depression c/u buproprion -atarax prn 8. GI ppx- given hx of c diff will avoid antacids 9. DVT ppx- heparin 10. Dispo tbd POST ADMISSION PHYSICIAN EVALUATION: Medical and functional status: Description of medical status, medical assessment: As above. Rehabilitation diagnosis and current and prior cold morbid medical conditions as above. Risk of complications and plans to mitigate them as above. Description of functional status current status is as above. Prior status as above. Status compared to preadmission: There are no clinically significant differences between the patient's current status and the information described on the preadmission screening document. Treatment plan anticipated: Treatment plan is as described above. Required disc iplines including physical therapy, occupational therapy, others as noted above. Intensity of services: 3 hours a day, 6 days a week. Special considerations: There are no specific special or safety considerations that would likely preclude immediate implementation of an intensive rehabilitation program or subsequently influence the plan of care ATTESTATION: Considering all the information above, it is my best judgment that this patient requires intensive rehabilitation therapy as described above and an inpatient hospital environment due to the complexity of nursing, medical, and re habilitation needs required by the patient. Furthermore, this patient can reasonably be expected to participate in an benefit from an inpatient rehabilitation stay with an interdisciplinary team approach to the delivery of rehabilitation care under the direction and supervision of rehabilitation physician PROGNOSIS: Excellent. ESTIMATED LENGTH OF STAY:10-12 days. PROJECTED DISCHARGE DESTINATION: Home with family support and any durable medical equipment required to increase functional safety and mobility TIME SPENT COUNSELING AND COORDINATING INITIAL CARE: Greater than 70 minutes. Vital Signs Vital Signs Date Time Temp Pulse Resp B/P (MAP) Pulse Ox O2 Delivery O2 Flow Rate FiO2 02/23/21 14:19 97.3 90 16 139/67 (91) 97 Room Air Home Medications Scheduled Bupropion Hcl (Bupropion HCl Sr) 150 Mg Tab.sr.12h, 150 MG PO DAILY, (Reported) Cephalexin (Cephalexin) 500 Mg Capsule, 500 MG PO BID Clonidine HCl (Clonidine HCl) 0.1 Mg Tablet, 0.1 MG PO QHS, (Reported) may take 2 tablets if needed Estradiol (Vagifem) 10 Mcg Tablet, 10 MCG PV Q3D, (Reported) Pregabalin (Pregabalin) 100 Mg Capsule, 100 MG PO TID, (Reported) Scheduled PRN Epinephrine (Epipen 2-Aleksandar) 0.3 Mg/0.3 Ml Inj, 0.3 MG INJ for ANAPHYLAXIS, (Reported) Allergies Coded Allergies: azithromycin (Unverified Allergy, Intermediate, LIPS SWELL/RASH, 08/04/20) prazosin (Unverified Allergy, Mild, RASH, 08/04/20) Sulfa (Sulfonamide Antibiotics) (Unverified Adverse Reaction, Mild, DIARRHEA, 08/04/20) doxycycline (Unverified Adverse Reaction, Mild, DIARRHEA, 08/04/20) morphine (Unverified Adverse Reaction, Mild, ITCHY, 08/04/20) sulfacetamide (Verified Adverse Reaction, Mild, DIARRHEA, 08/04/20) sulfur (Verified Adverse Reaction, Mild, DIARRHEA, 08/04/20) A-FIB/CHADSVASC A-FIB History Current/History of A-Fib/PAF?: No Current PO Anticoag Therapy: No MILADY ISBELL MD Feb 23, 2021 13:54
[2021-02-23 14:19] VITALS: BP 139/67
[2021-02-23] MEDS: LACTOBACILLUS ACIDOPHILUS CAP (BACID) PO SCH ×2 (17:09→20:51)
[2021-02-23] MEDS: PREGABALIN 100 MG CAP (LYRICA) PO SCH ×2 (17:09→20:51)
[2021-02-23] MEDS: CALCITONIN NASAL SPRAY 3.7 ML BTL SCH (17:09)
[2021-02-23] MEDS: ACETAMINOPHEN 500 MG TAB PO SCH ×2 (17:10→20:52)
[2021-02-23 20:00] VITALS: BP 132/80
[2021-02-23] MEDS: COMBIVENT RESPIMAT 100-20MCG INHALER 4GM INH SCH (20:07)
[2021-02-23] MEDS: CEPHALEXIN 500 MG CAP PO SCH (20:51)
[2021-02-23] MEDS: RAMELTEON 8 MG TAB (ROZEREM) PO PRN (20:52)
[2021-02-23] MEDS: HEPARIN SOD (PORCINE) 5000UNITS/ML 1ML VIAL/SYRINGE SC SCH (20:53)
[2021-02-23] MEDS: DOCUSATE SODIUM 100MG CAPSULE PO SCH (20:53)
[2021-02-23] MEDS: SENNA 8.6 MG TAB (SENOKOT) PO SCH (20:53)
[2021-02-23] MEDS: **NOTE PATIENT COMMENT** MISC XX SCH (20:54)
[2021-02-23] MEDS ORDERED: cloNIDine 0.1MG TABLET PO SCH (21:00)
[2021-02-24 06:30] VITALS: BP 175/77
[2021-02-24 07:00] VITALS: BP 184/98
[2021-02-24] MEDS: DOCUSATE SODIUM 100MG CAPSULE PO SCH ×2 (07:11→21:20)
[2021-02-24] MEDS: buPROPion **SR TABLET** (ZYBAN) 150MG PO SCH (07:17)
[2021-02-24] MEDS: hydrOXYzine 25 MG TAB PO PRN ×2 (07:17→13:39)
[2021-02-24] MEDS: HEPARIN SOD (PORCINE) 5000UNITS/ML 1ML VIAL/SYRINGE SC SCH ×2 (07:19→21:20)
[2021-02-24] MEDS: LACTOBACILLUS ACIDOPHILUS CAP (BACID) PO SCH ×3 (07:19→21:19)
[2021-02-24] MEDS: CEPHALEXIN 500 MG CAP PO SCH ×2 (07:19→21:19)
[2021-02-24] MEDS: PREGABALIN 100 MG CAP (LYRICA) PO SCH ×3 (07:19→21:19)
[2021-02-24] MEDS: ACETAMINOPHEN 500 MG TAB PO SCH ×3 (07:19→21:19)
[2021-02-24] MEDS: LIDOCAINE 5% (LIDODERM) PATCH TD SCH (07:20)
[2021-02-24] MEDS: CALCITONIN NASAL SPRAY 3.7 ML BTL SCH (07:20)
[2021-02-24] MEDS: COMBIVENT RESPIMAT 100-20MCG INHALER 4GM INH SCH ×3 (07:23→20:16)
[2021-02-24 07:51] LABS: BASO # 0.1 10^3/uL (0.0-0.2); EOS # 0.4 10^3/uL (0.0-0.5); EOS % 5.3 % (0.0-3.0); HEMATOCRIT 40.9 % (36.0-47.0); HEMOGLOBIN 12.9 g/dl (12.0-15.5); LYMPH # 2.7 10^3/uL (1.5-5.0); LYMPH % 38.4 % (24.0-44.0); MEAN CORPUSCULAR HEMOGLOBIN 26.4 pg (27.0-33.0); MEAN CORPUSCULAR HGB CONC 31.5 g/dl (32.0-36.5); MEAN CORPUSCULAR VOLUME 83.6 fl (80.0-96.0); MONO # 0.6 10^3/uL (0.0-0.8); MONO % 8.7 % (2.0-8.0); NEUTROPHILS # 3.2 10^3/uL (1.5-8.5); NEUTROPHILS % 46.3 % (36.0-66.0); PLATELET COUNT, AUTOMATED 334 10^3/uL (150-450); RED BLOOD COUNT 4.89 10^6/uL (4.00-5.40); WHITE BLOOD COUNT 6.9 10^3/uL (4.0-10.0)
[2021-02-24 08:06] LABS: ALBUMIN 3.4 GM/DL (3.2-5.2); ALT/SGPT 325 U/L (12-78); BILIRUBIN,TOTAL 0.6 MG/DL (0.2-1.0); BLOOD UREA NITROGEN 17 MG/DL (7-18); CALCIUM LEVEL 9.6 MG/DL (8.8-10.2); CARBON DIOXIDE LEVEL 26 MEQ/L (21-32); CHLORIDE LEVEL 107 MEQ/L (98-107); CREATININE FOR GFR 0.66 MG/DL (0.55-1.30); GLOMERULAR FILTRATION RATE > 60.0 (>45); GLUCOSE, FASTING 102 MG/DL (70-100); POTASSIUM SERUM 4.2 MEQ/L (3.5-5.1); SODIUM LEVEL 139 MEQ/L (136-145); TOTAL PROTEIN 7.5 GM/DL (6.4-8.2)
[2021-02-24] MEDS: cloNIDine 0.1MG TABLET PO SCH ×3 (08:29→21:17)
[2021-02-24] MEDS ORDERED: PANTOPRAZOLE 40MG TAB (PROTONIX) PO SCH (09:00)
--- NOTE | 2021-02-24 09:32 | IPNPDOC ---
PM&R Progress Note Mobile Game Engineer Progress Note DATE OF ADMISSION: Feb 23, 2021 at 14:15 INPATIENT REHABILITATION ADMISSION DAY: # SUBJECTIVE: Patient is a -year-old with . ALLERGIES: See Below MEDICATIONS: Reviewed, see below. OBJECTIVE: VITAL SIGNS: Please see below. PHYSICAL EXAMINATION: GENERAL: [Cachectic, well developed, sitting up in bed, no acute distress]. HEENT: [Normocephalic, atraumatic]. [No facial droop]. [Poor dentition, missing teeth. PERRL, EOMI]. CARDIOVASCULAR: [S1, S2, irregular rate]. [No lower limb edema or calf tenderness]. LUNGS: [Decreased breath sounds, coarse throughout]. ABDOMEN: [Soft, nontender, nondistended. Normoactive bowel sounds throughout]. MUSCULOSKELETAL: MMT: /5 strength proximally bilateral shoulder abduction, forward flexion and bilateral hip flexion. /5 strength bilateral elbow flexion, knee flexion, /5 bilateral elbow extension and knee extension. /5 dice table operator, dorsiflexion, plantar flexion. NEUROLOGICAL: [Alert and oriented times three]. [Answers all question appropriately]. SKIN: . LABORATORY DATA: Reviewed. Please see below. MICROBIOLOGY: Please see below. IMAGING: ASSESSMENT AND PLAN: 1. . 2. . 3. . TIME SPENT: Chart Review, examination and documentation minutes. Allergies Coded Allergies: azithromycin (Unverified Allergy, Intermediate, LIPS SWELL/RASH, 08/04/20) prazosin (Unverified Allergy, Mild, RASH, 08/04/20) Sulfa (Sulfonamide Antibiotics) (Unverified Adverse Reaction, Mild, DIARRHEA, 08/04/20) doxycycline (Unverified Adverse Reaction, Mild, DIARRHEA, 08/04/20) morphine (Unverified Adverse Reaction, Mild, ITCHY, 08/04/20) sulfacetamide (Verified Adverse Reaction, Mild, DIARRHEA, 08/04/20) sulfur (Verified Adverse Reaction, Mild, DIARRHEA, 08/04/20) Vital Signs Vital Signs Date Time Temp Pulse Resp B/P (MAP) Pulse Ox O2 Delivery O2 Flow Rate FiO2 02/24/21 08:29 184/98 02/24/21 06:30 98.0 71 18 95 Room Air Laboratory Data CBC/BMP Laboratory Tests 02/24/21 07:13 Labs 24H Laboratory Tests 2 02/24/21 07:13: Immature Granulocyte % (Auto) 0.3, Neutrophils (%) (Auto) 46.3, Lymphocytes (%) (Auto) 38.4, Monocytes (%) (Auto) 8.7H, Eosinophils (%) (Auto) 5.3H, Basophils (%) (Auto) 1.0, Neutrophils # (Auto) 3.2, Lymphocytes # (Auto) 2.7, Monocytes # (Auto) 0.6, Eosinophils # (Auto) 0.4, Basophils # (Auto) 0.1, Nucleated Red Blood Cells % (auto) 0.0, Anion Gap 6L, Glomerular Filtration Rate > 60.0, Calcium Level 9.6, Total Bilirubin 0.6, Aspartate Amino Transf (AST/SGOT) 114H, Alanine Aminotransferase (ALT/SGPT) 325H, Alkaline Phosphatase 93, Total Protein 7.5, Albumin 3.4, Albumin/Globulin Ratio 0.8L Current Medications Current Medications Current Medications Medications (Trade) Dose Ordered Sig/[place] Route PRN Reason Start Time Stop Time Status Last Admin Dose Admin Acetaminophen (Tylenol Tab) 500 mg TID PO 02/23/21 16:00 02/24/21 07:19 Albuterol/ Ipratropium (Combivent Respimat 100-20mcg) 1 puff RTID INH 02/23/21 20:00 02/24/21 07:23 Bisacodyl (Dulcolax Suppository) 10 mg DAILYPRN PRN MA CONSTIPATION 02/23/21 13:35 Bupropion HCl (Zyban, Wellbutrin Sr) 150 mg DAILY PO 02/24/21 09:00 02/24/21 07:17 Calcitonin Jackson (Miacalcin (Fortical)) 1 sprays DAILY NA 02/23/21 17:00 03/01/21 09:01 02/24/21 07:20 Cephalexin Monohydrate (Keflex) 500 mg BID PO 02/23/21 21:00 02/24/21 21:01 02/24/21 07:19 Clonidine HCl (Catapres) 0.1 mg QHS PO 02/23/21 21:00 02/24/21 08:20 DC 02/23/21 20:53 Clonidine HCl (Catapres) 0.1 mg TID PO 02/24/21 09:00 02/24/21 08:29 Docusate Sodium (Colace) 100 mg BID PO 02/23/21 21:00 Heparin Sodium (Porcine) (Heparin) 5,000 units Q12H SC 02/23/21 21:00 02/24/21 07:19 Home Med (Med Rec Complete!) ASDIRECTED XX 02/23/21 14:30 02/23/21 14:46 DC Hydroxyzine HCl (Atarax) 25 mg Q6HP PRN PO ANXIETY 02/23/21 13:55 02/24/21 07:17 Lactobacillus Acidophilus (Bacid) 1 ea TID PO 02/23/21 16:00 02/24/21 07:19 Lidocaine (Lidoderm Patch) 1 patch DAILY TD 02/24/21 09:00 02/24/21 07:20 Nicotine (Nicoderm Cq 14mg) 1 patch DAILY TD 02/24/21 09:30 UNV Nitrofurantoin Monoh/Nitrofur Macro (Macrobid) 100 mg DAILY PO 02/25/21 09:00 02/23/21 17:22 DC Non-Formulary Medication ( See Comment Field Below ) REMOVE LIDODERM PATCH DAILY@21 XX 02/23/21 21:00 02/23/21 20:54 Pantoprazole Sodium (Protonix) 40 mg DAILY PO 02/24/21 09:00 02/23/21 13:54 DC Polyethylene Glycol (Miralax) 1 pkt DAILY PRN PO CONSTIPATION 02/23/21 13:35 Pregabalin (Lyrica) 100 mg TID PO 02/23/21 16:00 02/24/21 07:19 Ramelteon (Rozerem) 8 mg QHS PRN PO INSOMNIA 02/23/21 19:50 02/23/21 20:52 Senna (Senokot) 1 tab QHS PO 02/23/21 21:00 MILADY ISBELL MD Feb 24, 2021 09:32
[2021-02-24] MEDS: NICOTINE 14 MG/24 HR TRANSDERMAL TD SCH (09:42)
--- NOTE | 2021-02-24 11:37 | CR ---
CONSULTATION DATE: 02/23/2021 REASON FOR CONSULTATION: I was asked to consult by Dr. Vizcarra for evaluation of recurrent urinary tract infection and Klebsiella pneumoniae colonization. HISTORY OF PRESENT ILLNESS: Roxanne is a 66-year-old female with a history of recurrent urinary tract infections and a previous history of C. Difficile colitis in 2019. The patient was admitted with compression fracture and left wrist fracture requiring a cast placement and is now in rehab for a fracture of L4. The patient complains of severe pain, the arm pain is controlled. She does have some pelvic pressure which is chronic. She has a history in July 2009 of a cystoscopy following which she had a bladder perforation after she had cystoscopy with hydrodistention and bladder biopsies. She was diagnosed with interstitial cystitis. She had been on chronic antibiotics for years, in October 2019 she had C. Difficile colitis, in 08/21 C. Diff was negative and she has not had any C. Diff symptoms for the past six months. She was seen in follow-up with Dr. Kc and she wanted to go back on Macrobid. Cultures from the urine in October 2020 Klebsiella was sensitive to Macrobid, in January 2021 the Klebsiella is now resistant. She has had previous Klebsiella pneumoniae which were resistant to Macrodantin in 10/22. I had suggested not to keep her chronic antibiotics because of severe C. Diff colitis but per report of Urology the patient wanted to try to see if it makes a difference. Obviously, the patient has persistent Klebsiella and it did not help. She has been on Keflex for the past three days. She has had no nausea, vomiting or diarrhea. No fevers or chills, just some pelvic pressure. No dysuria. PAST MEDICAL HISTORY: Significant for chronic hepatitis C, fibromyalgia, chronic neck pain, osteoarthritis, history of alcohol and narcotic abuse in the past, migraines, history of C. Difficile status post Dificid and fecal transplantation, history of Takotsubo cardiomyopathy. REVIEW OF SYSTEMS: Left arm pain, compression fracture, lumbar pain, chronic pelvic pressure. No dysuria or hematuria. PAST SURGICAL HISTORY: Hysteroscopy, hysterectomy, cystoscopy with bladder perforation, , tonsillectomy, bunionectomy, right thigh cyst removal. SOCIAL HISTORY: She is a . She denies any alcohol or drug use. No smoking. ALLERGIES: Sulfa, Zithromax, Doxycycline, Morphine, prazosin. MEDICATIONS: 1. Lidocaine patch. 2. Wellbutrin XL 150 mg p.o. daily. 3. Clonidine 0.1 mg p.o. q.h.s. 4. Cephalexin 500 mg p.o. b.i.d. 5. Senokot one tablet p.o. q.h.s. 6. Colace 100 mg p.o. b.i.d. 7. Calcitonin one spray daily. 8. Pregabalin 100 mg t.i.d. 9. Probiotics one tablet p.o. t.i.d. 10.Hydroxyzine 25 mg p.o. q.h.s. 11.Miralax one packet daily. INPUT AND OUTPUT: Patient had three bowel movements yesterday and one bowel movement today. PHYSICAL EXAMINATION: VITAL SIGNS: Temperature is 97.3, pulse is 90, respirations 16, blood pressure is 139/67, O2 sat 97% on room air. HEART: Normal S1 and S2. No murmurs, rubs or gallops. LUNGS: Clear. No wheezes, rales or rhonchi. ABDOMEN: Soft, nontender. No hepatosplenomegaly. BACK: No CVA. EXTREMITIES: No cyanosis, clubbing or edema. Left arm in a cast. GENERAL APPEARANCE: She is healthy looking, in no acute distress, smiling. She has a left facial droop. IMPRESSION: This is a 66-year-old female with a history of interstitial cystitis, chronic colonization with Klebsiella pneumoniae with positive culture on 07/04/2020, 11/07/2020, 02/19/2021 in spite of being treated with Macrobid. I suggests treating her with just five days, the same of what Dr. Vásquez stated of ana. I am not convinced that the Klebsiella is causing urinary symptoms and she has more probably pressure from back pain and possibly interstitial cystitis. PLAN I recommended to the patient frequent urination every 2 hours to prevent overgrowth of bacteria and symptoms that could get worse from interstitial cystitis from bladder distention. Encouraging water intake. Discontinue Macrobid. Patient has resistant Klebsiella at this time. Continue Cephalexin for a total of five days. Continue with probiotics. MTDD
[2021-02-24 14:00] VITALS: BP_SYST 176; BP_SYST 93; BP_DIAS 56; BP_DIAS 81
[2021-02-24 21:00] VITALS: BP 159/78
[2021-02-24] MEDS: SENNA 8.6 MG TAB (SENOKOT) PO SCH (21:20)
[2021-02-24] MEDS: **NOTE PATIENT COMMENT** MISC XX SCH (21:20)
[2021-02-24] MEDS: ALPRAZolam 0.5 MG TAB PO PRN (21:21)
[2021-02-24] MEDS: RAMELTEON 8 MG TAB (ROZEREM) PO PRN (21:21)
[2021-02-25 06:30] VITALS: BP 119/77
[2021-02-25] MEDS: COMBIVENT RESPIMAT 100-20MCG INHALER 4GM INH SCH ×3 (07:23→20:16)
[2021-02-25] MEDS: cloNIDine 0.1MG TABLET PO SCH ×3 (07:37→21:14)
[2021-02-25] MEDS: LACTOBACILLUS ACIDOPHILUS CAP (BACID) PO SCH ×3 (07:37→21:13)
[2021-02-25] MEDS: DOCUSATE SODIUM 100MG CAPSULE PO SCH ×2 (07:37→21:13)
[2021-02-25] MEDS: ACETAMINOPHEN 500 MG TAB PO SCH ×3 (07:38→21:13)
[2021-02-25] MEDS: buPROPion **SR TABLET** (ZYBAN) 150MG PO SCH (07:38)
[2021-02-25] MEDS: PREGABALIN 100 MG CAP (LYRICA) PO SCH ×3 (07:38→21:14)
[2021-02-25] MEDS: ALPRAZolam 0.5 MG TAB PO PRN ×2 (07:39→21:14)
[2021-02-25] MEDS: HEPARIN SOD (PORCINE) 5000UNITS/ML 1ML VIAL/SYRINGE SC SCH ×2 (07:39→21:13)
[2021-02-25] MEDS: NICOTINE 14 MG/24 HR TRANSDERMAL TD SCH (07:39)
[2021-02-25] MEDS: CALCITONIN NASAL SPRAY 3.7 ML BTL SCH (07:40)
[2021-02-25] MEDS: LIDOCAINE 5% (LIDODERM) PATCH TD SCH (07:40)
[2021-02-25] MEDS ORDERED: NITROFURANTOIN (MACROBID) 100 MG CAP PO SCH (09:00)
[2021-02-25 14:00] VITALS: BP 136/78
--- NOTE | 2021-02-25 18:36 | CR ---
NAME: CHINO NGUYEN [facility] WT ID#: [id number] JOB: [id number] ANASTASIIA: 02/25/2021 ACCT: [id number] DOCTOR: ANKUSH MONAE MD CONSULTATION DATE: 02/25/2021 HISTORY OF PRESENT ILLNESS: Evaluation of Chino Nguyen recently hospitalized 02/20-02/23 for a fall with L4 nondisplaced fracture. She had Klebsiella UTI with history of recurrent UTIs as well as recurrent C. diff colitis. She had altered mental status secondary to opiate therapy and recreational marijuana use and some electrode disturbances. Hospital course was uncomplicated. She is currently resting comfortably, no distress, quite pleased with the care she is receiving and progressing with her therapy issues. MEDICATIONS: List was reviewed. LABORATORY DATA: Reviewed. AST/ALT mildly elevated which was present during her acute admission (history of fatty liver). Infectious disease consultation was reviewed. IMPRESSION: Klebsiella UTI. I recommend 5 days of Keflex which infectious disease concurs with. She recommends stopping the Nitrofurantoin which is being used as prophylactic antibiotic, as the Klebsiella is resistant to it. Recommend continue probiotic therapy. PHYSICAL EXAM: VITAL SIGNS: Stable 122/77. GENERAL: She is alert, conversant, no distress. Looks quite cheerful. HEENT: Unremarkable. LUNGS: Clear. HEART: No murmur. ABDOMEN: Soft, nontender, no masses. EXTREMITIES: No peripheral edema. LOW BACK: matting press tender to palpate. IMPRESSION: 1. L4 nondisplaced fracture. She is progressing in therapy using her brace. 2. Recurrent urinary tract infections, per infectious disease. 3. Mildly elevated liver function tests, has history of fatty liver, outpatient workup to be considered. As any medical issues develop please feel free to contact. Edited: [place] 02/27/2021 0839 MTDD
[2021-02-25 21:00] VITALS: BP 132/69
[2021-02-25] MEDS: RAMELTEON 8 MG TAB (ROZEREM) PO PRN (21:13)
[2021-02-25] MEDS: **NOTE PATIENT COMMENT** MISC XX SCH (21:14)
[2021-02-25] MEDS: SENNA 8.6 MG TAB (SENOKOT) PO SCH (21:15)
--- NOTE | 2021-02-25 22:07 | IPNPDOC ---
PM&R Progress Note DATE OF SERVICE: Feb 24, 2021 [employer] Progress Note Subjective: Patient reporting she is feeling good today, still has some back pain, but able to tolerate therapy. She would like to try a nicoderm patch. REVIEW OF SYSTEMS: The following is a completed review of systems and has been reviewed. Review of systems otherwise unremarkable. PAIN: Patient self reports focal back pain EYES: No recent vision changes EARS, NOSE, & THROAT: No throat pain, or dysphagia, or rhinorrhea CARDIOVASCULAR: Denies chest pain or palpitations PULMONARY: Denies shortness of breath GASTROINTESTINAL: Denies constipation/diarrhea GENITOURINARY: dysuria MUSCULOSKELETAL: +generalized weakness NEUROLOGICAL:denies paresthesia or tremor HEMATOLOGICAL: denies easy bruising SKIN: denies rash PSYCHIATRIC: Unremarkable All other review of systems found to be negative. PHYSICAL EXAMINATION: VITAL SIGNS: Please see below. GENERAL: Pleasant and cooperative. No acute distress. HEENT: PERRL. Extraocular movements intact. Clear conjunctiva CARDIOVASCULAR: Regular rate and rhythm. No murmurs, rubs, or gallops LUNGS: Clear to auscultation bilaterally. No wheezes. No rhonchi ABDOMEN: Soft, nontender, mildly distended, no guarding . Positive bowel sounds. NEUROLOGICAL: Alert and oriented times three. Cranial nerves II through XII grossly intact. Sensation grossly intact EXTREMITIES: 5\5 strength RUE, LUE with cast so exam limited (able to wiggle fingers) extremities. 5\5 strength right lower extremity. 5/5 strength in left lower extremity. ASSESSMENT:66-year-old F with past medical history of cervical stenosis, HTN who presents status post fall with left wrist fracture and lumbar compression f racture PLAN: 1. Rehab- PT/OT advance mobility and ADLs, strengthen, stretch, maintain ROM all 4 limbs, TLSO brace 2. Ortho- s/p fall with left distal ulnar/radial fracture with cast and L-4 vertebral compression fracture with TLSO brace- f/u ortho outpatient -chronic pain in setting of cervical stenosis 3. CArdiac- hx of HTn c/u BP meds 4. Resp- monitor for infection -will add nicoderm patch for anxiety 5. - + klebsiella UTI c/u keflex and bacid- patient was on macrobid prophylactically at home, abx d/;c per Dr. Wyman, recs appreciated 6. Pain- hx of narcotic use, avoid opioids if possible, c/u lyrica and tylenol 500mg TID ( hx of hepatitis), lidoderm patch, c/u intranasal calcitonin 7. Psych- hx of fibromyalgia, anxiety/depression c/u buproprion -atarax prn 8. GI ppx- given hx of c diff will avoid antacids 9. DVT ppx- heparin 10. Dispo tbd Allergies Coded Allergies: azithromycin (Unverified Allergy, Intermediate, LIPS SWELL/RASH, 08/04/20) prazosin (Unverified Allergy, Mild, RASH, 08/04/20) Sulfa (Sulfonamide Antibiotics) (Unverified Adverse Reaction, Mild, DIARRHEA, 08/04/20) doxycycline (Unverified Adverse Reaction, Mild, DIARRHEA, 08/04/20) morphine (Unverified Adverse Reaction, Mild, ITCHY, 08/04/20) sulfacetamide (Verified Adverse Reaction, Mild, DIARRHEA, 08/04/20) sulfur (Verified Adverse Reaction, Mild, DIARRHEA, 08/04/20) Vital Signs Vital Signs Date Time Temp Pulse Resp B/P (MAP) Pulse Ox O2 Delivery O2 Flow Rate FiO2 02/25/21 21:14 132/69 02/25/21 14:00 98.5 83 18 95 Room Air Current Medications Current Medications Current Medications Medications (Trade) Dose Ordered Sig/[place] Route PRN Reason Start Time Stop Time Status Last Admin Dose Admin Acetaminophen (Tylenol Tab) 500 mg TID PO 02/23/21 16:00 02/25/21 21:13 Albuterol/ Ipratropium (Combivent Respimat 100-20mcg) 1 puff RTID INH 02/23/21 20:00 02/25/21 20:16 Alprazolam (Xanax) 0.5 mg TIDP PRN PO ANXIETY 02/24/21 17:35 02/25/21 21:14 Bisacodyl (Dulcolax Suppository) [address] CONSTIPATION 02/23/21 13:35 Bupropion HCl (Zyban, Wellbutrin Sr) 150 mg DAILY PO 02/24/21 09:00 02/25/21 07:38 Calcitonin [place] (Miacalcin (Fortical)) 1 sprays DAILY NA 02/23/21 17:00 03/01/21 09:01 02/25/21 07:40 Cephalexin Monohydrate (Keflex) 500 mg BID PO 02/23/21 21:00 02/24/21 21:01 DC 02/24/21 21:19 Clonidine HCl (Catapres) 0.1 mg QHS PO 02/23/21 21:00 02/24/21 08:20 DC 02/23/21 20:53 Clonidine HCl (Catapres) 0.1 mg TID PO 02/24/21 09:00 02/25/21 21:14 Docusate Sodium (Colace) 100 mg BID PO 02/23/21 21:00 02/25/21 21:13 Heparin Sodium (Porcine) (Heparin) 5,000 units Q12H SC 02/23/21 21:00 02/25/21 21:13 Home Med (Med Rec Complete!) ASDIRECTED XX 02/23/21 14:30 02/23/21 14:46 DC Hydroxyzine HCl (Atarax) 25 mg Q6HP PRN PO ANXIETY 02/23/21 13:55 02/24/21 13:39 Lactobacillus Acidophilus (Bacid) 1 ea TID PO 02/23/21 16:00 02/25/21 21:13 Lidocaine (Lidoderm Patch) 1 patch DAILY TD 02/24/21 09:00 02/25/21 07:40 Nicotine (Nicoderm Cq 14mg) 1 patch DAILY TD 02/24/21 09:30 02/25/21 07:39 Nitrofurantoin Monoh/Nitrofur Macro (Macrobid) 100 mg DAILY PO 02/25/21 09:00 02/23/21 17:22 DC Non-Formulary Medication ( See Comment Field Below ) REMOVE LIDODERM PATCH DAILY@21 XX 02/23/21 21:00 02/25/21 21:14 Pantoprazole Sodium (Protonix) 40 mg DAILY PO 02/24/21 09:00 02/23/21 13:54 DC Polyethylene Glycol (Miralax) 1 pkt DAILY PRN PO CONSTIPATION 02/23/21 13:35 Pregabalin (Lyrica) 100 mg TID PO 02/23/21 16:00 02/25/21 21:14 Ramelteon (Rozerem) 8 mg QHS PRN PO INSOMNIA 02/23/21 19:50 02/25/21 21:13 Senna (Senokot) 1 tab QHS PO 02/23/21 21:00 02/25/21 21:15 MILADY ISBELL MD Feb 25, 2021 22:07
[2021-02-26 06:25] VITALS: BP 117/53
[2021-02-26] MEDS: COMBIVENT RESPIMAT 100-20MCG INHALER 4GM INH SCH ×2 (07:22→19:13)
[2021-02-26] MEDS: buPROPion **SR TABLET** (ZYBAN) 150MG PO SCH (08:32)
[2021-02-26] MEDS: PREGABALIN 100 MG CAP (LYRICA) PO SCH ×3 (08:32→20:50)
[2021-02-26] MEDS: DOCUSATE SODIUM 100MG CAPSULE PO SCH ×2 (08:32→20:50)
[2021-02-26] MEDS: LACTOBACILLUS ACIDOPHILUS CAP (BACID) PO SCH ×3 (08:32→20:50)
[2021-02-26] MEDS: CALCITONIN NASAL SPRAY 3.7 ML BTL SCH (08:33)
[2021-02-26] MEDS: HEPARIN SOD (PORCINE) 5000UNITS/ML 1ML VIAL/SYRINGE SC SCH ×2 (08:33→20:50)
[2021-02-26] MEDS: ACETAMINOPHEN 500 MG TAB PO SCH ×3 (08:33→20:50)
[2021-02-26] MEDS: LIDOCAINE 5% (LIDODERM) PATCH TD SCH (08:34)
[2021-02-26] MEDS: cloNIDine 0.1MG TABLET PO SCH ×3 (08:35→20:50)
[2021-02-26] MEDS: NICOTINE 14 MG/24 HR TRANSDERMAL TD SCH (08:35)
[2021-02-26 14:00] VITALS: BP 118/58
[2021-02-26] MEDS: ALPRAZolam 0.5 MG TAB PO PRN (17:04)
[2021-02-26 19:54] VITALS: BP 121/58
[2021-02-26] MEDS: RAMELTEON 8 MG TAB (ROZEREM) PO PRN (20:50)
[2021-02-26] MEDS: SENNA 8.6 MG TAB (SENOKOT) PO SCH (20:51)
[2021-02-26] MEDS: **NOTE PATIENT COMMENT** MISC XX SCH (21:11)
[2021-02-27 04:30] VITALS: BP 134/61
[2021-02-27 06:54] LABS: HEMOGLOBIN 11.5 g/dl (12.0-15.5); MEAN CORPUSCULAR HEMOGLOBIN 26.7 pg (27.0-33.0); MEAN CORPUSCULAR HGB CONC 31.1 g/dl (32.0-36.5); MEAN CORPUSCULAR VOLUME 85.8 fl (80.0-96.0); PLATELET COUNT, AUTOMATED 359 10^3/uL (150-450); RED BLOOD COUNT 4.31 10^6/uL (4.00-5.40); WHITE BLOOD COUNT 7.1 10^3/uL (4.0-10.0)
[2021-02-27 07:24] LABS: BLOOD UREA NITROGEN 25 MG/DL (7-18); CALCIUM LEVEL 9.2 MG/DL (8.8-10.2); CARBON DIOXIDE LEVEL 30 MEQ/L (21-32); CHLORIDE LEVEL 105 MEQ/L (98-107); CREATININE FOR GFR 0.77 MG/DL (0.55-1.30); GLOMERULAR FILTRATION RATE > 60.0 (>45); GLUCOSE, FASTING 84 MG/DL (70-100); POTASSIUM SERUM 4.4 MEQ/L (3.5-5.1); SODIUM LEVEL 139 MEQ/L (136-145)
[2021-02-27 07:29] LABS: ATYPICAL LYMPH 1 % (0-5); EOSINOPHILS 5 % (0-3); LYMPHOCYTES 37 % (16-44); MONOCYTES 3 % (0-5); NEUTROPHILS 54 % (28-66)
[2021-02-27 07:30] LABS: PLATELET ESTIMATE NORMAL (NORMAL)
[2021-02-27] MEDS: COMBIVENT RESPIMAT 100-20MCG INHALER 4GM INH SCH ×3 (07:35→21:53)
[2021-02-27] MEDS: LIDOCAINE 5% (LIDODERM) PATCH TD SCH (08:16)
[2021-02-27] MEDS: DOCUSATE SODIUM 100MG CAPSULE PO SCH ×2 (08:16→20:38)
[2021-02-27] MEDS: cloNIDine 0.1MG TABLET PO SCH ×3 (08:16→20:37)
[2021-02-27] MEDS: ALPRAZolam 0.5 MG TAB PO PRN ×2 (08:16→20:37)
[2021-02-27] MEDS: buPROPion **SR TABLET** (ZYBAN) 150MG PO SCH (08:16)
[2021-02-27] MEDS: LACTOBACILLUS ACIDOPHILUS CAP (BACID) PO SCH ×3 (08:16→20:37)
[2021-02-27] MEDS: ACETAMINOPHEN 500 MG TAB PO SCH ×3 (08:16→20:38)
[2021-02-27] MEDS: NICOTINE 14 MG/24 HR TRANSDERMAL TD SCH (08:17)
[2021-02-27] MEDS: HEPARIN SOD (PORCINE) 5000UNITS/ML 1ML VIAL/SYRINGE SC SCH ×2 (08:17→20:37)
[2021-02-27] MEDS: CALCITONIN NASAL SPRAY 3.7 ML BTL SCH (08:17)
[2021-02-27] MEDS: PREGABALIN 100 MG CAP (LYRICA) PO SCH ×3 (08:18→20:37)
--- NOTE | 2021-02-27 10:18 | IPNPDOC ---
Text Note Date of Service The patient was seen on 02/27/21. NOTE She was seen and examined. Continues to be on TLSO brace. Participating in PHYSICAL EXAM: GENERAL: She is alert, conversant, no distress. Looks quite cheerful. HEENT: Trachea midline. No stridor, no icterus, no pallor, no neck masses appreciated LUNGS: No rhonchi, no wheezing, no rales. HEART: S1, S2 heard. No gallops, no murmurs appreciated ABDOMEN: Soft, nontender, no masses. EXTREMITIES: No peripheral edema. Warm extremities with good peripheral pulses. LOW BACK: rubber mill tender to palpate. Assessment and plan 66-year-old F with past medical history of cervical stenosis, HTN who presents status post fall with left wrist fracture and lumbar compression fracture 1. L4 nondisplaced fracture. She is progressing in therapy using her brace. f/u ortho outpatient, she also has chronic pain in setting of cervical stenosis, continue outpatient FOLLOW-up. 2. Recurrent urinary tract infections, per infectious disease. Currently on Keflex for a total of 5 days. 3. Mildly elevated liver function tests, has history of fatty liver, outpatient workup to be considered. 4. Hypertension. Continue clonidine 0.1. 3 times a day. Continue monitoring. DVT prophylaxis with heparin Disposition as per primary. VS,Fishbone, I+O VS, Fishbone, I+O Laboratory Tests 02/27/21 06:31 Vital Signs Date Time Temp Pulse Resp B/P (MAP) Pulse Ox O2 Delivery O2 Flow Rate FiO2 02/27/21 08:16 134/61 02/27/21 04:30 98.5 64 18 97 Room Air I&O- Last 24 Hours up to 6 AM 02/27/21 06:00 Intake Total 1180 ml Balance 1180 ml LEOPOLDO VELOZ MD Feb 27, 2021 10:15
[2021-02-27 14:00] VITALS: BP 138/68
[2021-02-27 20:00] VITALS: BP 119/61
--- NOTE | 2021-02-27 20:17 | IPNPDOC ---
PM&R Progress Note DATE OF SERVICE: Feb 27, 2021 [employer] Progress Note DATE OF ADMISSION: Feb 23, 2021 at 14:15 Date of Service 02/27/21. 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 She was worked up by orthopedics outpatient where she was casted for a left distal radial and ulnar fracture, presented to [facility] ED on 02-20-21 complaining of new back pain since her fall. The patient was encephalopathic on admission with UDS positive for amphetamines and benzodiazepines which were prescribed meds for patient and discontinued. She was found additionally to have UTI with U cx positive for klebsiella pneumonia and was started on antibiotics. Lumbar CT showed, Fracture of the L4 inferior endplate extending into the right lateral vertebral body wall with minimal vertebral height loss and cervical CT showed spinal stenosis at C5-C6. She was evaluated by orthopedics who prescribed a brace, had mobility impairments due to pain, and was deemed medically appropriate for discharge to ARU on 02-23-21. 02/27/2021 She notes pain generally well controlled with Tylenol, prefers not to take opiates and is having regular BM. The pain causes her anxiety to escalate. PHYSICAL EXAM: GENERAL: She is alert, conversant, no distress. CN II-XII intact, tremor noted left eyelid and right hand HEENT: Trachea midline. No stridor, no icterus, no pallor, no neck masses appreciated, oral mucosa moist. LUNGS: No rhonchi, no wheezing, no rales. HEART: S1, S2 heard. No gallops, no murmurs appreciated ABDOMEN: Soft, nontender, no masses. EXTREMITIES: No peripheral edema. Homans negative LOW BACK: tender to palpate. FUNCTIONAL STATUS: tolerates 15 min on nu step with no adverse effects noted. Noting improved carryover with safety cues this session for ambulatory activities; ambulates functional distances SBA and progressing to Darin over even surfaces with demonstration of improved safety awareness Labs See below left. Lytes within normal limits Assessment and plan 66-year-old F with past medical history of C5-6 cervical stenosis, HTN who presents status post fall with left wrist fracture and lumbar L4 compression fracture 1. L4 nondisplaced fracture. She is progressing in therapy using her brace. f/u ortho outpatient, she also has chronic pain in setting of cervical stenosis, continue outpatient FOLLOW-up. 2. Recurrent urinary tract infections, per infectious disease. Currently on Keflex for a total of 5 days. 3. Mildly elevated liver function tests, has history of fatty liver, outpatient workup to be considered. 4. Hypertension. Continue clonidine 0.1. 3 times a day. Continue monitoring. 5. Nicotine patch for Nicotine dependence Allergies Coded Allergies: azithromycin (Unverified Allergy, Intermediate, LIPS SWELL/RASH, 08/04/20) prazosin (Unverified Allergy, Mild, RASH, 08/04/20) Sulfa (Sulfonamide Antibiotics) (Unverified Adverse Reaction, Mild, DIARRHEA, 08/04/20) doxycycline (Unverified Adverse Reaction, Mild, DIARRHEA, 08/04/20) morphine (Unverified Adverse Reaction, Mild, ITCHY, 08/04/20) sulfacetamide (Verified Adverse Reaction, Mild, DIARRHEA, 08/04/20) sulfur (Verified Adverse Reaction, Mild, DIARRHEA, 08/04/20) Vital Signs Vital Signs Date Time Temp Pulse Resp B/P (MAP) Pulse Ox O2 Delivery O2 Flow Rate FiO2 02/27/21 15:01 138/68 02/27/21 14:00 98.5 71 20 96 Room Air Laboratory Data CBC/BMP Laboratory Tests 02/27/21 06:31 Labs 24H Laboratory Tests 2 02/27/21 06:31: Neutrophils (%) (Auto) , Nucleated Red Blood Cells % (auto) 0.0, Neutrophils 54, Lymphocytes (Manual) 37, Monocytes (Manual) 3, Eosinophils (Manual) 5H, Atypical Lymphocytes 1, Red Blood Cell Morphology NORMAL, Platelet Estimate NORMAL, Anion Gap 4L, Glomerular Filtration Rate > 60.0, Calcium Level 9.2 Current Medications Current Medications Current Medications Medications (Trade) Dose Ordered Sig/[place] Route PRN Reason Start Time Stop Time Status Last Admin Dose Admin Acetaminophen (Tylenol Tab) 500 mg TID PO 02/23/21 16:00 02/27/21 15:02 Albuterol/ Ipratropium (Combivent Respimat 100-20mcg) 1 puff RTID INH 02/23/21 20:00 02/27/21 13:03 Alprazolam (Xanax) 0.5 mg TIDP PRN PO ANXIETY 02/24/21 17:35 02/27/21 08:16 Bisacodyl (Dulcolax Suppository) 10 mg DAILYPRN PRN [place] CONSTIPATION 02/23/21 13:35 Bupropion HCl (Zyban, Wellbutrin Sr) 150 mg DAILY PO 02/24/21 09:00 02/27/21 08:16 Calcitonin [place] (Miacalcin (Fortical)) 1 sprays DAILY NA 02/23/21 17:00 03/01/21 09:01 02/27/21 08:17 Cephalexin Monohydrate (Keflex) 500 mg BID PO 02/23/21 21:00 02/24/21 21:01 DC 02/24/21 21:19 Clonidine HCl (Catapres) 0.1 mg QHS PO 02/23/21 21:00 02/24/21 08:20 DC 02/23/21 20:53 Clonidine HCl (Catapres) 0.1 mg TID PO 02/24/21 09:00 02/27/21 15:01 Docusate Sodium (Colace) 100 mg BID PO 02/23/21 21:00 02/27/21 08:16 Heparin Sodium (Porcine) (Heparin) 5,000 units Q12H SC 02/23/21 21:00 02/27/21 08:17 Home Med (Med Rec Complete!) ASDIRECTED XX 02/23/21 14:30 02/23/21 14:46 DC Hydroxyzine HCl (Atarax) 25 mg Q6HP PRN PO ANXIETY 02/23/21 13:55 02/24/21 13:39 Lactobacillus Acidophilus (Bacid) 1 ea TID PO 02/23/21 16:00 02/27/21 15:02 Lidocaine (Lidoderm Patch) 1 patch DAILY TD 02/24/21 09:00 02/27/21 08:16 Nicotine (Nicoderm Cq 14mg) 1 patch DAILY TD 02/24/21 09:30 02/27/21 08:17 Nitrofurantoin Monoh/Nitrofur Macro (Macrobid) 100 mg DAILY PO 02/25/21 09:00 02/23/21 17:22 DC Non-Formulary Medication ( See Comment Field Below ) REMOVE LIDODERM PATCH DAILY@21 XX 02/23/21 21:00 02/26/21 21:11 Pantoprazole Sodium (Protonix) 40 mg DAILY PO 02/24/21 09:00 02/23/21 13:54 DC Polyethylene Glycol (Miralax) 1 pkt DAILY PRN PO CONSTIPATION 02/23/21 13:35 Pregabalin (Lyrica) 100 mg TID PO 02/23/21 16:00 02/27/21 15:01 Ramelteon (Rozerem) 8 mg QHS PRN PO INSOMNIA 02/23/21 19:50 02/26/21 20:50 Senna (Senokot) 1 tab QHS PO 02/23/21 21:00 02/26/21 20:51 MARLI FLORES MD Feb 27, 2021 20:17
[2021-02-27] MEDS: RAMELTEON 8 MG TAB (ROZEREM) PO PRN (20:37)
[2021-02-27] MEDS: SENNA 8.6 MG TAB (SENOKOT) PO SCH (20:38)
[2021-02-27] MEDS: **NOTE PATIENT COMMENT** MISC XX SCH (20:39)
[2021-02-28 06:00] VITALS: BP 123/59
[2021-02-28] MEDS: PREGABALIN 100 MG CAP (LYRICA) PO SCH ×3 (07:39→20:45)
[2021-02-28] MEDS: LIDOCAINE 5% (LIDODERM) PATCH TD SCH (07:39)
[2021-02-28] MEDS: LACTOBACILLUS ACIDOPHILUS CAP (BACID) PO SCH ×3 (07:39→20:45)
[2021-02-28] MEDS: NICOTINE 14 MG/24 HR TRANSDERMAL TD SCH (07:39)
[2021-02-28] MEDS: DOCUSATE SODIUM 100MG CAPSULE PO SCH ×2 (07:40→20:47)
[2021-02-28] MEDS: cloNIDine 0.1MG TABLET PO SCH ×3 (07:40→20:46)
[2021-02-28] MEDS: buPROPion **SR TABLET** (ZYBAN) 150MG PO SCH (07:40)
[2021-02-28] MEDS: ACETAMINOPHEN 500 MG TAB PO SCH ×3 (07:40→20:45)
[2021-02-28] MEDS: ALPRAZolam 0.5 MG TAB PO PRN ×3 (07:40→20:45)
[2021-02-28] MEDS: HEPARIN SOD (PORCINE) 5000UNITS/ML 1ML VIAL/SYRINGE SC SCH ×2 (07:41→20:46)
[2021-02-28] MEDS: CALCITONIN NASAL SPRAY 3.7 ML BTL SCH (07:41)
[2021-02-28] MEDS: COMBIVENT RESPIMAT 100-20MCG INHALER 4GM INH SCH ×3 (07:43→20:38)
--- NOTE | 2021-02-28 11:10 | IPNPDOC ---
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 She was worked up by orthopedics outpatient where she was casted for a left distal radial and ulnar fracture, presented to [facility] ED on 02-20-21 complaining of new back pain since her fall. The patient was encephalopathic on admission with UDS positive for amphetamines and benzodiazepines which were prescribed meds for patient and discontinued. She was found additionally to have UTI with U cx positive for klebsiella pneumonia and was started on antibiotics. Lumbar CT showed, Fracture of the L4 inferior endplate extending into the right lateral vertebral body wall with minimal vertebral height loss and cervical CT showed spinal stenosis at C5-C6. She was evaluated by orthopedics who prescribed a TLSO brace, had mobility impairments due to pain, and was deemed medically appropriate for discharge to ARU on 02-23-21. 02/27/2021 She notes pain generally well controlled with Tylenol, prefers not to take opiates and is having regular BM. The pain causes her anxiety to escalate. 02/28/2021 . We discussed in greater depth protracted challenges with complicated grief, anxiety stemming from the loss of her youngest son in a motor vehicle accident years ago. She notes poor sleeping, pain management is adequate at about 5 out of 10 with Tylenol, preference not to use anything too strong. Back pain and lower extremity pain persists as well as aching soreness in the left upper extremity. She shares image from a year ago with a note of moments degroot ccess in which her pain was well controlled. She was enjoying the moment with her grandchildren .Tremor seems to be less severe today. She was open to the consideration of online meditation and relaxation, guided imagery techniques to try as part of her own wellness program. PHYSICAL EXAM: GENERAL: She is alert, conversant, no distress. CN II-XII intact, tremor, less than today in face and right hand. She is just getting started and not wearing the TLSO yet. HEENT: Trachea midline. No stridor, no icterus, no pallor, no neck masses appreciated, oral mucosa moist. LUNGS: No rhonchi, no wheezing, no rales. HEART: S1, S2 heard. No gallops, no murmurs appreciated ABDOMEN: Soft, nontender, no masses. EXTREMITIES: No peripheral edema. Homans negative. Left upper extremity soft splint/ wrapped, sensation intact, Distal digits. LOW BACK: Exquisitely tender to palpation . L4-5 region with paraspinal spasms. FUNCTIONAL STATUS: Functional progress discussed in team meeting , therapy notes that she tolerates 15 min on nu step with no adverse effects noted. Noting improved carryover with safety cues for ambulatory activities; ambulates functional distances SBA and progressing to mod I over even surfaces with demonstration of improved safety awareness. ST eval and RX cognitive processing issues. Labs See below left. Lytes within normal limits Assessment and plan 66-year-old F with past medical history of C5-6 cervical stenosis, HTN who presents status post fall with left wrist fracture and lumbar L4 compression f racture 1. L4 nondisplaced fracture. She is progressing in therapy using her brace. f/u ortho outpatient, she also has chronic pain in setting of cervical stenosis, continue outpatient FOLLOW-up. 2. Recurrent urinary tract infections, per infectious disease. Completed Keflex for a total of 5 days, will recheck urine considering persisting AMS, continued frequency, possible incomplete rx. 3. Mildly elevated liver function tests, has history of fatty liver, outpatient workup to be considered. 4. Hypertension. Continue clonidine 0.1. 3 times a day. Continue monitoring. 5. Nicotine patch for Nicotine dependence 6. complicated grief, depression, anxiety and pain contributing to insomnia. Schedule Vistaril. Explore further with patient regarding prior RX tolerated or helpful, not sure if part of tremor is WD phenomenon or baseline, anxiety, will initiate anti depressant, consider agent such as Pamelor for pain and some depression impacts vs Trazodone or SSRI. 7. Dietary supplementation to optimize bone healing, on [place] Calcitonin, add Vit D and Magnesium may also help allay some muscle pain and anxiety issues. TIME SPENT: Chart Review, examination and documentation [45] minutes. Allergies Coded Allergies: azithromycin (Unverified Allergy, Intermediate, LIPS SWELL/RASH, 08/04/20) prazosin (Unverified Allergy, Mild, RASH, 08/04/20) Sulfa (Sulfonamide Antibiotics) (Unverified Adverse Reaction, Mild, DIARRHEA, 08/04/20) doxycycline (Unverified Adverse Reaction, Mild, DIARRHEA, 08/04/20) morphine (Unverified Adverse Reaction, Mild, ITCHY, 08/04/20) sulfacetamide (Verified Adverse Reaction, Mild, DIARRHEA, 08/04/20) sulfur (Verified Adverse Reaction, Mild, DIARRHEA, 08/04/20) Vital Signs Vital Signs Date Time Temp Pulse Resp B/P (MAP) Pulse Ox O2 Delivery O2 Flow Rate FiO2 02/28/21 07:40 123/59 02/28/21 06:00 97.6 57 18 97 Room Air Current Medications Current Medications Current Medications Medications (Trade) Dose Ordered Sig/[place] Route PRN Reason Start Time Stop Time Status Last Admin Dose Admin Acetaminophen (Tylenol Tab) 500 mg TID PO 02/23/21 16:00 02/28/21 07:40 Albuterol/ Ipratropium (Combivent Respimat 100-20mcg) 1 puff RTID INH 02/23/21 20:00 02/28/21 07:43 Alprazolam (Xanax) 0.5 mg TIDP PRN PO ANXIETY 02/24/21 17:35 02/28/21 07:40 Bisacodyl (Dulcolax Suppository) 10 mg DAILYPRN PRN [place] CONSTIPATION 02/23/21 13:35 Bupropion HCl (Zyban, Wellbutrin Sr) 150 mg DAILY PO 02/24/21 09:00 02/28/21 07:40 Calcitonin [place] (Miacalcin (Fortical)) 1 sprays DAILY NA 02/23/21 17:00 03/01/21 09:01 02/28/21 07:41 Cephalexin Monohydrate (Keflex) 500 mg BID PO 02/23/21 21:00 02/24/21 21:01 DC 02/24/21 21:19 Clonidine HCl (Catapres) 0.1 mg QHS PO 02/23/21 21:00 02/24/21 08:20 DC 02/23/21 20:53 Clonidine HCl (Catapres) 0.1 mg TID PO 02/24/21 09:00 02/28/21 07:40 Docusate Sodium (Colace) 100 mg BID PO 02/23/21 21:00 02/27/21 20:38 Heparin Sodium (Porcine) (Heparin) 5,000 units Q12H SC 02/23/21 21:00 02/28/21 07:41 Home Med (Med Rec Complete!) ASDIRECTED XX 02/23/21 14:30 02/23/21 14:46 DC Hydroxyzine HCl (Atarax) 25 mg Q6HP PRN PO ANXIETY 02/23/21 13:55 02/24/21 13:39 Lactobacillus Acidophilus (Bacid) 1 ea TID PO 02/23/21 16:00 02/28/21 07:39 Lidocaine (Lidoderm Patch) 1 patch DAILY TD 02/24/21 09:00 02/28/21 07:39 Nicotine (Nicoderm Cq 14mg) 1 patch DAILY TD 02/24/21 09:30 02/28/21 07:39 Nitrofurantoin Monoh/Nitrofur Macro (Macrobid) 100 mg DAILY PO 02/25/21 09:00 02/23/21 17:22 DC Non-Formulary Medication ( See Comment Field Below ) REMOVE LIDODERM PATCH DAILY@21 XX 02/23/21 21:00 02/27/21 20:39 Pantoprazole Sodium (Protonix) 40 mg DAILY PO 02/24/21 09:00 02/23/21 13:54 DC Polyethylene Glycol (Miralax) 1 pkt DAILY PRN PO CONSTIPATION 02/23/21 13:35 Pregabalin (Lyrica) 100 mg TID PO 02/23/21 16:00 02/28/21 07:39 Ramelteon (Rozerem) 8 mg QHS PRN PO INSOMNIA 02/23/21 19:50 02/27/21 20:37 Senna (Senokot) 1 tab QHS PO 02/23/21 21:00 02/27/21 20:38 MARLI FLORES MD Feb 28, 2021 11:10
[2021-02-28] MEDS: VITAMIN D 1,000 INTERNATIONAL UNITS TABLET PO SCH ×2 (11:40→20:45)
[2021-02-28] MEDS: MAGNESIUM OXIDE 400MG TAB (MAG-OX) PO SCH (11:40)
--- NOTE | 2021-02-28 13:33 | IPNPDOC ---
Text Note Date of Service The patient was seen on 02/28/21. NOTE She was seen and examined. Continues to be on brace. Participating in therapy PHYSICAL EXAM: GENERAL: She is alert, conversant, no distress. Looks quite cheerful. HEENT: Trachea midline. No stridor, no icterus, no pallor, no neck masses appreciated LUNGS: No rhonchi, no wheezing, no rales. HEART: S1, S2 heard. No gallops, no murmurs appreciated ABDOMEN: Soft, nontender, no masses. EXTREMITIES: No peripheral edema. Warm extremities with good peripheral pulses. LOW BACK: press tender smoke signal to palpate. Assessment and plan 66-year-old F with past medical history of cervical stenosis, HTN who presents status post fall with left wrist fracture and lumbar compression fracture 1.L4 nondisplaced fracture. She is progressing in therapy using her brace. f/u ortho outpatient, she also has chronic pain in setting of cervical stenosis, continue outpatient FOLLOW-up. 2.Recurrent urinary tract infections, per infectious disease. Currently on Keflex for a total of 5 days. 3.Mildly elevated liver function tests, has history of fatty liver, outpatient workup to be considered. 4.Hypertension. Continue clonidine 0.1. 3 times a day. Continue monitoring. DVT prophylaxis with heparin Disposition as per primary. VS,Fishbone, I+O VS, Fishbone, I+O Vital Signs Date Time Temp Pulse Resp B/P (MAP) Pulse Ox O2 Delivery O2 Flow Rate FiO2 02/28/21 07:40 123/59 02/28/21 06:00 97.6 57 18 97 Room Air I&O- Last 24 Hours up to 6 AM 02/28/21 06:00 Intake Total 350 ml Balance 350 ml LEOPOLDO VELOZ MD Feb 28, 2021 13:33
[2021-02-28 14:00] VITALS: BP 145/67
[2021-02-28 20:00] VITALS: BP 107/53
[2021-02-28] MEDS ORDERED: hydrOXYzine 25 MG TAB PO PRN (20:00)
[2021-02-28] MEDS: RAMELTEON 8 MG TAB (ROZEREM) PO PRN (20:45)
[2021-02-28] MEDS: **NOTE PATIENT COMMENT** MISC XX SCH (20:46)
[2021-02-28] MEDS: SENNA 8.6 MG TAB (SENOKOT) PO SCH (20:47)
[2021-03-01 06:00] VITALS: BP 134/63
[2021-03-01] MEDS: COMBIVENT RESPIMAT 100-20MCG INHALER 4GM INH SCH ×3 (07:36→20:00)
[2021-03-01] MEDS: buPROPion **SR TABLET** (ZYBAN) 150MG PO SCH (08:52)
[2021-03-01] MEDS: PREGABALIN 100 MG CAP (LYRICA) PO SCH ×3 (08:53→21:06)
[2021-03-01] MEDS: MAGNESIUM OXIDE 400MG TAB (MAG-OX) PO SCH (08:53)
[2021-03-01] MEDS: VITAMIN D 1,000 INTERNATIONAL UNITS TABLET PO SCH ×2 (08:53→21:07)
[2021-03-01] MEDS: cloNIDine 0.1MG TABLET PO SCH ×3 (08:53→21:00)
[2021-03-01] MEDS: ACETAMINOPHEN 500 MG TAB PO SCH ×3 (08:53→21:06)
[2021-03-01] MEDS: ALPRAZolam 0.5 MG TAB PO PRN ×2 (08:53→17:42)
[2021-03-01] MEDS: LACTOBACILLUS ACIDOPHILUS CAP (BACID) PO SCH ×3 (08:53→21:05)
[2021-03-01] MEDS: CALCITONIN NASAL SPRAY 3.7 ML BTL SCH (08:54)
[2021-03-01] MEDS: LIDOCAINE 5% (LIDODERM) PATCH TD SCH (08:54)
[2021-03-01] MEDS: HEPARIN SOD (PORCINE) 5000UNITS/ML 1ML VIAL/SYRINGE SC SCH ×2 (08:54→21:08)
[2021-03-01] MEDS: DOCUSATE SODIUM 100MG CAPSULE PO SCH ×2 (08:55→21:00)
[2021-03-01] MEDS: NICOTINE 14 MG/24 HR TRANSDERMAL TD SCH (08:55)
[2021-03-01 14:00] VITALS: BP 124/58
--- NOTE | 2021-03-01 16:42 | IPNPDOC ---
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 She was worked up by orthopedics outpatient where she was casted for a left distal radial and ulnar fracture, presented to [facility] ED on 02-20-21 complaining of new back pain since her fall. The patient was encephalopathic on admission with UDS positive for amphetamines and benzodiazepines which were prescribed meds for patient and discontinued. She was found additionally to have UTI with U cx positive for klebsiella pneumonia and was started on antibiotics. Lumbar CT showed, Fracture of the L4 inferior endplate extending into the right lateral vertebral body wall with minimal vertebral height loss and cervical CT showed spinal stenosis at C5-C6. She was evaluated by orthopedics who prescribed a TLSO brace, had mobility impairments due to pain, and was deemed medically appropriate for discharge to ARU on 02-23-21. 02/27/2021 She notes pain generally well controlled with Tylenol, prefers not to take opiates and is having regular BM. The pain causes her anxiety to escalate. 02/28/2021 . We discussed in greater depth protracted challenges with complicated grief, anxiety stemming from the loss of her youngest son in a motor vehicle accident years ago. She notes poor sleeping, pain management is adequate at about 5 out of 10 with Tylenol, preference not to use anything too strong. Back pain and lower extremity pain persists as well as aching soreness in the left upper extremity. She shares image from a year ago with a note of moments degroot ccess in which her pain was well controlled. She was enjoying the moment with her grandchildren .Tremor seems to be less severe today. She was open to the consideration of online meditation and relaxation, guided imagery techniques to try as part of her own wellness program. 03/01/2021 We discussed her ongoing progress, and she indicated that she had tried to self- DC # meds prior to admission, and now realizes she functioned better, for example with her stimulants, currently lacks energy, focus without it. She wants to avoid hydrocodone and minimize Xanax if possible and looks forward to returning to her therapists and rx protocols. Case management reviewed and confirmed with pharmacy records that she has previously been recently prescribed Hydrocodone, Lyrica, Adderall, Xanax, Buproprion, Clonidine, Ambien, Hydroxizine. Pain level 5-7/10, moving bowels regularly. PHYSICAL EXAM: GENERAL: She is alert, conversant, no distress. CN II-XII intact, tremor is less than today has donned the TLSO. HEENT: Trachea midline. No stridor, no icterus, no pallor, no neck masses appreciated, oral mucosa moist. LUNGS: No rhonchi, no wheezing, no rales. HEART: S1, S2 heard. No gallops, no murmurs appreciated ABDOMEN: Soft, nontender, no masses. EXTREMITIES: No peripheral edema. Homans negative. Left upper extremity soft splint/ wrapped, sensation intact, Distal digits. LOW BACK: Exquisitely tender to palpation . L4-5 region with paraspinal spasms. FUNCTIONAL STATUS: 6..2020 6..2020 Functional progress discussed in team meeting , therapy notes that she tolerates 15 min on nu step with no adverse effects noted. Noting improved carryover with safety cues for ambulatory activities; ambulates functional distances SBA and progressing to mod I over even surfaces with demonstration of improved safety awareness. ST eval and RX cognitive processing issues. Labs U/A Nitrite + See below left. Lytes within normal limits Assessment and plan 66-year-old F with past medical history of C5-6 cervical stenosis, HTN who presents status post fall with left wrist fracture and lumbar L4 compression fracture 1. L4 nondisplaced fracture. She is progressing in therapy using her brace. f/u ortho outpatient, she also has chronic pain in setting of cervical stenosis, continue outpatient FOLLOW-up. Lyrica, Lidoderm 2. Recurrent urinary tract infections, per infectious disease. Completed Keflex for a total of 5 days, urine noted for persisting bacteruria, considering persisting AMS, continued frequency, possible incomplete rx., will resume Keflex and add monistat for possible yeast. 3. Mildly elevated liver function tests, has history of fatty liver, outpatient workup to be considered, monitor and balance continued polypharmacy needed for optimal cognitive emotional functioning. 4. Hypertension. Continue clonidine 0.1. 3 times a day. Continue monitoring. 5. Nicotine patch for Nicotine dependence 6. complicated grief, depression, anxiety and pain contributing to insomnia. Scheduled Vistaril. Explored further with patient regarding prior RX tolerated or helpful, will add Trazodone since on Buproprion and resume Adderall she previously maintained better focus and concentration with. 7. Dietary supplementation to optimize bone healing, on [place] Calcitonin, add Vit D and Magnesium may also help allay some muscle pain and anxiety issues. TIME SPENT: Chart Review, examination and documentation [45] minutes. Allergies Coded Allergies: azithromycin (Unverified Allergy, Intermediate, LIPS SWELL/RASH, 08/04/20) prazosin (Unverified Allergy, Mild, RASH, 08/04/20) Sulfa (Sulfonamide Antibiotics) (Unverified Adverse Reaction, Mild, DIARRHEA, 08/04/20) doxycycline (Unverified Adverse Reaction, Mild, DIARRHEA, 08/04/20) morphine (Unverified Adverse Reaction, Mild, ITCHY, 08/04/20) sulfacetamide (Verified Adverse Reaction, Mild, DIARRHEA, 08/04/20) sulfur (Verified Adverse Reaction, Mild, DIARRHEA, 08/04/20) Vital Signs Vital Signs Date Time Temp Pulse Resp B/P (MAP) Pulse Ox O2 Delivery O2 Flow Rate FiO2 03/01/21 15:59 124/58 03/01/21 14:00 97.9 61 18 97 Room Air Laboratory Data Labs 24H Laboratory Tests 2 02/28/21 20:58: Urine Color YELLOW, Urine Appearance HAZY, Urine pH 5.0, Urine Specific [place] 1.024, Urine Protein NEGATIVE, Urine Glucose (UA) NEGATIVE, Urine Ketones NEGATIVE, Urine Blood 1+H, Urine Nitrite POSITIVEH, Urine Bilirubin NEGATIVE, Urine Urobilinogen 0.2, Urine Leukocyte Esterase NEGATIVE, Urine WBC (Auto) 2, Urine RBC (Auto) 2, Urine Hyaline Casts (Auto) 0, Urine Bacteria (Auto) 3+H, Ur ine Squamous Epithelial Cells 0, Urine Sperm (Auto) Microbiology Microbiology 02/28/21 Urine Culture, Received Pending Current Medications Current Medications Current Medications Medications (Trade) Dose Ordered Sig/Chioma Route PRN Reason Start Time Stop Time Status Last Admin Dose Admin Acetaminophen (Tylenol Tab) 500 mg TID PO 02/23/21 16:00 03/01/21 16:00 Albuterol/ Ipratropium (Combivent Respimat 100-20mcg) 1 puff RTID INH 02/23/21 20:00 03/01/21 07:36 Alprazolam (Xanax) 0.5 mg TIDP PRN PO ANXIETY 02/24/21 17:35 03/01/21 08:53 Amphetamine/ Dextroamphetamine (Adderall) 10 mg QAM PO 03/02/21 09:00 Bisacodyl (Dulcolax Suppository) 10 mg DAILYPRN PRN [place] CONSTIPATION 02/23/21 13:35 Bupropion HCl (Zyban, Wellbutrin Sr) 150 mg DAILY PO 02/24/21 09:00 03/01/21 08:52 Calcitonin [place] (Miacalcin (Fortical)) 1 sprays DAILY NA 02/23/21 17:00 03/01/21 09:01 DC 03/01/21 08:54 Cephalexin Monohydrate (Keflex) 500 mg BID PO 02/23/21 21:00 02/24/21 21:01 DC 02/24/21 21:19 Cephalexin Monohydrate (Keflex) 500 mg BID PO 03/01/21 21:00 Clonidine HCl (Catapres) 0.1 mg QHS PO 02/23/21 21:00 02/24/21 08:20 DC 02/23/21 20:53 Clonidine HCl (Catapres) 0.1 mg TID PO 02/24/21 09:00 03/01/21 15:59 Docusate Sodium (Colace) 100 mg BID PO 02/23/21 21:00 02/27/21 20:38 Heparin Sodium (Porcine) (Heparin) 5,000 units Q12H SC 02/23/21 21:00 03/01/21 08:54 Home Med (Med Rec Complete!) ASDIRECTED XX 02/23/21 14:30 02/23/21 14:46 DC Hydroxyzine HCl (Atarax) 25 mg Q6HP PRN PO ANXIETY 02/23/21 13:55 02/28/21 10:59 DC 02/24/21 13:39 Hydroxyzine HCl (Atarax) 25 mg QHS PO 03/01/21 21:00 Hydroxyzine HCl (Atarax) 25 mg QHS PRN PO ANXIETY 02/28/21 20:00 03/01/21 15:18 DC Lactobacillus Acidophilus (Bacid) 1 ea TID PO 02/23/21 16:00 03/01/21 16:00 Lidocaine (Lidoderm Patch) 1 patch DAILY TD 02/24/21 09:00 03/01/21 08:54 Magnesium Oxide (Mag-Ox) 400 mg DAILY PO 02/28/21 09:00 03/01/21 08:53 Miconazole Nitrate (Monistat-7) 1 APPLICATORFUL QHS PV 03/01/21 21:00 03/05/21 21:01 Nicotine (Nicoderm Cq 14mg) 1 patch DAILY TD 02/24/21 09:30 03/01/21 08:55 Nitrofurantoin Monoh/Nitrofur Macro (Macrobid) 100 mg DAILY PO 02/25/21 09:00 02/23/21 17:22 DC Non-Formulary Medication ( See Comment Field Below ) REMOVE LIDODERM PATCH DAILY@21 XX 02/23/21 21:00 02/28/21 20:46 Pantoprazole Sodium (Protonix) 40 mg DAILY PO 02/24/21 09:00 02/23/21 13:54 DC Polyethylene Glycol (Miralax) 1 pkt DAILY PRN PO CONSTIPATION 02/23/21 13:35 Pregabalin (Lyrica) 100 mg TID PO 02/23/21 16:00 03/01/21 16:00 Ramelteon (Rozerem) 8 mg QHS PRN PO INSOMNIA 02/23/21 19:50 02/28/21 20:45 Senna (Senokot) 1 tab QHS PO 02/23/21 21:00 02/27/21 20:38 Vitamin D (Vitamin D) 1,000 units BID PO 02/28/21 09:00 03/01/21 08:53 MARLI FLORES MD Mar 01, 2021 16:42
[2021-03-01 20:30] VITALS: BP 107/53
[2021-03-01] MEDS: SENNA 8.6 MG TAB (SENOKOT) PO SCH (21:00)
[2021-03-01] MEDS: CEPHALEXIN 500 MG CAP PO SCH (21:06)
[2021-03-01] MEDS: hydrOXYzine 25 MG TAB PO SCH (21:07)
[2021-03-01] MEDS: MICONAZOLE-7 VAGINAL 2% CREAM 47.7 GM PV SCH (21:08)
[2021-03-01] MEDS: **NOTE PATIENT COMMENT** MISC XX SCH (21:08)
[2021-03-02 06:00] VITALS: BP 130/61
[2021-03-02] MEDS: COMBIVENT RESPIMAT 100-20MCG INHALER 4GM INH SCH ×3 (07:17→19:47)
[2021-03-02] MEDS: NICOTINE 14 MG/24 HR TRANSDERMAL TD SCH (08:28)
[2021-03-02] MEDS: ADDERALL 5 MG TAB PO SCH (08:28)
[2021-03-02] MEDS: ALPRAZolam 0.5 MG TAB PO PRN ×2 (08:28→17:40)
[2021-03-02] MEDS: CEPHALEXIN 500 MG CAP PO SCH ×2 (08:29→20:23)
[2021-03-02] MEDS: VITAMIN D 1,000 INTERNATIONAL UNITS TABLET PO SCH ×2 (08:29→20:24)
[2021-03-02] MEDS: ACETAMINOPHEN 500 MG TAB PO SCH ×3 (08:29→20:24)
[2021-03-02] MEDS: MAGNESIUM OXIDE 400MG TAB (MAG-OX) PO SCH (08:29)
[2021-03-02] MEDS: PREGABALIN 100 MG CAP (LYRICA) PO SCH ×3 (08:29→20:24)
[2021-03-02] MEDS: cloNIDine 0.1MG TABLET PO SCH ×3 (08:29→20:24)
[2021-03-02] MEDS: LACTOBACILLUS ACIDOPHILUS CAP (BACID) PO SCH ×3 (08:29→20:23)
[2021-03-02] MEDS: LIDOCAINE 5% (LIDODERM) PATCH TD SCH (08:30)
[2021-03-02] MEDS: HEPARIN SOD (PORCINE) 5000UNITS/ML 1ML VIAL/SYRINGE SC SCH ×2 (08:30→20:23)
[2021-03-02] MEDS: DOCUSATE SODIUM 100MG CAPSULE PO SCH ×2 (08:30→20:23)
[2021-03-02] MEDS: buPROPion **SR TABLET** (ZYBAN) 150MG PO SCH (08:30)
--- NOTE | 2021-03-02 11:07 | IPNPDOC ---
Text Note Date of Service The patient was seen on 03/02/21. NOTE She was seen and examined. Continues to be on brace. Functional status improving. Participating in therapy PHYSICAL EXAM: GENERAL: She is alert, conversant, no distress. Looks quite cheerful. HEENT: Trachea midline. No stridor, no icterus, no pallor, no neck masses appreciated LUNGS: No rhonchi, no wheezing, no rales. HEART: S1, S2 heard. No gallops, no murmurs appreciated ABDOMEN: Soft, nontender, no masses. EXTREMITIES: No peripheral edema. Warm extremities with good peripheral pulses. LOW BACK: wrapping machine tender to palpate. Assessment and plan 66-year-old F with past medical history of cervical stenosis, HTN who presents status post fall with left wrist fracture and lumbar compression fracture 1.L4 nondisplaced fracture. She is progressing in therapy using her brace. f/u ortho outpatient, she also has chronic pain in setting of cervical stenosis, continue outpatient FOLLOW-up. 2.Recurrent urinary tract infections, per infectious disease. Currently on Keflex for a total of 5 days. 3.Mildly elevated liver function tests, has history of fatty liver, outpatient workup to be considered. 4.Hypertension. Continue clonidine 0.1. 3 times a day. Continue monitoring. DVT prophylaxis with heparin Disposition as per primary. VS,Fishbone, I+O VS, Fishbone, I+O Vital Signs Date Time Temp Pulse Resp B/P (MAP) Pulse Ox O2 Delivery O2 Flow Rate FiO2 03/02/21 08:29 130/61 03/02/21 06:00 98.3 58 18 95 03/01/21 20:30 Room Air I&O- Last 24 Hours up to 6 AM 03/02/21 06:00 Intake Total 385 ml Balance 385 ml LEOPOLDO VELOZ MD Mar 02, 2021 11:07
[2021-03-02 14:00] VITALS: BP 122/62
--- NOTE | 2021-03-02 15:08 | IPNPDOC ---
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 She was worked up by orthopedics outpatient where she was casted for a left distal radial and ulnar fracture, presented to [facility] ED on 02-20-21 complaining of new back pain since her fall. The patient was encephalopathic on admission with UDS positive for amphetamines and benzodiazepines which were prescribed meds for patient and discontinued. She was found additionally to have UTI with U cx positive for klebsiella pneumonia and was started on antibiotics. Lumbar CT showed, Fracture of the L4 inferior endplate extending into the right lateral vertebral body wall with minimal vertebral height loss and cervical CT showed spinal stenosis at C5-C6. She was evaluated by orthopedics who prescribed a TLSO brace, had mobility impairments due to pain, and was deemed medically appropriate for discharge to ARU on 02-23-21. 02/27/2021 She notes pain generally well controlled with Tylenol, prefers not to take opiates and is having regular BM. The pain causes her anxiety to escalate. 02/28/2021 . We discussed in greater depth protracted challenges with complicated grief, anxiety stemming from the loss of her youngest son in a motor vehicle accident years ago. She notes poor sleeping, pain management is adequate at about 5 out of 10 with Tylenol, preference not to use anything too strong. Back pain and lower extremity pain persists as well as aching soreness in the left upper extremity. She shares image from a year ago with a note of moments success in which her pain was well controlled. She was enjoying the moment with her grandchildren .Tremor seems to be less severe today. She was open to the consideration of online meditation and relaxation, guided imagery techniques to try as part of her own wellness program. 03/01/2021 We discussed her ongoing progress, and she indicated that she had tried to self- DC # meds prior to admission, and now realizes she functioned better, for example with her stimulants, currently lacks energy, focus without it. She wants to avoid hydrocodone and minimize Xanax if possible and looks forward to re turning to her therapists and rx protocols. Case management reviewed and confirmed with pharmacy records that she has previously been recently prescribed Hydrocodone, Lyrica, Adderall, Xanax, Buproprion, Clonidine, Ambien, Hydroxizine. Pain level 5-7/10, moving bowels regularly. 03.02.2021 patient much better spirits this morning seems clearer that she did sleep somewhat better last night. The full pharmacological review on her meds and indeed she had been on Adderall, adding that he feels continue to help improve focus and concentration. 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 Initially after his son . She jumped right into working with [employer] and other advocacy groups, but that proved to be too stressful. She has follow-up appointments and intends to continue her work with her therapist, feels she is turning a corner there. She is regaining optimism in her ability to return to independent function and manage her chronic pain as the pain from the fractures continues to lessen. PHYSICAL EXAM: GENERAL: She is alert, conversant, no distress. CN II-XII intact, tremor is gone, continues with the TLSO. HEENT: Trachea midline. No stridor, no icterus, no pallor, no neck masses appreciated, oral mucosa moist. LUNGS: No rhonchi, no wheezing, no rales. HEART: S1, S2 heard. No gallops, no murmurs appreciated ABDOMEN: Soft, nontender, no masses. EXTREMITIES: No peripheral edema. Homans negative. Left upper extremity soft splint/ wrapped, sensation intact, Distal digits, able to wiggle fingers, left thumb painful when attempts slight movement. LOW BACK: Exquisitely tender to palpation . L4-5 region with paraspinal spasms. FUNCTIONAL STATUS: 03.02.2021 Session focused on strengthening and endurance; no significant concerns noted. Educated Pt. on room privileges and Pt. verbalizes back to therapist need to wea r TLSO and use cane with all mobility OOB. Will have trial BSC transfers during night without donning TLSO. 03.01.2021 Patient demonstrates very good motivation during session and demonstrates SBA/MOd level mobility with use of SPC. Patient performs single UE chair push-ups and stair training during session as well for LE strengthening; 02.28.2021 Functional progress discussed in team meeting , therapy notes that she tolerates 15 min on nu step with no adverse effects noted. Noting improved carryover with safety cues for ambulatory activities; ambulates functional distances SBA and progressing to mod I over even surfaces with demonstration of improved safety awareness. ST eval and RX cognitive processing issues. Labs U/A Nitrite + See below left. Lytes within normal limits Assessment and plan 66-year-old F with past medical history of C5-6 cervical stenosis, HTN who presents status post fall with left wrist fracture and lumbar L4 compression fracture 1. L4 nondisplaced fracture. She is progressing in therapy using her brace. f/u ortho outpatient, she also has chronic pain in setting of cervical stenosis, continue outpatient FOLLOW-up. Lyrica, Lidoderm 2. Recurrent urinary tract infections, per infectious disease. Completed Keflex for a total of 5 days, urine noted for persisting bacteruria, considering persisting AMS, continued frequency, possible incomplete rx., will resume Keflex and add monistat for possible yeast. 3. Mildly elevated liver function tests, has history of fatty liver, outpatient workup to be considered, monitor and balance continued polypharmacy needed for optimal cognitive emotional functioning. 4. Hypertension. Continue clonidine 0.1. 3 times a day. Continue monitoring. 5. Nicotine patch for Nicotine dependence 6. complicated grief, depression, anxiety and pain contributing to insomnia. Scheduled Vistaril. Explored further with patient regarding prior RX tolerated or helpful, will add Trazodone since on Buproprion and resume Adderall she previously maintained better focus and concentration with. 7. Dietary supplementation to optimize bone healing, on [place] Calcitonin, add Vit D and Magnesium may also help allay some muscle pain and anxiety issues. TIME SPENT: Chart Review, examination and documentation 30 minutes. Allergies Coded Allergies: azithromycin (Unverified Allergy, Intermediate, LIPS SWELL/RASH, 08/04/20) prazosin (Unverified Allergy, Mild, RASH, 08/04/20) Sulfa (Sulfonamide Antibiotics) (Unverified Adverse Reaction, Mild, DIARRHEA, 08/04/20) doxycycline (Unverified Adverse Reaction, Mild, DIARRHEA, 08/04/20) morphine (Unverified Adverse Reaction, Mild, ITCHY, 08/04/20) sulfacetamide (Verified Adverse Reaction, Mild, DIARRHEA, 08/04/20) sulfur (Verified Adverse Reaction, Mild, DIARRHEA, 08/04/20) Vital Signs Vital Signs Date Time Temp Pulse Resp B/P (MAP) Pulse Ox O2 Delivery O2 Flow Rate FiO2 03/02/21 15:05 122/62 03/02/21 14:00 98.1 64 18 96 Room Air Laboratory Data CBC/BMP Labs 24H Laboratory Tests 2 03/02/21 14:05: Microbiology Microbiology 02/28/21 Urine Culture - Final, Complete Klebsiella Pneumoniae Current Medications Current Medications Current Medications Medications (Trade) Dose Ordered Sig/Chioma Route PRN Reason Start Time Stop Time Status Last Admin Dose Admin Acetaminophen (Tylenol Tab) 500 mg TID PO 02/23/21 16:00 03/02/21 15:05 Albuterol/ Ipratropium (Combivent Respimat 100-20mcg) 1 puff RTID INH 02/23/21 20:00 03/02/21 07:17 Alprazolam (Xanax) 0.5 mg TIDP PRN PO ANXIETY 02/24/21 17:35 03/02/21 08:28 Amphetamine/ Dextroamphetamine (Adderall) 10 mg QAM PO 03/02/21 09:00 03/02/21 08:28 Bisacodyl (Dulcolax Suppository) 10 mg DAILYPRN PRN [place] CONSTIPATION 02/23/21 13:35 Bupropion HCl (Zyban, Wellbutrin Sr) 150 mg DAILY PO 02/24/21 09:00 03/02/21 08:30 Calcitonin [place] (Miacalcin (Fortical)) 1 sprays DAILY NA 02/23/21 17:00 03/01/21 09:01 DC 03/01/21 08:54 Cephalexin Monohydrate (Keflex) 500 mg BID PO 02/23/21 21:00 02/24/21 21:01 DC 02/24/21 21:19 Cephalexin Monohydrate (Keflex) 500 mg BID PO 03/01/21 21:00 03/02/21 08:29 Clonidine HCl (Catapres) 0.1 mg QHS PO 02/23/21 21:00 02/24/21 08:20 DC 02/23/21 20:53 Clonidine HCl (Catapres) 0.1 mg TID PO 02/24/21 09:00 03/02/21 15:05 Docusate Sodium (Colace) 100 mg BID PO 02/23/21 21:00 02/27/21 20:38 Heparin Sodium (Porcine) (Heparin) 5,000 units Q12H SC 02/23/21 21:00 03/02/21 08:30 Home Med (Med Rec Complete!) ASDIRECTED XX 02/23/21 14:30 02/23/21 14:46 DC Hydroxyzine HCl (Atarax) 25 mg Q6HP PRN PO ANXIETY 02/23/21 13:55 02/28/21 10:59 DC 02/24/21 13:39 Hydroxyzine HCl (Atarax) 25 mg QHS PO 03/01/21 21:00 03/01/21 21:07 Hydroxyzine HCl (Atarax) 25 mg QHS PRN PO ANXIETY 02/28/21 20:00 03/01/21 15:18 DC Lactobacillus Acidophilus (Bacid) 1 ea TID PO 02/23/21 16:00 03/02/21 15:05 Lidocaine (Lidoderm Patch) 1 patch DAILY TD 02/24/21 09:00 03/02/21 08:30 Magnesium Oxide (Mag-Ox) 400 mg DAILY PO 02/28/21 09:00 03/02/21 08:29 Miconazole Nitrate (Monistat-7) 1 APPLICATORFUL QHS PV 03/01/21 21:00 03/05/21 21:01 03/01/21 21:08 Nicotine (Nicoderm Cq 14mg) 1 patch DAILY TD 02/24/21 09:30 03/02/21 08:28 Nitrofurantoin Monoh/Nitrofur Macro (Macrobid) 100 mg DAILY PO 02/25/21 09:00 02/23/21 17:22 DC Non-Formulary Medication ( See Comment Field Below ) REMOVE LIDODERM PATCH DAILY@21 XX 02/23/21 21:00 03/01/21 21:08 Pantoprazole Sodium (Protonix) 40 mg DAILY PO 02/24/21 09:00 02/23/21 13:54 DC Polyethylene Glycol (Miralax) 1 pkt DAILY PRN PO CONSTIPATION 02/23/21 13:35 Pregabalin (Lyrica) 100 mg TID PO 02/23/21 16:00 03/02/21 15:05 Ramelteon (Rozerem) 8 mg QHS PRN PO INSOMNIA 02/23/21 19:50 02/28/21 20:45 Senna (Senokot) 1 tab QHS PO 02/23/21 21:00 02/27/21 20:38 Vitamin D (Vitamin D) 1,000 units BID PO 02/28/21 09:00 03/02/21 08:29 MARLI FLORES MD Mar 02, 2021 15:08
[2021-03-02 15:36] LABS: ALT/SGPT 82 U/L (12-78); BLOOD UREA NITROGEN 28 MG/DL (7-18); CALCIUM LEVEL 9.6 MG/DL (8.8-10.2); CARBON DIOXIDE LEVEL 27 MEQ/L (21-32); CHLORIDE LEVEL 107 MEQ/L (98-107); CREATININE FOR GFR 0.77 MG/DL (0.55-1.30); GLOMERULAR FILTRATION RATE > 60.0 (>45); GLUCOSE, FASTING 100 MG/DL (70-100); POTASSIUM SERUM 4.4 MEQ/L (3.5-5.1); SODIUM LEVEL 139 MEQ/L (136-145)
[2021-03-02 15:37] LABS: ALBUMIN 3.6 GM/DL (3.2-5.2); BILIRUBIN,TOTAL 0.3 MG/DL (0.2-1.0); TOTAL PROTEIN 7.2 GM/DL (6.4-8.2)
[2021-03-02 20:10] VITALS: BP 138/64
[2021-03-02] MEDS: MICONAZOLE-7 VAGINAL 2% CREAM 47.7 GM PV SCH (20:25)
[2021-03-02] MEDS: hydrOXYzine 25 MG TAB PO SCH (20:25)
[2021-03-02] MEDS: SENNA 8.6 MG TAB (SENOKOT) PO SCH (20:25)
[2021-03-02] MEDS: **NOTE PATIENT COMMENT** MISC XX SCH (20:25)
[2021-03-03 05:30] VITALS: BP 112/58
[2021-03-03] MEDS: COMBIVENT RESPIMAT 100-20MCG INHALER 4GM INH SCH ×2 (07:15→20:29)
[2021-03-03] MEDS: NICOTINE 14 MG/24 HR TRANSDERMAL TD SCH (08:14)
[2021-03-03] MEDS: buPROPion **SR TABLET** (ZYBAN) 150MG PO SCH (08:14)
[2021-03-03] MEDS: cloNIDine 0.1MG TABLET PO SCH ×3 (08:14→20:08)
[2021-03-03] MEDS: ADDERALL 5 MG TAB PO SCH (08:14)
[2021-03-03] MEDS: PREGABALIN 100 MG CAP (LYRICA) PO SCH ×3 (08:14→20:07)
[2021-03-03] MEDS: DOCUSATE SODIUM 100MG CAPSULE PO SCH ×2 (08:14→20:06)
[2021-03-03] MEDS: ACETAMINOPHEN 500 MG TAB PO SCH ×3 (08:15→20:08)
[2021-03-03] MEDS: LACTOBACILLUS ACIDOPHILUS CAP (BACID) PO SCH ×3 (08:15→20:07)
[2021-03-03] MEDS: MAGNESIUM OXIDE 400MG TAB (MAG-OX) PO SCH (08:15)
[2021-03-03] MEDS: VITAMIN D 1,000 INTERNATIONAL UNITS TABLET PO SCH ×2 (08:15→20:07)
[2021-03-03] MEDS: LIDOCAINE 5% (LIDODERM) PATCH TD SCH (08:15)
[2021-03-03] MEDS: HEPARIN SOD (PORCINE) 5000UNITS/ML 1ML VIAL/SYRINGE SC SCH ×2 (08:16→20:08)
[2021-03-03] MEDS: CEPHALEXIN 500 MG CAP PO SCH ×2 (09:01→20:07)
--- NOTE | 2021-03-03 09:36 | IPNPDOC ---
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 She was worked up by orthopedics outpatient where she was casted for a left distal radial and ulnar fracture, presented to [facility] ED on 02-20-21 complaining of new back pain since her fall. The patient was encephalopathic on admission with UDS positive for amphetamines and benzodiazepines which were prescribed meds for patient and discontinued. She was found additionally to have UTI with U cx positive for klebsiella pneumonia and was started on antibiotics. Lumbar CT showed, Fracture of the L4 inferior endplate extending into the right lateral vertebral body wall with minimal vertebral height loss and cervical CT showed spinal stenosis at C5-C6. She was evaluated by orthopedics who prescribed a TLSO brace, had mobility impairments due to pain, and was deemed medically nohemi ropriate for discharge to [facility]U on 02-23-21. 02/27/2021 She notes pain generally well controlled with Tylenol, prefers not to take opiates and is having regular BM. The pain causes her anxiety to escalate. 02/28/2021 . We discussed in greater depth protracted challenges with complicated grief, anxiety stemming from the loss of her youngest son in a motor vehicle accident years ago. She notes poor sleeping, pain management is adequate at about 5 out of 10 with Tylenol, preference not to use anything too strong. Back pain and lower extremity pain persists as well as aching soreness in the left upper extremity. She shares image from a year ago with a note of moments success in which her pain was well controlled. She was enjoying the moment with her grandchildren .Tremor seems to be less severe today. She was open to the consideration of online meditation and relaxation, guided imagery techniques to try as part of her own wellness program. 03/01/2021 We discussed her ongoing progress, and she indicated that she had tried to self- DC # meds prior to admission, and now realizes she functioned better, for example with her stimulants, currently lacks energy, focus without it. She wants to avoid hydrocodone and minimize Xanax if possible and looks forward to returning to her therapists and rx protocols. Case management reviewed and confirmed with pharmacy records that she has previously been recently prescribed Hydrocodone, Lyrica, Adderall, Xanax, Buproprion, Clonidine, Ambien, Hydrox izine. Pain level 5-7/10, moving bowels regularly. 7. patient much better spirits this morning seems clearer that she did sleep somewhat better last night. The full pharmacological review on her meds and indeed she had been on Adderall, adding that he feels continue to help improve focus and concentration. 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 Initially after his son . She jumped right into working with [employer] and other advocacy groups, but that proved to be too stressful. She has follow-up appointments and intends to continue her work with her therapist, feels she is turning a corner there. She is regaining optimism in her ability to return to independent function and manage her chronic pain as the pain from the fractures continues to lessen. 7. , much brighter affect today, says she feels good today, spontaneous smile and less complaint of pain. She is sleeping better, although awakening early at 4:30, with the scheduled Vistaril. Resumption of Adderall seems to have restored sense of energy and ability to focus. She is drinking more fluids. Admits to continued frequency and some dysuria with the UTI. PHYSICAL EXAM: GENERAL: She is alert, conversant, no distress, makeup on today, CN II-XII intact, tremor is gone, continues with the TLSO. HEENT: Trachea midline. No stridor, no icterus, no pallor, no neck masses appreciated, oral mucosa moist. LUNGS: No rhonchi, scattered bilateral occasional wheezing at bases, no rales. HEART: S1, S2 heard. No gallops, no murmurs appreciated ABDOMEN: Soft, nontender, no masses. EXTREMITIES: No peripheral edema. Homans negative. Left upper extremity soft splint/ wrapped, sensation intact, Distal digits, able to wiggle fingers, left thumb painful when attempts slight movement. LOW BACK: Exquisitely tender to palpation . L4-5 region with paraspinal spasms. FUNCTIONAL STATUS: . , working on reestablishing safe independence in room privileges. Pt instructed in safety and strategies when using a vaccum in her apartment once she returns home while maintaining back precautions and overal good body mechanics. Pt practiced sequencing and managing the vaccum around the rehab apartment to assess balance, safety, and back precautions throughout IADL tasks. Pt showing increased anxiety when engaging in new tasks as well as poor judgment, however, she was able to safely simulate vaccuming all throughout the apartment with no LOB noted. Pt required min vc's to be careful with the cord and also discussed getting a cordless vaccum to use at home to prevent future falls. Pt able to squat with no LOB to plug in the vaccum cord. Pt then practiced a shower transfer with a shower chair x2; pt increased in confidence and safety with each trial. She will require SBA for shower transfer. 03.02.2021 Session focused on strengthening and endurance; no significant concerns noted. Educated Pt. on room privileges and Pt. verbalizes back to therapist need to wear TLSO and use cane with all mobility OOB. Will have trial BSC transfers during night without donning TLSO. 03.01.2021 Patient demonstrates very good motivation during session and demonstrates SBA/MOd level mobility with use of SPC. Patient performs single UE chair push-ups and stair training during session as well for LE strengthening; 02.28.2021 Functional progress discussed in team meeting , therapy notes that she tolerates 15 min on nu step with no adverse effects noted. Noting improved carryover with safety cues for ambulatory activities; ambulates functional distances SBA and progressing to mod I over even surfaces with demonstration of improved safety awareness. ST eval and RX cognitive processing issues. Labs U/A Nitrite + and Cx+ >100K Klebsiella See below left. 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 L4 nondisplaced fracture. She is progressing in therapy using her brace. f/u ortho outpatient, she also has chronic pain in setting of cervical stenosis, continue outpatient FOLLOW-up. Rian Monterroso 2. Recurrent urinary tract infections, per infectious disease. Completed Keflex for a total of 5 days, urine noted for persisting bacteruria, and positive for> 100k Klebsiella, clearing with resumption of Keflex although may need to consider different agent looking at sensitivities, limited by multiple allergies and concerned about using Levoquin since already has FMS and chronic pain, may put at risk for aggravation of pain. She is clearing the AMS, having less frequency, will continue Keflex with monistat . 3. Mildly elevated liver function tests, has history of fatty liver, outpatient workup to be considered, monitor and balance continued polypharmacy needed for optimal cognitive emotional functioning. 4. Hypertension. Continue clonidine 0.1. 3 times a day. Continue monitoring. 5. Nicotine patch for Nicotine dependence 6. complicated grief, depression, anxiety and pain contributing to insomnia. Scheduled Vistaril. Explored further with patient regarding prior RX tolerated or helpful, resumed Adderall she previously maintained better focus and concentration with, seems to be helping. 7. Dietary supplementation to optimize bone healing, on Spiritwood Calcitonin, addition of Vit D and Magnesium has helped allay some muscle pain and anxiety issues. TIME SPENT: Chart Review, examination and documentation [40] minutes. Allergies Coded Allergies: azithromycin (Unverified Allergy, Intermediate, LIPS SWELL/RASH, 08/04/20) prazosin (Unverified Allergy, Mild, RASH, 08/04/20) Sulfa (Sulfonamide Antibiotics) (Unverified Adverse Reaction, Mild, DIARRHEA, 08/04/20) doxycycline (Unverified Adverse Reaction, Mild, DIARRHEA, 08/04/20) morphine (Unverified Adverse Reaction, Mild, ITCHY, 08/04/20) sulfacetamide (Verified Adverse Reaction, Mild, DIARRHEA, 08/04/20) sulfur (Verified Adverse Reaction, Mild, DIARRHEA, 08/04/20) Vital Signs Vital Signs Date Time Temp Pulse Resp B/P (MAP) Pulse Ox O2 Delivery O2 Flow Rate FiO2 03/03/21 08:14 112/58 03/03/21 05:30 97.5 56 18 97 Room Air Laboratory Data CBC/BMP Laboratory Tests 03/02/21 14:05 Labs 24H Laboratory Tests 2 03/02/21 14:05: Anion Gap 5L, Glomerular Filtration Rate > 60.0, Calcium Level 9.6, Total Bilirubin 0.3, Aspartate Amino Transf (AST/SGOT) 38H, Alanine Aminotransferase (ALT/SGPT) 82H, Alkaline Phosphatase 112, Total Protein 7.2, Albumin 3.6, Albumin/Globulin Ratio 1.0L Microbiology Microbiology 02/28/21 Urine Culture - Final, Complete Klebsiella Pneumoniae Current Medications Current Medications Current Medications Medications (Trade) Dose Ordered Sig/Chioma Route PRN Reason Start Time Stop Time Status Last Admin Dose Admin Acetaminophen (Tylenol Tab) 500 mg TID PO 02/23/21 16:00 03/03/21 08:15 Albuterol/ Ipratropium (Combivent Respimat 100-20mcg) 1 puff RTID INH 02/23/21 20:00 03/03/21 07:15 Alprazolam (Xanax) 0.5 mg TIDP PRN PO ANXIETY 02/24/21 17:35 03/02/21 17:40 Amphetamine/ Dextroamphetamine (Adderall) 10 mg QAM PO 03/02/21 09:00 03/03/21 08:14 Bisacodyl (Dulcolax Suppository) 10 mg DAILYPRN PRN OK CONSTIPATION 02/23/21 13:35 Bupropion HCl (Zyban, Wellbutrin Sr) 150 mg DAILY PO 02/24/21 09:00 03/03/21 08:14 Calcitonin Spirit[place] (Miacalcin (Fortical)) 1 sprays DAILY NA 02/23/21 17:00 03/01/21 09:01 DC 03/01/21 08:54 Cephalexin Monohydrate (Keflex) 500 mg BID PO 02/23/21 21:00 02/24/21 21:01 DC 02/24/21 21:19 Cephalexin Monohydrate (Keflex) 500 mg BID PO 03/01/21 21:00 03/03/21 09:01 Clonidine HCl (Catapres) 0.1 mg QHS PO 02/23/21 21:00 02/24/21 08:20 DC 02/23/21 20:53 Clonidine HCl (Catapres) 0.1 mg TID PO 02/24/21 09:00 03/03/21 08:14 Docusate Sodium (Colace) 100 mg BID PO 02/23/21 21:00 03/03/21 08:14 Heparin Sodium (Porcine) (Heparin) 5,000 units Q12H SC 02/23/21 21:00 03/03/21 08:16 Home Med (Med Rec Complete!) ASDIRECTED XX 02/23/21 14:30 02/23/21 14:46 DC Hydroxyzine HCl (Atarax) 25 mg Q6HP PRN PO ANXIETY 02/23/21 13:55 02/28/21 10:59 DC 02/24/21 13:39 Hydroxyzine HCl (Atarax) 25 mg QHS PO 03/01/21 21:00 03/02/21 20:25 Hydroxyzine HCl (Atarax) 25 mg QHS PRN PO ANXIETY 02/28/21 20:00 03/01/21 15:18 DC Lactobacillus Acidophilus (Bacid) 1 ea TID PO 02/23/21 16:00 03/03/21 08:15 Lidocaine (Lidoderm Patch) 1 patch DAILY TD 02/24/21 09:00 03/03/21 08:15 Magnesium Oxide (Mag-Ox) 400 mg DAILY PO 02/28/21 09:00 03/03/21 08:15 Miconazole Nitrate (Monistat-7) 1 APPLICATORFUL QHS PV 03/01/21 21:00 03/05/21 21:01 03/02/21 20:25 Nicotine (Nicoderm Cq 14mg) 1 patch DAILY TD 02/24/21 09:30 03/03/21 08:14 Nitrofurantoin Monoh/Nitrofur Macro (Macrobid) 100 mg DAILY PO 02/25/21 09:00 02/23/21 17:22 DC Non-Formulary Medication ( See Comment Field Below ) REMOVE LIDODERM PATCH DAILY@21 XX 02/23/21 21:00 03/02/21 20:25 Pantoprazole Sodium (Protonix) 40 mg DAILY PO 02/24/21 09:00 02/23/21 13:54 DC Polyethylene Glycol (Miralax) 1 pkt DAILY PRN PO CONSTIPATION 02/23/21 13:35 Pregabalin (Lyrica) 100 mg TID PO 02/23/21 16:00 03/03/21 08:14 Ramelteon (Rozerem) 8 mg QHS PRN PO INSOMNIA 02/23/21 19:50 02/28/21 20:45 Senna (Senokot) 1 tab QHS PO 02/23/21 21:00 03/02/21 20:25 Vitamin D (Vitamin D) 1,000 units BID PO 02/28/21 09:00 03/03/21 08:15 MARLI FLORES MD Mar 03, 2021 09:36
[2021-03-03 14:00] VITALS: BP 129/60
[2021-03-03] MEDS: ALPRAZolam 0.5 MG TAB PO PRN ×2 (17:35→20:07)
[2021-03-03 20:00] VITALS: BP 95/46
[2021-03-03] MEDS: SENNA 8.6 MG TAB (SENOKOT) PO SCH (20:07)
[2021-03-03] MEDS: hydrOXYzine 25 MG TAB PO SCH (20:07)
[2021-03-03] MEDS: RAMELTEON 8 MG TAB (ROZEREM) PO PRN (20:07)
[2021-03-03] MEDS: MICONAZOLE-7 VAGINAL 2% CREAM 47.7 GM PV SCH (20:09)
[2021-03-03] MEDS: **NOTE PATIENT COMMENT** MISC XX SCH (20:09)
[2021-03-04 05:49] VITALS: BP 113/54
[2021-03-04] MEDS: COMBIVENT RESPIMAT 100-20MCG INHALER 4GM INH SCH ×3 (07:26→20:43)
[2021-03-04] MEDS: ALPRAZolam 0.5 MG TAB PO PRN ×3 (08:22→20:35)
[2021-03-04] MEDS: buPROPion **SR TABLET** (ZYBAN) 150MG PO SCH (08:22)
[2021-03-04] MEDS: LACTOBACILLUS ACIDOPHILUS CAP (BACID) PO SCH ×3 (08:22→20:35)
[2021-03-04] MEDS: HEPARIN SOD (PORCINE) 5000UNITS/ML 1ML VIAL/SYRINGE SC SCH ×2 (08:22→20:35)
[2021-03-04] MEDS: DOCUSATE SODIUM 100MG CAPSULE PO SCH ×2 (08:22→20:36)
[2021-03-04] MEDS: PREGABALIN 100 MG CAP (LYRICA) PO SCH ×3 (08:23→20:36)
[2021-03-04] MEDS: ACETAMINOPHEN 500 MG TAB PO SCH ×3 (08:23→20:36)
[2021-03-04] MEDS: ADDERALL 5 MG TAB PO SCH (08:23)
[2021-03-04] MEDS: CEPHALEXIN 500 MG CAP PO SCH ×2 (08:23→20:35)
[2021-03-04] MEDS: VITAMIN D 1,000 INTERNATIONAL UNITS TABLET PO SCH ×2 (08:23→20:36)
[2021-03-04] MEDS: MAGNESIUM OXIDE 400MG TAB (MAG-OX) PO SCH (08:23)
[2021-03-04] MEDS: cloNIDine 0.1MG TABLET PO SCH ×3 (08:24→20:39)
[2021-03-04] MEDS: NICOTINE 14 MG/24 HR TRANSDERMAL TD SCH (08:24)
[2021-03-04] MEDS: LIDOCAINE 5% (LIDODERM) PATCH TD SCH (08:25)
[2021-03-04 14:00] VITALS: BP 118/53
[2021-03-04 20:00] VITALS: BP 116/53
[2021-03-04] MEDS: RAMELTEON 8 MG TAB (ROZEREM) PO PRN (20:35)
[2021-03-04] MEDS: hydrOXYzine 25 MG TAB PO SCH (20:35)
[2021-03-04] MEDS: MICONAZOLE-7 VAGINAL 2% CREAM 47.7 GM PV SCH (20:36)
[2021-03-04] MEDS: SENNA 8.6 MG TAB (SENOKOT) PO SCH (20:36)
[2021-03-04] MEDS: **NOTE PATIENT COMMENT** MISC XX SCH (20:36)
[2021-03-05 05:01] VITALS: BP 126/61
[2021-03-05] MEDS: COMBIVENT RESPIMAT 100-20MCG INHALER 4GM INH SCH ×4 (07:30→20:22)
[2021-03-05] MEDS: HEPARIN SOD (PORCINE) 5000UNITS/ML 1ML VIAL/SYRINGE SC SCH ×2 (07:43→21:02)
[2021-03-05] MEDS: cloNIDine 0.1MG TABLET PO SCH ×3 (07:44→20:53)
[2021-03-05] MEDS: PREGABALIN 100 MG CAP (LYRICA) PO SCH ×3 (07:44→21:00)
[2021-03-05] MEDS: LACTOBACILLUS ACIDOPHILUS CAP (BACID) PO SCH ×3 (07:44→21:00)
[2021-03-05] MEDS: CEPHALEXIN 500 MG CAP PO SCH ×2 (07:44→21:00)
[2021-03-05] MEDS: ALPRAZolam 0.5 MG TAB PO PRN ×2 (07:44→17:02)
[2021-03-05] MEDS: VITAMIN D 1,000 INTERNATIONAL UNITS TABLET PO SCH ×2 (07:45→21:00)
[2021-03-05] MEDS: buPROPion **SR TABLET** (ZYBAN) 150MG PO SCH (07:45)
[2021-03-05] MEDS: MAGNESIUM OXIDE 400MG TAB (MAG-OX) PO SCH (07:45)
[2021-03-05] MEDS: NICOTINE 14 MG/24 HR TRANSDERMAL TD SCH (07:46)
[2021-03-05] MEDS: ADDERALL 5 MG TAB PO SCH (07:46)
[2021-03-05] MEDS: LIDOCAINE 5% (LIDODERM) PATCH TD SCH (07:47)
[2021-03-05] MEDS: DOCUSATE SODIUM 100MG CAPSULE PO SCH ×2 (07:47→21:00)
[2021-03-05] MEDS: ACETAMINOPHEN 500 MG TAB PO SCH ×3 (07:47→21:01)
[2021-03-05 14:00] VITALS: BP 114/53
[2021-03-05 20:00] VITALS: BP 108/64
[2021-03-05] MEDS: MICONAZOLE-7 VAGINAL 2% CREAM 47.7 GM PV SCH (21:00)
[2021-03-05] MEDS: hydrOXYzine 25 MG TAB PO SCH (21:01)
[2021-03-05] MEDS: SENNA 8.6 MG TAB (SENOKOT) PO SCH (21:01)
[2021-03-05] MEDS: **NOTE PATIENT COMMENT** MISC XX SCH (21:02)
[2021-03-06 06:00] VITALS: BP 119/56
[2021-03-06] MEDS: COMBIVENT RESPIMAT 100-20MCG INHALER 4GM INH SCH ×3 (07:37→19:31)
[2021-03-06] MEDS: buPROPion **SR TABLET** (ZYBAN) 150MG PO SCH (08:47)
[2021-03-06] MEDS: ALPRAZolam 0.5 MG TAB PO PRN ×2 (08:47→16:42)
[2021-03-06] MEDS: CEPHALEXIN 500 MG CAP PO SCH ×2 (08:47→21:28)
[2021-03-06] MEDS: ADDERALL 5 MG TAB PO SCH (08:47)
[2021-03-06] MEDS: cloNIDine 0.1MG TABLET PO SCH ×3 (08:48→21:29)
[2021-03-06] MEDS: NICOTINE 14 MG/24 HR TRANSDERMAL TD SCH (08:49)
[2021-03-06] MEDS: DOCUSATE SODIUM 100MG CAPSULE PO SCH ×2 (08:49→21:28)
[2021-03-06] MEDS: ACETAMINOPHEN 500 MG TAB PO SCH ×3 (08:49→21:30)
[2021-03-06] MEDS: VITAMIN D 1,000 INTERNATIONAL UNITS TABLET PO SCH ×2 (08:49→21:29)
[2021-03-06] MEDS: PREGABALIN 100 MG CAP (LYRICA) PO SCH ×3 (08:49→21:28)
[2021-03-06] MEDS: MAGNESIUM OXIDE 400MG TAB (MAG-OX) PO SCH (08:49)
[2021-03-06] MEDS: LIDOCAINE 5% (LIDODERM) PATCH TD SCH (08:50)
[2021-03-06] MEDS: HEPARIN SOD (PORCINE) 5000UNITS/ML 1ML VIAL/SYRINGE SC SCH ×2 (08:50→21:30)
[2021-03-06] MEDS: LACTOBACILLUS ACIDOPHILUS CAP (BACID) PO SCH ×3 (08:56→21:28)
--- NOTE | 2021-03-06 12:20 | IPNPDOC ---
Text Note Date of Service The patient was seen on 03/06/21. NOTE She was seen and examined. Functional status improving. Participating in therapy PHYSICAL EXAM: GENERAL: She is alert, conversant, no distress. Looks quite cheerful. HEENT: Trachea midline. No stridor, no icterus, no pallor, no neck masses appreciated LUNGS: No rhonchi, no wheezing, no rales. HEART: S1, S2 heard. No gallops, no murmurs appreciated ABDOMEN: Soft, nontender, no masses. EXTREMITIES: No peripheral edema. Warm extremities with good peripheral pulses. LOW BACK: felt washing machine tender to palpate. Assessment and plan 66-year-old F with past medical history of cervical stenosis, HTN who presents status post fall with left wrist fracture and lumbar compression fracture 1.L4 nondisplaced fracture. She is progressing in therapy using her brace. f/u ortho outpatient, she also has chronic pain in setting of cervical stenosis, continue outpatient FOLLOW-up. 2.Recurrent urinary tract infections, per infectious disease. Currently on Keflex for a total of 5 days. 3.Mildly elevated liver function tests, has history of fatty liver, outpatient workup to be considered. 4.Hypertension. Continue clonidine 0.1. 3 times a day. Continue monitoring. DVT prophylaxis with heparin Disposition as per primary. VS,Fishbone, I+O VS, Fishbone, I+O Vital Signs Date Time Temp Pulse Resp B/P (MAP) Pulse Ox O2 Delivery O2 Flow Rate FiO2 03/06/21 08:48 119/56 03/06/21 06:00 97.6 67 18 96 Room Air I&O- Last 24 Hours up to 6 AM 03/06/21 05:59 Intake Total 680 ml Balance 680 ml LEOPOLDO VELOZ MD Mar 06, 2021 12:20
[2021-03-06 14:00] VITALS: BP 116/56
[2021-03-06] MEDS: hydrOXYzine 25 MG TAB PO SCH (21:29)
[2021-03-06] MEDS: SENNA 8.6 MG TAB (SENOKOT) PO SCH (21:29)
[2021-03-06] MEDS: **NOTE PATIENT COMMENT** MISC XX SCH (21:30)
[2021-03-06 21:39] VITALS: BP 113/72
[2021-03-07 06:04] VITALS: BP 123/74
[2021-03-07] MEDS: COMBIVENT RESPIMAT 100-20MCG INHALER 4GM INH SCH (08:00)
[2021-03-07] MEDS: DOCUSATE SODIUM 100MG CAPSULE PO SCH (08:47)
[2021-03-07] MEDS: MAGNESIUM OXIDE 400MG TAB (MAG-OX) PO SCH (08:47)
[2021-03-07] MEDS: CEPHALEXIN 500 MG CAP PO SCH (08:47)
[2021-03-07] MEDS: VITAMIN D 1,000 INTERNATIONAL UNITS TABLET PO SCH (08:48)
[2021-03-07] MEDS: LACTOBACILLUS ACIDOPHILUS CAP (BACID) PO SCH (08:48)
[2021-03-07] MEDS: ADDERALL 5 MG TAB PO SCH (08:48)
[2021-03-07] MEDS: buPROPion **SR TABLET** (ZYBAN) 150MG PO SCH (08:48)
[2021-03-07] MEDS: LIDOCAINE 5% (LIDODERM) PATCH TD SCH (08:48)
[2021-03-07 08:49] VITALS: BP 123/74
[2021-03-07] MEDS: cloNIDine 0.1MG TABLET PO SCH (08:49)
[2021-03-07] MEDS: ACETAMINOPHEN 500 MG TAB PO SCH (08:49)
[2021-03-07] MEDS: PREGABALIN 100 MG CAP (LYRICA) PO SCH (08:50)
[2021-03-07] MEDS: HEPARIN SOD (PORCINE) 5000UNITS/ML 1ML VIAL/SYRINGE SC SCH (08:50)
[2021-03-07] MEDS: NICOTINE 14 MG/24 HR TRANSDERMAL TD SCH (08:53)
[2021-03-07] MEDS ORDERED: NICO14PA TD (10:12)
[2021-03-07] MEDS ORDERED: ADDE10TA PO (10:12)
[2021-03-07] MEDS ORDERED: ALPR0.5T3 PO (10:12)
[2021-03-07] MEDS ORDERED: LIDO5TD TD (10:12)
[2021-03-07] MEDS ORDERED: VITAD1000T PO (10:12)
[2021-03-07] MEDS ORDERED: RISATAB3 PO (10:12)
[2021-03-07] MEDS ORDERED: HYDR-3363 PO (10:12)
[2021-03-07] MEDS ORDERED: MAGN400T2 PO (10:12)
[2021-03-07 14:00] VITALS: BP 137/65
--- NOTE | 2021-03-07 20:25 | DS.PDOC ---
PM&R Discharge Summary Landcare Officer Discharge Note DATE OF ADMISSION: Feb 23, 2021 at 14:15 DATE OF DISCHARGE: Mar 07, 2021 at 14:40 Admission Diagnoses L4 Fracture Left wrist fracture C5-6 cervical stenosis HTN Chronic Hepatitis C Fibromyalgia Chronic neck pain OA Migraines takotsubo cardiomyopathy Transaminitis complicated grief, depression, anxiety and pain contributing to insomnia Discharge Diagnoses L4 Fracture Left wrist fracture C5-6 cervical stenosis HTN Chronic Hepatitis C Fibromyalgia Chronic neck pain OA Migraines UTI takotsubo cardiomyopathy Transaminitis complicated grief, depression, anxiety and pain contributing to insomnia Subjective: This is a 66 F with pmh chronic hepatitis C, fibromyalgia, chronic neck pain, OA, migraines, hx of UTIs, 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 She was worked up by orthopedics outpatient where she was casted for a left distal radial and ulnar fracture, presented to [facility] ED on 02-20-21 complaining of new back pain since her fall. The patient was encephalopathic on admission with UDS positive for amphetamines and benzodiazepines which were pr escribed meds for patient and discontinued. She was found additionally to have UTI with U cx positive for klebsiella pneumonia and was started on antibiotics. Lumbar CT showed, Fracture of the L4 inferior endplate extending into the right lateral vertebral body wall with minimal vertebral height loss and cervical CT showed spinal stenosis at C5-C6. She was evaluated by orthopedics who prescribed a TLSO brace, had mobility impairments due to pain, and was deemed medically appropriate for discharge to ARU on 02-23-21. 02/27/2021 She notes pain generally well controlled with Tylenol, prefers not to take opiates and is having regular BM. The pain causes her anxiety to escalate. 02/28/2021 . We discussed in greater depth protracted challenges with complicated grief, anxiety stemming from the loss of her youngest son in a motor vehicle accident years ago. She notes poor sleeping, pain management is adequate at about 5 out of 10 with Tylenol, preference not to use anything too strong. Back pain and lower extremity pain persists as well as aching soreness in the left upper extremity. She shares image from a year ago with a note of moments success in which her pain was well controlled. She was enjoying the moment with her grandchildren .Tremor seems to be less severe today. She was open to the consideration of online meditation and relaxation, guided imagery techniques to try as part of her own wellness program. 03/01/2021 We discussed her ongoing progress, and she indicated that she had tried to self- DC # meds prior to admission, and now realizes she functioned better, for example with her stimulants, currently lacks energy, focus without it. She wants to avoid hydrocodone and minimize Xanax if possible and looks forward to returning to her therapists and rx protocols. Case management reviewed and confirmed with pharmacy records that she has previously been recently prescribed Hydrocodone, Lyrica, Adderall, Xanax, Buproprion, Clonidine, Ambien, Hydroxizine. Pain level 5-7/10, moving bowels regularly. 7. patient much better spirits this morning seems clearer that she did sleep somewhat better last night. The full pharmacological review on her meds and indeed she had been on Adderall, adding that he feels continue to help improve focus and concentration. 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 Initially after his son . She jumped right into working with [employer] and other advocacy groups, but that proved to be too stressful. She has follow-up appointments and intends to continue her work with her therapist, feels she is turning a corner there. She is regaining optimism in her ability to return to independent function and manage her chronic pain as the pain from the fractures continues to lessen. 7..2020 , much brighter affect today, says she feels good today, spontaneous smile and less complaint of pain. She is sleeping better, although awakening early at 4:30, with the scheduled Vistaril. Resumption of Adderall seems to have restored sense of energy and ability to focus. She is drinking more fluids. Admits to continued frequency and some dysuria with the UTI. 03/07/2021 patient did well in the independent living apartment, asked for assistance appropriately had no falls. Anxiety was significantly reduced. Sleep pattern improved and confidence restored. Pain much better managed and UTI symptoms of frequency, burning, improved with continuation of the Keflex, in combination with Monistat. She achieved all goals and is felt stable for discharge to home with follow-up with home health orthopedics and her usual primary and psychiatric care teams. PHYSICAL EXAM: GENERAL: She is alert, conversant, no distress, makeup on today, CN II-XII intact, tremor is gone, continues with the TLSO. HEENT: Trachea midline. No stridor, no icterus, no pallor, no neck masses appreciated, oral mucosa moist. LUNGS: No rhonchi, lungs clear HEART: S1, S2 heard. No gallops, no murmurs appreciated ABDOMEN: Soft, nontender, no masses. EXTREMITIES: No peripheral edema. Homans negative. Left upper extremity soft splint/ wrapped, sensation intact, Distal digits, able to wiggle fingers, left thumb painful when attempts slight movement. LOW BACK: Exquisitely tender to palpation . L4-5 region with paraspinal spasms. Labs U/A Nitrite + and Cx+ >100K Klebsiella FUNCTIONAL STATUS AT DISCHARGE: Mod I self care, ambulation, mobility with TLSO using single point cane, development officer and compensatory strategies. MEDICATIONS: See Below. DISCHARGE DISPOSITION: [Home] TIME SPENT: Chart Review, examination and documentation 45 minutes. This document is generated using speech recognition software which may result in grammatical, typographical and individual word errors. Vital Signs/I&O Vital Sign - Last 24 Hours 03/06/21 03/06/21 03/07/21 03/07/21 21:29 21:39 06:04 08:49 Temp 97.1 97.3 Pulse 72 72 Resp 18 18 B/P (MAP) 115/63 113/72 (86) 123/74 (90) 123/74 Pulse Ox 95 96 O2 Delivery Room Air Room Air 03/07/21 14:00 Temp 98.3 Pulse 60 Resp 18 B/P (MAP) 137/65 (89) Pulse Ox 99 O2 Delivery Room Air I&O- Last 24 Hours up to 6 AM 03/07/21 05:59 Intake Total 1820 ml Balance 1820 ml Microbiology Microbiology 02/28/21 Urine Culture - Final, Complete Klebsiella Pneumoniae Medications Medications Current Medications Medications (Trade) Dose Ordered Sig/[place] Route PRN Reason Start Time Stop Time Status Last Admin Dose Admin Acetaminophen (Tylenol Tab) 500 mg TID PO 02/23/21 16:00 03/07/21 15:05 DC 03/07/21 08:49 Albuterol/ Ipratropium (Combivent Respimat 100-20mcg) 1 puff RTID INH 02/23/21 20:00 03/07/21 15:05 DC 03/05/21 20:22 Alprazolam (Xanax) 0.5 mg TIDP PRN PO ANXIETY 02/24/21 17:35 03/07/21 15:05 DC 03/06/21 16:42 Amphetamine/ Dextroamphetamine (Adderall) 10 mg QAM PO 03/02/21 09:00 03/07/21 15:05 DC 03/07/21 08:48 Bisacodyl (Dulcolax Suppository) [address] CONSTIPATION 02/23/21 13:35 03/07/21 15:05 DC Bupropion HCl (Zyban, Wellbutrin Sr) 150 mg DAILY PO 02/24/21 09:00 03/07/21 15:05 DC 03/07/21 08:48 Calcitonin [place] (Miacalcin (Fortical)) 1 sprays DAILY NA 02/23/21 17:00 03/01/21 09:01 DC 03/01/21 08:54 Cephalexin Monohydrate (Keflex) 500 mg BID PO 02/23/21 21:00 02/24/21 21:01 DC 02/24/21 21:19 Cephalexin Monohydrate (Keflex) 500 mg BID PO 03/01/21 21:00 03/07/21 15:05 DC 03/07/21 08:47 Clonidine HCl (Catapres) 0.1 mg QHS PO 02/23/21 21:00 02/24/21 08:20 DC 02/23/21 20:53 Clonidine HCl (Catapres) 0.1 mg TID PO 02/24/21 09:00 03/07/21 15:05 DC 03/07/21 08:49 Docusate Sodium (Colace) 100 mg BID PO 02/23/21 21:00 03/07/21 15:05 DC 03/07/21 08:47 Heparin Sodium (Porcine) (Heparin) 5,000 units Q12H SC 02/23/21 21:00 7/6/21 15:05 DC 03/06/21 21:30 Home Med (Med Rec Complete!) ASDIRECTED XX 02/23/21 14:30 02/23/21 14:46 DC Hydroxyzine HCl (Atarax) 25 mg Q6HP PRN PO ANXIETY 02/23/21 13:55 02/28/21 10:59 DC 02/24/21 13:39 Hydroxyzine HCl (Atarax) 25 mg QHS PO 03/01/21 21:00 03/07/21 15:05 DC 03/06/21 21:29 Hydroxyzine HCl (Atarax) 25 mg QHS PRN PO ANXIETY 02/28/21 20:00 03/01/21 15:18 DC Lactobacillus Acidophilus (Bacid) 1 ea TID PO 02/23/21 16:00 03/07/21 15:05 DC 03/07/21 08:48 Lidocaine (Lidoderm Patch) 1 patch DAILY TD 02/24/21 09:00 03/07/21 15:05 DC 03/07/21 08:48 Magnesium Oxide (Mag-Ox) 400 mg DAILY PO 02/28/21 09:00 03/07/21 15:05 DC 03/07/21 08:47 Miconazole Nitrate (Monistat-7) 1 APPLICATORFUL QHS PV 03/01/21 21:00 03/05/21 21:01 DC 03/02/21 20:25 Nicotine (Nicoderm Cq 14mg) 1 patch DAILY TD 02/24/21 09:30 03/07/21 15:05 DC 03/06/21 08:49 Nitrofurantoin Monoh/Nitrofur Macro (Macrobid) 100 mg DAILY PO 02/25/21 09:00 02/23/21 17:22 DC Non-Formulary Medication ( See Comment Field Below ) REMOVE LIDODERM PATCH DAILY@21 XX 02/23/21 21:00 03/07/21 15:05 DC 03/06/21 21:30 Pantoprazole Sodium (Protonix) 40 mg DAILY PO 02/24/21 09:00 02/23/21 13:54 DC Polyethylene Glycol (Miralax) 1 pkt DAILY PRN PO CONSTIPATION 02/23/21 13:35 03/07/21 15:05 DC 03/05/21 07:45 Pregabalin (Lyrica) 100 mg TID PO 02/23/21 16:00 03/07/21 15:05 DC 03/07/21 08:50 Ramelteon (Rozerem) 8 mg QHS PRN PO INSOMNIA 02/23/21 19:50 03/07/21 15:05 DC 03/04/21 20:35 Senna (Senokot) 1 tab QHS PO 02/23/21 21:00 03/07/21 15:05 DC 03/06/21 21:29 Vitamin D (Vitamin D) 1,000 units BID PO 02/28/21 09:00 03/07/21 15:05 DC 03/07/21 08:48 Scheduled Bupropion Hcl (Bupropion HCl Sr) 150 Mg Tab.sr.12h, 150 MG PO DAILY, (Reported) Cephalexin (Cephalexin) 500 Mg Capsule, 500 MG PO BID Cholecalciferol (Vitamin D3) (Vitamin D3) 25 Mcg Tablet, 1,000 UNITS PO BID Clonidine HCl (Clonidine HCl) 0.1 Mg Tablet, 0.1 MG PO QHS, (Reported) may take 2 tablets if needed Dextroamphetamine/Amphetamine (Adderall 10 mg Tablet) 10 Mg Tablet, 1 TAB PO DAILY Estradiol (Vagifem) 10 Mcg Tablet, 10 MCG PV Q3D, (Reported) Hydroxyzine HCl (Hydroxyzine HCl) 25 Mg Tablet, 25 MG PO QHS L.acidoph/L.bulg/B.bif/S.therm (Merline-Bid Caplet) 1 Each Tablet, 1 EA PO TID Lidocaine (Lidocaine) 5% Adh..patch, 1 PATCH TD DAILY Magnesium Oxide (Magnesium Oxide) 400 Mg Tablet, 400 MG PO DAILY Nicotine (Nicotine Patch) 14 Mg Patch.td24, 1 PATCH TD DAILY Pregabalin (Pregabalin) 100 Mg Capsule, 100 MG PO TID, (Reported) Scheduled PRN Alprazolam (Alprazolam) 0.5 Mg Tablet, 0.5 MG PO TIDP PRN for ANXIETY Epinephrine (Epipen 2-Aleksandar) 0.3 Mg/0.3 Ml Inj, 0.3 MG INJ for ANAPHYLAXIS, (Reported) Allergies Coded Allergies: azithromycin (Unverified Allergy, Intermediate, LIPS SWELL/RASH, 08/04/20) prazosin (Unverified Allergy, Mild, RASH, 08/04/20) Sulfa (Sulfonamide Antibiotics) (Unverified Adverse Reaction, Mild, DIARRHEA, 08/04/20) doxycycline (Unverified Adverse Reaction, Mild, DIARRHEA, 08/04/20) morphine (Unverified Adverse Reaction, Mild, ITCHY, 08/04/20) sulfacetamide (Verified Adverse Reaction, Mild, DIARRHEA, 08/04/20) sulfur (Verified Adverse Reaction, Mild, DIARRHEA, 08/04/20) MARLI FLORES MD Mar 07, 2021 20:25
== END 2021-03-07 14:40 | disposition home or self-care (01) | DRG 560 ==
LOC: M PM&R 14:15
PROVIDERS: ADMIT Physical Medicine & Rehabilitation; ATTEND Physical Medicine & Rehabilitation
DX: S32.048D Other fracture of fourth lumbar vertebra, subsequent encounter for fracture with routine healing (principal); I51.81 Takotsubo syndrome; S52.602D Unspecified fracture of lower end of left ulna, subsequent encounter for closed fracture with routine healing; S52.502D Unspecified fracture of the lower end of left radius, subsequent encounter for closed fracture with routine healing; W07.XXXD Fall from chair, subsequent encounter; Y92.009 Unspecified place in unspecified non-institutional (private) residence as the place of occurrence of the external cause; Y99.8 Other external cause status; Y93.89 Activity, other specified; B18.2 Chronic viral hepatitis C; M79.7 Fibromyalgia; M54.2 Cervicalgia; M19.90 Unspecified osteoarthritis, unspecified site; F10.10 Alcohol abuse, uncomplicated; G43.909 Migraine, unspecified, not intractable, without status migrainosus; M48.02 Spinal stenosis, cervical region; Z74.09 Other reduced mobility; R53.1 Weakness; F32.9 Major depressive disorder, single episode, unspecified; F41.9 Anxiety disorder, unspecified; F15.10 Other stimulant abuse, uncomplicated; F19.10 Other psychoactive substance abuse, uncomplicated; Z79.899 Other long term (current) drug therapy; Z88.1 Allergy status to other antibiotic agents; Z88.2 Allergy status to sulfonamides; Z88.5 Allergy status to narcotic agent; Z88.8 Allergy status to other drugs, medicaments and biological substances

== ENCOUNTER 2021-03-10 23:16 | Inpatient (IN) | payer MEDICARE, MEDICAID ==
[~2021-03-10] VITALS: Ht 170.2 cm; Wt 77.7 kg
[~2021-03-10 23:16] MED LIST changes: +ADDE10TA PO; +ALPR0.5T3 PO; +LIDO5TD TD; +MAGN400T2 PO; +NICO14PA TD; +RISATAB3 PO; +VITAD1000T PO
[2021-03-11] MEDS ORDERED: NS 500 ML IV ONE (00:30)
[2021-03-11 01:10] LABS: BASO % 0.2 % (0.0-1.0); EOS % 0.1 % (0.0-3.0); HEMATOCRIT 35.6 % (36.0-47.0); HEMOGLOBIN 11.2 g/dl (12.0-15.5); LYMPH # 1.2 10^3/uL (1.5-5.0); LYMPH % 11.5 % (24.0-44.0); MEAN CORPUSCULAR HEMOGLOBIN 27.1 pg (27.0-33.0); MEAN CORPUSCULAR HGB CONC 31.5 g/dl (32.0-36.5); MONO # 1.1 10^3/uL (0.0-0.8); MONO % 10.6 % (2.0-8.0); NEUTROPHILS # 8.1 10^3/uL (1.5-8.5); NEUTROPHILS % 77.1 % (36.0-66.0); PLATELET COUNT, AUTOMATED 213 10^3/uL (150-450); RED BLOOD COUNT 4.14 10^6/uL (4.00-5.40); WHITE BLOOD COUNT 10.5 10^3/uL (4.0-10.0)
[2021-03-11 02:22] LABS: AMPHETAMINES LEVEL URINE POSITIVE (NEGATIVE); BARBITURATES URINE NEGATIVE (NEGATIVE); BENZODIAZEPINES URINE POSITIVE (NEGATIVE); CANNABINOIDS URINE POSITIVE (NEGATIVE); COCAINE METABOLITE URINE NEGATIVE (NEGATIVE); METHADONE URINE NEGATIVE (NEGATIVE); OPIATES URINE POSITIVE (NEGATIVE); PHENCYCLIDINE URINE NEGATIVE (NEGATIVE)
[2021-03-11 02:59] LABS: ALBUMIN 3.5 GM/DL (3.2-5.2); ALT/SGPT 75 U/L (12-78); BILIRUBIN,DIRECT 0.2 MG/DL (0.0-0.2); BLOOD UREA NITROGEN 35 MG/DL (7-18); CALCIUM LEVEL 8.7 MG/DL (8.8-10.2); CARBON DIOXIDE LEVEL 17 MEQ/L (21-32); CHLORIDE LEVEL 106 MEQ/L (98-107); CK-MB VALUE MASS 22.2 NG/ML (<3.6); CPK CREATINE PHOSPHOKINASE 15910 U/L (26-192); CREATININE FOR GFR 1.39 MG/DL (0.55-1.30); ETHYL ALCOHOL (ETHANOL) < 0.003 % (0.000-0.010); GLOMERULAR FILTRATION RATE 40.3 (>45); GLUCOSE, FASTING 44 MG/DL (70-100); LIPASE 59 U/L (73-393); MB/CK RELATIVE INDEX 0.14 (< OR =4); POTASSIUM SERUM 4.3 MEQ/L (3.5-5.1); SODIUM LEVEL 138 MEQ/L (136-145); TOTAL PROTEIN 6.9 GM/DL (6.4-8.2); TROPONIN I 0.02 NG/ML (< 0.10)
[2021-03-11] MEDS ORDERED: ISOVUE-370 76% 100ML VIAL As Ordered ONE (03:05)
[2021-03-11] MEDS ORDERED: NS 1,000 ML IV ONE (03:50)
--- NOTE | 2021-03-11 04:34 | REPVR ---
PROCEDURE INFORMATION: Exam: XR Left Forearm Exam date and time: 03/11/2021 2:24 AM Age: 66 years old Clinical indication: Other: Fall TECHNIQUE: Imaging protocol: XR Left forearm. Views: 2 views. COMPARISON: No relevant prior studies available. FINDINGS: Evaluation is slightly compromised by overlying cast material artifact and demineralized bones. Clinical follow-up for osteoporosis. There is acute, slightly comminuted, impacted, dorsally angulated and displaced distal radial fracture predominantly involving the metaphysis but may extend into the radiocarpal joint as well as distal radioulnar joint. There is a slightly comminuted, impacted distal ulnar metadiaphyseal junction fracture and slightly displaced fracture of the ulnar styloid tip. Degenerative changes of the visualized wrist and hand are noted. If there are symptoms related to the left wrist, hand or elbow, consider obtaining dedicated joint views. IMPRESSION: Distal radial and ulnar fractures. Findings, limitations and recommendations discussed above. Electronically signed by: Joshua Tejeda On 03/11/2021 04:33:04 AM
--- NOTE | 2021-03-11 04:35 | REPVR ---
PROCEDURE INFORMATION: Exam: XR Left Wrist Exam date and time: 03/11/2021 2:24 AM Age: 66 years old Clinical indication: Other: Fall TECHNIQUE: Imaging protocol: XR Left wrist. Views: 1 or 2 views. COMPARISON: No relevant prior studies available. FINDINGS: Evaluation is limited by artifact from overlying cast material and demineralized appearing bones. Follow-up for osteoporosis is advised. There is slightly comminuted, impacted distal radial fracture which demonstrates slight dorsal angulation and dorsal lateral displacement. Fracture appears to extend into the distal radioulnar joint and possibly radiocarpal joint. There is slightly comminuted, slightly impacted and slightly displaced fracture involving the distal ulnar metadiaphyseal junction as well as a separate slightly displaced fracture of the ulnar styloid tip. Degenerative changes at the basal joint of the thumb are noted. No carpal bone malalignment is seen. Intercarpal spacing appears to be maintained. There is soft tissue swelling around the distal forearm and wrist. IMPRESSION: Distal radial and ulnar fractures. Findings and limitations discussed above. Electronically signed by: Joshua Tejeda On 03/11/2021 04:35:19 AM
--- NOTE | 2021-03-11 05:09 | REPVR ---
PROCEDURE INFORMATION: Exam: CT Abdomen And Pelvis With Contrast Exam date and time: 03/11/2021 3:32 AM Age: 66 years old Clinical indication: Abdominal pain; Additional info: Abdominal and lumbar pain recent fracture TECHNIQUE: Imaging protocol: Computed tomography of the abdomen and pelvis with contrast. Radiation optimization: All CT scans at this facility use at least one of these dose optimization techniques: automated exposure control; mA and/or kV adjustment per patient size (includes targeted exams where dose is matched to clinical indication); or iterative reconstruction. Contrast material: ISOVUE 370; Contrast volume: 100 ml; Contrast route: INTRAVENOUS (IV); COMPARISON: CT ABD PELVIS W/O FOL BY WIT 08/04/2020 5:[address] lumbar spine February 20, 2021. Study limitations: Evaluation is slightly compromised by slight motion haziness. FINDINGS: LUNG BASES: Mild dependent atelectasis. VASCULAR: No abdominoaortic aneurysm, dissection, or retroperitoneal hematoma. There is aortoiliac atherosclerosis. PERITONEAL : No free air or free fluid. GI: No hiatal hernia. The distal esophagus and stomach are not sufficiently distended to evaluate wall thickening or for complete diagnostic evaluation by this exam. There is a 3.4 cm gas containing duodenal diverticulum adjacent to the pancreatic head and common bile duct. Non-specific fluid-filled loops of small bowel seen. No appearance to suggest a small-bowel obstruction. There is no focal mesenteric inflammation. Small nonspecific mesenteric lymph nodes are noted. No mesenteric or omental soft tissue hematoma. Scattered fecal material and gas within portions of the colon and rectum. No pericolonic inflammation. No evidence of acute diverticulitis. The appendix does not appear inflamed. HEPATOBILIARY, PANCREAS, SPLEEN: The liver is not enlarged. Hepatic attenuation is consistent with steatosis. No evidence of an acute hepatic injury is seen. The gallbladder is distended appearing hydropic, measuring 5.4 cm in transverse diameter. No calcified gallstones seen. The common bile duct measures 10 mm in diameter. No calcific choledocholithiasis is seen. If there are symptoms related to the gallbladder, consider ultrasound or HIDA scan for further evaluation. No pancreatic ductal dilation seen. No pancreatic inflammation. Spleen not enlarged. No evidence of an acute splenic injury. Punctate splenic calcifications noted, consistent with prior granulomatous disease. ADRENALS, KIDNEYS, BLADDER, RETROPERITONEAL: Adrenals within normal limits. No hydronephrosis. Symmetric renal enhancement. Mild nonspecific perinephric stranding. No perinephric hematoma. No evidence of an acute renal injury. 10 mm hypodense left upper pole renal lesion noted, most likely a cyst. Based upon this imaging appearance, no further workup for this lesion is necessary. Mildly distended urinary bladder. No perivesical stranding or fluid. No bladder wall thickening. PELVIC: No dominant cystic pelvic mass seen. The uterus is not visualized. MUSCULOSKELETAL: Asymmetric prominent fibroglandular tissue seen within the visualized right breast. This could be technical artifact related to differences in positioning. Correlation with clinical breast exam is advised. The bones appear slightly demineralized. Again noted is recent appearing mild compression fracture deformity involving the inferior endplate of L4. There is slight retropulsion. This is similar to the prior lumbar spine CT but new compared to the prior abdomen/pelvic CT. No additional acute osseous injury is seen. IMPRESSION: L4 mild inferior endplate compression fracture deformity is not significantly changed compared to February 20, 2021. No evidence of an acute interval abdominal or pelvic injury is seen otherwise. Hydropic appearing gallbladder. Clinical correlation is advised. Consider ultrasound or HIDA scan for further evaluation if there are related symptoms. Nonspecific gastrointestinal findings. Other nonemergent findings discussed above. Electronically signed by: Joshua Tejeda On 03/11/2021 05:08:52 AM
[2021-03-11 07:25] LABS: RSV AMPLIFICATION NEGATIVE (NEGATIVE)
[2021-03-11] MEDS ORDERED: NICO14DI24 TD (07:30)
[2021-03-11] MEDS ORDERED: SIMV20TA22 PO (07:30)
[2021-03-11] MEDS ORDERED: MAGN400T2 PO (07:30)
[2021-03-11] MEDS ORDERED: AMPH1CAP4 PO (07:30)
[2021-03-11] MEDS ORDERED: HYDR-3363 PO (07:30)
[2021-03-11] MEDS ORDERED: ALPR2TAB3 PO (07:30)
[2021-03-11] MEDS ORDERED: D31000TA2 PO (07:30)
[2021-03-11] MEDS ORDERED: MAALOX 30 ML SUSP *UDC PO PRN (08:05)
[2021-03-11] MEDS ORDERED: MOM 30ML SUSPENSION UDC PO PRN (08:05)
[2021-03-11] MEDS: CALCITONIN NASAL SPRAY 3.7 ML BTL SCH (09:00)
[2021-03-11] MEDS: NICOTINE 14 MG/24 HR TRANSDERMAL TD SCH (09:06)
[2021-03-11] MEDS: NS 1,000 ML IV SCH ×2 (09:06→14:49)
[2021-03-11] MEDS: traMADol 50 MG TAB PO PRN (09:07)
[2021-03-11] MEDS: VITAMIN D 1,000 INTERNATIONAL UNITS TABLET PO SCH (09:07)
[2021-03-11] MEDS: MAGNESIUM OXIDE 400MG TAB (MAG-OX) PO SCH (09:07)
[2021-03-11] MEDS: buPROPion **SR TABLET** (ZYBAN) 150MG PO SCH (10:23)
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
[2021-03-11] MEDS ORDERED: hydrOXYzine 25 MG TAB PO ONE (12:00)
[2021-03-11 13:27] LABS: BLOOD UREA NITROGEN 25 MG/DL (7-18); CALCIUM LEVEL 8.2 MG/DL (8.8-10.2); CARBON DIOXIDE LEVEL 20 MEQ/L (21-32); CHLORIDE LEVEL 110 MEQ/L (98-107); CREATININE FOR GFR 0.88 MG/DL (0.55-1.30); GLOMERULAR FILTRATION RATE > 60.0 (>45); GLUCOSE, FASTING 78 MG/DL (70-100); SODIUM LEVEL 143 MEQ/L (136-145)
[2021-03-11] MEDS: HEPARIN SOD (PORCINE) 5000UNITS/ML 1ML VIAL/SYRINGE SC SCH ×2 (14:48→20:39)
[2021-03-11] MEDS: ACETAMINOPHEN TAB 650MG DOSE (2X325MG) PO PRN ×3 (14:49→20:40)
[2021-03-11 17:45] VITALS: BP 118/48
[2021-03-11] MEDS: hydrOXYzine 25 MG TAB PO SCH (20:35)
[2021-03-11] MEDS: SIMVASTATIN 20 MG TAB PO SCH (20:36)
[2021-03-11] MEDS: cloNIDine 0.1MG TABLET PO SCH (20:39)
[2021-03-11 22:00] VITALS: BP 112/62
[2021-03-11] MEDS ORDERED: diphenhydrAMINE 25MG CAP PO ONE (23:40)
[2021-03-12] MEDS: HEPARIN SOD (PORCINE) 5000UNITS/ML 1ML VIAL/SYRINGE SC SCH ×3 (05:21→20:23)
[2021-03-12 06:00] VITALS: BP 118/60
[2021-03-12 07:10] LABS: HEMATOCRIT 29.6 % (36.0-47.0); HEMOGLOBIN 9.4 g/dl (12.0-15.5); MEAN CORPUSCULAR HEMOGLOBIN 27.2 pg (27.0-33.0); MEAN CORPUSCULAR HGB CONC 31.8 g/dl (32.0-36.5); MEAN CORPUSCULAR VOLUME 85.5 fl (80.0-96.0); PLATELET COUNT, AUTOMATED 185 10^3/uL (150-450); RED BLOOD COUNT 3.46 10^6/uL (4.00-5.40); WHITE BLOOD COUNT 4.5 10^3/uL (4.0-10.0)
[2021-03-12 07:43] LABS: ALBUMIN 2.8 GM/DL (3.2-5.2); ALT/SGPT 61 U/L (12-78); BILIRUBIN,TOTAL 0.5 MG/DL (0.2-1.0); BLOOD UREA NITROGEN 16 MG/DL (7-18); CALCIUM LEVEL 8.4 MG/DL (8.8-10.2); CARBON DIOXIDE LEVEL 21 MEQ/L (21-32); CHLORIDE LEVEL 115 MEQ/L (98-107); CPK CREATINE PHOSPHOKINASE 6206 U/L (26-192); CREATININE FOR GFR 0.57 MG/DL (0.55-1.30); GLOMERULAR FILTRATION RATE > 60.0 (>45); GLUCOSE, FASTING 86 MG/DL (70-100); MAGNESIUM LEVEL 1.8 MG/DL (1.8-2.4); POTASSIUM SERUM 4.1 MEQ/L (3.5-5.1); SODIUM LEVEL 144 MEQ/L (136-145); TOTAL PROTEIN 5.6 GM/DL (6.4-8.2)
[2021-03-12] MEDS: MAGNESIUM OXIDE 400MG TAB (MAG-OX) PO SCH (09:11)
[2021-03-12] MEDS: VITAMIN D 1,000 INTERNATIONAL UNITS TABLET PO SCH (09:11)
[2021-03-12] MEDS: CALCITONIN NASAL SPRAY 3.7 ML BTL SCH (09:12)
[2021-03-12] MEDS: NICOTINE 14 MG/24 HR TRANSDERMAL TD SCH (09:13)
[2021-03-12] MEDS: traMADol 50 MG TAB PO PRN ×3 (09:14→22:32)
[2021-03-12] MEDS: ONDANSETRON 4MG/2ML VIAL IV PRN ×3 (09:14→22:27)
[2021-03-12] MEDS: buPROPion **SR TABLET** (ZYBAN) 150MG PO SCH (09:14)
[2021-03-12] MEDS ORDERED: LIDOCAINE 5% (LIDODERM) PATCH TD ONE (10:30)
[2021-03-12] MEDS: NS 1,000 ML IV SCH ×2 (10:47→17:34)
--- NOTE | 2021-03-12 11:41 | IPNPDOC ---
Text Note Date of Service The patient was seen on 03/12/21. NOTE Subjective: Patient is a 66-year-old female presented to the emergency depart ment with weakness yesterday. Patient appeared to be inebriated when she arrived to the emergency department but she is doing better today. Patient just complains of general soreness but is feeling better. Patient is having some pain in her wrist due to her wrist fracture. Patient had an uneventful night and is otherwise feeling well. Review of systems: General: Patient denies fevers HEENT: Patient denies headaches Cardiovascular: Patient denies chest pain Respiratory: Patient denies shortness of breath, cough GI: Patient denies abdominal pain, nausea, vomiting, diarrhea : Patient denies increased frequency or pain with urination Extremities: Patient denies swelling or pain in extremities Neurological: Patient denies numbness or tingling in legs Physical exam: Vitals: See below General: Alert and oriented female patient who was laying in bed when I walked in the room. Patient did not appear to be in any acute distress. HEENT: Normocephalic, atraumatic, moist mucous membranes. Neck: No lymphadenopathy or thyromegaly Cardiac: Regular rate and rhythm, no murmurs, normal S1, normal S2 Pulm: Clear to auscultation bilaterally. No wheezes, rhonchi, rales Abd: Nondistended, nontender to palpation, normal bowel sounds Ext: No edema bilateral lower extremities. Patient had splint on her left wrist and was neurovascularly intact distal to the splint. Labs: See below Imaging: No new imaging has been performed Assessment/plan: Patient is a 66-year-old female presented to the emergency department with increasing pain and altered mental status was found to have rhabdomyolysis 1. Rhabdomyolysis. Patient CK has decreased today. Patient received 2 L of IV fluid yesterday and will receive an additional 2 L today. Advised the patient to try to drink water as much as possible today as well. We will continue to monitor the patient. 2. Left ulna and radial fracture. Patient is splinted and we will continue to monitor with pain control 3. L4 compression fracture. Patient has pain control ordered with calcitonin and lidocaine patch. 4. Acute metabolic encephalopathy secondary to medications. Patient's medications are on hold at this time. Patient is alert and oriented and answer questions appropriately at this time. 5. Transaminitis. This has improved with hydration we will continue to monitor. 6. Acute kidney injury. This is most likely secondary to rhabdomyolysis. This is resolved at this time. 7. Hypoglycemia. Patient's blood sugars have been within the normal range. 8. Anxiety depression. We will hold the patient's benzodiazepines at this time we will continue with hydroxyzine. 9. ADHD. Holding Adderall. DVT Prophylaxis: Heparin Disposition: Patient is improving but will need to work with physical therapy as she was just discharged from acute rehab unit on 03/07/2021. VS,Fishbone, I+O VS, Fishbone, I+O Laboratory Tests 03/11/21 12:58 03/12/21 06:30 Vital Signs Date Time Temp Pulse Resp B/P (MAP) Pulse Ox O2 Delivery O2 Flow Rate FiO2 03/12/21 09:44 18 Room Air 03/12/21 06:00 98.5 64 118/60 (79) 96 I&O- Last 24 Hours up to 6 AM 03/12/21 06:00 Intake Total 2720 ml Output Total 500 ml Balance 2220 ml SIMRAN PELAEZ DO Mar 12, 2021 11:41
[2021-03-12 14:00] VITALS: BP 139/67
[2021-03-12] MEDS: ACETAMINOPHEN TAB 650MG DOSE (2X325MG) PO PRN (20:24)
[2021-03-12] MEDS: cloNIDine 0.1MG TABLET PO SCH (20:24)
[2021-03-12] MEDS: SIMVASTATIN 20 MG TAB PO SCH (20:24)
[2021-03-12] MEDS: hydrOXYzine 25 MG TAB PO SCH (20:24)
[2021-03-12 22:00] VITALS: BP 165/77
[2021-03-12] MEDS ORDERED: **NOTE PATIENT COMMENT** MISC XX ONE (22:00)
[2021-03-12] MEDS ORDERED: diphenhydrAMINE 25MG CAP PO ONE (22:15)
[2021-03-13] MEDS: ACETAMINOPHEN TAB 650MG DOSE (2X325MG) PO PRN ×2 (00:22→17:26)
[2021-03-13] MEDS: ONDANSETRON 4MG/2ML VIAL IV PRN ×2 (03:56→08:49)
[2021-03-13 06:00] VITALS: BP 153/81
[2021-03-13] MEDS: HEPARIN SOD (PORCINE) 5000UNITS/ML 1ML VIAL/SYRINGE SC SCH ×3 (06:15→21:39)
[2021-03-13 06:55] LABS: HEMATOCRIT 32.5 % (36.0-47.0); HEMOGLOBIN 10.6 g/dl (12.0-15.5); MEAN CORPUSCULAR HEMOGLOBIN 27.5 pg (27.0-33.0); MEAN CORPUSCULAR HGB CONC 32.6 g/dl (32.0-36.5); MEAN CORPUSCULAR VOLUME 84.2 fl (80.0-96.0); PLATELET COUNT, AUTOMATED 199 10^3/uL (150-450); RED BLOOD COUNT 3.86 10^6/uL (4.00-5.40); WHITE BLOOD COUNT 5.6 10^3/uL (4.0-10.0)
[2021-03-13 07:30] LABS: ALT/SGPT 65 U/L (12-78); BILIRUBIN,DIRECT 0.1 MG/DL (0.0-0.2); BILIRUBIN,TOTAL 0.6 MG/DL (0.2-1.0); BLOOD UREA NITROGEN 6 MG/DL (7-18); CALCIUM LEVEL 8.6 MG/DL (8.8-10.2); CARBON DIOXIDE LEVEL 23 MEQ/L (21-32); CHLORIDE LEVEL 111 MEQ/L (98-107); CREATININE FOR GFR 0.48 MG/DL (0.55-1.30); GLOMERULAR FILTRATION RATE > 60.0 (>45); GLUCOSE, FASTING 87 MG/DL (70-100); MAGNESIUM LEVEL 1.5 MG/DL (1.8-2.4); POTASSIUM SERUM 3.6 MEQ/L (3.5-5.1); SODIUM LEVEL 142 MEQ/L (136-145); TOTAL PROTEIN 6.8 GM/DL (6.4-8.2)
[2021-03-13] MEDS: NICOTINE 14 MG/24 HR TRANSDERMAL TD SCH (08:49)
[2021-03-13] MEDS: CALCITONIN NASAL SPRAY 3.7 ML BTL SCH (08:49)
[2021-03-13] MEDS: buPROPion **SR TABLET** (ZYBAN) 150MG PO SCH (08:50)
[2021-03-13] MEDS: VITAMIN D 1,000 INTERNATIONAL UNITS TABLET PO SCH (08:50)
[2021-03-13] MEDS: MAGNESIUM OXIDE 400MG TAB (MAG-OX) PO SCH (08:50)
[2021-03-13] MEDS: ALPRAZolam 0.5 MG TAB PO PRN ×2 (10:26→22:04)
[2021-03-13] MEDS: traMADol 50 MG TAB PO PRN ×2 (10:26→21:41)
--- NOTE | 2021-03-13 11:28 | IPNPDOC ---
Text Note Date of Service The patient was seen on 03/13/21. NOTE Subjective: Patient is a 66-year-old female presented to the emergency depart ment with weakness 2 days ago. Patient appear to be inebriated when arrived to the emergency department but is doing better today. Patient is complaining of some nausea and is try to take it easy with eating. Patient had an uneventful night although she did say she has some difficulty sleeping. Patient is otherwise feeling well today. Review of systems: General: Patient denies fevers HEENT: Patient denies headaches Cardiovascular: Patient denies chest pain Respiratory: Patient denies shortness of breath, cough GI: Patient denies abdominal pain, nausea, vomiting, diarrhea : Patient denies increased frequency or pain with urination Extremities: Patient denies swelling or pain in extremities Neurological: Patient denies numbness or tingling in legs Physical exam: Vitals: See below General: Alert and oriented female patient who is sitting up in bed when I walked in. Patient did not appear to be in any acute distress. HEENT: Normocephalic, atraumatic, moist mucous membranes. Neck: No lymphadenopathy or thyromegaly Cardiac: Regular rate and rhythm, no murmurs, normal S1, normal S2 Pulm: Clear to auscultation bilaterally. No wheezes, rhonchi, rales Abd: Nondistended, nontender to palpation, normal bowel sounds Ext: No edema bilateral lower extremities Labs: See below Imaging: No new imaging has been performed Assessment/plan: Patient is a 66-year-old female who presented to the emergency department with increasing pain altered mental status was found to have rhabdomyolysis. 1. Rhabdomyolysis. Patient received an additional 2 L yesterday. Patient's kidney function has returned back to normal. Patient says she is less sore today. Patient will continue to work with physical therapy. 2. Left ulnar and radial fracture. Patient is splinted and will follow up with orthopedic surgery. 3. Nausea. We will continue to monitor patient patient has nausea medications. Encourage the patient to take it easy eating but to try to eat and drink as much as she is able to tolerate. 4. L4 compression fracture patient has pain control with calcitonin and lidocaine patch. 5. Acute metabolic encephalopathy secondary to medications. We will restart the patient's Xanax but hold the other medications at this time. 6. Transaminitis. This continues to improve and we will continue to monitor. 7. Acute kidney injury. Resolved. Secondary to rhabdomyolysis. 8. Hyperglycemia. Blood sugars in the normal range 9. Anxiety/depression. Restart patient Xanax continue with hydroxyzine. 10. ADHD. Holding Adderall at this time. DVT Prophylaxis: Heparin Disposition: Pending working with physical therapy and clinical improvement, possible discharge tomorrow VS,Latasha, I+O VS, Latasha, I+O Laboratory Tests 03/13/21 06:35 Vital Signs Date Time Temp Pulse Resp B/P (MAP) Pulse Ox O2 Delivery O2 Flow Rate FiO2 03/13/21 10:56 18 03/13/21 06:00 98.9 72 153/81 (105) 95 Room Air I&O- Last 24 Hours up to 6 AM 03/13/21 06:00 Intake Total 1260 ml Output Total 2150 ml Balance -890 ml SIMRAN PELAEZ DO Mar 13, 2021 11:28
[2021-03-13 14:00] VITALS: BP 158/83
[2021-03-13 20:00] VITALS: BP 137/69
[2021-03-13 21:39] VITALS: BP 137/69
[2021-03-13] MEDS: SIMVASTATIN 20 MG TAB PO SCH (21:39)
[2021-03-13] MEDS: hydrOXYzine 25 MG TAB PO SCH (21:39)
[2021-03-13] MEDS: cloNIDine 0.1MG TABLET PO SCH (21:39)
[2021-03-14 05:11] VITALS: BP 125/65
[2021-03-14] MEDS: HEPARIN SOD (PORCINE) 5000UNITS/ML 1ML VIAL/SYRINGE SC SCH ×2 (05:14→13:24)
[2021-03-14 06:32] LABS: HEMATOCRIT 34.7 % (36.0-47.0); HEMOGLOBIN 11.1 g/dl (12.0-15.5); MEAN CORPUSCULAR HEMOGLOBIN 27.8 pg (27.0-33.0); PLATELET COUNT, AUTOMATED 209 10^3/uL (150-450); RED BLOOD COUNT 3.99 10^6/uL (4.00-5.40); WHITE BLOOD COUNT 5.8 10^3/uL (4.0-10.0)
[2021-03-14 07:10] LABS: BLOOD UREA NITROGEN 10 MG/DL (7-18); CALCIUM LEVEL 8.6 MG/DL (8.8-10.2); CARBON DIOXIDE LEVEL 29 MEQ/L (21-32); CHLORIDE LEVEL 107 MEQ/L (98-107); CREATININE FOR GFR 0.58 MG/DL (0.55-1.30); GLOMERULAR FILTRATION RATE > 60.0 (>45); GLUCOSE, FASTING 93 MG/DL (70-100); MAGNESIUM LEVEL 1.7 MG/DL (1.8-2.4); POTASSIUM SERUM 3.2 MEQ/L (3.5-5.1); SODIUM LEVEL 140 MEQ/L (136-145)
[2021-03-14] MEDS: POTASSIUM CHLORIDE 10 MEQ SR TABLET PO SCH ×2 (09:35→09:39)
[2021-03-14] MEDS: MAGNESIUM OXIDE 400MG TAB (MAG-OX) PO SCH (09:35)
[2021-03-14] MEDS: buPROPion **SR TABLET** (ZYBAN) 150MG PO SCH (09:35)
[2021-03-14] MEDS: VITAMIN D 1,000 INTERNATIONAL UNITS TABLET PO SCH (09:35)
[2021-03-14] MEDS: NICOTINE 14 MG/24 HR TRANSDERMAL TD SCH (09:36)
[2021-03-14] MEDS: CALCITONIN NASAL SPRAY 3.7 ML BTL SCH (09:36)
[2021-03-14] MEDS ORDERED: TRAM50TA2 PO (09:43)
[2021-03-14] MEDS: ALPRAZolam 0.5 MG TAB PO PRN (09:45)
[2021-03-14] MEDS: traMADol 50 MG TAB PO PRN (13:24)
--- NOTE | 2021-03-14 15:35 | DS.PDOC ---
Discharge Summary General Date of Admission Mar 11, 2021 at 08:05 Date of Discharge 03/14/2021 Attending Physician: SIMRAN PELAEZ DO Discharge Summary PROCEDURES PERFORMED DURING STAY: None. ADMITTING DIAGNOSES: 1. Rhabdomyolysis. 2. Ulnar and radial fracture 3. L4 compression fracture 4. Acute metabolic encephalopathy possibly secondary to medications 5. Transaminitis 6. Acute kidney injury 7. Hypoglycemia 8. Anxiety and depression 9. ADHD DISCHARGE DIAGNOSES: 1. Rhabdomyolysis, resolved. 2. Left ulnar and radial fracture 3. L4 compression fracture 4. Acute metabolic encephalopathy secondary to medications, resolved 5. Transaminitis, improved 6. Acute kidney injury, improved 7. Hyperglycemia, resolved 8. Anxiety and depression 9. ADHD COMPLICATIONS/CHIEF COMPLAINT: Rhabdomyolysis, Vertebral Fracture, Closed. HISTORY OF PRESENT ILLNESS: Patient is a 66-year-old female presented to the emergency department on 03/10/2021 with chief complaint of weakness. Patient appear to be inebriated on arrival to the emergency department. Patient had a talk screen positive for amphetamines, benzodiazepines, and opiates however, patient is prescribed Adderall, Xanax, and pain medications for a recent fracture. Patient was recently discharged from the acute rehabilitation unit on 03/07/2021. In talking with the patient, patient states that she was very weak a nd was unable to walk to the bathroom. Patient says she had a "inch worm" her way to the bathroom. Patient does not know how long she was on the floor for prior to coming to the emergency department. Patient was found to have rhabdomyolysis upon arrival to the emergency department and had an acute kidney injury. Patient was admitted into the hospital for further work-up and treatment. HOSPITAL COURSE: Patient received 2 L of IV fluids initially and her CK did improve as well as her kidney function. Patient received an additional 2 L of IV fluids over the next day which helped the patient's soreness and rhabdomyolysis. Patient had some nausea during her hospitalization which was easily treated with Zofran. Patient had her Xanax continued towards the end of her hospitalization to help with her anxiety however, her Lyrica and Adderall were held throughout her hospitalization. Patient worked well with physical therapy and according to physical therapy was back at her baseline prior to her discharge from the acute rehabilitation unit. Patient was deemed safe to go home by her self by physical therapy. Patient stated that she felt much better and was much more coherent on 03/14/2021. I advised the patient to continue to hold her Lyrica and Adderall until she is able to see her psychiatric provider and primary care provider. I believe the Lyrica may have built up in her system due to the acute kidney injury causing decreased excretion of the drug which may have played a role in the symptoms and inebriated appearance of the patient upon arrival to the emergency department. Patient was doing well and was deemed ready for discharge on 03/14/2021. DISCHARGE MEDICATIONS: Please see below. ALLERGIES: Please see below. PHYSICAL EXAMINATION ON DISCHARGE: VITAL SIGNS: Please see below. General: Alert and oriented female patient who was sitting in the bed when I walked in the room. Patient did not appear to be in any acute distress. HEENT: Normocephalic, atraumatic, moist mucous membranes. Neck: No lymphadenopathy or thyromegaly Cardiac: Regular rate and rhythm, no murmurs, normal S1, normal S2 Pulm: Clear to auscultation bilaterally. No wheezes, rhonchi, rales Abd: Nondistended, nontender to palpation, normal bowel sounds Ext: No edema bilateral lower extremities LABORATORY DATA: Please see below. IMAGING: CT of the abdomen and pelvis performed with IV contrast only was reported to show L4 mild inferior endplate compression fracture deformity is not significantly changed compared to February 20, 2021. No evidence of acute interval abdominal or pelvic injury is seen otherwise. Hydropic appearing gallbladder, clinical correlation is advised. Consider ultrasound or HIDA scan for further evaluation if there are related symptoms, nonspecific gastrointestinal findings X-ray of the left forearm performed on 03/11/2021 is reported to show distal radial and ulnar fractures. Evaluation slightly compromised by overlying cast material artifact and demineralized bones. Clinical follow-up for osteoporosis. X-ray of the left wrist performed on 03/11/2021 was reported to show distal radial and ulnar fractures. Evaluation limited by artifact from overlying cast material and demineralized appearing bones. Follow-up for osteoporosis is advised. PROGNOSIS: Good ACTIVITY: As tolerated. DIET: Regular DISCHARGE PLAN: Discharge home DISPOSITION: 01 Home, Self-Care. DISCHARGE INSTRUCTIONS: 1. Follow-up with your primary care provider within 5 to 7 days of discharge. 2. Follow-up with your behavioral health provider within 5 to 7 days of dischar ge 3. Follow-up with orthopedic surgery for casting of your wrist ITEMS TO FOLLOWUP ON ON OUTPATIENT: 1. Wrist fracture. 2. Transaminitis 3. Continuing Adderall and/or Lyrica DISCHARGE CONDITION: Stable. TIME SPENT ON DISCHARGE: Greater than 30 minutes. Vital Signs/I&Os Vital Signs Date Time Temp Pulse Resp B/P (MAP) Pulse Ox O2 Delivery O2 Flow Rate FiO2 03/14/21 13:54 20 03/14/21 05:11 97.7 61 125/65 (85) 97 Room Air I&O- Last 24 Hours up to 6 AM 03/14/21 06:00 Intake Total 2420 ml Output Total 800 ml Balance 1620 ml Laboratory Data Labs 24H Laboratory Tests 2 03/14/21 06:08: Nucleated Red Blood Cells % (auto) 0.0, Anion Gap 4L, Glomerular Filtration Rate > 60.0, Calcium Level 8.6L, Magnesium Level 1.7L CBC/BMP Laboratory Tests 03/14/21 06:08 Microbiology Microbiology 03/11/21 Urine Culture - Final, Complete Discharge Medications Scheduled Bupropion Hcl (Bupropion HCl Sr) 150 Mg Tab.sr.12h, 150 MG PO DAILY, (Reported) Cholecalciferol (Vitamin D3) (Vitamin D3) 1,000 Unit Tablet, 1,000 UNITS PO DAILY, (Reported) Clonidine HCl (Clonidine HCl) 0.1 Mg Tablet, 0.1 MG PO QHS, (Reported) may take 2 tablets if needed Estradiol (Vagifem) 10 Mcg Tablet, 10 MCG PV Q3D, (Reported) Hydroxyzine HCl (Hydroxyzine HCl) 25 Mg Tablet, 25 MG PO QHS, (Reported) Magnesium Oxide (Magnesium Oxide) 400 Mg Tablet, 400 MG PO DAILY, (Reported) Nicotine (Nicotine Patch) 14 Mg Patch.td24, 14 MG TD DAILY, (Reported) Simvastatin (Simvastatin) 20 Mg Tablet, 20 MG PO QHS, (Reported) Scheduled PRN Alprazolam (Alprazolam) 2 Mg Tablet, 2 MG PO BID PRN for ANXIETY, (Reported) Epinephrine (Epipen 2-Aleksandar) 0.3 Mg/0.3 Ml Inj, 0.3 MG INJ for ANAPHYLAXIS, (Reported) Tramadol HCl (Tramadol HCl) 50 Mg Tablet, 50 MG PO BIDP PRN for PAIN LEVEL 5-10 Allergies Coded Allergies: azithromycin (Unverified Allergy, Intermediate, LIPS SWELL/RASH, 08/04/20) prazosin (Unverified Allergy, Mild, RASH, 08/04/20) Sulfa (Sulfonamide Antibiotics) (Unverified Adverse Reaction, Mild, DIARRHEA, 08/04/20) doxycycline (Unverified Adverse Reaction, Mild, DIARRHEA, 08/04/20) morphine (Unverified Adverse Reaction, Mild, ITCHY, 08/04/20) sulfacetamide (Verified Adverse Reaction, Mild, DIARRHEA, 08/04/20) sulfur (Verified Adverse Reaction, Mild, DIARRHEA, 08/04/20) SIMRAN PELAEZ DO Mar 14, 2021 15:35
== END 2021-03-14 15:00 | disposition home or self-care (01) | DRG 557 ==
LOC: M ED 23:16 → M ED INP 03-11 08:05 → ENRESERV 03-11 15:08 → M MS5PR 03-11 17:40
PROVIDERS: ADMIT Family Medicine; ATTEND Family Medicine
DX: M62.82 Rhabdomyolysis (principal); G93.41 Metabolic encephalopathy; N17.9 Acute kidney failure, unspecified; F41.9 Anxiety disorder, unspecified; F32.9 Major depressive disorder, single episode, unspecified; R73.9 Hyperglycemia, unspecified; F90.9 Attention-deficit hyperactivity disorder, unspecified type; Z79.899 Other long term (current) drug therapy; Z88.2 Allergy status to sulfonamides; Z88.8 Allergy status to other drugs, medicaments and biological substances; Z88.5 Allergy status to narcotic agent; G43.909 Migraine, unspecified, not intractable, without status migrainosus; M19.90 Unspecified osteoarthritis, unspecified site; K21.9 Gastro-esophageal reflux disease without esophagitis; Z66 Do not resuscitate

== ENCOUNTER → 2021-03-15 | Outpatient (REF) | payer MEDICARE, MEDICAID ==
[~2021-03-15] MED LIST changes: +D31000TA2 PO; +NICO14DI24 TD; +TRAM50TA2 PO
== END ==
LOC: M SFHCCAPE 13:22
PROVIDERS: ATTEND Physician Assistant
DX: R30.0 Dysuria (principal)
CPT/HCPCS: 81002; 87088; 87186; G0463

== ENCOUNTER → 2021-03-23 | Outpatient (REF) | payer MEDICARE, MEDICAID ==
[~2021-03-23] MED LIST changes: -LISI2.5T2 PO; +LISI2.5T9 PO
[2021-03-23 16:22] LABS: BASO % 0.5 % (0.0-1.0); EOS # 0.3 10^3/uL (0.0-0.5); EOS % 3.1 % (0.0-3.0); HEMATOCRIT 33.3 % (36.0-47.0); HEMOGLOBIN 10.5 g/dl (12.0-15.5); LYMPH # 2.3 10^3/uL (1.5-5.0); LYMPH % 28.7 % (24.0-44.0); MEAN CORPUSCULAR HEMOGLOBIN 27.3 pg (27.0-33.0); MEAN CORPUSCULAR HGB CONC 31.5 g/dl (32.0-36.5); MEAN CORPUSCULAR VOLUME 86.5 fl (80.0-96.0); MONO # 0.9 10^3/uL (0.0-0.8); MONO % 11.1 % (2.0-8.0); NEUTROPHILS # 4.6 10^3/uL (1.5-8.5); NEUTROPHILS % 56.4 % (36.0-66.0); PLATELET COUNT, AUTOMATED 258 10^3/uL (150-450); RED BLOOD COUNT 3.85 10^6/uL (4.00-5.40); WHITE BLOOD COUNT 8.1 10^3/uL (4.0-10.0)
[2021-03-23 16:43] LABS: ALBUMIN 3.6 GM/DL (3.2-5.2); ALT/SGPT 30 U/L (12-78); BILIRUBIN,TOTAL 0.4 MG/DL (0.2-1.0); BLOOD UREA NITROGEN 20 MG/DL (7-18); CALCIUM LEVEL 8.8 MG/DL (8.8-10.2); CARBON DIOXIDE LEVEL 26 MEQ/L (21-32); CHLORIDE LEVEL 108 MEQ/L (98-107); CPK CREATINE PHOSPHOKINASE 95 U/L (26-192); GLOMERULAR FILTRATION RATE > 60.0 (>45); GLUCOSE, FASTING 88 MG/DL (70-100); MAGNESIUM LEVEL 1.6 MG/DL (1.8-2.4); POTASSIUM SERUM 4.5 MEQ/L (3.5-5.1); SODIUM LEVEL 140 MEQ/L (136-145); TOTAL PROTEIN 6.8 GM/DL (6.4-8.2)
[2021-03-23 16:48] LABS: VITAMIN B12 LEVEL 414 PG/ML (247-911)
== END ==
LOC: M SFHCCAPE 12:05
PROVIDERS: ATTEND Physician Assistant
DX: R74.01 Elevation of levels of liver transaminase levels (principal); Z79.899 Other long term (current) drug therapy

== ENCOUNTER → 2021-03-27 | Outpatient (CLI) | payer MEDICARE, MEDICAID ==
[~2021-03-27] MED LIST changes: +LISI2.5T2 PO; -LISI2.5T9 PO
--- NOTE | 2021-03-27 17:32 | REP ---
INDICATION: F/U FX. COMPARISON: 03/11/2021. TECHNIQUE: Three views out of cast.. FINDINGS: There is soft tissue swelling about the distal forearm and wrist with impacted mildly comminuted distal radial metaphyseal fracture with the distal fragment of the radius dorsally angulated. No subluxation or dislocation of the carpal bones from the distal radius. Is also fracture at the base and tip of the ulnar styloid. Bones show degenerative changes of the 1st CMC and multiple MCP joints. IMPRESSION: Status post distal radial metaphyseal mildly comminuted fracture dorsal angulation of the distal fragment and distal ulnar styloid fracture at its base and tip. No radiocarpal subluxation or dislocation. Degenerative changes multiple joints. <Electronically signed by Carlton Olson > 03/27/21 [id number]
== END ==
LOC: M SOG 16:10
PROVIDERS: ATTEND Orthopaedic Surgery Sports Medicine
DX: S52.502A Unspecified fracture of the lower end of left radius, initial encounter for closed fracture (principal); X58.XXXA Exposure to other specified factors, initial encounter; Y92.89 Other specified places as the place of occurrence of the external cause; Y93.9 Activity, unspecified; Y99.9 Unspecified external cause status

== ENCOUNTER → 2021-04-06 | Outpatient (REF) | payer MEDICARE, MEDICAID ==
[~2021-04-06] MED LIST changes: -LISI2.5T2 PO; +LISI2.5T9 PO
== END ==
LOC: M SFHCCAPE 10:49
PROVIDERS: ATTEND Physician Assistant
DX: R10.2 Pelvic and perineal pain (principal)
CPT/HCPCS: 81002; 87086; G0463

== ENCOUNTER → 2021-04-19 | Outpatient (REF) | payer MEDICARE, MEDICAID ==
[2021-04-19 16:17] LABS: APPEARANCE, URINE CLEAR (CLEAR); BACTERIA, URINE AUTO NEGATIVE (NEGATIVE); BILIRUBIN, URINE AUTO NEGATIVE (NEGATIVE); BLOOD, URINE BLOOD NEGATIVE (NEGATIVE); COLOR, URINE YELLOW (YELLOW); GLUCOSE, URINE (UA) AUTO NEGATIVE (NEGATIVE); KETONE, URINE AUTO NEGATIVE (NEGATIVE); LEUKOCYTE ESTERASE, URINE AUTO NEGATIVE (NEGATIVE); MUCUS, URINE SMALL (NEGATIVE); NITRITE, URINE AUTO NEGATIVE (NEGATIVE); PROTEIN, URINE AUTO NEGATIVE (NEGATIVE); RBC, URINE AUTO 1 /HPF (0-3); SPECIFIC GRAVITY URINE AUTO 1.011 (1.002-1.035); SQUAMOUS EPITHELIAL CELL UR AU 1 /HPF (0-6); UROBILINOGEN, URINE AUTO 0.2 mg/dL (0.0-2.0); WBC, URINE AUTO 0 /HPF (0-3)
[2021-04-19 16:27] LABS: BLOOD UREA NITROGEN 15 MG/DL (7-18); CALCIUM LEVEL 8.7 MG/DL (8.8-10.2); CARBON DIOXIDE LEVEL 25 MEQ/L (21-32); CHLORIDE LEVEL 111 MEQ/L (98-107); CREATININE FOR GFR 0.62 MG/DL (0.55-1.30); FERRITIN 139 NG/ML (8-252); GLOMERULAR FILTRATION RATE > 60.0 (>45); GLUCOSE, FASTING 87 MG/DL (70-100); IRON (FE) 78 UG/DL (50-170); MAGNESIUM LEVEL 1.8 MG/DL (1.8-2.4); POTASSIUM SERUM 4.5 MEQ/L (3.5-5.1); SODIUM LEVEL 141 MEQ/L (136-145); TOTAL IRON BINDING CAPACITY 279 UG/DL (250-450)
[2021-04-21 11:32] LABS: VITAMIN B12 LEVEL 370 PG/ML
[2021-04-21 11:33] LABS: FOLATE 6.9 NG/ML
== END ==
LOC: M SFHCCAPE 10:52
PROVIDERS: ATTEND Physician Assistant
DX: N39.0 Urinary tract infection, site not specified (principal); D64.9 Anemia, unspecified; E83.42 Hypomagnesemia

== ENCOUNTER → 2021-04-24 | Outpatient (REF) | payer MEDICARE, MEDICAID ==
[2021-04-24 16:26] LABS: BASO % 0.6 % (0.0-1.0); EOS # 0.3 10^3/uL (0.0-0.5); EOS % 4.1 % (0.0-3.0); HEMATOCRIT 36.4 % (36.0-47.0); HEMOGLOBIN 11.7 g/dl (12.0-15.5); LYMPH # 2.3 10^3/uL (1.5-5.0); LYMPH % 35.9 % (24.0-44.0); MEAN CORPUSCULAR HEMOGLOBIN 27.9 pg (27.0-33.0); MEAN CORPUSCULAR HGB CONC 32.1 g/dl (32.0-36.5); MEAN CORPUSCULAR VOLUME 86.7 fl (80.0-96.0); MONO # 0.5 10^3/uL (0.0-0.8); MONO % 8.6 % (2.0-8.0); NEUTROPHILS # 3.2 10^3/uL (1.5-8.5); NEUTROPHILS % 50.5 % (36.0-66.0); PLATELET COUNT, AUTOMATED 195 10^3/uL (150-450); WHITE BLOOD COUNT 6.3 10^3/uL (4.0-10.0)
== END ==
LOC: M LABDRWCV 15:37
PROVIDERS: ATTEND Physician Assistant
DX: D64.9 Anemia, unspecified (principal)
CPT/HCPCS: 36415; 85025; G0463

== ENCOUNTER → 2021-04-27 | Outpatient (CLI) | payer MEDICARE, MEDICAID ==
--- NOTE | 2021-04-27 14:34 | REP ---
INDICATION: DISTAL RADIUS FX. COMPARISON: 03/27/2021 TECHNIQUE: AP, lateral, bilateral oblique views left wrist FINDINGS: Positioning of the fracture fragments has not changed although callus formation and periosteal reaction is identified suggesting early healing process. IMPRESSION: Unchanged position to the fractures with early healing noted. <Electronically signed by James Renee > 04/27/21 [id number]
== END ==
LOC: M SOG 14:16
PROVIDERS: ATTEND Orthopaedic Surgery Sports Medicine
DX: S52.502P Unspecified fracture of the lower end of left radius, subsequent encounter for closed fracture with malunion (principal)

== ENCOUNTER 2021-04-30 15:12 | Emergency (ER) | payer MEDICARE, MEDICAID ==
[~2021-04-30] VITALS: Ht 170.2 cm; Wt 73.3 kg
[~2021-04-30 15:12] MED LIST changes: -CYMB60CA3 PO; +CYMB60CA4 PO
[2021-04-30 17:13] LABS: BASO # 0.1 10^3/uL (0.0-0.2); BASO % 0.6 % (0.0-1.0); EOS # 0.2 10^3/uL (0.0-0.5); EOS % 3.1 % (0.0-3.0); HEMATOCRIT 39.3 % (36.0-47.0); LYMPH % 38.4 % (24.0-44.0); MEAN CORPUSCULAR HEMOGLOBIN 27.9 pg (27.0-33.0); MEAN CORPUSCULAR HGB CONC 33.1 g/dl (32.0-36.5); MEAN CORPUSCULAR VOLUME 84.3 fl (80.0-96.0); MONO # 0.7 10^3/uL (0.0-0.8); MONO % 9.6 % (2.0-8.0); NEUTROPHILS # 3.7 10^3/uL (1.5-8.5); NEUTROPHILS % 48.2 % (36.0-66.0); PLATELET COUNT, AUTOMATED 252 10^3/uL (150-450); RED BLOOD COUNT 4.66 10^6/uL (4.00-5.40); WHITE BLOOD COUNT 7.7 10^3/uL (4.0-10.0)
[2021-04-30 17:26] LABS: INR 1.01; PROTHROMBIN TIME 13.7 SECONDS (12.7-14.5)
[2021-04-30 17:33] LABS: AMPHETAMINES LEVEL URINE POSITIVE (NEGATIVE); BARBITURATES URINE NEGATIVE (NEGATIVE); BENZODIAZEPINES URINE POSITIVE (NEGATIVE); CANNABINOIDS URINE POSITIVE (NEGATIVE); COCAINE METABOLITE URINE NEGATIVE (NEGATIVE); METHADONE URINE NEGATIVE (NEGATIVE); OPIATES URINE NEGATIVE (NEGATIVE); PHENCYCLIDINE URINE NEGATIVE (NEGATIVE)
[2021-04-30 17:41] LABS: PARTIAL THROMBOPLASTIN TIME 27.6 SECONDS (25.9-37.0)
[2021-04-30 17:45] LABS: CREATININE FOR GFR 0.98 MG/DL (0.55-1.30); GLOMERULAR FILTRATION RATE > 60.0 (>45)
[2021-04-30 17:48] LABS: ALBUMIN 3.9 GM/DL (3.2-5.2); ALT/SGPT 18 U/L (12-78); BILIRUBIN,DIRECT 0.2 MG/DL (0.0-0.2); CK-MB VALUE MASS 1.7 NG/ML (<3.6); CPK CREATINE PHOSPHOKINASE 96 U/L (26-192); MB/CK RELATIVE INDEX 1.77 (< OR =4); TOTAL PROTEIN 7.4 GM/DL (6.4-8.2); TROPONIN I < 0.02 NG/ML (< 0.10)
[2021-04-30 18:49] VITALS: BP 144/66
== END 2021-04-30 19:11 | disposition home or self-care (01) ==
LOC: M ED 15:12
DX: R29.810 Facial weakness (principal); R20.2 Paresthesia of skin; M25.532 Pain in left wrist; M48.56XA Collapsed vertebra, not elsewhere classified, lumbar region, initial encounter for fracture; W07.XXXA Fall from chair, initial encounter; Y92.9 Unspecified place or not applicable; Y93.9 Activity, unspecified; Y99.9 Unspecified external cause status; M47.812 Spondylosis without myelopathy or radiculopathy, cervical region; M25.78 Osteophyte, vertebrae; M48.02 Spinal stenosis, cervical region; R00.1 Bradycardia, unspecified; R32 Unspecified urinary incontinence; M51.36 Other intervertebral disc degeneration, lumbar region; I25.10 Atherosclerotic heart disease of native coronary artery without angina pectoris; I25.2 Old myocardial infarction; I10 Essential (primary) hypertension; E78.5 Hyperlipidemia, unspecified; K21.9 Gastro-esophageal reflux disease without esophagitis; G43.909 Migraine, unspecified, not intractable, without status migrainosus; M79.7 Fibromyalgia; F17.200 Nicotine dependence, unspecified, uncomplicated; Z88.1 Allergy status to other antibiotic agents; Z88.2 Allergy status to sulfonamides; Z88.8 Allergy status to other drugs, medicaments and biological substances; Z79.899 Other long term (current) drug therapy

== ENCOUNTER → 2021-04-30 | Outpatient (CLI) | payer MEDICARE, MEDICAID ==
--- NOTE | 2021-04-30 22:32 | REPVR ---
PROCEDURE INFORMATION: Exam: MR Lumbar Spine Without Contrast Exam date and time: 04/30/2021 2:34 PM Age: 66 years old Clinical indication: Urinary incontinence TECHNIQUE: Imaging protocol: Multiplanar magnetic resonance images of the lumbar spine without intravenous contrast. COMPARISON: CT Spine, lumbar w/o contrast 02/20/2021 12:02 AM FINDINGS: Subacute mild compression fracture of the inferior endplate of L4 with associated STIR hyperintense edema. Marrow edema within the right L4 and L5 pedicles which could also reflect nondisplaced fractures. Remaining lumbar vertebral body heights are maintained. No cord compression. No abnormal cord signal. Conus medullaris terminates at the L1 level. Paravertebral soft tissues are unremarkable. L1-L2: No significant canal or foraminal narrowing. L2-L3: No significant canal or foraminal narrowing. L3-L4: Broad-based disc bulge causes mild bilateral foraminal narrowing. No significant canal narrowing. L4-L5: Broad-based disc bulge and facet hypertrophy cause moderate right and mild to moderate left foraminal narrowing. Mild canal narrowing. L5-S1: Broad-based disc bulge and facet hypertrophy cause mild bilateral foraminal narrowing. No significant canal narrowing. IMPRESSION: 1. Subacute mild compression fracture of the inferior endplate of L4 with associated STIR hyperintense edema. 2. Marrow edema within the right L4 and L5 pedicles which could also reflect nondisplaced fractures. 3. Spondylotic changes of the lumbar spine, as above. Electronically signed by: Michael Cotton On 04/30/2021 22:32:32 PM
== END ==
LOC: M RAD 13:36
PROVIDERS: ATTEND Physician Assistant
DX: M48.56XA Collapsed vertebra, not elsewhere classified, lumbar region, initial encounter for fracture (principal); R32 Unspecified urinary incontinence; M51.36 Other intervertebral disc degeneration, lumbar region

== ENCOUNTER → 2021-05-17 | Outpatient (REF) | payer MEDICARE, MEDICAID ==
[~2021-05-17] MED LIST changes: +CYMB60CA3 PO; -CYMB60CA4 PO
[2021-05-17 16:53] LABS: BASO % 0.5 % (0.0-1.0); EOS # 0.2 10^3/uL (0.0-0.5); EOS % 3.2 % (0.0-3.0); HEMATOCRIT 40.4 % (36.0-47.0); HEMOGLOBIN 12.8 g/dl (12.0-15.5); LYMPH # 3.1 10^3/uL (1.5-5.0); LYMPH % 42.7 % (24.0-44.0); MEAN CORPUSCULAR HEMOGLOBIN 27.4 pg (27.0-33.0); MEAN CORPUSCULAR HGB CONC 31.7 g/dl (32.0-36.5); MEAN CORPUSCULAR VOLUME 86.5 fl (80.0-96.0); MONO # 0.7 10^3/uL (0.0-0.8); MONO % 9.1 % (2.0-8.0); NEUTROPHILS # 3.2 10^3/uL (1.5-8.5); NEUTROPHILS % 44.2 % (36.0-66.0); PLATELET COUNT, AUTOMATED 220 10^3/uL (150-450); RED BLOOD COUNT 4.67 10^6/uL (4.00-5.40); WHITE BLOOD COUNT 7.3 10^3/uL (4.0-10.0)
[2021-05-17 17:04] LABS: C REACTIVE PROTEIN QUANTITATIV < 0.30 MG/DL (0.00-0.30); RHEUMATOID FACTOR QUANT < 10.0 IU/ML (<15.0)
[2021-05-17 21:13] LABS: ERYTHROCYTE SEDIMENTATION RATE 10 mm/hr (0-30)
[2021-06-01 16:11] LABS: ANTINUCLEAR ANTIBODIES DIRECT Negative (Negative); Lyme Disease IgG/IgM Antibodie <0.91 ISR (0.00-0.90); Lyme Disease IgM Ab Quantitati <0.80 index (0.00-0.79)
== END ==
LOC: M LABDRWCV 15:52
PROVIDERS: ATTEND Orthopaedic Surgery
DX: S32.040A Wedge compression fracture of fourth lumbar vertebra, initial encounter for closed fracture (principal); X58.XXXA Exposure to other specified factors, initial encounter; Y92.9 Unspecified place or not applicable; Y93.9 Activity, unspecified

== ENCOUNTER → 2021-06-07 | Outpatient (REF) | payer MEDICARE, MEDICAID ==
[~2021-06-07] MED LIST changes: -CYMB60CA3 PO; +CYMB60CA4 PO
== END ==
LOC: M SFHCCAPE 10:55
PROVIDERS: ATTEND Physician Assistant
DX: Z20.822 Contact with and (suspected) exposure to COVID-19 (principal)
CPT/HCPCS: 87426; G0463; U0003

== ENCOUNTER → 2021-06-26 | Outpatient (CLI) | payer MEDICARE, MEDICAID | LOC: M PAIN 14:00 | PROVIDERS: ATTEND Nurse Practitioner Family | DX: M25.532 Pain in left wrist (principal); G89.29 Other chronic pain; G43.909 Migraine, unspecified, not intractable, without status migrainosus; Z86.59 Personal history of other mental and behavioral disorders; Z87.891 Personal history of nicotine dependence; Z88.1 Allergy status to other antibiotic agents; Z88.5 Allergy status to narcotic agent; Z88.8 Allergy status to other drugs, medicaments and biological substances; Z91.030 Bee allergy status; Z79.82 Long term (current) use of aspirin; Z79.899 Other long term (current) drug therapy ==

== ENCOUNTER → 2021-07-05 | Outpatient (REF) | payer MEDICARE, MEDICAID ==
[2021-07-05 17:10] LABS: BASO % 0.4 % (0.0-1.0); EOS # 0.1 10^3/uL (0.0-0.5); EOS % 1.7 % (0.0-3.0); HEMATOCRIT 41.3 % (36.0-47.0); HEMOGLOBIN 13.5 g/dl (12.0-15.5); LYMPH # 2.1 10^3/uL (1.5-5.0); LYMPH % 29.9 % (24.0-44.0); MEAN CORPUSCULAR HEMOGLOBIN 28.4 pg (27.0-33.0); MEAN CORPUSCULAR HGB CONC 32.7 g/dl (32.0-36.5); MEAN CORPUSCULAR VOLUME 86.9 fl (80.0-96.0); MONO # 0.5 10^3/uL (0.0-0.8); MONO % 7.5 % (2.0-8.0); NEUTROPHILS # 4.2 10^3/uL (1.5-8.5); NEUTROPHILS % 60.4 % (36.0-66.0); PLATELET COUNT, AUTOMATED 225 10^3/uL (150-450); RED BLOOD COUNT 4.75 10^6/uL (4.00-5.40)
[2021-07-05 17:16] LABS: ALBUMIN 3.6 GM/DL (3.2-5.2); ALT/SGPT 16 U/L (12-78); BILIRUBIN,TOTAL 0.7 MG/DL (0.2-1.0); BLOOD UREA NITROGEN 23 MG/DL (7-18); CALCIUM LEVEL 9.6 MG/DL (8.8-10.2); CARBON DIOXIDE LEVEL 25 MEQ/L (21-32); CHLORIDE LEVEL 108 MEQ/L (98-107); CREATININE FOR GFR 0.72 MG/DL (0.55-1.30); GLOMERULAR FILTRATION RATE > 60.0 (>45); GLUCOSE, FASTING 118 MG/DL (70-100); POTASSIUM SERUM 4.3 MEQ/L (3.5-5.1); SODIUM LEVEL 139 MEQ/L (136-145); TOTAL PROTEIN 7.2 GM/DL (6.4-8.2)
== END ==
LOC: M SFHCCAPE 13:51
PROVIDERS: ATTEND Physician Assistant
DX: M25.532 Pain in left wrist (principal); Z23 Encounter for immunization
CPT/HCPCS: 36415; 80053; 85025; 90682; G0008; G0463

== ENCOUNTER → 2021-08-01 | Outpatient (REF) | payer MEDICARE, MEDICAID ==
[2021-08-01 16:18] LABS: BASO % 0.4 % (0.0-1.0); EOS # 0.4 10^3/uL (0.0-0.5); EOS % 4.9 % (0.0-3.0); HEMATOCRIT 39.2 % (36.0-47.0); HEMOGLOBIN 12.8 g/dl (12.0-15.5); LYMPH # 2.8 10^3/uL (1.5-5.0); LYMPH % 36.5 % (24.0-44.0); MEAN CORPUSCULAR HEMOGLOBIN 27.9 pg (27.0-33.0); MEAN CORPUSCULAR HGB CONC 32.7 g/dl (32.0-36.5); MEAN CORPUSCULAR VOLUME 85.6 fl (80.0-96.0); MONO # 0.6 10^3/uL (0.0-0.8); MONO % 7.9 % (2.0-8.0); NEUTROPHILS # 3.9 10^3/uL (1.5-8.5); PLATELET COUNT, AUTOMATED 250 10^3/uL (150-450); RED BLOOD COUNT 4.58 10^6/uL (4.00-5.40); WHITE BLOOD COUNT 7.7 10^3/uL (4.0-10.0)
[2021-08-01 16:49] LABS: ALBUMIN 3.4 GM/DL (3.2-5.2); BILIRUBIN,TOTAL 0.3 MG/DL (0.2-1.0); CALCIUM LEVEL 9.1 MG/DL (8.8-10.2); CREATININE FOR GFR 1.06 MG/DL (0.55-1.30); FOLATE 4.4 NG/ML; MAGNESIUM LEVEL 1.7 MG/DL (1.8-2.4); THYROID STIMULATING HORMONE 2.29 uIU/ML (0.358-3.740); TOTAL PROTEIN 6.8 GM/DL (6.4-8.2)
== END ==
LOC: M SFHCCAPE 10:44
PROVIDERS: ATTEND Physician Assistant
DX: R25.2 Cramp and spasm (principal); Z79.899 Other long term (current) drug therapy

== ENCOUNTER → 2021-08-02 | Outpatient (REF) | payer MEDICARE, MEDICAID ==
[2021-08-03 13:52] LABS: APPEARANCE, URINE CLEAR (CLEAR); BACTERIA, URINE AUTO NEGATIVE (NEGATIVE); BILIRUBIN, URINE AUTO NEGATIVE (NEGATIVE); BLOOD, URINE BLOOD 2+ (NEGATIVE); COLOR, URINE STRAW (YELLOW); GLUCOSE, URINE (UA) AUTO NEGATIVE (NEGATIVE); KETONE, URINE AUTO NEGATIVE (NEGATIVE); LEUKOCYTE ESTERASE, URINE AUTO NEGATIVE (NEGATIVE); NITRITE, URINE AUTO NEGATIVE (NEGATIVE); PROTEIN, URINE AUTO NEGATIVE (NEGATIVE); RBC, URINE AUTO 0 /HPF (0-3); SPECIFIC GRAVITY URINE AUTO 1.004 (1.002-1.035); SQUAMOUS EPITHELIAL CELL UR AU 1 /HPF (0-6); UROBILINOGEN, URINE AUTO 0.2 mg/dL (0.0-2.0); WBC, URINE AUTO 1 /HPF (0-3)
== END ==
LOC: M SMT 13:37
PROVIDERS: ATTEND Urology
DX: N39.0 Urinary tract infection, site not specified (principal)

== ENCOUNTER → 2021-09-21 | Outpatient (REF) | payer MEDICARE, MEDICAID ==
[2021-09-21 17:26] LABS: APPEARANCE, URINE CLEAR (CLEAR); BACTERIA, URINE AUTO NEGATIVE (NEGATIVE); BILIRUBIN, URINE AUTO NEGATIVE (NEGATIVE); BLOOD, URINE BLOOD NEGATIVE (NEGATIVE); COLOR, URINE YELLOW (YELLOW); GLUCOSE, URINE (UA) AUTO NEGATIVE (NEGATIVE); KETONE, URINE AUTO NEGATIVE (NEGATIVE); LEUKOCYTE ESTERASE, URINE AUTO NEGATIVE (NEGATIVE); NITRITE, URINE AUTO NEGATIVE (NEGATIVE); PROTEIN, URINE AUTO NEGATIVE (NEGATIVE); RBC, URINE AUTO 0 /HPF (0-3); SPECIFIC GRAVITY URINE AUTO 1.017 (1.002-1.035); SQUAMOUS EPITHELIAL CELL UR AU 4 /HPF (0-6); UROBILINOGEN, URINE AUTO 0.2 mg/dL (0.0-2.0); WBC, URINE AUTO 0 /HPF (0-3)
== END ==
LOC: M SMT 16:55
PROVIDERS: ATTEND Urology
DX: N39.0 Urinary tract infection, site not specified (principal)

== ENCOUNTER → 2021-10-10 | Outpatient (REF) | payer MEDICARE, MEDICAID ==
[~2021-10-10] MED LIST changes: -D31000TA2 PO; +VITA100093 PO
[2021-10-10 16:47] LABS: ALBUMIN 4.1 GM/DL (3.2-5.2); BILIRUBIN,DIRECT 0.1 MG/DL (0.0-0.2); BILIRUBIN,TOTAL 0.4 MG/DL (0.2-1.0); TOTAL PROTEIN 8.1 GM/DL (6.4-8.2)
== END ==
LOC: M LABDRWCV 15:43
PROVIDERS: ATTEND Surgery
DX: R10.11 Right upper quadrant pain (principal)

== ENCOUNTER → 2021-11-24 | Outpatient (CLI) | payer MEDICARE, MEDICAID | LOC: M RAD 07:59 | PROVIDERS: ATTEND Physician Assistant | DX: Z12.2 Encounter for screening for malignant neoplasm of respiratory organs (principal); Z87.891 Personal history of nicotine dependence ==

== ENCOUNTER → 2021-11-24 | Outpatient (CLI) | payer MEDICARE, MEDICAID | LOC: M RAD 07:52 | PROVIDERS: ATTEND Surgery | DX: R10.11 Right upper quadrant pain (principal) | CPT/HCPCS: 78227; A9537 ==

== ENCOUNTER → 2021-12-05 | Outpatient (REF) | payer MEDICARE, MEDICAID ==
[~2021-12-05] MED LIST changes: +BUPR-71 PO; -BUPR150T5 PO
[2021-12-05 16:33] LABS: CALCIUM LEVEL 9.4 MG/DL (8.8-10.2); CREATININE FOR GFR 1.22 MG/DL (0.55-1.30); GLOMERULAR FILTRATION RATE 46.8 (>45); MAGNESIUM LEVEL 1.8 MG/DL (1.8-2.4); POTASSIUM SERUM 4.1 MEQ/L (3.5-5.1)
== END ==
LOC: M SFHCCLAY 10:47
PROVIDERS: ATTEND Family Medicine
DX: I42.8 Other cardiomyopathies (principal); I10 Essential (primary) hypertension; I51.81 Takotsubo syndrome

== ENCOUNTER → 2021-12-20 | Outpatient (REF) | payer MEDICARE, MEDICAID ==
[2021-12-20 16:13] LABS: CALCIUM LEVEL 9.4 MG/DL (8.8-10.2); CREATININE FOR GFR 1.34 MG/DL (0.55-1.30); MAGNESIUM LEVEL 2.1 MG/DL (1.8-2.4); POTASSIUM SERUM 4.7 MEQ/L (3.5-5.1)
[2021-12-20 16:37] LABS: FOLATE 17.6 NG/ML
== END ==
LOC: M SFHCCAPE 11:44
PROVIDERS: ATTEND Physician Assistant
DX: E83.42 Hypomagnesemia (principal); E53.8 Deficiency of other specified B group vitamins; S52.502P Unspecified fracture of the lower end of left radius, subsequent encounter for closed fracture with malunion

== ENCOUNTER → 2022-01-11 | Outpatient (REF) | payer MEDICARE, MEDICAID ==
[2022-01-11 16:04] LABS: APPEARANCE, URINE HAZY (CLEAR); BACTERIA, URINE AUTO 3+ (NEGATIVE); BILIRUBIN, URINE AUTO NEGATIVE (NEGATIVE); BLOOD, URINE BLOOD NEGATIVE (NEGATIVE); COLOR, URINE YELLOW (YELLOW); GLUCOSE, URINE (UA) AUTO NEGATIVE (NEGATIVE); KETONE, URINE AUTO NEGATIVE (NEGATIVE); LEUKOCYTE ESTERASE, URINE AUTO NEGATIVE (NEGATIVE); MUCUS, URINE SMALL (NEGATIVE); NITRITE, URINE AUTO NEGATIVE (NEGATIVE); PROTEIN, URINE AUTO NEGATIVE (NEGATIVE); RBC, URINE AUTO 1 /HPF (0-3); SPECIFIC GRAVITY URINE AUTO 1.014 (1.002-1.035); SQUAMOUS EPITHELIAL CELL UR AU 2 /HPF (0-6); UROBILINOGEN, URINE AUTO 0.2 mg/dL (0.0-2.0); WBC, URINE AUTO 1 /HPF (0-3)
[2022-01-11 16:05] LABS: BASO # 0.1 10^3/uL (0.0-0.2); BASO % 0.7 % (0.0-1.0); EOS # 0.3 10^3/uL (0.0-0.5); EOS % 3.8 % (0.0-3.0); HEMATOCRIT 35.2 % (36.0-47.0); HEMOGLOBIN 11.4 g/dl (12.0-15.5); LYMPH # 2.7 10^3/uL (1.5-5.0); LYMPH % 34.5 % (24.0-44.0); MEAN CORPUSCULAR HEMOGLOBIN 27.1 pg (27.0-33.0); MEAN CORPUSCULAR HGB CONC 32.4 g/dl (32.0-36.5); MEAN CORPUSCULAR VOLUME 83.8 fl (80.0-96.0); MONO # 0.6 10^3/uL (0.0-0.8); MONO % 8.3 % (2.0-8.0); NEUTROPHILS % 52.3 % (36.0-66.0); PLATELET COUNT, AUTOMATED 201 10^3/uL (150-450); WHITE BLOOD COUNT 7.7 10^3/uL (4.0-10.0)
[2022-01-11 16:38] LABS: ALBUMIN 3.7 GM/DL (3.2-5.2); ALT/SGPT 20 U/L (12-78); BILIRUBIN,TOTAL 0.4 MG/DL (0.2-1.0); BLOOD UREA NITROGEN 23 MG/DL (7-18); CALCIUM LEVEL 9.9 MG/DL (8.8-10.2); CARBON DIOXIDE LEVEL 30 MEQ/L (21-32); CHLORIDE LEVEL 107 MEQ/L (98-107); CREATININE FOR GFR 1.06 MG/DL (0.55-1.30); GLUCOSE, FASTING 103 MG/DL (70-100); IMMUNOGLOBULIN G 1070 MG/DL (681-1648); IMMUNOGLOBULIN M 60.3 MG/DL (40-230); MAGNESIUM LEVEL 2.2 MG/DL (1.8-2.4); POTASSIUM SERUM 4.8 MEQ/L (3.5-5.1); SODIUM LEVEL 139 MEQ/L (136-145)
== END ==
LOC: M SFHCCAPE 11:36
PROVIDERS: ATTEND Physician Assistant
DX: G89.29 Other chronic pain (principal)

== ENCOUNTER → 2022-02-06 | Outpatient (REF) | payer MEDICARE, MEDICAID ==
[2022-02-06 18:26] LABS: APPEARANCE, URINE CLEAR (CLEAR); BACTERIA, URINE AUTO NEGATIVE (NEGATIVE); BILIRUBIN, URINE AUTO NEGATIVE (NEGATIVE); BLOOD, URINE BLOOD 1+ (NEGATIVE); COLOR, URINE YELLOW (YELLOW); GLUCOSE, URINE (UA) AUTO NEGATIVE (NEGATIVE); KETONE, URINE AUTO NEGATIVE (NEGATIVE); LEUKOCYTE ESTERASE, URINE AUTO NEGATIVE (NEGATIVE); NITRITE, URINE AUTO NEGATIVE (NEGATIVE); PROTEIN, URINE AUTO NEGATIVE (NEGATIVE); RBC, URINE AUTO 0 /HPF (0-3); SPECIFIC GRAVITY URINE AUTO 1.006 (1.002-1.035); SQUAMOUS EPITHELIAL CELL UR AU 0 /HPF (0-6); UROBILINOGEN, URINE AUTO 0.2 mg/dL (0.0-2.0); WBC, URINE AUTO 0 /HPF (0-3)
== END ==
LOC: M SMT 16:45
PROVIDERS: ATTEND Urology
DX: Z87.440 Personal history of urinary (tract) infections (principal); Z79.899 Other long term (current) drug therapy

== ENCOUNTER → 2022-03-13 | Outpatient (REF) | payer MEDICARE, MEDICAID ==
[2022-03-13 17:04] LABS: APPEARANCE, URINE CLOUDY (CLEAR); BACTERIA, URINE AUTO 1+ (NEGATIVE); BILIRUBIN, URINE AUTO NEGATIVE (NEGATIVE); BLOOD, URINE BLOOD NEGATIVE (NEGATIVE); COLOR, URINE AMBER (YELLOW); GLUCOSE, URINE (UA) AUTO NEGATIVE (NEGATIVE); KETONE, URINE AUTO NEGATIVE (NEGATIVE); LEUKOCYTE ESTERASE, URINE AUTO 2+ (NEGATIVE); MUCUS, URINE SMALL (NEGATIVE); NITRITE, URINE AUTO NEGATIVE (NEGATIVE); PROTEIN, URINE AUTO NEGATIVE (NEGATIVE); RBC, URINE AUTO 2 /HPF (0-3); SPECIFIC GRAVITY URINE AUTO 1.015 (1.002-1.035); SQUAMOUS EPITHELIAL CELL UR AU 43 /HPF (0-6); UROBILINOGEN, URINE AUTO 0.2 mg/dL (0.0-2.0); WBC, URINE AUTO 11 /HPF (0-3)
[2022-03-13 18:39] LABS: CALCIUM LEVEL 9.2 MG/DL (8.8-10.2); CREATININE FOR GFR 2.02 MG/DL (0.55-1.30); GLOMERULAR FILTRATION RATE 26.1 (>45); POTASSIUM SERUM 4.5 MEQ/L (3.5-5.1)
== END ==
LOC: M SFHCCAPE 10:48
PROVIDERS: ATTEND Physician Assistant
DX: R79.89 Other specified abnormal findings of blood chemistry (principal); R30.0 Dysuria

== ENCOUNTER → 2022-03-22 | Outpatient (REF) | payer MEDICARE, MEDICAID | LOC: M SFHCCLAY 11:23 | PROVIDERS: ATTEND Physician Assistant | DX: N39.0 Urinary tract infection, site not specified (principal) ==

== ENCOUNTER → 2022-04-09 | Outpatient (REF) | payer MEDICARE, MEDICAID | LOC: M SFHCCAPE 14:20 | PROVIDERS: ATTEND Physician Assistant | DX: N39.0 Urinary tract infection, site not specified (principal) ==

== ENCOUNTER → 2022-04-24 | Outpatient (REF) | payer MEDICARE, MEDICAID ==
[2022-04-24 17:45] LABS: APPEARANCE, URINE MANUAL CLEAR (CLEAR); COLOR, URINE MANUAL YELLOW (YELLOW)
[2022-04-24 17:46] LABS: BILIRUBIN, URINE MANUAL NEGATIVE (NEGATIVE); BLOOD URINE MANUAL POSITIVE (NEGATIVE); GLUCOSE, URINE (UA) MANUAL NEGATIVE (NEGATIVE); KETONE, URINE MANUAL NEGATIVE (NEGATIVE); LEUKOCYTE ESTERASE, URINE MAN NEGATIVE (NEGATIVE); NITRITE, URINE MANUAL NEGATIVE (NEGATIVE); PROTEIN, URINE MANUAL TRACE mg/dL (NEGATIVE); SPECIFIC GRAVITY,URINE MANUAL 1.005 (1.002-1.035); UROBILINOGEN, URINE MANUAL NORMAL (NORMAL)
[2022-04-24 18:23] LABS: BACTERIA, URINE SMALL AMOUNT; HYALINE CAST, URINE NONE SEEN /lpf (0-1); SQUAMOUS EPITHELIAL CELL URINE SMALL AMOUNT /hpf (SMALL AMT); WBC, URINE 0-1 /hpf (0-3)
== END ==
LOC: M SMT 16:52
PROVIDERS: ATTEND Urology
DX: Z87.440 Personal history of urinary (tract) infections (principal)

== ENCOUNTER → 2022-04-30 | Outpatient (REF) | payer MEDICARE, MEDICAID | LOC: M LABSMT 10:19 | PROVIDERS: ATTEND Urology | DX: R79.89 Other specified abnormal findings of blood chemistry (principal); Z87.440 Personal history of urinary (tract) infections; Z53.9 Procedure and treatment not carried out, unspecified reason ==

== ENCOUNTER → 2022-04-30 | Outpatient (REF) | payer MEDICARE, MEDICAID ==
[2022-04-30 18:46] LABS: BLOOD UREA NITROGEN 14 MG/DL (7-18); CALCIUM LEVEL 9.1 MG/DL (8.8-10.2); CARBON DIOXIDE LEVEL 28 MEQ/L (21-32); CHLORIDE LEVEL 104 MEQ/L (98-107); CREATININE FOR GFR 0.92 MG/DL (0.55-1.30); GLOMERULAR FILTRATION RATE > 60.0 (>45); GLUCOSE, FASTING 89 MG/DL (70-100); POTASSIUM SERUM 3.9 MEQ/L (3.5-5.1); SODIUM LEVEL 138 MEQ/L (136-145)
[2022-04-30 18:52] LABS: APPEARANCE, URINE MANUAL CLOUDY (CLEAR); BILIRUBIN, URINE MANUAL NEGATIVE (NEGATIVE); BLOOD URINE MANUAL POSITIVE (NEGATIVE); COLOR, URINE MANUAL YELLOW (YELLOW); GLUCOSE, URINE (UA) MANUAL NEGATIVE (NEGATIVE); KETONE, URINE MANUAL NEGATIVE (NEGATIVE); LEUKOCYTE ESTERASE, URINE MAN POSITIVE (NEGATIVE); NITRITE, URINE MANUAL POSITIVE (NEGATIVE); PROTEIN, URINE MANUAL TRACE mg/dL (NEGATIVE); UROBILINOGEN, URINE MANUAL NORMAL (NORMAL)
[2022-04-30 18:55] LABS: RBC, URINE 0-1 /hpf (0-3); RENAL EPITHELIAL CELLS, URINE SMALL AMOUNT /hpf; SQUAMOUS EPITHELIAL CELL URINE MOD AMOUNT /hpf (SMALL AMT)
[2022-04-30 18:56] LABS: BACTERIA, URINE MOD AMOUNT; HYALINE CAST, URINE NONE SEEN /lpf (0-1)
== END ==
LOC: M LABDRWCV 16:50
PROVIDERS: ATTEND Urology
DX: R79.89 Other specified abnormal findings of blood chemistry (principal); Z87.440 Personal history of urinary (tract) infections; R30.0 Dysuria

== ENCOUNTER → 2022-05-10 | Outpatient (REF) | payer MEDICARE, MEDICAID ==
[2022-05-10 21:22] LABS: APPEARANCE, URINE MANUAL CLEAR (CLEAR); COLOR, URINE MANUAL YELLOW (YELLOW)
[2022-05-10 21:23] LABS: PROTEIN, URINE MANUAL NEGATIVE (NEGATIVE)
[2022-05-10 21:24] LABS: BILIRUBIN, URINE MANUAL NEGATIVE (NEGATIVE); BLOOD URINE MANUAL NEGATIVE (NEGATIVE); GLUCOSE, URINE (UA) MANUAL NEGATIVE (NEGATIVE); KETONE, URINE MANUAL NEGATIVE (NEGATIVE); LEUKOCYTE ESTERASE, URINE MAN NEGATIVE (NEGATIVE); NITRITE, URINE MANUAL NEGATIVE (NEGATIVE); UROBILINOGEN, URINE MANUAL NORMAL (NORMAL)
== END ==
LOC: M SFHCCAPE 11:24
PROVIDERS: ATTEND Physician Assistant
DX: R30.0 Dysuria (principal)

== ENCOUNTER → 2022-06-01 | Outpatient (REF) | payer MEDICARE, MEDICAID ==
[~2022-06-01] MED LIST changes: +BRIN1TAB PO; +CEFD300C PO; +CLOT1CRE71 TOP; +FAMO1TAB11 PO; +FERR324T2 PO; +FOLI1TAB11 PO; +FOLI400T13 PO; +MYRB50TA PO; +NICO-262 MT; +OMEP40CA5 PO; +PRED5TA PO; +TRIAMCINOLONE TOP; +VALS1TAB66 PO; +ZOLP12.518 PO
[2022-06-01 17:53] LABS: ALBUMIN 4.1 GM/DL (3.2-5.2); BILIRUBIN,TOTAL 0.5 MG/DL (0.2-1.0); CALCIUM LEVEL 9.7 MG/DL (8.8-10.2); CREATININE FOR GFR 1.16 MG/DL (0.55-1.30); GLOMERULAR FILTRATION RATE 49.5 (>45); PERCENT SATURATION 45.1 % (13.2-45.0); THYROID STIMULATING HORMONE 2.36 uIU/ML (0.358-3.740); TOTAL PROTEIN 7.4 GM/DL (6.4-8.2)
== END ==
LOC: M SFHCCLAY 09:59
PROVIDERS: ATTEND Physician Assistant
DX: R25.2 Cramp and spasm (principal); M25.562 Pain in left knee

== ENCOUNTER 2022-06-03 05:19 | Inpatient (IN) | payer MEDICARE, MEDICAID ==
[~2022-06-03] VITALS: Ht 167.6 cm; Wt 70.7 kg
[~2022-06-03 05:19] MED LIST changes: -CEFD300C PO; -CLOT1CRE71 TOP; -FOLI1TAB11 PO; -MYRB50TA PO; -NICO-262 MT; -TRIAMCINOLONE TOP; -ZOLP12.518 PO
[2022-06-03 07:10] LABS: BASO % 0.3 % (0.0-1.0); EOS # 0.2 10^3/uL (0.0-0.5); EOS % 2.5 % (0.0-3.0); HEMATOCRIT 35.9 % (36.0-47.0); HEMOGLOBIN 11.6 g/dl (12.0-15.5); LYMPH # 3.7 10^3/uL (1.5-5.0); LYMPH % 40.9 % (24.0-44.0); MEAN CORPUSCULAR HEMOGLOBIN 28.2 pg (27.0-33.0); MEAN CORPUSCULAR HGB CONC 32.3 g/dl (32.0-36.5); MEAN CORPUSCULAR VOLUME 87.3 fl (80.0-96.0); NEUTROPHILS # 4.1 10^3/uL (1.5-8.5); NEUTROPHILS % 45.1 % (36.0-66.0); PLATELET COUNT, AUTOMATED 215 10^3/uL (150-450); RED BLOOD COUNT 4.11 10^6/uL (4.00-5.40); WHITE BLOOD COUNT 9.1 10^3/uL (4.0-10.0)
[2022-06-03 07:37] LABS: AMPHETAMINES LEVEL URINE POSITIVE (NEGATIVE); BARBITURATES URINE NEGATIVE (NEGATIVE); BENZODIAZEPINES URINE POSITIVE (NEGATIVE); CANNABINOIDS URINE POSITIVE (NEGATIVE); COCAINE METABOLITE URINE NEGATIVE (NEGATIVE); METHADONE URINE NEGATIVE (NEGATIVE); OPIATES URINE NEGATIVE (NEGATIVE); PHENCYCLIDINE URINE NEGATIVE (NEGATIVE)
[2022-06-03 07:41] LABS: CK-MB VALUE MASS < 1.0 NG/ML (<3.6); CPK CREATINE PHOSPHOKINASE 64 U/L (26-192); MB/CK RELATIVE INDEX 1.56 (< OR =4)
[2022-06-03 07:48] LABS: RSV AMPLIFICATION NEGATIVE (NEGATIVE)
[2022-06-03] MEDS ORDERED: NS 1,000 ML IV ONE ×2 (07:55→08:50)
[2022-06-03] MEDS ORDERED: ACETAMINOPHEN 500 MG TAB PO ONE (07:55)
[2022-06-03 07:56] LABS: ALBUMIN 4.1 GM/DL (3.2-5.2); ALT/SGPT 17 U/L (12-78); BILIRUBIN,DIRECT 0.1 MG/DL (0.0-0.2); BILIRUBIN,TOTAL 0.5 MG/DL (0.2-1.0); BLOOD UREA NITROGEN 37 MG/DL (7-18); CALCIUM LEVEL 10.1 MG/DL (8.8-10.2); CARBON DIOXIDE LEVEL 32 MEQ/L (21-32); CHLORIDE LEVEL 99 MEQ/L (98-107); CREATININE FOR GFR 1.29 MG/DL (0.55-1.30); ETHYL ALCOHOL (ETHANOL) < 0.003 % (0.000-0.010); GLOMERULAR FILTRATION RATE 43.8 (>45); GLUCOSE, FASTING 83 MG/DL (70-100); LIPASE 125 U/L (73-393); POTASSIUM SERUM 4.6 MEQ/L (3.5-5.1); SODIUM LEVEL 133 MEQ/L (136-145); TOTAL PROTEIN 8.1 GM/DL (6.4-8.2)
[2022-06-03 08:08] LABS: MAGNESIUM LEVEL 2.5 MG/DL (1.8-2.4)
[2022-06-03 09:07] LABS: CK-MB VALUE MASS < 1.0 NG/ML (<3.6); CPK CREATINE PHOSPHOKINASE 58 U/L (26-192); MB/CK RELATIVE INDEX 1.72 (< OR =4)
[2022-06-03] MEDS ORDERED: ONDANSETRON 4MG 2ML VIAL As Ordered ONE (12:01)
[2022-06-03] MEDS ORDERED: ONDANSETRON 4MG 2ML VIAL IV ONE (12:05)
[2022-06-03] MEDS ORDERED: PREGABALIN 100 MG CAP (LYRICA) PO ONE (13:25)
[2022-06-03] MEDS ORDERED: LORazepam 2 MG TAB PO ONE (13:25)
[2022-06-03] MEDS ORDERED: ALPRAZolam 0.5 MG TAB PO ONE (13:35)
[2022-06-03 14:21] LABS: RSV AMPLIFICATION NEGATIVE (NEGATIVE)
[2022-06-03] MEDS: AMPHETAMINE/DEXTROAMPHETAMINE 5 MG *ER* CAPSULE (ADDERALL XR) PO SCH (14:30)
[2022-06-03] MEDS ORDERED: MYRB50TA PO (15:19)
[2022-06-03] MEDS ORDERED: ZOLP12.518 PO (15:19)
[2022-06-03] MEDS ORDERED: TRIAMCINOLONE TOP (15:19)
[2022-06-03] MEDS ORDERED: NICO-262 MT (15:19)
[2022-06-03] MEDS ORDERED: ADDE20CA3 PO (15:19)
[2022-06-03] MEDS ORDERED: HYDR50TA70 PO (15:19)
[2022-06-03] MEDS ORDERED: PRED5TA PO (15:19)
[2022-06-03] MEDS ORDERED: CLOT1CRE71 TOP (15:19)
[2022-06-03] MEDS ORDERED: FOLI1TAB11 PO (15:19)
[2022-06-03] MEDS ORDERED: HOME MED LIST COMPLETE! XX SCH (15:25)
[2022-06-03 17:28] VITALS: BP 130/80
[2022-06-03] MEDS: NICOTINE 21MG/24HR 1 EA TRANSDERMAL TD SCH (18:15)
[2022-06-03] MEDS: VALSARTAN 80 MG TAB (DIOVAN) PO SCH (18:15)
[2022-06-03] MEDS: hydrOXYzine 50 MG TAB PO SCH ×2 (18:16→20:52)
[2022-06-03] MEDS ORDERED: FIORICET TAB PO ONE (20:00)
[2022-06-03 20:45] VITALS: BP 141/78
[2022-06-03] MEDS: SIMVASTATIN 20 MG TAB PO SCH (20:51)
[2022-06-03] MEDS: cloNIDine 0.1MG TABLET PO SCH (20:52)
[2022-06-03] MEDS: ONDANSETRON 4MG 2ML VIAL IV PRN (20:59)
[2022-06-03] MEDS: PREGABALIN 100 MG CAP (LYRICA) PO SCH (21:20)
[2022-06-04 06:09] LABS: HEMATOCRIT 36.4 % (36.0-47.0); HEMOGLOBIN 11.4 g/dl (12.0-15.5); MEAN CORPUSCULAR HEMOGLOBIN 27.7 pg (27.0-33.0); MEAN CORPUSCULAR HGB CONC 31.3 g/dl (32.0-36.5); MEAN CORPUSCULAR VOLUME 88.6 fl (80.0-96.0); PLATELET COUNT, AUTOMATED 179 10^3/uL (150-450); RED BLOOD COUNT 4.11 10^6/uL (4.00-5.40); WHITE BLOOD COUNT 6.3 10^3/uL (4.0-10.0)
[2022-06-04] MEDS: cloNIDine 0.1MG TABLET PO SCH ×3 (06:13→21:13)
[2022-06-04 06:37] LABS: CALCIUM LEVEL 8.9 MG/DL (8.8-10.2); CREATININE FOR GFR 1.01 MG/DL (0.55-1.30); POTASSIUM SERUM 4.6 MEQ/L (3.5-5.1)
[2022-06-04] MEDS: OMEPRAZOLE 20MG CAP PO SCH (08:53)
[2022-06-04] MEDS: AMPHETAMINE/DEXTROAMPHETAMINE 5 MG *ER* CAPSULE (ADDERALL XR) PO SCH (08:53)
[2022-06-04] MEDS: hydrOXYzine 50 MG TAB PO SCH ×3 (08:54→21:13)
[2022-06-04] MEDS: ALPRAZolam 0.5 MG TAB PO SCH ×2 (08:54→21:07)
[2022-06-04] MEDS: PREGABALIN 100 MG CAP (LYRICA) PO SCH ×2 (08:54→21:07)
[2022-06-04] MEDS: FOLIC ACID 1MG TAB PO SCH (08:54)
[2022-06-04] MEDS: NICOTINE 21MG/24HR 1 EA TRANSDERMAL TD SCH (08:55)
[2022-06-04] MEDS: VALSARTAN 80 MG TAB (DIOVAN) PO SCH (08:58)
[2022-06-04] MEDS ORDERED: FLUBLOK(EGG FREE)(QUAD)INFLUENZA VACC 0.5ML SYRINGE 18YRS & OLDER IM.IMMUN ONE (09:00)
[2022-06-04] MEDS ORDERED: FERROUS SULFATE 325MG TAB PO SCH (09:00)
[2022-06-04] MEDS ORDERED: MAGNESIUM OXIDE 400MG TAB (MAG-OX) PO SCH (09:00)
[2022-06-04] MEDS: ACETAMINOPHEN TAB 650MG DOSE (2X325MG) PO PRN ×3 (09:04→21:14)
[2022-06-04 14:00] VITALS: BP 124/68
[2022-06-04] MEDS: ONDANSETRON 4MG 2ML VIAL IV PRN (15:22)
[2022-06-04] MEDS ORDERED: zolPIDEM TARTRATE 5 MG TAB PO SCH (21:00)
[2022-06-04] MEDS ORDERED: LIDOCAINE 5% (LIDODERM) PATCH TD SCH (21:00)
[2022-06-04] MEDS: SIMVASTATIN 20 MG TAB PO SCH (21:14)
[2022-06-04 22:00] VITALS: BP 130/60
[2022-06-05 05:08] VITALS: BP 116/58
[2022-06-05] MEDS: cloNIDine 0.1MG TABLET PO SCH ×2 (05:41→14:33)
[2022-06-05] MEDS: ACETAMINOPHEN TAB 650MG DOSE (2X325MG) PO PRN ×2 (05:42→09:55)
[2022-06-05] MEDS ORDERED: predniSONE 5 MG TAB PO SCH (09:00)
[2022-06-05] MEDS ORDERED: **NOTE PATIENT COMMENT** MISC XX SCH (09:00)
[2022-06-05] MEDS: OMEPRAZOLE 20MG CAP PO SCH (09:41)
[2022-06-05] MEDS: hydrOXYzine 50 MG TAB PO SCH ×2 (09:42→14:33)
[2022-06-05] MEDS: PREGABALIN 100 MG CAP (LYRICA) PO SCH (09:42)
[2022-06-05] MEDS: FOLIC ACID 1MG TAB PO SCH (09:42)
[2022-06-05] MEDS: AMPHETAMINE/DEXTROAMPHETAMINE 5 MG *ER* CAPSULE (ADDERALL XR) PO SCH (09:42)
[2022-06-05] MEDS: ALPRAZolam 0.5 MG TAB PO SCH (09:43)
[2022-06-05] MEDS: NICOTINE 21MG/24HR 1 EA TRANSDERMAL TD SCH (09:45)
[2022-06-05 09:48] VITALS: BP 124/76
[2022-06-05] MEDS: VALSARTAN 80 MG TAB (DIOVAN) PO SCH (09:48)
[2022-06-05 14:00] VITALS: BP 130/80
[2022-06-05] MEDS ORDERED: CEFD300C PO (16:42)
[2022-06-05] MEDS ORDERED: FAMOTIDINE 20 MG TAB PO SCH (21:00)
== END 2022-06-05 15:31 | disposition home or self-care (01) | DRG 690 ==
LOC: M ED 05:19 → EDBD 05:19 → M ED INP 15:08 → ENRESERV 15:42 → M MSPAV 17:30 → OBSVTOIN 06-05 10:23
PROVIDERS: ADMIT Student in an Organized Health Care Education/Training Program; ATTEND Internal Medicine
DX: N39.0 Urinary tract infection, site not specified (principal); R45.851 Suicidal ideations; F19.10 Other psychoactive substance abuse, uncomplicated; F32.9 Major depressive disorder, single episode, unspecified; I10 Essential (primary) hypertension; K21.9 Gastro-esophageal reflux disease without esophagitis; F90.9 Attention-deficit hyperactivity disorder, unspecified type; D50.9 Iron deficiency anemia, unspecified; E78.5 Hyperlipidemia, unspecified; F17.200 Nicotine dependence, unspecified, uncomplicated; M79.7 Fibromyalgia; G47.00 Insomnia, unspecified; F41.9 Anxiety disorder, unspecified; Z79.899 Other long term (current) drug therapy; Z88.2 Allergy status to sulfonamides; Z88.5 Allergy status to narcotic agent; Z88.8 Allergy status to other drugs, medicaments and biological substances; E53.8 Deficiency of other specified B group vitamins; Z66 Do not resuscitate; E55.9 Vitamin D deficiency, unspecified

== ENCOUNTER → 2022-06-21 | Outpatient (REF) | payer MEDICARE, MEDICAID ==
[~2022-06-21] MED LIST changes: +CEFD300C PO; +CLOT1CRE71 TOP; +FOLI1TAB11 PO; +MYRB50TA PO; +NICO-262 MT; +TRIAMCINOLONE TOP; +ZOLP12.518 PO
== END ==
LOC: M SFHCCAPE 10:41
PROVIDERS: ATTEND Physician Assistant
DX: N39.0 Urinary tract infection, site not specified (principal)

== ENCOUNTER → 2022-07-10 | Outpatient (REF) | payer MEDICARE, MEDICAID | LOC: M SFHCCAPE 15:30 | PROVIDERS: ATTEND Physician Assistant | DX: Z53.21 Procedure and treatment not carried out due to patient leaving prior to being seen by health care provider (principal) ==

== ENCOUNTER → 2022-07-11 | Outpatient (REF) | payer MEDICARE, MEDICAID ==
[2022-07-11 18:39] LABS: APPEARANCE, URINE MANUAL CLEAR (CLEAR); BILIRUBIN, URINE MANUAL NEGATIVE (NEGATIVE); BLOOD URINE MANUAL NEGATIVE (NEGATIVE); COLOR, URINE MANUAL LT YELLOW (YELLOW); GLUCOSE, URINE (UA) MANUAL NEGATIVE (NEGATIVE); KETONE, URINE MANUAL NEGATIVE (NEGATIVE); LEUKOCYTE ESTERASE, URINE MAN TRACE (NEGATIVE); NITRITE, URINE MANUAL NEGATIVE (NEGATIVE); PROTEIN, URINE MANUAL NEGATIVE (NEGATIVE); SPECIFIC GRAVITY,URINE MANUAL 1.015 (1.002-1.035); UROBILINOGEN, URINE MANUAL NORMAL (NORMAL)
[2022-07-11 19:07] LABS: BACTERIA, URINE LARGE AMOUNT; RBC, URINE 0-1 /hpf (0-3); SQUAMOUS EPITHELIAL CELL URINE SMALL AMOUNT /hpf (SMALL AMT)
== END ==
LOC: M SFHCCAPE 10:12
PROVIDERS: ATTEND Physician Assistant
DX: R11.0 Nausea (principal)

== ENCOUNTER → 2022-07-24 | Outpatient (REF) | payer MEDICARE, MEDICAID ==
[2022-07-24 18:10] LABS: APPEARANCE, URINE MANUAL HAZY (CLEAR); COLOR, URINE MANUAL YELLOW (YELLOW)
[2022-07-24 18:12] LABS: BILIRUBIN, URINE MANUAL NEGATIVE (NEGATIVE); GLUCOSE, URINE (UA) MANUAL NEGATIVE (NEGATIVE); KETONE, URINE MANUAL NEGATIVE (NEGATIVE); LEUKOCYTE ESTERASE, URINE MAN POSITIVE (NEGATIVE); NITRITE, URINE MANUAL NEGATIVE (NEGATIVE); PROTEIN, URINE MANUAL 1+ mg/dL (NEGATIVE); SPECIFIC GRAVITY,URINE MANUAL 1.025 (1.002-1.035); UROBILINOGEN, URINE MANUAL NORMAL (NORMAL)
[2022-07-24 18:13] LABS: BLOOD URINE MANUAL POSITIVE (NEGATIVE)
[2022-07-24 18:38] LABS: WBC, URINE 15-20 /hpf (0-3)
[2022-07-24 18:39] LABS: BACTERIA, URINE LARGE AMOUNT; SQUAMOUS EPITHELIAL CELL URINE MOD AMOUNT /hpf (SMALL AMT)
== END ==
LOC: M SMT 17:16
PROVIDERS: ATTEND Urology
DX: Z87.440 Personal history of urinary (tract) infections (principal)

== ENCOUNTER → 2022-09-26 | Outpatient (REF) | payer MEDICARE, MEDICAID ==
[2022-09-26 17:11] LABS: APPEARANCE, URINE MANUAL CLEAR (CLEAR); BILIRUBIN, URINE MANUAL NEGATIVE (NEGATIVE); BLOOD URINE MANUAL NEGATIVE (NEGATIVE); COLOR, URINE MANUAL YELLOW (YELLOW); GLUCOSE, URINE (UA) MANUAL NEGATIVE (NEGATIVE); KETONE, URINE MANUAL NEGATIVE (NEGATIVE); LEUKOCYTE ESTERASE, URINE MAN POSITIVE (NEGATIVE); NITRITE, URINE MANUAL NEGATIVE (NEGATIVE); PROTEIN, URINE MANUAL NEGATIVE (NEGATIVE); SPECIFIC GRAVITY,URINE MANUAL 1.015 (1.002-1.035); UROBILINOGEN, URINE MANUAL NORMAL (NORMAL)
[2022-09-26 18:26] LABS: BACTERIA, URINE MOD AMOUNT; RBC, URINE NONE SEEN /hpf (0-3); SQUAMOUS EPITHELIAL CELL URINE MOD AMOUNT /hpf (SMALL AMT)
== END ==
LOC: M SFHCCAPE 16:39
PROVIDERS: ATTEND Physician Assistant
DX: N39.0 Urinary tract infection, site not specified (principal)

== ENCOUNTER → 2022-10-31 | Outpatient (REF) | payer MEDICARE, MEDICAID ==
[2022-10-31 17:36] LABS: ALBUMIN 4.2 G/DL (3.2-5.2); ALKALINE PHOSPHATASE 63 U/L (46-116); ALT/SGPT 16 U/L (7.0-40); AST/SGOT 23 U/L (<34); BILIRUBIN,TOTAL 0.4 MG/DL (0.3-1.2); BLOOD UREA NITROGEN 26 MG/DL (9-23); CALCIUM LEVEL 9.4 MG/DL (8.3-10.6); CARBON DIOXIDE LEVEL 30 MMOL/L (20-31); CHLORIDE LEVEL 103 MMOL/L (98-107); CHOLESTEROL LEVEL 221 MG/DL (<200); CHOLESTEROL RISK RATIO 3.59 (<5); CREATININE FOR GFR 0.83 MG/DL (0.55-1.30); GLOMERULAR FILTRATION RATE > 60.0 (>45); GLUCOSE, FASTING 81 MG/DL (74-106); HDL CHOLESTEROL 61.4 MG/DL (>40); LDL CHOLESTEROL 135.4 MG/DL (<100); NON-HDL-C 160 MG/DL; POTASSIUM SERUM 4.3 MMOL/L (3.5-5.1); SODIUM LEVEL 138 MMOL/L (136-145); TOTAL PROTEIN 7.1 G/DL (5.7-8.2); TRIGLYCERIDES LEVEL 121 MG/DL (<150)
== END ==
LOC: M SFHCCAPE 13:54
PROVIDERS: ATTEND Physician Assistant
DX: E78.2 Mixed hyperlipidemia (principal)

== ENCOUNTER → 2022-11-12 | Outpatient (REF) | payer MEDICARE, MEDICAID | LOC: M SFHCCLAY 13:47 | PROVIDERS: ATTEND Physician Assistant | DX: R30.0 Dysuria (principal) ==

== ENCOUNTER → 2023-01-22 | Outpatient (REF) | payer MEDICARE, MEDICAID ==
[2023-01-22 17:38] LABS: APPEARANCE, URINE HAZY (CLEAR); BACTERIA, URINE AUTO NEGATIVE (NEGATIVE); BILIRUBIN, URINE AUTO NEGATIVE (NEGATIVE); BLOOD, URINE BLOOD NEGATIVE (NEGATIVE); COLOR, URINE YELLOW (YELLOW); GLUCOSE, URINE (UA) AUTO NEGATIVE (NEGATIVE); KETONE, URINE AUTO TRACE mg/dL (NEGATIVE); LEUKOCYTE ESTERASE, URINE AUTO TRACE (NEGATIVE); MUCUS, URINE SMALL (NEGATIVE); NITRITE, URINE AUTO NEGATIVE (NEGATIVE); PROTEIN, URINE AUTO 1+ mg/dL (NEGATIVE); RBC, URINE AUTO 1 /HPF (0-3); SPECIFIC GRAVITY URINE AUTO 1.027 (1.002-1.035); SQUAMOUS EPITHELIAL CELL UR AU 4 /HPF (0-6); UROBILINOGEN, URINE AUTO 0.2 mg/dL (0.0-2.0); WBC, URINE AUTO 3 /HPF (0-3)
== END ==
LOC: M SFHCCAPE 14:23
PROVIDERS: ATTEND Physician Assistant
DX: R30.0 Dysuria (principal)

== ENCOUNTER → 2023-04-01 | Outpatient (REF) | payer MEDICARE, MEDICAID ==
[2023-04-01 18:06] LABS: ALBUMIN 3.8 G/DL (3.2-5.2); ALKALINE PHOSPHATASE 53 U/L (46-116); ALT/SGPT 14 U/L (7.0-40); AST/SGOT 17 U/L (<34); BILIRUBIN,TOTAL 0.8 MG/DL (0.3-1.2); BLOOD UREA NITROGEN 18 MG/DL (9-23); CALCIUM LEVEL 9.7 MG/DL (8.3-10.6); CARBON DIOXIDE LEVEL 26 MMOL/L (20-31); CHLORIDE LEVEL 105 MMOL/L (98-107); GLOMERULAR FILTRATION RATE > 60.0 (>45); GLUCOSE, FASTING 96 MG/DL (74-106); POTASSIUM SERUM 4.2 MMOL/L (3.5-5.1); SODIUM LEVEL 139 MMOL/L (136-145); TOTAL PROTEIN 6.8 G/DL (5.7-8.2)
== END ==
LOC: M SFHCCAPE 10:22
PROVIDERS: ATTEND Physician Assistant
DX: R60.0 Localized edema (principal); R35.0 Frequency of micturition

== ENCOUNTER 2023-04-13 11:47 | Inpatient (IN) | payer MEDICARE, MEDICAID ==
[~2023-04-13] VITALS: Ht 170.2 cm; Wt 60.0 kg
[2023-04-13 13:18] LABS: BASO % 0.4 % (0.0-1.0); EOS # 0.3 10^3/uL (0.0-0.5); EOS % 2.8 % (0.0-3.0); HEMATOCRIT 32.4 % (36.0-47.0); HEMOGLOBIN 10.4 g/dl (12.0-15.5); LYMPH # 2.7 10^3/uL (1.5-5.0); LYMPH % 28.8 % (24.0-44.0); MEAN CORPUSCULAR HEMOGLOBIN 27.4 pg (27.0-33.0); MEAN CORPUSCULAR HGB CONC 32.1 g/dl (32.0-36.5); MEAN CORPUSCULAR VOLUME 85.5 fl (80.0-96.0); MONO # 0.8 10^3/uL (0.0-0.8); MONO % 8.8 % (2.0-8.0); NEUTROPHILS # 5.5 10^3/uL (1.5-8.5); PLATELET COUNT, AUTOMATED 199 10^3/uL (150-450); RED BLOOD COUNT 3.79 10^6/uL (4.00-5.40); WHITE BLOOD COUNT 9.3 10^3/uL (4.0-10.0)
[2023-04-13] MEDS ORDERED: ISOVUE-370 76% 100ML VIAL As Ordered ONE (13:20)
[2023-04-13] MEDS ORDERED: MED REC IN PROGRESS XX SCH (13:25)
[2023-04-13 13:34] VITALS: TEMP 98; O2SAT 100
[2023-04-13] MEDS ORDERED: ZOLP12.518 PO (13:41)
[2023-04-13] MEDS ORDERED: B-1225002 SL (13:41)
[2023-04-13] MEDS ORDERED: ALEN70TA82 PO (13:41)
[2023-04-13] MEDS ORDERED: VITA100093 PO (13:41)
[2023-04-13 13:43] LABS: ETHYL ALCOHOL (ETHANOL) < 0.003 % (0.000-0.010)
[2023-04-13 13:45] LABS: ACETAMINOPHEN LEVEL < 2.0 UG/ML (10.0-20.0); ALBUMIN 3.2 G/DL (3.2-5.2); ALKALINE PHOSPHATASE 66 U/L (46-116); ALT/SGPT 35 U/L (7.0-40); AST/SGOT 40 U/L (<34); BILIRUBIN,DIRECT < 0.1 MG/DL (<0.4); BILIRUBIN,TOTAL 0.3 MG/DL (0.3-1.2); BLOOD UREA NITROGEN 43 MG/DL (9-23); CALCIUM LEVEL 9.2 MG/DL (8.3-10.6); CARBON DIOXIDE LEVEL 29 MMOL/L (20-31); CHLORIDE LEVEL 103 MMOL/L (98-107); CREATININE FOR GFR 1.47 MG/DL (0.55-1.30); GLOMERULAR FILTRATION RATE 37.5 (>45); GLUCOSE, FASTING 95 MG/DL (74-106); POTASSIUM SERUM 4.5 MMOL/L (3.5-5.1); SALICYLATE LEVEL < 3.0 MG/DL (<30); SODIUM LEVEL 140 MMOL/L (136-145); TOTAL PROTEIN 6.2 G/DL (5.7-8.2)
[2023-04-13 13:47] LABS: THYROID STIMULATING HORMONE 0.958 uIU/ML (0.55-4.78)
[2023-04-13] MEDS ORDERED: HOME MED LIST COMPLETE! XX SCH (13:55)
[2023-04-13 13:56] LABS: RSV AMPLIFICATION NEGATIVE (NEGATIVE)
[2023-04-13] MEDS ORDERED: cefTRIAXone SOD 1 GM in D5W MINI-BAG PLUS 50 ML IV ONE (14:40)
[2023-04-13 14:57] LABS: CK-MB VALUE MASS < 1.0 NG/ML (<3.6)
[2023-04-13 15:00] LABS: CPK CREATINE PHOSPHOKINASE 208 U/L (34-145); MB/CK RELATIVE INDEX 0.48 (< OR =4)
[2023-04-13] MEDS ORDERED: ASPIRIN 81MG CHEW TABLET PO ONE (15:40)
[2023-04-13] MEDS ORDERED: NS 1,000 ML IV ONE ×2 (16:00→17:00)
[2023-04-13] MEDS: MAGNESIUM OXIDE 400MG TAB (MAG-OX) PO SCH (17:59)
[2023-04-13] MEDS: ACETAMINOPHEN TAB 650MG DOSE (2X325MG) PO PRN (17:59)
[2023-04-13] MEDS: VITAMIN D 1,000 INTERNATIONAL UNITS TABLET PO SCH (17:59)
[2023-04-13] MEDS: FOLIC ACID 1MG TAB PO SCH (17:59)
[2023-04-13] MEDS ORDERED: traMADol 50 MG TAB PO PRN (19:20)
[2023-04-13 21:00] VITALS: BP 137/73; TEMP 97; O2SAT 100
[2023-04-13] MEDS ORDERED: ROSUVASTATIN 10 MG TAB (CRESTOR) PO SCH (21:00)
[2023-04-13] MEDS: NS 1,000 ML IV SCH (21:14)
[2023-04-13] MEDS: FAMOTIDINE 20 MG TAB PO SCH (21:15)
[2023-04-13] MEDS: PREGABALIN 50 MG CAP (LYRICA) PO SCH (21:15)
[2023-04-13] MEDS: SIMVASTATIN 20 MG TAB PO SCH (21:15)
[2023-04-13] MEDS: ALPRAZolam 0.5 MG TAB PO PRN (21:16)
[2023-04-13] MEDS ORDERED: diphenhydrAMINE 50MG/ML VIAL IV ONE (22:15)
[2023-04-13] MEDS: RAMELTEON 8 MG TAB (ROZEREM) PO SCH (22:42)
[2023-04-13 23:04] VITALS: BP 145/67; TEMP 97; O2SAT 100
[2023-04-14] MEDS: ACETAMINOPHEN TAB 650MG DOSE (2X325MG) PO PRN ×2 (03:40→17:25)
[2023-04-14 03:43] VITALS: BP 118/57; TEMP 96.5; O2SAT 97
[2023-04-14 05:29] LABS: BASO # 0.1 10^3/uL (0.0-0.2); BASO % 0.6 % (0.0-1.0); EOS # 0.4 10^3/uL (0.0-0.5); EOS % 4.9 % (0.0-3.0); HEMATOCRIT 32.6 % (36.0-47.0); HEMOGLOBIN 10.2 g/dl (12.0-15.5); LYMPH # 2.8 10^3/uL (1.5-5.0); LYMPH % 36.4 % (24.0-44.0); MEAN CORPUSCULAR HEMOGLOBIN 26.8 pg (27.0-33.0); MEAN CORPUSCULAR HGB CONC 31.3 g/dl (32.0-36.5); MEAN CORPUSCULAR VOLUME 85.8 fl (80.0-96.0); MONO # 0.8 10^3/uL (0.0-0.8); MONO % 9.6 % (2.0-8.0); NEUTROPHILS # 3.8 10^3/uL (1.5-8.5); NEUTROPHILS % 48.2 % (36.0-66.0); PLATELET COUNT, AUTOMATED 187 10^3/uL (150-450); WHITE BLOOD COUNT 7.8 10^3/uL (4.0-10.0)
[2023-04-14 05:50] LABS: ALBUMIN 2.7 G/DL (3.2-5.2); ALKALINE PHOSPHATASE 71 U/L (46-116); ALT/SGPT 29 U/L (7.0-40); AST/SGOT 27 U/L (<34); BILIRUBIN,DIRECT < 0.1 MG/DL (<0.4); BILIRUBIN,TOTAL 0.2 MG/DL (0.3-1.2); BLOOD UREA NITROGEN 31 MG/DL (9-23); CALCIUM LEVEL 8.5 MG/DL (8.3-10.6); CARBON DIOXIDE LEVEL 28 MMOL/L (20-31); CHLORIDE LEVEL 110 MMOL/L (98-107); CREATININE FOR GFR 0.99 MG/DL (0.55-1.30); GLOMERULAR FILTRATION RATE 59.2 (>45); GLUCOSE, FASTING 100 MG/DL (74-106); POTASSIUM SERUM 4.1 MMOL/L (3.5-5.1); SODIUM LEVEL 145 MMOL/L (136-145); TOTAL PROTEIN 5.4 G/DL (5.7-8.2)
[2023-04-14 08:00] VITALS: BP 145/67; TEMP 96.9; O2SAT 100
[2023-04-14] MEDS: **hydrALAZINE** 10 MG TAB PO SCH ×3 (10:28→20:21)
[2023-04-14] MEDS: FOLIC ACID 1MG TAB PO SCH (10:33)
[2023-04-14] MEDS: MAGNESIUM OXIDE 400MG TAB (MAG-OX) PO SCH (10:33)
[2023-04-14] MEDS: ASPIRIN 81MG CHEW TABLET PO SCH (10:33)
[2023-04-14] MEDS: FAMOTIDINE 20 MG TAB PO SCH ×2 (10:33→20:28)
[2023-04-14] MEDS: PREGABALIN 50 MG CAP (LYRICA) PO SCH ×2 (10:33→20:28)
[2023-04-14] MEDS: VITAMIN D 1,000 INTERNATIONAL UNITS TABLET PO SCH (10:33)
[2023-04-14] MEDS: ALPRAZolam 0.5 MG TAB PO PRN ×2 (10:37→20:29)
[2023-04-14 12:00] VITALS: BP 119/57; TEMP 98.5; O2SAT 97
[2023-04-14 16:00] VITALS: BP 140/64; TEMP 97.7; O2SAT 81
[2023-04-14] MEDS ORDERED: cefTRIAXone SOD 1 GM in D5W MINI-BAG PLUS 50 ML IV SCH (16:00)
[2023-04-14] MEDS: hydrOXYzine 50 MG TAB PO SCH ×2 (17:16→20:29)
[2023-04-14] MEDS: NS 1,000 ML IV SCH (17:19)
[2023-04-14 20:00] VITALS: BP 133/63; TEMP 97.9; O2SAT 97
[2023-04-14] MEDS: RAMELTEON 8 MG TAB (ROZEREM) PO SCH (20:28)
[2023-04-14] MEDS: SIMVASTATIN 20 MG TAB PO SCH (20:29)
[2023-04-15 03:36] VITALS: BP 139/65; TEMP 98.6; O2SAT 97
[2023-04-15 05:36] LABS: BASO % 0.5 % (0.0-1.0); EOS # 0.4 10^3/uL (0.0-0.5); EOS % 4.5 % (0.0-3.0); HEMATOCRIT 32.4 % (36.0-47.0); HEMOGLOBIN 10.1 g/dl (12.0-15.5); LYMPH # 3.5 10^3/uL (1.5-5.0); LYMPH % 41.3 % (24.0-44.0); MEAN CORPUSCULAR HEMOGLOBIN 26.9 pg (27.0-33.0); MEAN CORPUSCULAR HGB CONC 31.2 g/dl (32.0-36.5); MEAN CORPUSCULAR VOLUME 86.4 fl (80.0-96.0); MONO # 0.7 10^3/uL (0.0-0.8); MONO % 8.8 % (2.0-8.0); NEUTROPHILS # 3.8 10^3/uL (1.5-8.5); NEUTROPHILS % 44.7 % (36.0-66.0); PLATELET COUNT, AUTOMATED 167 10^3/uL (150-450); RED BLOOD COUNT 3.75 10^6/uL (4.00-5.40); WHITE BLOOD COUNT 8.5 10^3/uL (4.0-10.0)
[2023-04-15 05:59] LABS: BLOOD UREA NITROGEN 18 MG/DL (9-23); CALCIUM LEVEL 8.3 MG/DL (8.3-10.6); CARBON DIOXIDE LEVEL 25 MMOL/L (20-31); CHLORIDE LEVEL 114 MMOL/L (98-107); CREATININE FOR GFR 0.78 MG/DL (0.55-1.30); GLOMERULAR FILTRATION RATE > 60.0 (>45); GLUCOSE, FASTING 94 MG/DL (74-106); POTASSIUM SERUM 3.9 MMOL/L (3.5-5.1); SODIUM LEVEL 146 MMOL/L (136-145)
[2023-04-15] MEDS ORDERED: ISOSORBIDE MONONITRATE 10MG TABLET PO SCH (07:00)
[2023-04-15] MEDS ORDERED: ASPI81CH8 PO (07:21)
[2023-04-15] MEDS ORDERED: ISOS1TAB12 PO (07:22)
[2023-04-15] MEDS ORDERED: SELF1KIT MC (07:22)
[2023-04-15] MEDS ORDERED: AMLO10TA PO (07:22)
[2023-04-15] MEDS ORDERED: BACT800T5 PO (07:23)
[2023-04-15] MEDS ORDERED: BACI1CAP PO (07:23)
[2023-04-15 08:30] VITALS: BP 169/79; TEMP 98.6; O2SAT 97
[2023-04-15] MEDS ORDERED: NICOTINE 14 MG/24 HR TRANSDERMAL TD SCH (09:00)
[2023-04-15] MEDS: PREGABALIN 50 MG CAP (LYRICA) PO SCH (09:16)
[2023-04-15] MEDS: MAGNESIUM OXIDE 400MG TAB (MAG-OX) PO SCH (09:16)
[2023-04-15] MEDS: FAMOTIDINE 20 MG TAB PO SCH (09:16)
[2023-04-15] MEDS: ALPRAZolam 0.5 MG TAB PO PRN ×2 (09:16→12:29)
[2023-04-15] MEDS: FOLIC ACID 1MG TAB PO SCH (09:16)
[2023-04-15] MEDS: VITAMIN D 1,000 INTERNATIONAL UNITS TABLET PO SCH (09:16)
[2023-04-15] MEDS: ASPIRIN 81MG CHEW TABLET PO SCH (09:17)
[2023-04-15] MEDS ORDERED: AMOX875T2 PO (09:38)
[2023-04-15] MEDS ORDERED: NICO14DI3 TOP (10:02)
[2023-04-15] MEDS: hydrOXYzine 50 MG TAB PO SCH (11:19)
[2023-04-15] MEDS ORDERED: cloNIDine 0.1MG TABLET PO ONE ×2 (11:40→13:20)
[2023-04-15 12:21] VITALS: BP 170/94
[2023-04-15 12:26] VITALS: BP 170/94
[2023-04-15 12:45] VITALS: BP 156/74
[2023-04-15] MEDS ORDERED: CLON0.2T PO (13:23)
[2023-04-15] MEDS ORDERED: ISOS20TA53 PO (13:23)
== END 2023-04-15 14:00 | disposition home health service (06) | DRG 913 ==
LOC: EDBD 11:47 → M ED 14:30 → M ED INP 15:11 → M PCU 21:02
PROVIDERS: ADMIT General Practice; ATTEND General Practice
DX: S09.90XA Unspecified injury of head, initial encounter (principal); G93.41 Metabolic encephalopathy; N39.0 Urinary tract infection, site not specified; N17.9 Acute kidney failure, unspecified; E53.8 Deficiency of other specified B group vitamins; K22.70 Barrett's esophagus without dysplasia; K21.9 Gastro-esophageal reflux disease without esophagitis; Z91.119 Patient's noncompliance with dietary regimen due to unspecified reason; B19.20 Unspecified viral hepatitis C without hepatic coma; I25.5 Ischemic cardiomyopathy; G43.909 Migraine, unspecified, not intractable, without status migrainosus; M19.90 Unspecified osteoarthritis, unspecified site; F32.A Depression, unspecified; F41.9 Anxiety disorder, unspecified; F17.210 Nicotine dependence, cigarettes, uncomplicated; E86.0 Dehydration; Z66 Do not resuscitate; W07.XXXA Fall from chair, initial encounter; Y92.009 Unspecified place in unspecified non-institutional (private) residence as the place of occurrence of the external cause

== ENCOUNTER → 2023-04-24 | Outpatient (REF) | payer MEDICARE, MEDICAID ==
[~2023-04-24] MED LIST changes: +ALEN70TA82 PO; +AMLO10TA PO; +ASPI81CH8 PO; +B-1225002 SL; +BACI1CAP PO; +BACT800T5 PO; +CLON0.2T PO; +ISOS1TAB12 PO; +ISOS20TA53 PO; +NICO14DI3 TOP; +SELF1KIT MC
[2023-04-24 19:09] LABS: ALBUMIN 3.3 G/DL (3.2-5.2); ALKALINE PHOSPHATASE 54 U/L (46-116); ALT/SGPT 19 U/L (7.0-40); AST/SGOT 29 U/L (<34); BILIRUBIN,TOTAL 0.5 MG/DL (0.3-1.2); BLOOD UREA NITROGEN 15 MG/DL (9-23); CALCIUM LEVEL 9.5 MG/DL (8.3-10.6); CARBON DIOXIDE LEVEL 30 MMOL/L (20-31); CHLORIDE LEVEL 102 MMOL/L (98-107); CREATININE FOR GFR 0.85 MG/DL (0.55-1.30); GLOMERULAR FILTRATION RATE > 60.0 (>45); GLUCOSE, FASTING 100 MG/DL (74-106); POTASSIUM SERUM 4.3 MMOL/L (3.5-5.1); SODIUM LEVEL 139 MMOL/L (136-145); TOTAL PROTEIN 6.2 G/DL (5.7-8.2)
== END ==
LOC: M SFHCCAPE 14:26
PROVIDERS: ATTEND Physician Assistant Medical
DX: N17.9 Acute kidney failure, unspecified (principal); R35.0 Frequency of micturition

== ENCOUNTER → 2023-05-20 | Outpatient (REF) | payer MEDICARE, MEDICAID ==
[~2023-05-20] MED LIST changes: -PREG100C PO; +PREG100C2 PO
[2023-05-20 18:45] LABS: APPEARANCE, URINE HAZY (CLEAR); BACTERIA, URINE AUTO NEGATIVE (NEGATIVE); BILIRUBIN, URINE AUTO NEGATIVE (NEGATIVE); BLOOD, URINE BLOOD NEGATIVE (NEGATIVE); COLOR, URINE AMBER (YELLOW); GLUCOSE, URINE (UA) AUTO NEGATIVE (NEGATIVE); KETONE, URINE AUTO TRACE mg/dL (NEGATIVE); LEUKOCYTE ESTERASE, URINE AUTO NEGATIVE (NEGATIVE); MUCUS, URINE SMALL (NEGATIVE); NITRITE, URINE AUTO NEGATIVE (NEGATIVE); PROTEIN, URINE AUTO 1+ mg/dL (NEGATIVE); RBC, URINE AUTO 0 /HPF (0-3); SPECIFIC GRAVITY URINE AUTO 1.019 (1.002-1.035); SQUAMOUS EPITHELIAL CELL UR AU 6 /HPF (0-6); UROBILINOGEN, URINE AUTO 0.2 mg/dL (0.0-2.0); WBC, URINE AUTO 3 /HPF (0-3)
== END ==
LOC: M SFHCCAPE 14:40
PROVIDERS: ATTEND Physician Assistant Medical
DX: N39.0 Urinary tract infection, site not specified (principal)

== ENCOUNTER 2023-06-04 17:57 | Inpatient (IN) | payer MEDICARE, MEDICAID ==
[~2023-06-04] VITALS: Ht 167.6 cm; Wt 63.7 kg
[2023-06-04] MEDS ORDERED: BOOSTRIX VACCINE (TETANUS/DIPHTH/ACEL. PERTUSSIS) 0.5ML SYR IM.IMMUN ONE (18:40)
[2023-06-04 19:58] LABS: BASO % 0.1 % (0.0-1.0); EOS % 0.1 % (0.0-3.0); HEMATOCRIT 44.6 % (36.0-47.0); HEMOGLOBIN 13.7 g/dl (12.0-15.5); LYMPH # 0.9 10^3/uL (1.5-5.0); LYMPH % 4.2 % (24.0-44.0); MEAN CORPUSCULAR HEMOGLOBIN 27.4 pg (27.0-33.0); MEAN CORPUSCULAR HGB CONC 30.7 g/dl (32.0-36.5); MEAN CORPUSCULAR VOLUME 89.2 fl (80.0-96.0); MONO % 9.4 % (2.0-8.0); NEUTROPHILS % 85.8 % (36.0-66.0); PLATELET COUNT, AUTOMATED 191 10^3/uL (150-450)
[2023-06-04 20:15] LABS: CK-MB VALUE MASS 35.4 NG/ML (<3.6); ETHYL ALCOHOL (ETHANOL) < 0.003 % (0.000-0.010)
[2023-06-04 20:17] LABS: ACETAMINOPHEN LEVEL < 2.0 UG/ML (10.0-20.0); ALBUMIN 4.1 G/DL (3.2-5.2); ALKALINE PHOSPHATASE 79 U/L (46-116); ALT/SGPT 43 U/L (7.0-40); AST/SGOT 127 U/L (<34); BILIRUBIN,DIRECT 0.2 MG/DL (<0.4); BILIRUBIN,TOTAL 0.7 MG/DL (0.3-1.2); BLOOD UREA NITROGEN 32 MG/DL (9-23); CALCIUM LEVEL 9.4 MG/DL (8.3-10.6); CARBON DIOXIDE LEVEL 30 MMOL/L (20-31); CHLORIDE LEVEL 106 MMOL/L (98-107); CREATININE FOR GFR 0.78 MG/DL (0.55-1.30); GLOMERULAR FILTRATION RATE > 60.0 (>45); GLUCOSE, FASTING 146 MG/DL (74-106); POTASSIUM SERUM 4.6 MMOL/L (3.5-5.1); SALICYLATE LEVEL < 3.0 MG/DL (<30); SODIUM LEVEL 144 MMOL/L (136-145); TOTAL PROTEIN 8.2 G/DL (5.7-8.2)
[2023-06-04 20:19] LABS: THYROID STIMULATING HORMONE 1.682 uIU/ML (0.55-4.78)
[2023-06-04 20:31] LABS: RSV AMPLIFICATION NEGATIVE (NEGATIVE)
[2023-06-04 20:34] LABS: CPK CREATINE PHOSPHOKINASE 3690 U/L (34-145); MB/CK RELATIVE INDEX 0.95 (< OR =4)
[2023-06-04] MEDS ORDERED: NS 1,000 ML IV SCH (20:40)
[2023-06-04] MEDS: SIMVASTATIN 20 MG TAB PO SCH (21:00)
[2023-06-04] MEDS: THIAMINE 100 MG TAB PO SCH (21:00)
[2023-06-04 21:39] LABS: BARBITURATES URINE NEGATIVE (NEGATIVE); COCAINE METABOLITE URINE NEGATIVE (NEGATIVE); METHADONE URINE NEGATIVE (NEGATIVE); PHENCYCLIDINE URINE NEGATIVE (NEGATIVE)
[2023-06-04 21:41] LABS: AMPHETAMINES LEVEL URINE POSITIVE (NEGATIVE); BENZODIAZEPINES URINE POSITIVE (NEGATIVE); CANNABINOIDS URINE POSITIVE (NEGATIVE); OPIATES URINE POSITIVE (NEGATIVE)
[2023-06-04 21:42] LABS: CK-MB VALUE MASS 45.1 NG/ML (<3.6)
[2023-06-04 21:53] LABS: MB/CK RELATIVE INDEX 1.18 (< OR =4)
[2023-06-04] MEDS ORDERED: cefTRIAXone SOD 1 GM in D5W MINI-BAG PLUS 50 ML IV ONE (22:15)
[2023-06-04] MEDS ORDERED: ECOT81TA5 PO (23:00)
[2023-06-04] MEDS ORDERED: CELE1CAP8 PO (23:07)
[2023-06-04] MEDS ORDERED: VALS1TAB66 PO (23:07)
[2023-06-04] MEDS ORDERED: METH-855 PO (23:07)
[2023-06-04] MEDS ORDERED: CLON-412 PO (23:07)
[2023-06-04] MEDS ORDERED: HOME MED LIST COMPLETE! XX SCH (23:15)
[2023-06-04] MEDS ORDERED: ONDANSETRON 4MG 2ML VIAL IV PRN (23:20)
[2023-06-04] MEDS: LR 1,000 ML IV SCH (23:20)
[2023-06-04] MEDS ORDERED: LORazepam 2 MG TAB PO PRN (23:20)
[2023-06-04] MEDS ORDERED: ISOVUE-370 76% 100ML VIAL As Ordered ONE (23:32)
[2023-06-05] VITALS (9 sets, daily range): BP systolic 100–142; BP diastolic 55–77; TEMP 97–98.3; O2SAT 96–99
[2023-06-05] MEDS ORDERED: COMBIVENT RESPIMAT 100-20MCG INHALER 4GM INH PRN (00:40)
[2023-06-05] MEDS ORDERED: dexAMETHasone 20MG/5ML VIAL IV ONE (02:00)
[2023-06-05] MEDS ORDERED: REMDESIVIR 200 MG in NS 250 ML IV ONE (02:00)
[2023-06-05 04:36] LABS: HEMATOCRIT 38.3 % (36.0-47.0); HEMOGLOBIN 11.9 g/dl (12.0-15.5); MEAN CORPUSCULAR HEMOGLOBIN 27.4 pg (27.0-33.0); MEAN CORPUSCULAR HGB CONC 31.1 g/dl (32.0-36.5); MEAN CORPUSCULAR VOLUME 88.2 fl (80.0-96.0); PLATELET COUNT, AUTOMATED 174 10^3/uL (150-450); RED BLOOD COUNT 4.34 10^6/uL (4.00-5.40); WHITE BLOOD COUNT 19.7 10^3/uL (4.0-10.0)
[2023-06-05 05:21] LABS: ALBUMIN 3.1 G/DL (3.2-5.2); ALKALINE PHOSPHATASE 62 U/L (46-116); ALT/SGPT 42 U/L (7.0-40); AST/SGOT 136 U/L (<34); BILIRUBIN,TOTAL 0.4 MG/DL (0.3-1.2); BLOOD UREA NITROGEN 29 MG/DL (9-23); CALCIUM LEVEL 8.5 MG/DL (8.3-10.6); CARBON DIOXIDE LEVEL 33 MMOL/L (20-31); CHLORIDE LEVEL 105 MMOL/L (98-107); CREATININE FOR GFR 0.72 MG/DL (0.55-1.30); GLOMERULAR FILTRATION RATE > 60.0 (>45); GLUCOSE, FASTING 144 MG/DL (74-106); MAGNESIUM LEVEL 2.1 MG/DL (1.8-2.4); POTASSIUM SERUM 4.9 MMOL/L (3.5-5.1); SODIUM LEVEL 141 MMOL/L (136-145); TOTAL PROTEIN 6.6 G/DL (5.7-8.2)
[2023-06-05 07:24] LABS: CK-MB VALUE MASS 32.9 NG/ML (<3.6)
[2023-06-05 07:37] LABS: PROCALCITONIN 0.23 ng/ml
[2023-06-05 07:41] LABS: CPK CREATINE PHOSPHOKINASE 2761 U/L (34-145); MB/CK RELATIVE INDEX 1.19 (< OR =4)
[2023-06-05 08:12] LABS: INR 1.1; PROTHROMBIN TIME 13.9 SECONDS (12.5-14.5)
[2023-06-05 08:13] LABS: PARTIAL THROMBOPLASTIN TIME 31.5 SECONDS (24.8-34.2)
[2023-06-05] MEDS ORDERED: NIRMATRELVIR/RITONAVIR CO-PACK (EMERGENCY USE AUTH) PO SCH (09:00)
[2023-06-05] MEDS: ENOXAPARIN 40MG/0.4ML SYRINGE (J1650 PER 10MG) SC SCH (09:15)
[2023-06-05] MEDS: NICOTINE 14 MG/24 HR TRANSDERMAL TD SCH (09:15)
[2023-06-05] MEDS: LR 1,000 ML IV SCH ×2 (09:16→22:06)
[2023-06-05] MEDS: METHENAMINE HIPPURATE 1GM TABLET PO SCH (09:17)
[2023-06-05] MEDS: VALSARTAN 80 MG TAB (DIOVAN) PO SCH (09:17)
[2023-06-05] MEDS: OMEPRAZOLE 20MG CAP PO SCH (09:17)
[2023-06-05] MEDS: cloNIDine 0.1MG TABLET PO SCH ×2 (09:18→21:30)
[2023-06-05] MEDS: FAMOTIDINE 20 MG TAB PO SCH ×2 (09:18→21:29)
[2023-06-05] MEDS: ASPIRIN 81MG ENTERIC TABLET PO SCH (09:18)
[2023-06-05] MEDS: FOLIC ACID 1MG TAB PO SCH (09:18)
[2023-06-05] MEDS: LACTOBACILLUS ACIDOPHILUS CAP (BACID) PO SCH ×2 (09:18→17:13)
[2023-06-05] MEDS: THIAMINE 100 MG TAB PO SCH ×2 (09:19→21:30)
[2023-06-05] MEDS: FERROUS SULFATE 325MG TAB PO SCH (09:19)
[2023-06-05] MEDS: MULTIVITAMINS/MINERALS THERAP 1 TAB PO SCH (09:19)
[2023-06-05] MEDS: MAGNESIUM OXIDE 400MG TAB (MAG-OX) PO SCH (09:19)
[2023-06-05] MEDS: hydrOXYzine 50 MG TAB PO SCH ×3 (09:19→21:36)
[2023-06-05] MEDS: CelecoXIB (CeleBREX) 100 MG CAP PO SCH ×2 (09:38→17:13)
[2023-06-05] MEDS ORDERED: AZITHROMYCIN INJ 500 MG, VIAL MATE ADAPTER 1 EACH in NS 250 ML IV SCH (14:40)
[2023-06-05] MEDS ORDERED: ALBUTEROL 90 MCG/ACT 8GM HFA INHALER INH PRN (14:45)
[2023-06-05] MEDS ORDERED: LevoFLOXacin IV 750 MG in IV 1 EA IV SCH (16:00)
[2023-06-05] MEDS: COMBIVENT RESPIMAT 100-20MCG INHALER 4GM INH SCH ×2 (16:09→19:24)
[2023-06-05] MEDS: SIMVASTATIN 20 MG TAB PO SCH (21:29)
[2023-06-05] MEDS ORDERED: cefTRIAXone SOD 1 GM in D5W MINI-BAG PLUS 50 ML IV SCH (22:00)
[2023-06-05] MEDS: ACETAMINOPHEN TAB 650MG DOSE (2X325MG) PO PRN (22:15)
[2023-06-06] VITALS (9 sets, daily range): BP systolic 112–144; BP diastolic 56–72; TEMP 97.6–99.3; O2SAT 94–98
[2023-06-06] MEDS: ALPRAZolam 0.5 MG TAB PO PRN ×2 (00:25→23:52)
[2023-06-06] MEDS: dexAMETHasone 20MG/5ML VIAL IV SCH (05:02)
[2023-06-06] MEDS: REMDESIVIR 100 MG in NS 250 ML IV SCH (05:02)
[2023-06-06 05:54] LABS: HEMATOCRIT 31.2 % (36.0-47.0); MEAN CORPUSCULAR HEMOGLOBIN 26.9 pg (27.0-33.0); MEAN CORPUSCULAR HGB CONC 31.1 g/dl (32.0-36.5); MEAN CORPUSCULAR VOLUME 86.7 fl (80.0-96.0); PLATELET COUNT, AUTOMATED 134 10^3/uL (150-450); WHITE BLOOD COUNT 10.5 10^3/uL (4.0-10.0)
[2023-06-06 05:55] LABS: HEMOGLOBIN 9.7 g/dl (12.0-15.5)
[2023-06-06 06:21] LABS: ALBUMIN 2.4 G/DL (3.2-5.2); ALKALINE PHOSPHATASE 46 U/L (46-116); ALT/SGPT 28 U/L (7.0-40); AST/SGOT 94 U/L (<34); BILIRUBIN,TOTAL 0.5 MG/DL (0.3-1.2); BLOOD UREA NITROGEN 29 MG/DL (9-23); CALCIUM LEVEL 8.2 MG/DL (8.3-10.6); CARBON DIOXIDE LEVEL 34 MMOL/L (20-31); CHLORIDE LEVEL 106 MMOL/L (98-107); CREATININE FOR GFR 0.84 MG/DL (0.55-1.30); GLOMERULAR FILTRATION RATE > 60.0 (>45); GLUCOSE, FASTING 92 MG/DL (74-106); POTASSIUM SERUM 4.3 MMOL/L (3.5-5.1); SODIUM LEVEL 142 MMOL/L (136-145); TOTAL PROTEIN 5.1 G/DL (5.7-8.2)
[2023-06-06] MEDS: COMBIVENT RESPIMAT 100-20MCG INHALER 4GM INH SCH ×4 (07:47→20:44)
[2023-06-06 08:16] LABS: CK-MB VALUE MASS 5.5 NG/ML (<3.6)
[2023-06-06 08:17] LABS: CPK CREATINE PHOSPHOKINASE 1218 U/L (34-145); MB/CK RELATIVE INDEX 0.45 (< OR =4)
[2023-06-06] MEDS: ENOXAPARIN 40MG/0.4ML SYRINGE (J1650 PER 10MG) SC SCH (08:53)
[2023-06-06] MEDS: ASPIRIN 81MG ENTERIC TABLET PO SCH (08:54)
[2023-06-06] MEDS: FERROUS SULFATE 325MG TAB PO SCH (08:55)
[2023-06-06] MEDS: MAGNESIUM OXIDE 400MG TAB (MAG-OX) PO SCH (08:55)
[2023-06-06] MEDS: FAMOTIDINE 20 MG TAB PO SCH ×2 (08:55→20:20)
[2023-06-06] MEDS: AMPHETAMINE/DEXTROAMPHETAMINE 5 MG *ER* CAPSULE (ADDERALL XR) PO SCH (08:55)
[2023-06-06] MEDS: NICOTINE 14 MG/24 HR TRANSDERMAL TD SCH (08:55)
[2023-06-06] MEDS: OMEPRAZOLE 20MG CAP PO SCH (08:55)
[2023-06-06] MEDS: hydrOXYzine 50 MG TAB PO SCH ×3 (08:56→20:20)
[2023-06-06] MEDS: ACETAMINOPHEN TAB 650MG DOSE (2X325MG) PO PRN ×2 (08:56→15:26)
[2023-06-06] MEDS: MULTIVITAMINS/MINERALS THERAP 1 TAB PO SCH (08:56)
[2023-06-06] MEDS: CelecoXIB (CeleBREX) 100 MG CAP PO SCH ×2 (08:57→17:42)
[2023-06-06] MEDS: METHENAMINE HIPPURATE 1GM TABLET PO SCH (08:57)
[2023-06-06] MEDS: cloNIDine 0.1MG TABLET PO SCH ×2 (08:57→20:22)
[2023-06-06] MEDS: VALSARTAN 80 MG TAB (DIOVAN) PO SCH (08:57)
[2023-06-06] MEDS: LACTOBACILLUS ACIDOPHILUS CAP (BACID) PO SCH ×2 (08:57→17:42)
[2023-06-06] MEDS: THIAMINE 100 MG TAB PO SCH ×2 (08:57→20:20)
[2023-06-06] MEDS: FOLIC ACID 1MG TAB PO SCH (08:57)
[2023-06-06] MEDS: LR 1,000 ML IV SCH ×2 (12:00→16:41)
[2023-06-06] MEDS: LevoFLOXacin 750 MG TABLET PO SCH (15:26)
[2023-06-06] MEDS: SIMVASTATIN 20 MG TAB PO SCH (20:20)
[2023-06-07 05:45] VITALS: BP 128/61; TEMP 97.7; O2SAT 94
[2023-06-07] MEDS: LevoFLOXacin 750 MG TABLET PO SCH (06:28)
[2023-06-07] MEDS: dexAMETHasone 20MG/5ML VIAL IV SCH (06:28)
[2023-06-07] MEDS: REMDESIVIR 100 MG in NS 250 ML IV SCH (06:28)
[2023-06-07] MEDS: COMBIVENT RESPIMAT 100-20MCG INHALER 4GM INH SCH ×4 (07:38→21:04)
[2023-06-07 07:52] LABS: HEMATOCRIT 28.6 % (36.0-47.0); HEMOGLOBIN 9.3 g/dl (12.0-15.5); MEAN CORPUSCULAR HEMOGLOBIN 27.4 pg (27.0-33.0); MEAN CORPUSCULAR HGB CONC 32.5 g/dl (32.0-36.5); MEAN CORPUSCULAR VOLUME 84.4 fl (80.0-96.0); PLATELET COUNT, AUTOMATED 144 10^3/uL (150-450); RED BLOOD COUNT 3.39 10^6/uL (4.00-5.40); WHITE BLOOD COUNT 8.7 10^3/uL (4.0-10.0)
[2023-06-07 08:13] LABS: CK-MB VALUE MASS 2.3 NG/ML (<3.6)
[2023-06-07 08:14] LABS: ALBUMIN 2.3 G/DL (3.2-5.2); ALKALINE PHOSPHATASE 43 U/L (46-116); ALT/SGPT 26 U/L (7.0-40); AST/SGOT 68 U/L (<34); BILIRUBIN,TOTAL 0.5 MG/DL (0.3-1.2); BLOOD UREA NITROGEN 27 MG/DL (9-23); CALCIUM LEVEL 8.2 MG/DL (8.3-10.6); CARBON DIOXIDE LEVEL 30 MMOL/L (20-31); CHLORIDE LEVEL 108 MMOL/L (98-107); CREATININE FOR GFR 0.82 MG/DL (0.55-1.30); GLOMERULAR FILTRATION RATE > 60.0 (>45); GLUCOSE, FASTING 103 MG/DL (74-106); MAGNESIUM LEVEL 1.7 MG/DL (1.8-2.4); MB/CK RELATIVE INDEX 0.35 (< OR =4); POTASSIUM SERUM 3.9 MMOL/L (3.5-5.1); SODIUM LEVEL 142 MMOL/L (136-145)
[2023-06-07] MEDS: AMPHETAMINE/DEXTROAMPHETAMINE 5 MG *ER* CAPSULE (ADDERALL XR) PO SCH (09:03)
[2023-06-07] MEDS: ENOXAPARIN 40MG/0.4ML SYRINGE (J1650 PER 10MG) SC SCH (09:03)
[2023-06-07] MEDS: cloNIDine 0.1MG TABLET PO SCH ×2 (09:04→21:11)
[2023-06-07] MEDS: MAGNESIUM OXIDE 400MG TAB (MAG-OX) PO SCH (09:04)
[2023-06-07] MEDS: CelecoXIB (CeleBREX) 100 MG CAP PO SCH ×2 (09:05→17:00)
[2023-06-07] MEDS: MULTIVITAMINS/MINERALS THERAP 1 TAB PO SCH (09:05)
[2023-06-07] MEDS: VALSARTAN 80 MG TAB (DIOVAN) PO SCH (09:05)
[2023-06-07] MEDS: ASPIRIN 81MG ENTERIC TABLET PO SCH (09:05)
[2023-06-07] MEDS: hydrOXYzine 50 MG TAB PO SCH ×3 (09:06→21:11)
[2023-06-07] MEDS: OMEPRAZOLE 20MG CAP PO SCH (09:06)
[2023-06-07] MEDS: FERROUS SULFATE 325MG TAB PO SCH (09:06)
[2023-06-07] MEDS: FAMOTIDINE 20 MG TAB PO SCH ×2 (09:07→21:11)
[2023-06-07] MEDS: FOLIC ACID 1MG TAB PO SCH (09:07)
[2023-06-07] MEDS: METHENAMINE HIPPURATE 1GM TABLET PO SCH (09:07)
[2023-06-07] MEDS: THIAMINE 100 MG TAB PO SCH (09:07)
[2023-06-07] MEDS: LACTOBACILLUS ACIDOPHILUS CAP (BACID) PO SCH ×2 (09:07→17:00)
[2023-06-07] MEDS: NICOTINE 14 MG/24 HR TRANSDERMAL TD SCH (09:07)
[2023-06-07] MEDS: ACETAMINOPHEN TAB 650MG DOSE (2X325MG) PO PRN (15:21)
[2023-06-07] MEDS: SIMVASTATIN 20 MG TAB PO SCH (21:10)
[2023-06-07] MEDS: PREGABALIN 100 MG CAP (LYRICA) PO SCH (21:11)
[2023-06-07 22:00] VITALS: BP 135/70; TEMP 97.9; O2SAT 96
[2023-06-07] MEDS: ALPRAZolam 0.5 MG TAB PO PRN (23:55)
[2023-06-08] MEDS: dexAMETHasone 20MG/5ML VIAL IV SCH (05:48)
[2023-06-08] MEDS: REMDESIVIR 100 MG in NS 250 ML IV SCH (05:49)
[2023-06-08] MEDS: LevoFLOXacin 750 MG TABLET PO SCH (05:49)
[2023-06-08 06:00] VITALS: BP 134/69; TEMP 97.9; O2SAT 94
[2023-06-08] MEDS ORDERED: LEVO1TAB40 PO (07:11)
[2023-06-08 07:25] LABS: HEMATOCRIT 29.5 % (36.0-47.0); HEMOGLOBIN 9.7 g/dl (12.0-15.5); MEAN CORPUSCULAR HEMOGLOBIN 27.5 pg (27.0-33.0); MEAN CORPUSCULAR HGB CONC 32.9 g/dl (32.0-36.5); MEAN CORPUSCULAR VOLUME 83.6 fl (80.0-96.0); PLATELET COUNT, AUTOMATED 160 10^3/uL (150-450); RED BLOOD COUNT 3.53 10^6/uL (4.00-5.40); WHITE BLOOD COUNT 8.9 10^3/uL (4.0-10.0)
[2023-06-08 07:53] LABS: ALBUMIN 2.4 G/DL (3.2-5.2); ALKALINE PHOSPHATASE 45 U/L (46-116); ALT/SGPT 27 U/L (7.0-40); AST/SGOT 54 U/L (<34); BILIRUBIN,TOTAL 0.6 MG/DL (0.3-1.2); BLOOD UREA NITROGEN 26 MG/DL (9-23); CALCIUM LEVEL 8.2 MG/DL (8.3-10.6); CARBON DIOXIDE LEVEL 29 MMOL/L (20-31); CHLORIDE LEVEL 108 MMOL/L (98-107); CREATININE FOR GFR 0.81 MG/DL (0.55-1.30); GLOMERULAR FILTRATION RATE > 60.0 (>45); GLUCOSE, FASTING 91 MG/DL (74-106); POTASSIUM SERUM 3.7 MMOL/L (3.5-5.1); SODIUM LEVEL 142 MMOL/L (136-145)
[2023-06-08 08:36] VITALS: BP 120/70
[2023-06-08] MEDS: hydrOXYzine 50 MG TAB PO SCH (08:36)
[2023-06-08] MEDS: VALSARTAN 80 MG TAB (DIOVAN) PO SCH (08:36)
[2023-06-08] MEDS: MULTIVITAMINS/MINERALS THERAP 1 TAB PO SCH (08:36)
[2023-06-08] MEDS: FERROUS SULFATE 325MG TAB PO SCH (08:36)
[2023-06-08] MEDS: METHENAMINE HIPPURATE 1GM TABLET PO SCH (08:36)
[2023-06-08] MEDS: LACTOBACILLUS ACIDOPHILUS CAP (BACID) PO SCH (08:36)
[2023-06-08] MEDS: PREGABALIN 100 MG CAP (LYRICA) PO SCH (08:36)
[2023-06-08] MEDS: ASPIRIN 81MG ENTERIC TABLET PO SCH (08:37)
[2023-06-08] MEDS: cloNIDine 0.1MG TABLET PO SCH (08:37)
[2023-06-08] MEDS: MAGNESIUM OXIDE 400MG TAB (MAG-OX) PO SCH (08:37)
[2023-06-08] MEDS: OMEPRAZOLE 20MG CAP PO SCH (08:37)
[2023-06-08] MEDS: AMPHETAMINE/DEXTROAMPHETAMINE 5 MG *ER* CAPSULE (ADDERALL XR) PO SCH (08:37)
[2023-06-08] MEDS: FOLIC ACID 1MG TAB PO SCH (08:37)
[2023-06-08] MEDS: FAMOTIDINE 20 MG TAB PO SCH (08:37)
[2023-06-08] MEDS: CelecoXIB (CeleBREX) 100 MG CAP PO SCH (08:37)
[2023-06-08] MEDS: ENOXAPARIN 40MG/0.4ML SYRINGE (J1650 PER 10MG) SC SCH (08:38)
[2023-06-08] MEDS: NICOTINE 14 MG/24 HR TRANSDERMAL TD SCH (08:38)
[2023-06-08] MEDS: COMBIVENT RESPIMAT 100-20MCG INHALER 4GM INH SCH (08:47)
[2023-06-08] MEDS: ALPRAZolam 0.5 MG TAB PO PRN (11:02)
== END 2023-06-08 11:20 | disposition home health service (06) | DRG 177 ==
LOC: M ED 17:57 → M ED INP 23:27 → ENRESERV 23:58 → M ICU 06-05 01:12 → M MS5PR 06-06 22:13
PROVIDERS: ADMIT Family Medicine; ATTEND Internal Medicine
DX: U07.1 COVID-19 (principal); J96.01 Acute respiratory failure with hypoxia; J15.9 Unspecified bacterial pneumonia; I50.33 Acute on chronic diastolic (congestive) heart failure; J69.0 Pneumonitis due to inhalation of food and vomit; G93.41 Metabolic encephalopathy; M62.82 Rhabdomyolysis; N39.0 Urinary tract infection, site not specified; S22.020A Wedge compression fracture of second thoracic vertebra, initial encounter for closed fracture; S22.22XA Fracture of body of sternum, initial encounter for closed fracture; S22.040A Wedge compression fracture of fourth thoracic vertebra, initial encounter for closed fracture; M79.7 Fibromyalgia; K21.9 Gastro-esophageal reflux disease without esophagitis; F32.A Depression, unspecified; E78.5 Hyperlipidemia, unspecified; F41.9 Anxiety disorder, unspecified; S00.81XA Abrasion of other part of head, initial encounter; F12.90 Cannabis use, unspecified, uncomplicated; R74.01 Elevation of levels of liver transaminase levels; I11.0 Hypertensive heart disease with heart failure; F19.10 Other psychoactive substance abuse, uncomplicated; K29.70 Gastritis, unspecified, without bleeding; E86.0 Dehydration; B96.20 Unspecified Escherichia coli [E. coli] as the cause of diseases classified elsewhere; G47.00 Insomnia, unspecified; Z91.030 Bee allergy status; Z88.2 Allergy status to sulfonamides; Z88.8 Allergy status to other drugs, medicaments and biological substances; Z79.899 Other long term (current) drug therapy; Z79.82 Long term (current) use of aspirin; W18.30XA Fall on same level, unspecified, initial encounter; Y92.009 Unspecified place in unspecified non-institutional (private) residence as the place of occurrence of the external cause

== ENCOUNTER → 2023-10-30 | Outpatient (REF) | payer MEDICARE, MEDICAID ==
[~2023-10-30] MED LIST changes: +CELE1CAP99 PO; +ECOT81TA5 PO; +LEVO1TAB40 PO; -OXYB5TAB10 PO; +OXYB5TAB14 PO
== END ==
LOC: M SFHCCAPE 09:31
PROVIDERS: ATTEND Physician Assistant Medical
DX: M25.50 Pain in unspecified joint (principal); R06.02 Shortness of breath; R60.0 Localized edema

== ENCOUNTER → 2023-11-19 | Outpatient (REF) | payer MEDICARE, MEDICAID ==
[2023-11-19 17:57] LABS: BASO % 0.2 % (0.0-1.0); EOS # 0.2 10^3/uL (0.0-0.5); EOS % 1.4 % (0.0-3.0); HEMATOCRIT 29.6 % (36.0-47.0); HEMOGLOBIN 9.5 g/dl (12.0-15.5); LYMPH # 2.4 10^3/uL (1.5-5.0); LYMPH % 13.8 % (24.0-44.0); MEAN CORPUSCULAR HEMOGLOBIN 28.2 pg (27.0-33.0); MEAN CORPUSCULAR HGB CONC 32.1 g/dl (32.0-36.5); MEAN CORPUSCULAR VOLUME 87.8 fl (80.0-96.0); MONO # 1.1 10^3/uL (0.0-0.8); MONO % 6.6 % (2.0-8.0); NEUTROPHILS # 13.3 10^3/uL (1.5-8.5); NEUTROPHILS % 77.3 % (36.0-66.0); PLATELET COUNT, AUTOMATED 176 10^3/uL (150-450); RED BLOOD COUNT 3.37 10^6/uL (4.00-5.40); WHITE BLOOD COUNT 17.2 10^3/uL (4.0-10.0)
[2023-11-19 18:27] LABS: ALBUMIN 3.1 G/DL (3.2-5.2); ALKALINE PHOSPHATASE 62 U/L (46-116); ALT/SGPT 49 U/L (7.0-40); AST/SGOT 44 U/L (<34); BILIRUBIN,TOTAL 0.7 MG/DL (0.3-1.2); BLOOD UREA NITROGEN 31 MG/DL (9-23); CALCIUM LEVEL 8.2 MG/DL (8.3-10.6); CARBON DIOXIDE LEVEL 26 MMOL/L (20-31); CHLORIDE LEVEL 106 MMOL/L (98-107); CREATININE FOR GFR 0.88 MG/DL (0.55-1.30); GLOMERULAR FILTRATION RATE > 60.0 (>45); GLUCOSE, FASTING 78 MG/DL (74-106); POTASSIUM SERUM 4.7 MMOL/L (3.5-5.1); SODIUM LEVEL 139 MMOL/L (136-145); TOTAL PROTEIN 5.8 G/DL (5.7-8.2)
== END ==
LOC: M SFHCCAPE 14:06
PROVIDERS: ATTEND Physician Assistant Medical
DX: R07.9 Chest pain, unspecified (principal); R32 Unspecified urinary incontinence; R06.02 Shortness of breath; I10 Essential (primary) hypertension; E83.42 Hypomagnesemia; N39.0 Urinary tract infection, site not specified; Z79.899 Other long term (current) drug therapy; Z79.82 Long term (current) use of aspirin; Z79.83 Long term (current) use of bisphosphonates; Z79.51 Long term (current) use of inhaled steroids; Z88.2 Allergy status to sulfonamides; Z88.5 Allergy status to narcotic agent; Z91.030 Bee allergy status; Z80.0 Family history of malignant neoplasm of digestive organs; Z80.42 Family history of malignant neoplasm of prostate; F17.210 Nicotine dependence, cigarettes, uncomplicated

== ENCOUNTER → 2023-11-26 | Outpatient (CLI) | payer MEDICARE, MEDICAID ==
[2023-11-26 08:49] LABS: BASO # 0.1 10^3/uL (0.0-0.2); BASO % 0.7 % (0.0-1.0); EOS # 0.3 10^3/uL (0.0-0.5); EOS % 5.1 % (0.0-3.0); HEMATOCRIT 38.1 % (36.0-47.0); HEMOGLOBIN 11.9 g/dl (12.0-15.5); LYMPH # 2.7 10^3/uL (1.5-5.0); LYMPH % 40.1 % (24.0-44.0); MEAN CORPUSCULAR HEMOGLOBIN 27.9 pg (27.0-33.0); MEAN CORPUSCULAR HGB CONC 31.2 g/dl (32.0-36.5); MEAN CORPUSCULAR VOLUME 89.4 fl (80.0-96.0); MONO # 0.6 10^3/uL (0.0-0.8); MONO % 9.6 % (2.0-8.0); NEUTROPHILS # 2.9 10^3/uL (1.5-8.5); NEUTROPHILS % 43.2 % (36.0-66.0); PLATELET COUNT, AUTOMATED 282 10^3/uL (150-450); RED BLOOD COUNT 4.26 10^6/uL (4.00-5.40); WHITE BLOOD COUNT 6.7 10^3/uL (4.0-10.0)
[2023-11-26 09:20] LABS: ALBUMIN 3.8 G/DL (3.2-5.2); ALKALINE PHOSPHATASE 68 U/L (46-116); ALT/SGPT 21 U/L (7.0-40); AST/SGOT 22 U/L (<34); BILIRUBIN,TOTAL 0.5 MG/DL (0.3-1.2); BLOOD UREA NITROGEN 22 MG/DL (9-23); CALCIUM LEVEL 8.9 MG/DL (8.3-10.6); CARBON DIOXIDE LEVEL 32 MMOL/L (20-31); CHLORIDE LEVEL 104 MMOL/L (98-107); CREATININE FOR GFR 0.83 MG/DL (0.55-1.30); GLOMERULAR FILTRATION RATE > 60.0 (>45); GLUCOSE, FASTING 100 MG/DL (74-106); IRON (FE) 86 UG/DL (50-170); PERCENT SATURATION 31.7 % (13.2-45.0); POTASSIUM SERUM 3.8 MMOL/L (3.5-5.1); RHEUMATOID FACTOR QUANT 4.3 IU/ML (<14); SODIUM LEVEL 140 MMOL/L (136-145); TOTAL IRON BINDING CAPACITY 271 UG/DL (250-425); TOTAL PROTEIN 7.4 G/DL (5.7-8.2)
[2023-11-26 09:22] LABS: FOLATE > 24.0 NG/ML (>5.4); VITAMIN B12 LEVEL 918 PG/ML (211-911)
[2023-11-28 01:07] LABS: ANA (HEP2) Negative (.)
== END ==
LOC: M RAD 07:19
PROVIDERS: ATTEND Physician Assistant Medical
DX: R07.89 Other chest pain (principal); D72.829 Elevated white blood cell count, unspecified; R74.8 Abnormal levels of other serum enzymes; D50.9 Iron deficiency anemia, unspecified; M25.50 Pain in unspecified joint

== ENCOUNTER → 2023-11-27 | Outpatient (REF) | payer MEDICARE, MEDICAID | LOC: M SFHCCAPE 13:28 | PROVIDERS: ATTEND Physician Assistant Medical | DX: N39.0 Urinary tract infection, site not specified (principal) ==

== ENCOUNTER → 2024-07-14 | Outpatient (REF) | payer MEDICARE, MEDICAID ==
[~2024-07-14] MED LIST changes: +GABA-1172; -GABA-282; +ONDA-282 PO; -ONDA4TAB6 PO; -ZOLP12.518 PO; +ZOLP12.535 PO; +[UNRECOGNIZED DRUG - CODE] OR; -[UNRECOGNIZED DRUG - CODE] OR
== END ==
LOC: M SFHCCAPE 16:49
PROVIDERS: ATTEND Physician Assistant Medical
DX: N39.0 Urinary tract infection, site not specified (principal)

== ENCOUNTER → 2024-09-03 | Outpatient (REF) | payer MEDICARE, MEDICAID ==
[~2024-09-03] MED LIST changes: +ISOS10TA69 PO; -ISOS1TAB12 PO; -ISOS20TA53 PO; +ISOS20TA72 PO
== END ==
LOC: M SFHCCAPE 09:28
PROVIDERS: ATTEND Physician Assistant Medical
DX: R35.0 Frequency of micturition (principal)

== ENCOUNTER → 2024-11-24 | Outpatient (REF) | payer MEDICARE, MEDICAID | LOC: M SFHCCAPE 14:20 | PROVIDERS: ATTEND Physician Assistant Medical | DX: R35.0 Frequency of micturition (principal) ==

== ENCOUNTER → 2025-01-13 | Outpatient (CLI) | payer MEDICARE ==
[~2025-01-13] MED LIST changes: -AMBI10TA PO; +AMLO-751 PO; -AMLO10TA PO; +METH18TA15 PO; -METH18TA6 PO; +METH36TA13 PO; -METH36TA5 PO; +PREG-35 PO; -PREG100CA PO; +ZOLP-533 PO
== END ==
LOC: M RAD 14:26
PROVIDERS: ATTEND Physician Assistant Medical
DX: Z12.2 Encounter for screening for malignant neoplasm of respiratory organs (principal); F17.211 Nicotine dependence, cigarettes, in remission

== ENCOUNTER → 2025-03-24 | Outpatient (REF) | payer MEDICARE, MEDICAID ==
[~2025-03-24] MED LIST changes: +SLOW1TAB3 PO; -SLOWTAB2 PO
== END ==
LOC: M SFHCCAPE 13:40
PROVIDERS: ATTEND Physician Assistant Medical
DX: I10 Essential (primary) hypertension (principal); N39.0 Urinary tract infection, site not specified

== ENCOUNTER → 2025-04-20 | Outpatient (REF) | payer MEDICARE, MEDICAID ==
[2025-04-20 19:10] LABS: ALT/SGPT 17 U/L (7.0-40); AST/SGOT 27 U/L (<34); C REACTIVE PROTEIN QUANTITATIV < 0.50 MG/DL (<1.0); CALCIUM LEVEL 9.0 MG/DL (8.3-10.6); CARBON DIOXIDE LEVEL 28 MMOL/L (20-31); CHLORIDE LEVEL 108 MMOL/L (98-107); CHOLESTEROL LEVEL 199 MG/DL (<200); CHOLESTEROL RISK RATIO 3.71 (<5); CREATININE FOR GFR 0.89 MG/DL (0.55-1.30); GLOMERULAR FILTRATION RATE 69.3 (>39); IRON (FE) 73 UG/DL (50-170); LDL CHOLESTEROL 125.9 MG/DL (<100); NON-HDL-C 145.5 MG/DL; PERCENT SATURATION 28.9 % (13.2-45.0); POTASSIUM SERUM 4.1 MMOL/L (3.5-5.1); SODIUM LEVEL 144 MMOL/L (136-145); TRIGLYCERIDES LEVEL 98 MG/DL (<150)
[2025-04-20 19:11] LABS: BASO # 0.0 10^3/uL (0.0-0.2); BASO % 0.6 % (0.0-1.0); EOS # 0.3 10^3/uL (0.0-0.5); EOS % 4.8 % (0.0-3.0); LYMPH # 2.2 10^3/uL (1.5-5.0); LYMPH % 33.2 % (24.0-44.0); MONO # 0.6 10^3/uL (0.0-0.8); MONO % 9.1 % (2.0-8.0); NEUTROPHILS # 3.4 10^3/uL (1.5-8.5); NEUTROPHILS % 52.1 % (36.0-66.0); PLATELET COUNT, AUTOMATED 208 10^3/uL (150-450)
[2025-04-20 19:13] LABS: VITAMIN B12 LEVEL 304 PG/ML (211-911)
[2025-04-20 19:33] LABS: ERYTHROCYTE SEDIMENTATION RATE 20 mm/hr (0-30)
== END ==
LOC: M SFHCCAPE 10:55
PROVIDERS: ATTEND Physician Assistant Medical
DX: M54.2 Cervicalgia (principal); E78.2 Mixed hyperlipidemia; D50.9 Iron deficiency anemia, unspecified; E53.8 Deficiency of other specified B group vitamins; I10 Essential (primary) hypertension

== ENCOUNTER → 2025-05-24 | Outpatient (REF) | payer MEDICARE, MEDICAID ==
[~2025-05-24] MED LIST changes: +METH-1100 PO; -METH-855 PO; +ZOLP10TA11 PO; -ZOLP10TA2 PO
== END ==
LOC: M SFHCCAPE 13:36
PROVIDERS: ATTEND Physician Assistant Medical
DX: R35.0 Frequency of micturition (principal)

== ENCOUNTER → 2025-08-19 | Outpatient (REF) | payer MEDICARE, MEDICAID ==
[2025-08-19 17:54] LABS: BASO # 0.1 10^3/uL (0.0-0.2); BASO % 0.8 % (0.0-1.0); EOS # 0.1 10^3/uL (0.0-0.5); EOS % 1.8 % (0.0-3.0); LYMPH # 1.7 10^3/uL (1.5-5.0); LYMPH % 23.4 % (24.0-44.0); MONO # 0.6 10^3/uL (0.0-0.8); MONO % 7.9 % (2.0-8.0); NEUTROPHILS # 4.8 10^3/uL (1.5-8.5); NEUTROPHILS % 66.0 % (36.0-66.0); PLATELET COUNT, AUTOMATED 317 10^3/uL (150-450)
[2025-08-19 18:02] LABS: ALT/SGPT 18.0 U/L (7.0-40); AST/SGOT 26.0 U/L (<34); CALCIUM LEVEL 10.2 MG/DL (8.3-10.6); CARBON DIOXIDE LEVEL 29.0 MMOL/L (20-31); CHLORIDE LEVEL 96.0 MMOL/L (98-107); CREATININE FOR GFR 1.45 MG/DL (0.55-1.30); GLOMERULAR FILTRATION RATE 38.6 (>39); MAGNESIUM LEVEL 1.6 MG/DL (1.8-2.4); POTASSIUM SERUM 4.0 MMOL/L (3.5-5.1); SODIUM LEVEL 135.0 MMOL/L (136-145)
== END ==
LOC: M SFHCCAPE 11:48
PROVIDERS: ATTEND Physician Assistant Medical
DX: D64.9 Anemia, unspecified (principal); E83.42 Hypomagnesemia; N30.01 Acute cystitis with hematuria

== ENCOUNTER → 2025-08-30 | Outpatient (REF) | payer MEDICARE, MEDICAID ==
[2025-08-30 18:17] LABS: CALCIUM LEVEL 9.3 MG/DL (8.3-10.6); CARBON DIOXIDE LEVEL 30.0 MMOL/L (20-31); CHLORIDE LEVEL 106.0 MMOL/L (98-107); CREATININE FOR GFR 0.88 MG/DL (0.55-1.30); GLOMERULAR FILTRATION RATE 70.2 (>39); MAGNESIUM LEVEL 1.7 MG/DL (1.8-2.4); POTASSIUM SERUM 3.8 MMOL/L (3.5-5.1); SODIUM LEVEL 144.0 MMOL/L (136-145)
== END ==
LOC: M SFHCCAPE 10:54
PROVIDERS: ATTEND Physician Assistant Medical
DX: R79.89 Other specified abnormal findings of blood chemistry (principal); N17.9 Acute kidney failure, unspecified; E83.42 Hypomagnesemia